=== PATIENT | female | born 1940 | race Caucasian/White ===

== ENCOUNTER 2020-11-24 01:35 | Outpatient (CLI) | payer OTHER, SELFPAY ==
[2020-11-24 09:55] LABS: Abs Immature Grans 0.02 10^3/uL (0.0-0.06); Absolute Basophil Count 0.03 10^3/uL (0.0-0.2); Absolute Eosinophil Count 0.11 10^3/uL (0.0-0.7); Absolute Lymphocyte Count 1.55 10^3/uL (1.2-3.4); Absolute Monocyte Count 0.64 10^3/uL (0.1-0.8); Absolute Neutrophil Count 4.67 10^3/uL (1.2-6.7); Basophils % 0.4; Eosinophils % 1.6; HCT 45.6 % (36.0-46.0); HGB 14.7 g/dL (11.2-15.7); Immature Grans % 0.3; Lymphocytes % 22.1; MCH 32.3 pg (27.0-33.0); MCHC 32.2 % (32.0-36.0); MCV 100.2 fL (80-95); MPV 11.1 fL (8.0-11.0); Monocytes % 9.1; Neutrophils % 66.5; Nucleated RBC 0 %; Platelet Count 205 10^3/uL (130-400); RBC 4.55 10^6/uL (3.93-5.22); RDW 14.6 % (11.7-14.6); RDW-SD 54.6 fL; WBC 7.02 10^3/uL (4.4-10.8)
[2020-11-24 10:10] LABS: ALT 18 U/L (14-59); AST 19 U/L (15-37); Albumin 3.6 g/dL (3.4-5.0); Alkaline Phosphatase 55 U/L (46-116); Anion Gap 6.3 mmol/L (3-11); BUN 15 mg/dL (7-18); Bilirubin, Total 0.5 mg/dL (0.2-1.0); CO2 29.7 mmol/L (21.0-32.0); CREATININE 0.7 mg/dL (0.55-1.02); Calcium 8.8 mg/dL (8.5-10.1); Chloride 106 mmol/L (98-107); Glucose 94 mg/dL (74-106); Potassium 4.3 mmol/L (3.5-5.1); Sodium 142 mmol/L (136-145); Total Protein 7.1 g/dL (6.4-8.2)
== END 2020-11-24 01:36 | disposition home or self-care (01) ==
LOC: LBO 01:35
PROVIDERS: PCP Nurse Practitioner Family; Visit Provider Internal Medicine
DX: Z85.3 Personal history of malignant neoplasm of breast (principal)
CPT/HCPCS: 36415; 80053; 85025

== ENCOUNTER 2020-11-26 03:16 | Outpatient (CLI) | payer OTHER, SELFPAY ==
--- NOTE | 2020-11-26 13:55 | DI.US_ITS ---
APPROVED REPORT EXAM: Comprehensive 2D, Doppler, and color-flow Echocardiogram Patient Location: Out-Patient Superintendent Overhead Distribution: Cheyenne Proctor RDCS (AE) Indications: Chronic thromboembolic disease, Other Information Study Quality: Adequate Conclusion Normal left ventricular wall thickness and chamber size. Estimated ejection fraction is 55 to 60%. Th ere are no segmental wall motion abnormalities Normal right ventricular size and systolic function Left atrium is mildly dilated. The right atrium is normal in size There are no structural or hemodynamically significant valvular abnormalities Mildly dilated ascending aorta Normal estimated right ventricular systolic pressure 26 mmHg Wall motion Left Ventricle The left ventricle is normal size. The left ventricular systolic function is normal. The left ventric ular ejection fraction is within the normal range. There is normal left ventricular wall thickness. T here is normal LV segmental wall motion. There is no ventricular septal defect visualized. LVEF is 55 -60%. Right Ventricle The right ventricle is normal size. The right ventricular systolic function is normal. The RVSP is 26 .4mmHg. Atria Left atrium is mildly dilated. The right atrium size is normal. The interatrial septum is intact with no evidence for an atrial septal defect. Aortic Valve The aortic valve is normal in structure. Aortic valve is trileaflet. There is no aortic valvular sten osis. No aortic regurgitation is present. Mitral Valve The mitral valve is normal in structure. No evidence of mitral valve stenosis. Trace mitral regurgita tion. Tricuspid Valve The tricuspid valve is normal in structure. There is no tricuspid valve stenosis. Trace tricuspid reg urgitation. Pulmonic Valve The pulmonary valve is normal in structure. There is no pulmonic valvular stenosis. Trace pulmonic re gurgitation. Great Vessels The aortic root is normal in size. The ascending aorta is mildly dilated. IVC is normal in size and c ollapses >50% with inspiration. Pericardium There is no pericardial effusion. 2D Dimensions IVSD d PLAX 0.82 cm F: 0.6-1.0 LV Vol A2C d MOD 69.0 mL LVPW d PLAX 0.81 cm F: 0.6 - 1.0 LV Vol A4C d MOD 65.1 mL LVID d PLAX 4.40 cm F: 3.8 - 5.2 LA vol/ BSA A2C s A-L 26.0 mL/m2 LVDs 2.95 cm F: 2.2 - 3.5 LA vol/ BSA A4C s A-L 18.4 mL/m2 Ao Root d 2.79 cm F: 2.7 - 3.3 LA Vol/ BSA Biplane s A-L 22.6 mL/m2 RA Area A4C 8.74 cm2 LA Area A4C s MOD 13.58 cm2 RA Vol/ BSA A4C s A-L 10.0 mL/m2 LA Area A2C s MOD 16.64 cm2 Ao Asc Diam d 3.62 cm F: 2.3 - 3.1 LV EF A4C MOD 58.3 % LV EF Teichholz 61.6 % LV EF A2C MOD 59.4 % LVEF (Truong's) 58.63 % F: 54 - 74 LV EF Biplane MOD 58.6 % LV Volume 53.34 mL F: 46 - 106 SV 39.48 mL LV Volume Index 31.19 mL/m2 F: 29 - 61 SV Index 23.07 mL/m2 LV Vol Biplane MOD 67.3 mL FS 32.90 % M-Mode TAPSE 2.07 cm (M/F) >1.7 LV Diastology MV E' medial 0.072 (>0.07 m/s) E/A Ratio 0.9 LV E/e MED 9.10 (<14) MV E Vmax 0.66 (0.4-1.3 m/s) MV E' lateral 0.087 (>0.1 m/s) MV A Vmax 0.75 (0.4-1.3 m/s) LV E/e LAT 7.55 (<14) MV E/A Ratio 0.84 MV E/E' medial 9.10 MV E/E' lateral 7.57 Aortic Valve LVOT Area 2.94 cm2 AoV Area Vmax 2.89 cm2 LVOT Vmax 1.07 m/s AoV Area/ BSA (Vmax) 1.69 cm2/m2 LVOT Mean Diaz. 0.67 m/s JOANNA Mean Diaz. 2.61 cm2 LVOT Peak Grad 4.6 mmHg JOANNA Mean Diaz. Index 1.52 cm2/m2 LVOT Mean Grad 2.1 mmHg LVOT VTI 0.210 m LVOT Diam s 1.90 cm AoV Vmax 1.08 m/s Velocity Ratio 0.99 AoV Mean Diaz. 0.75 m/s AoV Peak Grad 4.7 mmHg LVOT SV 61.73 mL AoV Mean Grad 2.5 mmHg AoV VTI 0.253 m AoV Area VTI 2.44 cm2 AoV Area/ BSA (VTI) 1.42 cm/m2 Mitral Valve MV DT 296 (160-240 msec) MR Vmax 3.99 m/s MV PHT 86 msec MR VTI 1.290 m MV Area PHT 2.56 cm2 MR Peak Grad 63.8 mmHg MV VTI 0.297 m MR Mean Grad 55.5 mmHg MV VTI Annulus 0.285 m MV Area VTI 2.00 (4.0-6.0 cm2) Pulmonary Valve PV Vmax 0.79 (0.5-1.5 m/s) RVOT Peak Gr. 1.12 mmHg PV Peak Grad 2.5 mmHg RVOT Mean Gr. 0.65 mmHg PV Mean Grad 1.3 mmHg RVOT VTI 0.124 m PV VTI 0.148 m RVOT Vmax 0.53 m/s Tricuspid Valve TR Peak Grad 23.4 mmHg TR Vmax 2.42 m/s RA Pressure 3.00 mmHg RVSP (TR) 26.4 mmHg
== END 2020-11-26 03:36 ==
PROVIDERS: PCP Nurse Practitioner Family; Visit Provider Student in an Organized Health Care Education/Training Program
DX: I82.891 Chronic embolism and thrombosis of other specified veins (principal); I77.810 Thoracic aortic ectasia; I51.7 Cardiomegaly
CPT/HCPCS: 93306

== ENCOUNTER 2020-11-27 03:03 | Outpatient (CLI) | payer MEDICARE, SELFPAY ==
[2020-11-27] MEDS: Albuterol HFA 18 GM 200 PUFF INH IH (11:26)
[2020-11-27] MEDS: Inhaler, Assist Device 1 EACH MC (11:27)
--- NOTE | 2020-12-02 17:46 | W.PFT ---
Date of service: 11/27/20 Time of Service: 10:10 Pulmonary Function Test Result Requesting Provider Sissy Dewitt Indications: COPD Interpretation Spirometry: There is moderate airflow limitation. There is no significant bronchodilator effect. Lung Volumes: Lung volumes are normal. Diffusion Capacity: There is a reduced diffusion capacity Airway Pressure: Airways resistance is elevated Impression Moderate airflow limitation with a reduced diffusion capacity could represent COPD with emphysema in the correct clinical context. Clinical Correlation therefore is recommended.
== END 2020-11-27 03:04 | disposition home or self-care (01) ==
LOC: RT 03:03
PROVIDERS: PCP Nurse Practitioner Family; Visit Provider Nurse Practitioner Family
DX: J44.9 Chronic obstructive pulmonary disease, unspecified (principal); R06.09 Other forms of dyspnea; Z86.711 Personal history of pulmonary embolism; Z87.891 Personal history of nicotine dependence; R94.2 Abnormal results of pulmonary function studies
CPT/HCPCS: 94060; 94726; 94729

== ENCOUNTER 2021-02-25 03:13 | Outpatient (CLI) | payer MEDICARE, SELFPAY | END 2021-02-25 03:14 | disposition home or self-care (01) | LOC: LBO 03:13 | PROVIDERS: PCP Nurse Practitioner Family; Visit Provider Student in an Organized Health Care Education/Training Program ==

== ENCOUNTER 2021-02-26 04:28 | Outpatient (CLI) | payer MEDICARE, SELFPAY ==
[2021-03-02 13:51] LABS: Result Negative; Specimen Source Sputum
== END 2021-02-26 04:29 | disposition home or self-care (01) ==
LOC: LBO 04:28
PROVIDERS: PCP Nurse Practitioner Family; Visit Provider Student in an Organized Health Care Education/Training Program
DX: B38.89 Other forms of coccidioidomycosis (principal)
CPT/HCPCS: 36415; 87798

== ENCOUNTER 2021-03-11 16:05 | Outpatient (REF) | payer MEDICARE, SELFPAY ==
[2021-03-11 16:58] LABS: Folate 18.6 ng/mL (8.6-20.0); TSH (W/Ref FT4) 1.47 uIU/mL (0.36-3.74)
[2021-03-11 17:02] LABS: Vitamin B12 > 2000 pg/mL (193-986)
== END 2021-03-11 16:06 | disposition home or self-care (01) ==
LOC: NCHCN 16:05
PROVIDERS: PCP Nurse Practitioner Family; Visit Provider Family Medicine
DX: E03.9 Hypothyroidism, unspecified (principal); R10.9 Unspecified abdominal pain; R53.83 Other fatigue
CPT/HCPCS: 82607; 82746; 84443

== ENCOUNTER 2021-06-16 12:42 | Emergency (ER) | payer MEDICARE, SELFPAY ==
[2021-06-16] VITALS (24 sets, daily range): BP systolic 118–151; BP diastolic 64–105; PULSE 55–78; RESP 14–29; TEMP 36.6; O2SAT 95–98
--- NOTE | 2021-06-16 13:17 | ED.GENADUL_ITS ---
Discharge Plan Disposition Patient Disposition: HOME Condition: Stable Discharge Details Clinical Impression: Traumatic hematoma of left upper arm, Contusion of rib on left side, Contusion of right hand Primary Care Provider: Lore Kaiser ED Provider: Raquel Mesa Home Meds and New Rx's Prescriptions: Continued omeprazole 20 mg capsule,delayed release(DR/EC) 20 mg PO DAILY 0RF Xarelto 20 mg tablet 20 mg PO DAILY 0RF Rx Instructions: must administer with evening meal simvastatin 40 mg tablet 40 mg PO DAILY 0RF levothyroxine 25 mcg tablet 25 mcg PO DAILY 0RF vitamin Z40-qxeim acid 500-400 mcg tablet 2 tab PO DAILY 0RF Rx Instructions: administer with a meal biotin 5 mg capsule 5 mg PO DAILY 0RF vitamin d3 folic acid capsule 5000 PO DIRECTED 0RF Trelegy Ellipta 100-62.5-25 mcg blister with device 1 inh inhalation DAILY Qty: 3 1RF Discharge Instructions Additional Instructions: You have a large hematoma which is a collection of blood in the soft tissue of your left upper arm. This is being wrapped in a soft dressing for protection and to help decrease the amount of swelling. Be careful not to bump your arm and use any assistance if needed to prevent falls and further injury to your arm including bleeding of your hematoma. The CT scan of your lungs noted nodules within the right upper and left upper lobes. It is recommended that you follow-up for repeat imaging of these areas for continued monitoring. The remainder of your imaging showed no evidence of acute concerning or significant findings. Take Tylenol as needed and directed for pain. Take the oxycodone for pain not relieved with tylenol. Call your primary care doctor's office today to schedule follow-up appointment for reevaluation. Return immediately to the emergency department if you develop any worsening or new concerning symptoms. Discharge Data Discharge Date/Time-TO BE ENTERED AT DEPARTURE: 06/16/21 17:51 Discharge Physician: Raquel Mesa Medical Decision Making 1250 -- 80-year-old female with a history of hyperlipidemia, sleep apnea, arthritis, anemia, COPD, DVT on Xarelto who presents with left arm and rib pain after fell against a wall while attempting to catch a baseball during exercise class prior to arrival. States she also fell onto her outstretched right hand and right buttock. She has faint ecchymosis to her right palmar hand and pain with range of motion at the right hip. She has what appears to be a significantly large hematoma to the left lateral upper arm. She has tenderness to palpation to her left lateral ribs. Her lungs are clear, her abdomen is soft and nontender and she has no midline spinal tenderness. As she denies any head injury will hold on CT imaging. No midline spinal tenderness. Will obtain CT chest abdomen pelvis to rule out rib fracture and assess right hip. Will obtain x-rays of the left shoulder and humerus and right hand. We will give a dose of oxycodone. 1500 -- CT chest /abdomen/pelvis notes: IMPRESSION: 1. No significant acute trauma sequelae in the chest, abdomen, and pelvis, realized limitations of a noninfused study 2. Compression fractures of T10 and L1, probably not acute. 3. Extensive sigmoid diverticulosis without evidence of obvious acute diverticulitis. 4.? Incidentally noted is a 7 millimeter noncalcified nodule in the anterior segment of the right upper lobe and a 6 millimeter nodule in the anterior segment of the left upper lobe.? These require close follow-up of these significant incidental findings in the chest. Remainder of imaging negative for acute findings. L upper arm hematoma discussed with orthopedics who recommended soft compression dressing to help with swelling with recommendations to monitor for bleeding. Results d/w patient who states she was aware of the lung nodules and compression fractures. 1800 -- Pt c/o persistent pain and was given an additional dose of oxycodone and her pain improved and she was able to ambulate and felt comfortable going home. Pt's daughter will transport pt home. Pt hemodynamically stable. Advised to follow up with the primary care doctor for re-evaluation. Usual and customary return precautions given prior to discharge. Medical Records Medical records reviewed: Yes I reviewed the patient's medical records. Imaging Data Radiologic Study: Radiologist's impression: CT CHEST/ABD/PEL WO CLINICAL HISTORY: ? fall against a fall, pain L rib, r/o fx. ? TECHNIQUE:? Imaging Protocol: Axial computed tomography images with coronal and sagittal reformatted images were created and reviewed CONTRAST MATERIAL:? Intravenous: none Oral: None COMPARISON:? No exams were available for comparison FINDINGS: CHEST: LUNGS: There are mild benign-appearing increased markings in left lung.? No large lung contusion.? No pleural effusions.? No pneumothorax..? Incidentally noted is a 7 millimeter noncalcified nodule in the anterior segment of the right upper lobe.? Another 6 millimeter nodule seen in the anterior segment of the left upper lobe..? There are no significant focal findings in the trachea and mainstem bronchi. MEDIASTINUM: No evidence of mediastinal hematoma.? No hilar nor mediastinal adenopathy.? Visualized thyroid unremarkable. CARDIAC: Heart size is normal.? There is no pericardial effusion.Caliber of the thoracic aorta is within normal limits. OSSEOUS: No significant osseous lesions.. ABDOMEN: There is no ascites.? No evidence of mesenteric nor bowel wall hematoma. LIVER: No evidence of a patent laceration.? No obvious significant focal hepatic findings realized limitations of a noninfused study.? Does appear to be a small cyst in the anterior aspect of the right hepatic lobe measuring 7 millimeters. GALLBLADDER/BILIARY: No obvious gallbladder pathology.? CBD is not dilated. PANCREAS: No evidence of obvious pancreatic mass nor dilatation of the pancreatic duct.? SPLEEN: Spleen is not enlarged.? No obvious intrasplenic lesions.? ADRENALS: There are no significant adrenal masses. KIDNEYS: No calculi nor hydronephrosis. No obvious solid renal masses. No cysts evident. ABDOMINAL AORTA: Abdominal aorta is not enlarged. LYMPH NODES: There is no retroperitoneal nor para-aortic adenopathy. ABDOMINAL WALL/GI: No evidence of significant anterior abdominal wall nor inguinal hernia.? No evidence of bowel obstruction. PELVIS:? LYMPH NODES: There is no intrapelvic nor inguinal adenopathy. GI: No evidence of appendicitis.? The sigmoid is quite redundant and there is extensive diverticulosis but no evidence of obvious acute diverticulitis. URINARY BLADDER: No calculi nor obvious masses evident REPRODUCTIVE: Age appropriate OSSEOUS: No significant osseous lesions. There is a compression fracture of L1 vertebral body, with approximately 20 percent height loss.? Also compression fracture of the T10 vertebral body.? These fractures are probably not acute. IMPRESSION: 1. No significant acute trauma sequelae in the chest, abdomen, and pelvis, realized limitations of a noninfused study 2. Compression fractures of T10 and L1, probably not acute. 3. Extensive sigmoid diverticulosis without evidence of obvious acute diverticul itis. 4.? Incidentally noted is a 7 millimeter noncalcified nodule in the anterior segment of the right upper lobe and a 6 millimeter nodule in the anterior segment of the left upper lobe.? These require close follow-up of these significant incidental findings in the chest. XR SHOULDER LT COMPLETE 2+V CLINICAL HISTORY: ? fall against wall, r/o fx. ? TECHNIQUE:? 2D digital imaging was performed. COMPARISON:? No exams were available for comparison FINDINGS: Five views No evidence of acute fracture or dislocation.? Subacromial space appears unremarkable without significant narrowing and without calcifications therein.? AC joint also appears unremarkable.? Bone density is age-appropriate.? No osseous lesions. IMPRESSION: No fracture or dislocation evident. XR HUMERUS LT CLINICAL HISTORY: ? fall against wall, r/o fracture/hematoma. ? TECHNIQUE:? 2D digital imaging was performed. COMPARISON:? No exams were available for comparison FINDINGS: Two views There is abundant abnormal density in the subcutaneous fat, most probably bruising-hematoma given the trauma history here. However, there is no evidence of suggests into humerus fracture.? IMPRESSION: Soft tissue swelling and subcutaneous hematoma in the left upper extremity but no evidence of humerus fracture. XR HAND RT COMPLETE CLINICAL HISTORY: ? fall on outstretched hand, r/o fx. ? TECHNIQUE:? 2D digital imaging was performed. COMPARISON:? No exams were available for comparison FINDINGS: Four views No evidence acute fracture nor dislocation.? Significant degenerative changes are noted at the 1st carpometacarpal joint.? No erosions.? Bone density is age- appropriate.? No radiopaque foreign body IMPRESSION: No acute fracture evident. HPI General Mode of arrival: EMS . Date/Time Provider Initiated Documentation: 06/16/21 13:17 . Information obtained by: patient . HPI Narrative: Patient is an 80-year-old female with a history of sleep apnea, hyperlipidemia, arthritis, anemia, COPD and DVT on Xarelto who presents to the ED with left arm and rib pain after fall while playing with a beach ball in exercise class. Patient states she was attempting to catch a beach ball and she lunged forward forward striking her left arm against a wall. She states her left ribs hit against her left arm. Patient states she also fell on her outstretched right hand and possibly on her right buttock. She denies head injury, headache, LOC, nausea, vomiting, neck pain, anterior chest pain, abdominal pain or back pain. She took Tylenol prior to arrival without relief. Related Data Home Medications Medication Instructions Recorded Confirmed biotin 5 mg capsule 5 mg PO DAILY 09/23/20 06/16/21 levothyroxine 25 mcg tablet 25 mcg PO DAILY 09/23/20 06/16/21 rivaroxaban 20 mg tablet (Xarelto) 20 mg PO DAILY 09/23/20 06/16/21 simvastatin 40 mg tablet 40 mg PO DAILY 09/23/20 06/16/21 vitamin B12 500 mcg-folic acid 400 2 tab PO DAILY tab 09/23/20 06/16/21 mcg tablet vitamin d3 folic acid capsule 5000 PO DIRECTED 09/23/20 04/29/21 fluticasone fur. 100 mcg-umeclid 1 inh INHALATION DAILY #3 ea 11/18/20 06/16/21 62.5 mcg-vilant 25 mcg inhalat.powder (Trelegy Ellipta) omeprazole 20 mg capsule,delayed 20 mg PO DAILY 04/29/21 06/16/21 release Previous Rx's Medication Instructions Recorded fluticasone fur. 100 mcg-umeclid 1 inh INHALATION DAILY #3 ea 11/18/20 62.5 mcg-vilant 25 mcg inhalat.powder (Trelegy Ellipta) Allergies Allergy/AdvReac Type Severity Reaction Status Date / Time Sulfa (Sulfonamide Allergy Verified 06/16/21 12:50 Antibiotics) General Stated Complaint: Orthopedic SAWYER: 3 Review of Systems All systems reviewed & are unremarkable except as noted in HPI and below Constitutional Constitutional: Denies chills, Denies excessive sweating, Denies fatigue, Denies fever(s), Denies weakness and Denies weight loss Eyes Eyes: Reports system reviewed and no additional complaints, except as documented and Denies blurry vision ENT Ears, Nose, Mouth, and Throat: Denies vertigo, Denies dizziness, Denies otalgia, Denies nasal congestion, Denies sore throat and Denies throat swelling Cardiovascular Cardiovascular: Denies chest pain, Denies syncope, Denies rapid heart rate and Denies dyspnea Respiratory Respiratory: Denies chest congestion, Denies cough, Denies pain on inspiration and Denies dyspnea Gastrointestinal Gastrointestinal: Denies abdominal pain, Denies diarrhea and Denies vomiting Genitourinary Genitourinary: Denies hematuria, Denies dysuria and Denies flank pain Musculoskeletal Musculoskeletal: Denies back pain and Denies joint swelling Comments: L upper arm pain, L rib pain, R hip/buttock pain Integumentary/Breasts Skin/Breast: Denies lesions and Denies rash Neurologic Neurologic: Denies behavioral changes, Denies confusion, Denies vertigo, Denies dizziness, Denies syncope, Denies localized weakness and Denies weakness Psychiatric Psychiatric: Denies behavioral changes, Denies confusion and Denies depression Endocrine Endocrine: Denies excessive sweating and Denies fatigue Hematologic/Lymphatic Hematologic/Lymphatic: Denies easy bruising and Denies lymphadenopathy Allergic/Immunologic Allergic/Immunologic: Denies throat swelling PFSH All Active Problems (Updated 06/16/21 @ 15:39 by Raquel Mesa DO) Traumatic hematoma of left upper arm (Acute) Contusion of rib on left side (Acute) Contusion of right hand (Acute) CESAR (obstructive sleep apnea) (Chronic) Coccidioidomycosis (Acute) Chronic thromboembolic disease (Acute) DVT (deep venous thrombosis) (Chronic) Arthritis (Acute) Anemia (Chronic) Thyroid disease (Acute) COPD with emphysema (Acute) Medical History (Updated 06/16/21 @ 15:39 by Raquel Mesa DO) Bleeding disorder Cancer High cholesterol History of blood clots RVF ([place] fever) Sleep apnea Surgical History (Updated 10/07/20 @ 09:20 by Mariana Lewis) Cataract History of lumpectomy 10/22/2016 Family History (Updated 10/07/20 @ 09:15 by Mariana Lewis) Mother Asthma Father Stroke at 69 Sister Breast cancer Breast and lung cancer. at 71. Social History (Updated 10/07/20 @ 09:16 by Mariana Lewis) Smoking/Tobacco Use Status: Former Tobacco Use Quit Date: 02/15/76 Pack-years: 13 Smoking risk assessment performed?: Yes Alcohol Intake: current Alcohol Intake frequency: a few times a week Alcohol type: wine Drug use: Never Substance use type: does not use Do you feel safe at home: Yes Do you feel safe in your relationship?: Yes Exam Const General: cooperative and uncomfortable Orientation: alert, awake and oriented x3 HENMT Head: normal to inspection Ears: hearing grossly normal bilaterally and external ears normal General nose exam: external nose normal Face and sinus: normal facial exam Mouth: oral mucosae normal Teeth and gingiva: dentition normal Throat: posterior oropharynx normal Eyes General: appearance normal, both eyes and all related structures Eyelids: eyelids normal Pupils: PERRL EOM: EOM intact bilaterally Neck Neck: normal visual inspection, no lymphadenopathy, no meningeal signs, trachea midline, supple, no anterior neck swelling and No submandibular swelling Lymphatic: no lymphadenopathy noted Chest Chest: normal inspection of the chest and normal palpation of entire chest wall Chest/axillae images: 1. Tenderness to palpation to left lateral ribs. There is no ecchymosis, edema, erythema, step-off, rash or lesions. Resp Effort & Inspection: normal respiratory effort and able to speak in complete sentences Auscultation: clear to auscultation bilaterally Cardio Rate: regular rate Rhythm: regular rhythm GI Inspection: normal to inspection and no abdominal wall ecchymosis Palpation: soft, not firm, no guarding, no hepatosplenomegaly, no masses and nontender Auscultation: hypoactive bowel sounds Back/Spine/Pelvis Back: no CVA tenderness Cervical Spine: No cervical spinal tenderness Thoracic/Lumbar Spine: No thoracic spinal tenderness and No lumbar spinal tenderness Back/spine/pelvis image: 1. Tenderness to palpation. No edema, erythema, ecchymosis, step-off, rash or lesions. Skin General skin exam: no rashes or lesions noted Neuro General: patient alert and patient awake Cognition: normal cognition Speech: speech normal Gait: normal gait Motor: muscle tone normal throughout Sensory Exam: no sensory deficits noted Extrem Shoulder/upper arm images: 1. Large indurated mass with central ecchymosis, approximately 10 x 6 cm in size. Tender to palpation. No drainage or bleeding. No crepitus. Hand/finger images: 1. Faint ecchymosis, tenderness to palpation and pain with range of motion to base of right palmar hand. Other: Pain in left anterior shoulder with range of motion and palpation. Pain in right hip and right buttocks with range of motion of right hip. There is no o bvious evidence of trauma to the right hip or buttock. No pain with range of motion in left hip, bilateral knees, ankles or feet. Remainder of right upper and left upper extremities unremarkable. Bilateral distal pulses intact. Psych Appearance: grossly normal Mental Status: mental status grossly normal Speech and Movement: speech and movement normal Affect: normal affect Thought Process: normal Course Vital Signs Vital signs: Vital Signs Temperature 97.9 F 06/16/21 12:45 Pulse 63 06/16/21 12:45 Respiratory Rate 17 06/16/21 12:45 Blood Pressure 151/73 H 06/16/21 12:45 Pulse Oximetry 96 06/16/21 12:45 Temperature 97.9 F 06/16/21 12:45 Temperature Source Temporal Artery Scan 06/16/21 12:45 Pulse 63 06/16/21 12:45 Respiratory Rate 17 06/16/21 12:45 Respiratory Effort Non-Labored 06/16/21 12:48 Blood Pressure 151/73 H 06/16/21 12:45 Blood Pressure Position Sitting 06/16/21 12:45 Pulse Oximetry 96 06/16/21 12:45 Oxygen Delivery Method Room Air 06/16/21 12:45 Oxygen Flow Rate 0 06/16/21 12:45 Pain Level 57 06/16/21 12:45 PAWSS Have you Been Recently Intoxicated or Drunk Within the Last 30 days?: No Have you Ever Experienced Previous Episodes of Alcohol Withdrawal?: No Have you ever Experienced Withdrawal Seizures?: No Have you ever Experienced Delirium Tremens(DT)s?: No Have you ever undergone Alcohol Rehabilitation Treatment (i.e, inpt ot outpatient treatment programs)?: No Have you ever Experienced Blackouts?: No Have you ever Combined Alcohol with other Downers within the last 90 days?: No Have you ever Combined Alcohol with any other Substance of Abuse during the last 90 days?: No Result: 0
--- NOTE | 2021-06-16 13:30 | DI.CT_ITS ---
Exam(s) CT CHEST/ABD/PEL WO EXAM: CT CHEST/ABD/PEL WO CLINICAL HISTORY: fall against a fall, pain L rib, r/o fx. TECHNIQUE: Imaging Protocol: Axial computed tomography images with coronal and sagittal reformatted images were created and reviewed CONTRAST MATERIAL: Intravenous: none Oral: None COMPARISON: No exams were available for comparison FINDINGS: CHEST: LUNGS: There are mild benign-appearing increased markings in left lung. No large lung contusion. No pleural effusions. No pneumothorax.. Incidentally noted is a 7 millimeter noncalcified nodule in t he anterior segment of the right upper lobe. Another 6 millimeter nodule seen in the anterior segmen t of the left upper lobe.. There are no significant focal findings in the trachea and mainstem bronc hi. MEDIASTINUM: No evidence of mediastinal hematoma. No hilar nor mediastinal adenopathy. Visualized t hyroid unremarkable. CARDIAC: Heart size is normal. There is no pericardial effusion.Caliber of the thoracic aorta is wit hin normal limits. OSSEOUS: No significant osseous lesions.. ABDOMEN: There is no ascites. No evidence of mesenteric nor bowel wall hematoma. LIVER: No evidence of a patent laceration. No obvious significant focal hepatic findings realized li mitations of a noninfused study. Does appear to be a small cyst in the anterior aspect of the right hepatic lobe measuring 7 millimeters. GALLBLADDER/BILIARY: No obvious gallbladder pathology. CBD is not dilated. PANCREAS: No evidence of obvious pancreatic mass nor dilatation of the pancreatic duct. SPLEEN: Spleen is not enlarged. No obvious intrasplenic lesions. ADRENALS: There are no significant adrenal masses. KIDNEYS: No calculi nor hydronephrosis. No obvious solid renal masses. No cysts evident. ABDOMINAL AORTA: Abdominal aorta is not enlarged. LYMPH NODES: There is no retroperitoneal nor para-aortic adenopathy. ABDOMINAL WALL/GI: No evidence of significant anterior abdominal wall nor inguinal hernia. No evidence of bowel obstruction. PELVIS: LYMPH NODES: There is no intrapelvic nor inguinal adenopathy. GI: No evidence of appendicitis. The sigmoid is quite redundant and there is extensive diverticulosi s but no evidence of obvious acute diverticulitis. URINARY BLADDER: No calculi nor obvious masses evident REPRODUCTIVE: Age appropriate OSSEOUS: No significant osseous lesions. There is a compression fracture of L1 vertebral body, with approximately 20 percent height loss. Als o compression fracture of the T10 vertebral body. These fractures are probably not acute. IMPRESSION: 1. No significant acute trauma sequelae in the chest, abdomen, and pelvis, realized limitations of a noninfused study 2. Compression fractures of T10 and L1, probably not acute. 3. Extensive sigmoid diverticulosis without evidence of obvious acute diverticulitis. 4. Incidentally noted is a 7 millimeter noncalcified nodule in the anterior segment of the right upp er lobe and a 6 millimeter nodule in the anterior segment of the left upper lobe. These require clos e follow-up of these significant incidental findings in the chest. RADIATION DOSE DELIVERED: 1,278.32mGy.cm Total DLP DATA REPOSITORY: All CT scans at this facility are submitted to the National Radiology Data Registry (NRDR) Dose Index Registry (DIR) with the [employer] (ACR). RADIATION OPTIMIZATION: All CT scans at this facility use at least one of these dose optimization te chniques: automated exposure control; mA and/or kV adjustment per patient size (includes targeted exa ms where dose is matched to clinical indication); or iterative reconstruction.
--- NOTE | 2021-06-16 15:02 | DI.RAD_ITS ---
Exam(s) XR HAND RT COMPLETE EXAM: XR HAND RT COMPLETE CLINICAL HISTORY: fall on outstretched hand, r/o fx. TECHNIQUE: 2D digital imaging was performed. COMPARISON: No exams were available for comparison FINDINGS: Four views No evidence acute fracture nor dislocation. Significant degenerative changes are noted at the 1st ca rpometacarpal joint. No erosions. Bone density is age-appropriate. No radiopaque foreign body IMPRESSION: No acute fracture evident. DATA REPOSITORY: RADIATION DOSE DELIVERED:
--- NOTE | 2021-06-16 15:02 | DI.RAD_ITS ---
Exam(s) XR HUMERUS LT EXAM: XR HUMERUS LT CLINICAL HISTORY: fall against wall, r/o fracture/hematoma. TECHNIQUE: 2D digital imaging was performed. COMPARISON: No exams were available for comparison FINDINGS: Two views There is abundant abnormal density in the subcutaneous fat, most probably bruising-hematoma given the trauma history here. However, there is no evidence of suggests into humerus fracture. IMPRESSION: Soft tissue swelling and subcutaneous hematoma in the left upper extremity but no evidence of humerus fracture. DATA REPOSITORY: RADIATION DOSE DELIVERED:
--- NOTE | 2021-06-16 15:02 | DI.RAD_ITS ---
Exam(s) XR SHOULDER LT COMPLETE 2+V EXAM: XR SHOULDER LT COMPLETE 2+V CLINICAL HISTORY: fall against wall, r/o fx. TECHNIQUE: 2D digital imaging was performed. COMPARISON: No exams were available for comparison FINDINGS: Five views No evidence of acute fracture or dislocation. Subacromial space appears unremarkable without signifi cant narrowing and without calcifications therein. AC joint also appears unremarkable. Bone density is age-appropriate. No osseous lesions. IMPRESSION: No fracture or dislocation evident. DATA REPOSITORY: RADIATION DOSE DELIVERED:
[2021-06-16] MEDS: oxyCODONE 5 MG TAB PO ×2 (15:30→16:52)
== END 2021-06-16 17:51 | disposition home or self-care (01) ==
PROVIDERS: Emergency Provider Physician Assistant; PCP Family Medicine
DX: S40.022A Contusion of left upper arm, initial encounter (principal); S20.212A Contusion of left front wall of thorax, initial encounter; S60.221A Contusion of right hand, initial encounter; W18.39XA Other fall on same level, initial encounter; R91.8 Other nonspecific abnormal finding of lung field
CPT/HCPCS: 71250; 99284; 73030; 73060; 73130; 74176

== ENCOUNTER 2021-06-23 01:49 | Outpatient (CLI) | payer MEDICARE, SELFPAY ==
[2021-06-23 15:00] LABS: Abs Immature Grans 0.03 10^3/uL (0.0-0.06); Absolute Basophil Count 0.03 10^3/uL (0.0-0.2); Absolute Eosinophil Count 0.04 10^3/uL (0.0-0.7); Absolute Lymphocyte Count 1.06 10^3/uL (1.2-3.4); Absolute Monocyte Count 0.82 10^3/uL (0.1-0.8); Absolute Neutrophil Count 7.29 10^3/uL (1.2-6.7); Basophils % 0.3; Eosinophils % 0.4; HCT 43.8 % (36.0-46.0); HGB 13.9 g/dL (11.2-15.7); Immature Grans % 0.3; Lymphocytes % 11.4; MCH 32.3 pg (27.0-33.0); MCHC 31.7 % (32.0-36.0); MCV 102 fL (80-95); MPV 10.9 fL (8.0-11.0); Monocytes % 8.8; Neutrophils % 78.8; Platelet Count 200 10^3/uL (130-400); RDW 14.3 % (11.7-14.6); RDW-SD 53.7 fL; WBC 9.27 10^3/uL (4.4-10.8)
[2021-06-23 15:14] LABS: ALT 22 U/L (14-59); AST 19 U/L (15-37); Albumin 3.3 g/dL (3.4-5.0); Alkaline Phosphatase 51 U/L (46-116); Anion Gap 6.7 mmol/L (3-11); BUN 21 mg/dL (7-18); Bilirubin, Total 0.7 mg/dL (0.2-1.0); CO2 28.3 mmol/L (21.0-32.0); CREATININE 1.1 mg/dL (0.55-1.02); Calcium 8.9 mg/dL (8.5-10.1); Chloride 107 mmol/L (98-107); Estimated GFR 47.67 (mL/min/1.73m2); Glucose 157 mg/dL (74-106); Potassium 4.1 mmol/L (3.5-5.1); Sodium 142 mmol/L (136-145); Total Protein 6.7 g/dL (6.4-8.2)
== END 2021-06-23 01:50 | disposition home or self-care (01) ==
LOC: LBO 01:50
PROVIDERS: PCP Family Medicine; Visit Provider Internal Medicine
DX: Z85.3 Personal history of malignant neoplasm of breast (principal)
CPT/HCPCS: 36415; 80053; 85025

== ENCOUNTER 2021-06-23 16:24 | Inpatient (IN) | payer MEDICARE, SELFPAY ==
[2021-06-23] VITALS (84 sets, daily range): BP systolic 97–120; BP diastolic 55–95; PULSE 62–150; RESP 13–31; TEMP 36.3; O2SAT 90–97
--- NOTE | 2021-06-23 16:15 | RT.EKG_ITS ---
APPROVED REPORT Exam: Resting ECG Reason for Exam: new onset afib Patient Location: E HR:140 bpm ECG Measurements Heart Rate 140 AXIS VA [id number] P [id number] QRSd 72 QRS 16 QT 297 T -31 QTc 455 Conclusion Atrial fibrillation...? atrial activity Repolarization abnormality, prob rate related...ST dep, T neg, tachycardia
--- NOTE | 2021-06-23 16:45 | DI.RAD_ITS ---
Exam(s) XR PORTABLE CHEST AP EXAM: XR PORTABLE CHEST AP CLINICAL HISTORY: shortness of breath TECHNIQUE: 2D digital imaging was performed. COMPARISON: CT CT CHEST/ABD/PEL WO from 06/16/2021 CR XR SHOULDER LT COMPLETE 2+V from 06/16/2021 CR XR HUMERUS LT from 06/16/2021 FINDINGS: There is a small left pleural effusion, not seen on previous chest CT. There are left sided rib frac tures. There is no visible pneumothorax. The heart size is within normal limits. The right lung ap pears clear. Surgical clips overlie the right lower lung field. Mild underlying interstitial change s. Degenerative changes are noted in the spine. IMPRESSION: Small left pleural effusion. Left rib fractures DATA REPOSITORY: RADIATION DOSE DELIVERED:
[2021-06-23 16:54] LABS: Abs Immature Grans 0.03 10^3/uL (0.0-0.06); Absolute Basophil Count 0.04 10^3/uL (0.0-0.2); Absolute Eosinophil Count 0.02 10^3/uL (0.0-0.7); Absolute Lymphocyte Count 0.83 10^3/uL (1.2-3.4); Absolute Monocyte Count 0.66 10^3/uL (0.1-0.8); Absolute Neutrophil Count 6.31 10^3/uL (1.2-6.7); Basophils % 0.5; Eosinophils % 0.3; HCT 42.7 % (36.0-46.0); HGB 13.7 g/dL (11.2-15.7); Immature Grans % 0.4; Lymphocytes % 10.5; MCH 32.7 pg (27.0-33.0); MCHC 32.1 % (32.0-36.0); MCV 102 fL (80-95); MPV 11.3 fL (8.0-11.0); Monocytes % 8.4; Neutrophils % 79.9; Platelet Count 197 10^3/uL (130-400); RBC 4.19 10^6/uL (3.93-5.22); RDW 14.3 % (11.7-14.6); RDW-SD 53.5 fL; WBC 7.89 10^3/uL (4.4-10.8)
--- NOTE | 2021-06-23 17:02 | ED.GENADUL_ITS ---
Discharge Plan Disposition Patient Disposition: [facility] INPATIENT Condition: Critical Discharge Details Clinical Impression: Hemothorax on left, Multiple fractures of ribs of left side, Atrial fibrillation with rapid ventricular response Admit Date/Time: 06/24/21 10:33 Admit Provider: Klaus Noguera Attending Provider: Lois Alonso Primary Care Provider: Lore Kaiser ED Provider: Shabbir Bob Discharge Data Discharge Date/Time-TO BE ENTERED AT DEPARTURE: 06/23/21 23:40 Medical Decision Making 1699 --80-year-old female presents with new onset shortness of breath, found to be in A. fib at oncology clinic, saturating well here with no respiratory distress. Patient is tachycardic and irregularly irregular with low normal blood pressure. A fibrillation with RVR noted on rn cardiac cath. Screening EKG was reviewed and interpreted by me: A. fib with rapid ventricular response 140 bpm, please see report. I will initiate treatment with diltiazem 50 mg IV and continue IV infusion if adequate response. Consider acute CHF given new onset atrial fibrillation with shortness of breath and new onset lower extremity edema. I will check a BNP. Patient does have some left-sided chest discomfort which is not clear if related to recent from a week ago but given chest discomfort with shortness of breath, new onset A. fib in the setting of prior DVT, consider pulmonary embolism. Patient is on Eliquis. I will check D-dimer. -- Patient was initially given diltiazem 15 mg bolus and started on infusion. Labs reviewed and D-dimer elevated. Concern for pulmonary embolism. Plan to obtain CT of the chest. --CT of chest was reviewed and interpreted by radiology: No evidence of pulmonary embolism, minimally displaced acute fracture of the posterior left ninth rib and significantly displaced fracture of the posterior left eighth rib. Minimally displaced fractures of the anterior left third, fourth, fifth, sixth and seventh ribs. New small left pleural effusion most likely compatible with hemothorax from traumatic chest injuries. New heterogeneous consolidation of the posterior left lower lobe most likely compatible with compressive atelectasis. Mild to moderate emphysematous changes throughout the lungs unc hanged. --Patient was given additional Lopressor 2.5 mg IV and converted to sinus rhythm. She did have a significant ventricular pause prior to converting. Patient was given fentanyl 50mcg for pain. 2114 --I spoke with Dr. Jim, on-call general surgeon, discussed ED presentation and course and she reviewed CT imaging. She recommends holding rivaroxaban dose tonight and will consider chest tube placement versus potentially VATS procedure. She does not recommend emergent thoracostomy at this time. Plan to admit to hospitalist service in the ICU. HPI General Mode of arrival: ambulatory . Date/Time Provider Initiated Documentation: 06/23/21 16:32 . Limitations to Documentation: no limitations . Information obtained by: patient . HPI Narrative: 80-year-old female with history of breast cancer status post resection, chemo and radiation 5 years ago, now in remission, DVT on Xarelto and taking as prescribed, COPD, hypothyroidism, here with chief complaint of difficulty breathing. Patient notes difficulty breathing that started yesterday and has progressed and worsened. Now moderate to severe and worse with exertion. She also notes some increased swelling of her legs bilaterally over the past few days. Patient denies associated dizziness. Patient was seen today by her oncologist and routine follow-up and found to be a A. fib and sent to the emergency department for further work-up and treatment. Patient patient did fall about a week ago and was seen here in the emergency department and had CT of her chest abdomen pelvis as well as x-ray of her extremity which were unremarkable. She continues to have pain in her left arm and left lateral chest/ribs. Related Data Home Medications Medication Instructions Recorded Confirmed biotin 5 mg capsule 5 mg PO DAILY 09/23/20 06/23/21 levothyroxine 25 mcg tablet 25 mcg PO DAILY 09/23/20 06/23/21 rivaroxaban 20 mg tablet (Xarelto) 20 mg PO DAILY 09/23/20 06/23/21 simvastatin 40 mg tablet 40 mg PO DAILY 09/23/20 06/23/21 vitamin B12 500 mcg-folic acid 400 2 tab PO DAILY 09/23/20 06/23/21 mcg tablet vitamin d3 folic acid capsule 5000 PO DIRECTED 09/23/20 04/29/21 fluticasone fur. 100 mcg-umeclid 1 inh inhalation DAILY #3 ea 11/18/20 06/16/21 62.5 mcg-vilant 25 mcg inhalat.powder (Trelegy Ellipta) omeprazole 20 mg capsule,delayed 20 mg PO DAILY 04/29/21 06/23/21 release fluticasone fur. 100 mcg-umeclid 1 inh inhalation DAILY 06/23/21 06/23/21 62.5 mcg-vilant 25 mcg inhalat.powder (Trelegy Ellipta) metoprolol tartrate 25 mg tablet 12.5 mg PO BID #30 tabs 06/25/21 Previous Rx's Medication Instructions Recorded fluticasone fur. 100 mcg-umeclid 1 inh inhalation DAILY #3 ea 11/18/20 62.5 mcg-vilant 25 mcg inhalat.powder (Trelegy Ellipta) metoprolol tartrate 25 mg tablet 12.5 mg PO BID #30 tabs 06/25/21 Allergies Allergy/AdvReac Type Severity Reaction Status Date / Time Sulfa (Sulfonamide Allergy Verified 06/16/21 12:50 Antibiotics) General Stated Complaint: SOB SAWYER: 2 Review of Systems All systems reviewed & are unremarkable except as noted in HPI and below Constitutional Constitutional: Denies fever(s) Cardiovascular Cardiovascular: Reports chest pain and Reports dyspnea Respiratory Respiratory: Reports dyspnea PFSH All Active Problems (Updated 06/26/21 @ 00:04 by FAITH ROBLES) Traumatic hematoma of left upper arm (Acute) Contusion of rib on left side (Acute) Contusion of right hand (Acute) CESAR (obstructive sleep apnea) (Chronic) Coccidioidomycosis (Acute) Chronic thromboembolic disease (Chronic) Arthritis (Acute) Anemia (Chronic) Thyroid disease (Acute) COPD with emphysema (Acute) Medical History Bleeding disorder Cancer High cholesterol History of blood clots 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 at 71. Social History Smoking/Tobacco Use Status: Former Tobacco Use Quit Date: 02/15/76 Pack-years: 13 Smoking risk assessment performed?: Yes Alcohol Intake: current Alcohol Intake frequency: a few times a week Alcohol type: wine Drug use: Never Substance use type: does not use Do you feel safe at home: Yes Do you feel safe in your relationship?: Yes Exam Const General: cooperative and no acute distress HENMT Mouth: moist mucous membranes Neck Neck: trachea midline and supple Chest Chest: tenderness rib (left lateral) Resp Auscultation: clear to auscultation bilaterally, no rales, no rhonchi and no wheezes Cardio Rate: tachycardic Rhythm: abnormal rhythm Heart Sounds: no gallops, no murmurs and no rubs Pulses: radial pulses present bilaterally 2+ GI Palpation: soft, not firm, no guarding, no masses, not rigid and nontender Skin General skin exam: ecchymosis (left upper arm) Neuro General: patient alert, patient awake, patient oriented x3 and tone normal Extrem Right lower extremity: edema Details: 1+ Left lower extremity: edema Details: 1+ Psych Appearance: grossly normal Mental Status: mental status grossly normal Speech and Movement: speech and movement normal Course Vital Signs Vital signs: Vital Signs Pulse 140 H 06/23/21 16:49 Respiratory Rate 20 06/23/21 16:49 Blood Pressure 108/81 06/23/21 16:49 Pulse Oximetry 95 06/23/21 16:49 Pulse 140 H 06/23/21 16:49 Respiratory Rate 20 06/23/21 16:49 Respiratory Effort 06/23/21 16:53 Respiratory Depth Normal 06/23/21 16:52 Respiratory Pattern Normal 06/23/21 16:52 Blood Pressure 108/81 06/23/21 16:49 Pulse Oximetry 95 06/23/21 16:49 Oxygen Delivery Method Room Air 06/23/21 16:49 Oxygen Flow Rate 0 06/23/21 16:49 Lab/Test Results Lab/Test Results: Laboratory Tests Range/Units 06/23/21 16:43 WBC (4.4-10.8) 10^3/uL 7.89 RBC (3.93-5.22) 10^6/uL 4.19 Hgb (11.2-15.7) g/dL 13.7 Hct (36.0-46.0) % 42.7 MCV (80-95) fL 102 H MCH (27.0-33.0) pg 32.7 MCHC (32.0-36.0) % 32.1 RDW (11.7-14.6) % 14.3 Plt Count (130-400) 10^3/uL 197 MPV (8.0-11.0) fL 11.3 H Immature Gran % 0.4 Neutrophils % 79.9 Lymphocytes % 10.5 Monocytes % 8.4 Eosinophils % 0.3 Basophils % 0.5 Nucleated RBC % (0.0-0.3) % 0.0 Absolute Neutrophils (1.2-6.7) 10^3/uL 6.31 Absolute Lymphocytes (1.2-3.4) 10^3/uL 0.83 L Absolute Monocytes (0.1-0.8) 10^3/uL 0.66 Absolute Eosinophils (0.0-0.7) 10^3/uL 0.02 Absolute Basophils (0.0-0.2) 10^3/uL 0.04 Critical Care Time Critical Care Time Critical Care Time: Yes Total Critical Care Time: 65 Attestation: I spent greater than 65 minutes addressing this patient's immediate life threats. Please see MDM section of note. This time was spent engaged in work directly related to the patient's care, exclusive of separate procedures, and failure to initiate these interventions would have likely resulted in clinically significant or life threatening deterioration in the patient's condition. PAWSS Have you Been Recently Intoxicated or Drunk Within the Last 30 days?: No Have you Ever Experienced Previous Episodes of Alcohol Withdrawal?: No Have you ever Experienced Withdrawal Seizures?: No Have you ever Experienced Delirium Tremens(DT)s?: No Have you ever undergone Alcohol Rehabilitation Treatment (i.e, inpt ot outpatient treatment programs)?: No Have you ever Experienced Blackouts?: No Have you ever Combined Alcohol with other Downers within the last 90 days?: No Have you ever Combined Alcohol with any other Substance of Abuse during the last 90 days?: No Positive Blood Alcohol level on Presentation? [PCS.BAL]: No Evidence of Increased Autonomic Activity (i.e. HR>120, tremor, sweating, agitation, nausea)?: No Result: 0
[2021-06-23 17:07] LABS: Source Nasal/Nares
[2021-06-23] MEDS: dilTIAZem 25 MG/5 ML VIAL 15 MG IVP (17:12)
[2021-06-23 17:18] LABS: ALT 23 U/L (14-59); AST 19 U/L (15-37); Albumin 3.4 g/dL (3.4-5.0); Alkaline Phosphatase 55 U/L (46-116); Anion Gap 8.5 mmol/L (3-11); BUN 24 mg/dL (7-18); Bilirubin, Total 0.7 mg/dL (0.2-1.0); CO2 27.5 mmol/L (21.0-32.0); Calcium 9.1 mg/dL (8.5-10.1); Chloride 106 mmol/L (98-107); Estimated GFR 53.21 (mL/min/1.73m2); Glucose 181 mg/dL (74-106); Magnesium 2.7 mg/dL (1.8-2.4); Sodium 142 mmol/L (136-145); TSH (W/Ref FT4) 1.41 uIU/mL (0.36-3.74); Total Protein 6.9 g/dL (6.4-8.2); Troponin I < 50 ng/L (<or=60)
[2021-06-23] MEDS: dilTIAZem 125 MG in Normal Saline 100 ML IV (17:27)
[2021-06-23 17:33] LABS: NT-proBNP 687 pg/mL (<300)
--- NOTE | 2021-06-23 17:45 | DI.CT_ITS ---
Exam(s) CT CHEST PE CTA EXAM: CT CHEST PE CTA CLINICAL HISTORY: chest discomfort, new afib, sob, elevated ddimer. TECHNIQUE: Imaging Protocol: Axial CT angiography was performed with multi-slice acquisition and mu lti-planar reconstructions as well as axial, coronal and sagittal MIP reconstructions. CONTRAST MATERIAL: Intravenous: Omnipaque 350 Contrast volume:100 ml COMPARISON: CT CT CHEST WO CONTRAST from 12/11/[address] CHEST/ABD/PEL WO from 06/16/2021 FINDINGS: There are displaced fractures of the left 3rd through 9th ribs. There is a small left pleural effusi on and adjacent compressive atelectasis. There are underlying emphysematous changes, [id number] e. No pneumothorax. There is a stable 7 millimeter nodule in the anterior right upper lobe. No oh picious masses. No evidence of pulmonary emboli or aortic dissection. Heart mildly enlarged. Visua lized portions of the upper abdomen are unremarkable. Stable lower thoracic compression fracture. N o acute spinal fractures. IMPRESSION: No evidence of pulmonary embolism. Small left pleural effusion and adjacent compressive atelectasis. Multiple left-sided rib fractures, acute. No pneumothorax. RADIATION DOSE DELIVERED: 343.47mGy.cm Total DLP DATA REPOSITORY: All CT scans at this facility are submitted to the National Radiology Data Registry (NRDR) Dose Index Registry (DIR) with the [employer] (ACR). RADIATION OPTIMIZATION: All CT scans at this facility use at least one of these dose optimization te chniques: automated exposure control; mA and/or kV adjustment per patient size (includes targeted exa ms where dose is matched to clinical indication); or iterative reconstruction.
[2021-06-23 17:48] LABS: D-Dimer 1354 ng/mlFEU (<500)
--- NOTE | 2021-06-23 18:13 | DI.VRAD_ITS ---
PROCEDURE INFORMATION: Exam: XR Chest Exam date and time: 06/23/2021 5:18 PM Age: 80 years old Clinical indication: Shortness of breath; Patient HX: SOB TECHNIQUE: Imaging protocol: XR of the chest. Views: 1 view. COMPARISON: CT CHEST/ABD/PEL WO 06/16/2021 2:20 PM FINDINGS: Lungs: Heterogeneous consolidation of the retrocardiac left pulmonary base raises suspicion for new atelectasis versus pneumonia. [employer] homogeneous opacification of the lateral left pulmonary base most likely compatible with prominent pericardial fat pad as opposed to pleural fluid. Coarse interstitial pulmonary markings and lucency of the upper lobes compatible with chronic lung disease. Pleural spaces: See Lungs finding. Heart/Mediastinum: See Lungs finding. Bones/joints: Unremarkable. Soft tissues: Surgical clips overlying the right pulmonary base compatible with prior right breast surgery. IMPRESSION: 1. Heterogeneous consolidation of the retrocardiac left pulmonary base raises suspicion for new atelectasis versus pneumonia. 2. Coarse interstitial pulmonary markings and lucency of the upper lobes compatible with chronic lung disease. Dictated and Authenticated by: Gopi Serrato MD. Ordering:MITRA Shea MD
[2021-06-23 18:51] LABS: COVID-19 PCR Negative (Negative)
[2021-06-23] MEDS: Omnipaque 350 MG/ML 50 ML BTL IJ (19:08)
--- NOTE | 2021-06-23 19:31 | DI.VRAD_ITS ---
Addendum created by Gopi Serrato MD on 06/23/2021 7:37:43 PM EDT: THIS REPORT CONTAINS FINDINGS THAT MAY BE CRITICAL TO PATIENT CARE. The findings were verbally communicated via telephone conference with LORENA GALVAN at 7:36 PM EDT on 06/23/2021. The findings were acknowledged and understood. Initial report created on 06/23/2021 7:31:36 PM EDT: PROCEDURE INFORMATION: Exam: CTA Chest With Contrast Exam date and time: 06/23/2021 6:56 PM Age: 80 years old Clinical indication: Pain and abnormal findings; Abnormal diagnostic tests; Elevated d-dimer; Left-sided; Patient HX: Chest discomfort, new afib, SOB, elevated ddimer; Additional info: Recent fall TECHNIQUE: Imaging protocol: Computed tomographic angiography of the chest with contrast. 3D rendering (Not supervised by radiologist): MIP and/or 3D reconstructed images were created by the technologist. Radiation optimization: All CT scans at this facility use at least one of these dose optimization techniques: automated exposure control; mA and/or kV adjustment per patient size (includes targeted exams where dose is matched to clinical indication); or iterative reconstruction. Contrast material: OMNIPAQUE 350; Contrast volume: 50 ml; Contrast route: INTRAVENOUS (IV); COMPARISON: CT CHEST/ABD/PEL WO 06/16/2021 2:20 PM FINDINGS: Pulmonary arteries: Normal. No pulmonary emboli. Aorta: Unremarkable. No aortic aneurysm. No aortic dissection. Lungs: New consolidation of the posterior left lower lobe most likely compatible with compressive atelectasis. No suspicious parenchymal lung nodule. [id number] emphysematous changes throughout the lungs, unchanged. Pleural spaces: New small left pleural effusion, most likely compatible with hemothorax from traumatic chest injuries. Heart: No significant coronary calcifications. No cardiomegaly. No pericardial effusion. Lymph nodes: Unremarkable. No enlarged lymph nodes. Bones/joints: Minimally displaced acute fractures of the anterior left 3rd, 4th, 5th, 6 and 7th ribs. Minimally displaced acute fracture of the posterior left 9th rib and significantly displaced fracture of the left 8th rib. Stable compression deformities of T12 and L2, most likely chronic. The osseus structures demontrate diffuse osteopenia. Soft tissues: Unremarkable. IMPRESSION: 1. No evidence of pulmonary embolism. 2. Minimally displaced acute fracture of the posterior left 9th rib and significantly displaced fracture of the posterior left 8th rib. 2. Minimally displaced acute fractures of the anterior left 3rd, 4th, 5th, 6 and 7th ribs. 4. New small left pleural effusion, most likely compatible with hemothorax from traumatic chest injuries. 5. New heterogeneous consolidation of the posterior left lower lobe most likely compatible with compressive atelectasis. 6. Hzkb-[id number] emphysematous changes throughout the lungs, unchanged. Dictated and Authenticated by: Gopi Serrato MD. Ordering:MITRA Shea MD
[2021-06-23] MEDS: Lidocaine 5% Patch 1 PATCH TP (19:39)
[2021-06-23] MEDS: Metoprolol 5 MG/5 ML VIAL 2.5 MG IVP (19:40)
[2021-06-23] MEDS: dilTIAZem 125 MG in Normal Saline 100 ML 10 MG IV (19:50)
[2021-06-23] MEDS: fentaNYL 100 MCG/2 ML VIAL IVP (19:58)
--- NOTE | 2021-06-23 20:00 | RT.EKG_ITS ---
APPROVED REPORT Exam: Resting ECG Reason for Exam: chest pain Patient Location: E HR:62 bpm ECG Measurements Heart Rate 62 AXIS MD 160 P 36 QRSd 69 QRS 5 QT 410 T 0 QTc 418 Conclusion Sinus rhythm...normal P axis, V-rate 60- 99
--- NOTE | 2021-06-23 23:23 | PGE_ITS ---
Date of Service Date of service: 06/23/21 Time of Service: 23:23 Assessment and Plan Assessment and plan (1) Hemothorax on left: Status: Acute (2) Multiple fractures of ribs of left side: Status: Acute (3) Atrial fibrillation with rapid ventricular response: Status: Acute (4) CESAR (obstructive sleep apnea): Status: Chronic (5) Coccidioidomycosis: Status: Acute (6) Chronic thromboembolic disease: Status: Acute (7) DVT (deep venous thrombosis): Status: Chronic Qualifiers: DVT location: lower extremity Affected thrombotic vein of extremity: popliteal Chronicity: chronic Laterality: left Qualified Code(s): I82.532 - Chronic embolism and thrombosis of left popliteal vein (8) Anemia: Status: Chronic (9) Thyroid disease: Status: Acute (10) COPD with emphysema: Status: Acute Qualifiers: Emphysema type: centrilobular Qualified Code(s): J43.2 - Centrilobular emphysema (11) Breast cancer: Status: Chronic Subjective Subjective Interval history since last seen: Patient is a 80-year-old female who was referred to the ER when she was found to be in A. fib at [facility]. Patient has recently undergone treatment for breast cancer and was following up with [facility] today she was noted to have chest wall pain and to be short of breath. She was discovered to be in A. fib. The A. fib was converted by the ER with medication. She is on chronic anticoagulation for history of DVT. As part of the investigation into the cause of the A. fib CT scan of the chest was done. She is discovered to have multiple rib fractures and a hemothorax. She did take her blood thinners today and is fully anticoagulated at this time. She feels short of breath but her oxygen is 95% on room air. Patient did fall almost a week ago. She was discovered to have multiple rib fractures on her CT today. She does have a hemothorax. It is unclear if this is fluid or if this is hematoma at this time. Patient currently has no respiratory compromise. We will wait 48 hours until the Xarelto has worn off and then consider placing a chest tube if it does appear that this is fluid and not just hematoma. There is not currently any signs of infections. And there is not currently any sign of respiratory compromise. I will also discuss with pulmonary if lytics can be used to dissolve hematoma and we could potentially do this Tuesday, after placing a chest tube on . Patient will be admitted to the hospitalist service for her A. fib. Pain management plan. Full consult to follow Objective Last Vital Signs Pulse 63 06/23/21 22:16 Resp 18 06/23/21 22:16 BP 102/67 06/23/21 22:16 Pulse Ox 95 06/23/21 22:16 Laboratory Results - last 24 hr 06/23/21 06/23/21 06/23/21 16:43 16:43 16:43 WBC 7.89 RBC 4.19 Hgb 13.7 Hct 42.7 MCV 102 H MCH 32.7 MCHC 32.1 RDW 14.3 Plt Count 197 MPV 11.3 H Immature Gran % 0.4 Neutrophils % 79.9 Lymphocytes % 10.5 Monocytes % 8.4 Eosinophils % 0.3 Basophils % 0.5 Nucleated RBC % 0.0 Absolute Neutrophils 6.31 Absolute Lymphocytes 0.83 L Absolute Monocytes 0.66 Absolute Eosinophils 0.02 Absolute Basophils 0.04 D-Dimer Sodium 142 Potassium 4.0 Chloride 106 Carbon Dioxide 27.5 Anion Gap 8.5 BUN 24 H Creatinine 1.0 Estimated GFR/1.73 m2 53.21 Glucose 181 H Calcium 9.1 Magnesium 2.7 H Total Bilirubin 0.7 AST 19 ALT 23 Alkaline Phosphatase 55 Troponin I < 50 NT-Pro-B Natriuret Pep 687 H Total Protein 6.9 Albumin 3.4 TSH 1.41 COVID-19 Source SARS-CoV-2 (PCR) 06/23/21 06/23/21 16:43 17:02 WBC RBC Hgb Hct MCV MCH MCHC RDW Plt Count MPV Immature Gran % Neutrophils % Lymphocytes % Monocytes % Eosinophils % Basophils % Nucleated RBC % Absolute Neutrophils Absolute Lymphocytes Absolute Monocytes Absolute Eosinophils Absolute Basophils D-Dimer 1354 H Sodium Potassium Chloride Carbon Dioxide Anion Gap BUN Creatinine Estimated GFR/1.73 m2 Glucose Calcium Magnesium Total Bilirubin AST ALT Alkaline Phosphatase Troponin I NT-Pro-B Natriuret Pep Total Protein Albumin TSH COVID-19 Source Nasal/Nares SARS-CoV-2 (PCR) Negative PAWSS Have you Been Recently Intoxicated or Drunk Within the Last 30 days?: No Have you Ever Experienced Previous Episodes of Alcohol Withdrawal?: No Have you ever Experienced Withdrawal Seizures?: No Have you ever Experienced Delirium Tremens(DT)s?: No Have you ever undergone Alcohol Rehabilitation Treatment (i.e, inpt ot outpatient treatment programs)?: No Have you ever Experienced Blackouts?: No Have you ever Combined Alcohol with other Downers within the last 90 days?: No Have you ever Combined Alcohol with any other Substance of Abuse during the last 90 days?: No Positive Blood Alcohol level on Presentation? [PCS.BAL]: No Evidence of Increased Autonomic Activity (i.e. HR>120, tremor, sweating, agitation, nausea)?: No Result: 0
[2021-06-24] VITALS (44 sets, daily range): BP systolic 74–142; BP diastolic 52–84; PULSE 55–71; RESP 15–23; TEMP 35.3–37.2; O2SAT 92–98
[2021-06-24] MEDS: Acetaminophen 500 MG TAB 1000 MG PO ×3 (00:20→16:39)
[2021-06-24] MEDS: Simvastatin 40 MG TAB PO ×2 (00:20→20:28)
[2021-06-24] MEDS: Gabapentin 100 MG CAP PO ×2 (00:20→20:27)
[2021-06-24 05:08] LABS: Abs Immature Grans 0.01 10^3/uL (0.0-0.06); Absolute Basophil Count 0.03 10^3/uL (0.0-0.2); Absolute Lymphocyte Count 1.42 10^3/uL (1.2-3.4); Absolute Monocyte Count 0.65 10^3/uL (0.1-0.8); Absolute Neutrophil Count 2.98 10^3/uL (1.2-6.7); Basophils % 0.6; Eosinophils % 1.9; HCT 36.6 % (36.0-46.0); HGB 11.9 g/dL (11.2-15.7); Immature Grans % 0.2; Lymphocytes % 27.4; MCH 33.4 pg (27.0-33.0); MCHC 32.5 % (32.0-36.0); MCV 103 fL (80-95); MPV 11.3 fL (8.0-11.0); Monocytes % 12.5; Neutrophils % 57.4; Platelet Count 183 10^3/uL (130-400); RBC 3.56 10^6/uL (3.93-5.22); RDW 14.5 % (11.7-14.6); RDW-SD 54.7 fL; WBC 5.19 10^3/uL (4.4-10.8)
[2021-06-24 05:18] LABS: Troponin I < 50 ng/L (<or=60)
[2021-06-24] MEDS: Levothyroxine 25 MCG TAB PO (07:01)
--- NOTE | 2021-06-24 07:20 | PUCC_ITS ---
General Date of Service Date of service: 06/24/21 Time of Service: 07:28 Reason for Admission to ICU: Hemothorax Assessment and Plan Assessment and plan (1) Hemothorax on left: Status: Acute (2) Multiple fractures of ribs of left side: Status: Acute (3) CESAR (obstructive sleep apnea): Status: Chronic (4) Chronic thromboembolic disease: Status: Acute (5) Compressive atelectasis: Status: Acute (6) COPD with emphysema: Status: Acute Qualifiers: Emphysema type: centrilobular Qualified Code(s): J43.2 - Centrilobular emphysema (7) Anemia: Status: Chronic (8) Atrial fibrillation with rapid ventricular response: Status: Acute (9) Breast cancer: Status: Chronic (10) Traumatic hematoma of left upper arm: Status: Acute Assessment and plan: This is an 80 yo female with breast cancer, CTED on A/C and COPD who is admitted for a fall resulting in multiple left sided rib fractures and a likely left hemothorax. The hemothorax is small and does not warrant chest tube placement in my opinion given its subacute nature and small size. Anticoagulation is being held and so the bleeding should self resolve. There is a displaced rib fracture that is likely the culprit and I would typically recommend for a CTA to assess for an active bronchial artery bleed, however were are on a contrast shortage, there is no evidence of active bleeding on the CTPE scan and she is hemodynamically stable. Typically in small bleeds the hemothorax acts as its own tamponade to help stop the bleeding. I recommend a conservative approach in this 80 yo female. The small hemothorax should absorb and will likely develop into so me degree of a fibrothorax, however, again given its small size this is an acceptable outcome versus the risk of chest tube placement. There is no role for lytics in this patient, again given the small size of the effusion, however are certainly used for retained hemothorax in an attempt to avoid operative intervention. From an S/ fib perspective she is in NSR with a controlled rate on only 2.5 of dilt gtt. Once the diltiazem drip is stopped she is safe for med/surg status. Recommendations Pulmonary: Hemothorax - recommend against chest tube placement or thoracentesis - continue to hold anticoagulation - I have a set appt with her already 07/01, so I will re-evaluate this then COPD - continue home Trelegy if she has it - if she does not have Trelegy she can be on Spiriva and Symbicort 80 - albuterol prn CTED - hold Xarelto for now CESAR - daughter to bring in home unit Compressive atelectasis - incentive spirometry - VibraPEP Cardiac: A.fib with RVR, resolved - likely in response to fall - dilt gtt can likely be stopped - no home rate control - can consider starting low dose meoprolol or diltiazem - hold A/C for now Renal: No acute concerns I&O: Intake & Output 06/21/21 06/22/21 06/23/21 06/24/21 23:59 23:59 23:59 23:59 Intake Total 34.667 / 34.667 Output Total 150 / 150 Balance 34.667 / -115.333 -150 / -150 Weight 73.8 kg 79.3 kg Daily Fluid Goal:: even GI Nutrition: Nutrition - ok for diet Date of Last Bowel Movement: 06/23/21 Infectious Disease: No acute concerns Hematologic: No acute concerns Neurologic: Pain - receiving multi-modal pain control: - standing acetaminophen and gabapentin - avoid NSAIDS - prn Alstead - pain is effective controlled Endocrine: No acute concerns Lines: PIV Prophylaxis: no DVT ppx due to hemothorax no indication for GI ppx Code Status: Resuscitation Status Full Code Subjective Critical and life-threatening events over the past 24 hours: This is a 80 yo female whom I know well from my clinic as I manage her COPD and CTED (on A/C). She had a fall 1 week ago that resulted in left sided rib fractures and based on the CT scan from 06/16/21 the start of a hemothorax (convex pleural thickening at the left base consistent with start of pulmonary contusion adjacent to displaced rib fracture). She returns after being seen at [facility] where she was in A. fib. As part of the work up she was found to have a left pleural effusion and on this read rib fractures which raises concern for hemothorax. Her anticoagulation is being held and she is receiving Tylenol and gabapentin for pain in addition to prn Alstead. She is feeling well today. She is up in the chair and looks comfortable. She endorses left sided rib pain and well as left arm pain. She is able to take decent breaths in but that does causes some degree of pain. She is coughing up some phlegm which is at her baseline (prior to fall) due to her COPD. She has been using autoPAP for 1 months now and it has been helping. I asked if her daughter could bring in her machine for her to use tonight, which she will be able to do. Exam Narrative Exam Narrative: Gen: NAD, normal respiratory effort, well-nourished HENT: PERRL, nasal turbinates normal without erythema or inflammation, moist oral mucosa, Mallampati 2, No LAD or JVD Chest: No respiratory distress, normal appearance of chest, clear to auscultation bilaterally, laeft basilar crackles, normal inspiratory effort Heart: regular rate and rhythym, no murmurs, rubs or gallops Abdomen: Non-distended, soft, non tender Extremities: No clubbing, edema, cyanosis, rashes Neuro: AAOx3 , non focal Psych: cooperative, appropriate mental affect Most Recent VS/Results Last Vital Signs Temp 35.3 C L 06/24/21 04:00 Pulse 61 06/24/21 03:51 Resp 16 06/24/21 03:51 BP 106/67 06/24/21 03:51 Pulse Ox 95 06/24/21 03:51 Laboratory Results - last 24 hr 06/23/21 06/23/21 06/23/21 16:43 16:43 16:43 WBC 7.89 RBC 4.19 Hgb 13.7 Hct 42.7 MCV 102 H MCH 32.7 MCHC 32.1 RDW 14.3 Plt Count 197 MPV 11.3 H Immature Gran % 0.4 Neutrophils % 79.9 Lymphocytes % 10.5 Monocytes % 8.4 Eosinophils % 0.3 Basophils % 0.5 Nucleated RBC % 0.0 Absolute Neutrophils 6.31 Absolute Lymphocytes 0.83 L Absolute Monocytes 0.66 Absolute Eosinophils 0.02 Absolute Basophils 0.04 D-Dimer Sodium 142 Potassium 4.0 Chloride 106 Carbon Dioxide 27.5 Anion Gap 8.5 BUN 24 H Creatinine 1.0 Estimated GFR/1.73 m2 53.21 Glucose 181 H Calcium 9.1 Magnesium 2.7 H Total Bilirubin 0.7 AST 19 ALT 23 Alkaline Phosphatase 55 Troponin I < 50 NT-Pro-B Natriuret Pep 687 H Total Protein 6.9 Albumin 3.4 TSH 1.41 COVID-19 Source SARS-CoV-2 (PCR) 06/23/21 06/23/21 06/24/21 16:43 17:02 04:46 WBC RBC Hgb Hct MCV MCH MCHC RDW Plt Count MPV Immature Gran % Neutrophils % Lymphocytes % Monocytes % Eosinophils % Basophils % Nucleated RBC % Absolute Neutrophils Absolute Lymphocytes Absolute Monocytes Absolute Eosinophils Absolute Basophils D-Dimer 1354 H Sodium Potassium Chloride Carbon Dioxide Anion Gap BUN Creatinine Estimated GFR/1.73 m2 Glucose Calcium Magnesium Total Bilirubin AST ALT Alkaline Phosphatase Troponin I < 50 NT-Pro-B Natriuret Pep Total Protein Albumin TSH COVID-19 Source Nasal/Nares SARS-CoV-2 (PCR) Negative 06/24/21 04:46 WBC 5.19 RBC 3.56 L Hgb 11.9 Hct 36.6 MCV 103 H MCH 33.4 H MCHC 32.5 RDW 14.5 Plt Count 183 MPV 11.3 H Immature Gran % 0.2 Neutrophils % 57.4 Lymphocytes % 27.4 Monocytes % 12.5 Eosinophils % 1.9 Basophils % 0.6 Nucleated RBC % 0.0 Absolute Neutrophils 2.98 Absolute Lymphocytes 1.42 Absolute Monocytes 0.65 Absolute Eosinophils 0.10 Absolute Basophils 0.03 D-Dimer Sodium Potassium Chloride Carbon Dioxide Anion Gap BUN Creatinine Estimated GFR/1.73 m2 Glucose Calcium Magnesium Total Bilirubin AST ALT Alkaline Phosphatase Troponin I NT-Pro-B Natriuret Pep Total Protein Albumin TSH COVID-19 Source SARS-CoV-2 (PCR) Review of Systems All systems reviewed & are unremarkable except as noted in HPI and below Time spent with patient Time spent in Critical Care: 45 Time spent in Critical care included: Coordination of care, Chart review, Documenting critically ill care, Time at immediate bedside and Discussing critically ill care with other medical staff
[2021-06-24 07:47] LABS: Anion Gap 5.8 mmol/L (3-11); BUN 19 mg/dL (7-18); CO2 29.2 mmol/L (21.0-32.0); CREATININE 0.7 mg/dL (0.55-1.02); Calcium 8.4 mg/dL (8.5-10.1); Chloride 109 mmol/L (98-107); Glucose 105 mg/dL (74-106); Magnesium 2.2 mg/dL (1.8-2.4); Potassium 4.3 mmol/L (3.5-5.1); Sodium 144 mmol/L (136-145)
[2021-06-24 07:50] LABS: Lab Add On Test DONE
[2021-06-24 08:19] LABS: Procalcitonin < 0.1 ng/mL
[2021-06-24] MEDS: Omeprazole 20 MG CAPCR PO (08:27)
[2021-06-24] MEDS: Normal Saline Flush 10 ML SYR IVP (08:27)
--- NOTE | 2021-06-24 08:57 | W.PM.HP.N ---
Date of service: 06/23/21 Time of Service: 22:00 Assessment and Plan Assessment and plan (1) Traumatic hematoma of left upper arm: Status: Acute Assessment and plan: This appears to be stable. I reviewed her x-rays and did not show fracture. This time I do not think repeat x-rays will be of value. (2) Hemothorax on left: Status: Acute Assessment and plan: I reviewed her CT scan and I do not see hemothorax or pneumothorax on the initial study. The rib fractures are present on that study. The patient is not aware that initial fractures were not seen. Her anticoagulation will be held at this time. I suspect the blood in her chest is probably clotted but that it could be evaluated by having her take images and various orientations of her body. She will be seen by general surgery. (3) Atrial fibrillation with rapid ventricular response: Status: Acute Assessment and plan: I suspect her atrial fibrillation may be related to the hemothorax with irritation to the pericardium and left atrium. She is currently in sinus rhythm after being converted with intravenous metoprolol. She did have a moderate length sinus pause after receiving the metoprolol. (4) Chronic thromboembolic disease: Status: Acute Assessment and plan: She does appear to have a hypercoagulable state but her rivaroxaban will be held at this time because of the hemothorax. She is hemodynamically stable at this time. (5) Multiple fractures of ribs of left side: Status: Acute Assessment and plan: She has multiple rib fractures that were seen on the scan on admission but not seen on the study from 1 week ago. Her D-dimer is elevated but I suspect that is due to the recent injury. There is no evidence of pulmonary embolism. She will be treated with hydrocodone and lidocaine patch for her rib fractures. History of Present Illness History of Present Illness Chief Complaint: dyspnea Narrative: This 80-year-old female is here because of dyspnea. She states she lives at [facility] by herself. She was doing some exercises at the [facility] 1 week earlier at about 8 AM. She lost her balance and fell injuring her left arm and chest. She came to the emergency department and was evaluated. She said she was present for about 6 hours that day. She had x-rays of her left arm and shoulder and a CT of her chest abdomen pelvis. No acute abnormalities were noted and she was discharged. She went home to stay with her daughter to help her manage because of the chest pain and arm hematoma. She developed increased shortness of breath and continued to have significant pain in the chest and arm. She had a follow-up with oncology for her breast cancer which is currently in remission and the oncologist noted that she was likely in atrial fibrillation with tachycardia and sent her to the emergency department for evaluation. She does not have a history of atrial fibrillation. She does have COPD, hyperlipidemia and hypothyroidism. She also developed history of valley fever(coccidiomycosis) while in [place]. She has a history of DVT and was diagnosed with that a few years ago in 2018. In 2019 she developed a DVT and pulmonary embolism and now is on chronic anticoagulation with rivaroxaban. She does not smoke cigarettes and drinks alcohol about 2 times per week. She was reevaluated emergency department here and given diltiazem which did not improve her atrial fibrillation but then was treated with intravenous metoprolol. This converted her to sinus rhythm after a sinus pause for a number of seconds. That monitor strip was reviewed in the emergency department. She feels improved at this time. She has been vaccinated to coronavirus and has not been around anybody has been ill. She was given fentanyl and lidocaine patch in the emergency department. General surgery was consulted in emergency department by phone and was elected to have her admitted to the medicine service with surgical consultation. Review of Systems Constitutional Constitutional: Denies chills, Denies fever(s) and Reports lethargy Cardiovascular Cardiovascular: Reports chest pain, Reports chest pain with activity, Denies syncope, Reports rapid heart rate, Denies claudication, Denies leg edema, Denies radiating jaw, neck or arm pain and Reports dyspnea Respiratory Respiratory: Denies cough, Reports pain with cough and Reports dyspnea Gastrointestinal Gastrointestinal: Denies abdominal pain, Denies diarrhea, Denies nausea and Denies vomiting Genitourinary Genitourinary: Denies difficulty voiding Musculoskeletal Musculoskeletal: Reports other (Left arm pain and swelling persists. Left proximal arm hematoma) Neurologic Neurologic: Denies syncope [facility] All Active Problems (Updated 06/24/21 @ 08:47 by Marian Perez MD) Compressive atelectasis (Acute) Breast cancer (Chronic) Traumatic hematoma of left upper arm (Acute) Contusion of rib on left side (Acute) Contusion of right hand (Acute) Hemothorax on left (Acute) Multiple fractures of ribs of left side (Acute) Atrial fibrillation with rapid ventricular response (Acute) CESAR (obstructive sleep apnea) (Chronic) Coccidioidomycosis (Acute) Chronic thromboembolic disease (Acute) DVT (deep venous thrombosis) (Chronic) Arthritis (Acute) Anemia (Chronic) Thyroid disease (Acute) COPD with emphysema (Acute) Medical History Bleeding disorder Cancer High cholesterol History of blood clots 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 at 71. Social History Smoking/Tobacco Use Status: Former Tobacco Use Quit Date: 02/15/76 Pack-years: 13 Smoking risk assessment performed?: Yes Alcohol Intake: current Alcohol Intake frequency: a few times a week Alcohol type: wine Drug use: Never Substance use type: does not use Do you feel safe at home: Yes Do you feel safe in your relationship?: Yes Meds Allergies and Home Medications Allergies Allergy/AdvReac Type Severity Reaction Status Date / Time Sulfa (Sulfonamide Allergy Verified 06/16/21 12:50 Antibiotics) Home Medications Medication Instructions Recorded Confirmed Type biotin 5 mg capsule 5 mg PO DAILY 09/23/20 06/23/21 History levothyroxine 25 mcg tablet 25 mcg PO DAILY 09/23/20 06/23/21 History rivaroxaban 20 mg tablet (Xarelto) 20 mg PO DAILY 09/23/20 06/23/21 History simvastatin 40 mg tablet 40 mg PO DAILY 09/23/20 06/23/21 History vitamin B12 500 mcg-folic acid 400 2 tab PO DAILY tab 09/23/20 06/23/21 History mcg tablet vitamin d3 folic acid capsule 5000 PO DIRECTED 09/23/20 04/29/21 History fluticasone fur. 100 mcg-umeclid 1 inh INHALATION DAILY #3 ea 11/18/20 06/16/21 Rx 62.5 mcg-vilant 25 mcg inhalat.powder (Trelegy Ellipta) omeprazole 20 mg capsule,delayed 20 mg PO DAILY 04/29/21 06/23/21 History release fluticasone fur. 100 mcg-umeclid 1 inh INHALATION DAILY 06/23/21 06/23/21 History 62.5 mcg-vilant 25 mcg inhalat.powder (Trelegy Ellipta) Exam Const General: cooperative, healthy appearing, comfortable, not in distress and not lethargic Nutritional Appearance: average body habitus Orientation: alert, awake and oriented x3 Eyes General: appearance normal, both eyes and all related structures Neck Neck: normal visual inspection, no lymphadenopathy and no JVD Resp Auscultation: clear to auscultation bilaterally, no rales, no rhonchi and no wheezes Cardio Rate: regular rate Rhythm: regular rhythm Heart Sounds: S1 normal, S2 normal, no gallops and no murmurs GI Palpation: soft, no hepatosplenomegaly, not firm and nontender Extrem General: normal to inspection (Full range of motion of shoulder and elbow. Normal neurovascular status.) Left upper extremity: No abnormal to inspection (Her left proximal arm is swollen and has a hematoma present laterally. ) Results Labs Result diagrams: 06/24/21 04:46 06/24/21 04:46 Labs: Laboratory Results - last 24 hr 06/23/21 06/23/21 06/23/21 16:43 16:43 16:43 WBC 7.89 RBC 4.19 Hgb 13.7 Hct 42.7 MCV 102 H MCH 32.7 MCHC 32.1 RDW 14.3 Plt Count 197 MPV 11.3 H Immature Gran % 0.4 Neutrophils % 79.9 Lymphocytes % 10.5 Monocytes % 8.4 Eosinophils % 0.3 Basophils % 0.5 Nucleated RBC % 0.0 Absolute Neutrophils 6.31 Absolute Lymphocytes 0.83 L Absolute Monocytes 0.66 Absolute Eosinophils 0.02 Absolute Basophils 0.04 D-Dimer Sodium 142 Potassium 4.0 Chloride 106 Carbon Dioxide 27.5 Anion Gap 8.5 BUN 24 H Creatinine 1.0 Estimated GFR/1.73 m2 53.21 Glucose 181 H Calcium 9.1 Magnesium 2.7 H Total Bilirubin 0.7 AST 19 ALT 23 Alkaline Phosphatase 55 Troponin I < 50 NT-Pro-B Natriuret Pep 687 H Total Protein 6.9 Albumin 3.4 Procalcitonin TSH 1.41 COVID-19 Source SARS-CoV-2 (PCR) Add-On Test Request 06/23/21 06/23/21 06/24/21 16:43 17:02 04:46 WBC RBC Hgb Hct MCV MCH MCHC RDW Plt Count MPV Immature Gran % Neutrophils % Lymphocytes % Monocytes % Eosinophils % Basophils % Nucleated RBC % Absolute Neutrophils Absolute Lymphocytes Absolute Monocytes Absolute Eosinophils Absolute Basophils D-Dimer 1354 H Sodium Potassium Chloride Carbon Dioxide Anion Gap BUN Creatinine Estimated GFR/1.73 m2 Glucose Calcium Magnesium Total Bilirubin AST ALT Alkaline Phosphatase Troponin I < 50 NT-Pro-B Natriuret Pep Total Protein Albumin Procalcitonin TSH COVID-19 Source Nasal/Nares SARS-CoV-2 (PCR) Negative Add-On Test Request 06/24/21 06/24/21 06/24/21 04:46 04:46 04:46 WBC 5.19 RBC 3.56 L Hgb 11.9 Hct 36.6 MCV 103 H MCH 33.4 H MCHC 32.5 RDW 14.5 Plt Count 183 MPV 11.3 H Immature Gran % 0.2 Neutrophils % 57.4 Lymphocytes % 27.4 Monocytes % 12.5 Eosinophils % 1.9 Basophils % 0.6 Nucleated RBC % 0.0 Absolute Neutrophils 2.98 Absolute Lymphocytes 1.42 Absolute Monocytes 0.65 Absolute Eosinophils 0.10 Absolute Basophils 0.03 D-Dimer Sodium 144 Potassium 4.3 Chloride 109 H Carbon Dioxide 29.2 Anion Gap 5.8 BUN 19 H Creatinine 0.7 Estimated GFR/1.73 m2 >= 60.00 Glucose 105 Calcium 8.4 L Magnesium 2.2 Total Bilirubin AST ALT Alkaline Phosphatase Troponin I NT-Pro-B Natriuret Pep Total Protein Albumin Procalcitonin TSH COVID-19 Source SARS-CoV-2 (PCR) Add-On Test Request DONE 06/24/21 04:46 WBC RBC Hgb Hct MCV MCH MCHC RDW Plt Count MPV Immature Gran % Neutrophils % Lymphocytes % Monocytes % Eosinophils % Basophils % Nucleated RBC % Absolute Neutrophils Absolute Lymphocytes Absolute Monocytes Absolute Eosinophils Absolute Basophils D-Dimer Sodium Potassium Chloride Carbon Dioxide Anion Gap BUN Creatinine Estimated GFR/1.73 m2 Glucose Calcium Magnesium Total Bilirubin AST ALT Alkaline Phosphatase Troponin I NT-Pro-B Natriuret Pep Total Protein Albumin Procalcitonin < 0.1 TSH COVID-19 Source SARS-CoV-2 (PCR) Add-On Test Request Last Vital Signs Temp 35.3 C L 06/24/21 04:00 Pulse 62 06/24/21 07:27 Resp 21 06/24/21 07:27 BP 117/75 06/24/21 07:27 Pulse Ox 97 06/24/21 06:01 PAWSS Have you Been Recently Intoxicated or Drunk Within the Last 30 days?: No Have you Ever Experienced Previous Episodes of Alcohol Withdrawal?: No Have you ever Experienced Withdrawal Seizures?: No Have you ever Experienced Delirium Tremens(DT)s?: No Have you ever undergone Alcohol Rehabilitation Treatment (i.e, inpt ot outpatient treatment programs)?: No Have you ever Experienced Blackouts?: No Have you ever Combined Alcohol with other Downers within the last 90 days?: No Have you ever Combined Alcohol with any other Substance of Abuse during the last 90 days?: No Positive Blood Alcohol level on Presentation? [PCS.BAL]: No Evidence of Increased Autonomic Activity (i.e. HR>120, tremor, sweating, agitation, nausea)?: No Result: 0
--- NOTE | 2021-06-24 09:03 | PDOC.CMIN ---
- If Service Date Differs Date of service: 06/24/21 Time of Service: 09:03 Care Management Initial Assess REASON FOR HOSPITALIZATION:: Afib, hemothorax, rib fractures PAST MEDICAL HISTORY/PAST SURGICAL HISTORY:: All Active Problems (Updated 06/24/21 @ 08:47 by Marian Perez MD). Compressive atelectasis (Acute). Breast cancer (Chronic). Traumatic hematoma of left upper arm (Acute). Contusion of rib on left side (Acute). Contusion of right hand (Acute). Hemothorax on left (Acute). Multiple fractures of ribs of left side (Acute). Atrial fibrillation with rapid ventricular response (Acute). CESAR (obstructive sleep apnea) (Chronic). Coccidioidomycosis (Acute). Chronic thromboembolic disease (Acute). DVT (deep venous thrombosis) (Chronic). Arthritis (Acute). Anemia (Chronic). Thyroid disease (Acute). COPD with emphysema (Acute). Medical History . Bleeding disorder. Cancer. High cholesterol. History of blood clots. 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 Sleep apnea. Surgical History . Cataract. History of lumpectomy. 10/22/2016 PREVIOUS FUNCTIONAL STATUS/SOCIAL/FAMILY SUPPORTS:: Lacey lives alone at the [facility]. She is independent at baseline and drives. She has a cane at home, but rarely uses it. She enjoys being active, however her COPD limits her ability to exercise. She routinely sees Dr. Perez for COPD. CURRENT FUNCTIONAL STATUS:: Lacey was sitting up in her chair when CM met with her. She is alert, oriented, pleasant and easy to engage in conversation. Lacey shares that she moved to [place] in December from [place] to be closer to her daughter after a period of declining health. ADVANCE DIRECTIVES:: On File, [facility] is daughter Marleni Cantor Has patient been provided with info about the portal/API?: Yes Did the patient sign up for the portal?: Yes (Prior to admission) CODE STATUS:: Full Code INSURANCE COVERAGE / FINANCIAL ISSUES:: AARP/UN. [employer]TH [employer] CURRENT HOME/COMMUNITY SERVICES/EQUIPMENT:: Has a Cane, uses [employer]. Connected with [facility]. Lives at [facility] PRIMARY CARE PHYSICIAN:: Lore Kaiser POTENTIAL DISCHARGE NEEDS:: Cardiac event recorder, follow up appointments. PATIENT/FAMILY EDUCATION NEEDS:: Review discharge instructions, limitations, medications and plan to follow up with community providers. ask me three. TRANSPORTATION:: Via private vehicle with family. PLAN:: ToriLacey will discharge home via private vehicle when medically ready. She may require a cardiac event recorder, RT is aware. Pt will need follow up appointments and discharge plan of care. CM will continue to help support discharge planning needs.
--- NOTE | 2021-06-24 10:45 | W.PM.PROGNOT ---
Date of Service Date of service: 06/24/21 Time of Service: 08:45 Assessment and Plan Assessment and plan (1) Atrial fibrillation with rapid ventricular response: Status: Resolved Assessment and plan: Converted to NSR. Start metoprolol 12.5 mg PO BID. Monitor on tele. Would eventually benefit from an echo, but I imagine it might be too painful right now and it is not an emergency. Can have this done as an outpatient. Ok to transfer out of the ICU as no longer on cardizem drip. Holding anticoagulation in setting of a hemothorax. (2) Hemothorax on left: Status: Acute Assessment and plan: Traumatic, in setting of rib fx. Stable. No indication for thoracenthesis or a chest tube, per Dr Perez. Hold anticoagulation. Monitor H/H. Encourage IS. (3) Multiple fractures of ribs of left side: Status: Acute Assessment and plan: Pain control with scheduled tylenol, gabapentin, lidocaine patches. prn norco. (4) Compressive atelectasis: Status: Acute Assessment and plan: Due to pain/guarding from rib fx. Encourage pulmonary toileting. Procalctonin negative - no role for abx at this time as pneumonia unlikely. (5) CESAR (obstructive sleep apnea): Status: Chronic Assessment and plan: Continue home CPAP (6) Chronic thromboembolic disease: Status: Chronic Assessment and plan: HOlding anticoagulation. (7) Breast cancer: Status: Chronic Assessment and plan: In remission. F/u as outpatient. (8) Discharge planning issues: Status: Acute Assessment and plan: Full code Transfer out of the ICU. ANticipate discharge home tomorrow with a cardiac event recorder. Discusesd with Dr Perez and Dr Quinones. Subjective Subjective Interval history since last seen: Ms Epperson states that her pain in 4/10. She denies dizziness, shortness of breath (recognizing that she is guarding herself from taking deep breaths), nausea. She converted to NSR overnight. Her diltiazem gtt has been stopped. Per Dr Perez, there is no indication for a chest tube as her hemathorax is small and stable. Exam Narrative Exam Narrative: General: Very pleasant elderly female who looks much younger than her stated age, A&Ox3, appears comfortable HEENT: EOMI, MMM Heart: RRR, no m/r/g Lungs: Diminished breath sounds B Abdomen: soft, nontender, nondistended Extremities: no edema BLEs Objective Last Vital Signs Temp 36.5 C 06/24/21 07:45 Pulse 67 06/24/21 09:00 Resp 17 06/24/21 09:00 BP 110/84 06/24/21 09:00 Pulse Ox 97 06/24/21 06:01 Laboratory Results - last 24 hr 06/23/21 06/23/21 06/23/21 16:43 16:43 16:43 WBC 7.89 RBC 4.19 Hgb 13.7 Hct 42.7 MCV 102 H MCH 32.7 MCHC 32.1 RDW 14.3 Plt Count 197 MPV 11.3 H Immature Gran % 0.4 Neutrophils % 79.9 Lymphocytes % 10.5 Monocytes % 8.4 Eosinophils % 0.3 Basophils % 0.5 Nucleated RBC % 0.0 Absolute Neutrophils 6.31 Absolute Lymphocytes 0.83 L Absolute Monocytes 0.66 Absolute Eosinophils 0.02 Absolute Basophils 0.04 D-Dimer Sodium 142 Potassium 4.0 Chloride 106 Carbon Dioxide 27.5 Anion Gap 8.5 BUN 24 H Creatinine 1.0 Estimated GFR/1.73 m2 53.21 Glucose 181 H Calcium 9.1 Magnesium 2.7 H Total Bilirubin 0.7 AST 19 ALT 23 Alkaline Phosphatase 55 Troponin I < 50 NT-Pro-B Natriuret Pep 687 H Total Protein 6.9 Albumin 3.4 Procalcitonin TSH 1.41 COVID-19 Source SARS-CoV-2 (PCR) Add-On Test Request 06/23/21 06/23/21 06/24/21 16:43 17:02 04:46 WBC RBC Hgb Hct MCV MCH MCHC RDW Plt Count MPV Immature Gran % Neutrophils % Lymphocytes % Monocytes % Eosinophils % Basophils % Nucleated RBC % Absolute Neutrophils Absolute Lymphocytes Absolute Monocytes Absolute Eosinophils Absolute Basophils D-Dimer 1354 H Sodium Potassium Chloride Carbon Dioxide Anion Gap BUN Creatinine Estimated GFR/1.73 m2 Glucose Calcium Magnesium Total Bilirubin AST ALT Alkaline Phosphatase Troponin I < 50 NT-Pro-B Natriuret Pep Total Protein Albumin Procalcitonin TSH COVID-19 Source Nasal/Nares SARS-CoV-2 (PCR) Negative Add-On Test Request 06/24/21 06/24/21 06/24/21 04:46 04:46 04:46 WBC 5.19 RBC 3.56 L Hgb 11.9 Hct 36.6 MCV 103 H MCH 33.4 H MCHC 32.5 RDW 14.5 Plt Count 183 MPV 11.3 H Immature Gran % 0.2 Neutrophils % 57.4 Lymphocytes % 27.4 Monocytes % 12.5 Eosinophils % 1.9 Basophils % 0.6 Nucleated RBC % 0.0 Absolute Neutrophils 2.98 Absolute Lymphocytes 1.42 Absolute Monocytes 0.65 Absolute Eosinophils 0.10 Absolute Basophils 0.03 D-Dimer Sodium 144 Potassium 4.3 Chloride 109 H Carbon Dioxide 29.2 Anion Gap 5.8 BUN 19 H Creatinine 0.7 Estimated GFR/1.73 m2 >= 60.00 Glucose 105 Calcium 8.4 L Magnesium 2.2 Total Bilirubin AST ALT Alkaline Phosphatase Troponin I NT-Pro-B Natriuret Pep Total Protein Albumin Procalcitonin TSH COVID-19 Source SARS-CoV-2 (PCR) Add-On Test Request DONE 06/24/21 04:46 WBC RBC Hgb Hct MCV MCH MCHC RDW Plt Count MPV Immature Gran % Neutrophils % Lymphocytes % Monocytes % Eosinophils % Basophils % Nucleated RBC % Absolute Neutrophils Absolute Lymphocytes Absolute Monocytes Absolute Eosinophils Absolute Basophils D-Dimer Sodium Potassium Chloride Carbon Dioxide Anion Gap BUN Creatinine Estimated GFR/1.73 m2 Glucose Calcium Magnesium Total Bilirubin AST ALT Alkaline Phosphatase Troponin I NT-Pro-B Natriuret Pep Total Protein Albumin Procalcitonin < 0.1 TSH COVID-19 Source SARS-CoV-2 (PCR) Add-On Test Request PAWSS Have you Been Recently Intoxicated or Drunk Within the Last 30 days?: No Have you Ever Experienced Previous Episodes of Alcohol Withdrawal?: No Have you ever Experienced Withdrawal Seizures?: No Have you ever Experienced Delirium Tremens(DT)s?: No Have you ever undergone Alcohol Rehabilitation Treatment (i.e, inpt ot outpatient treatment programs)?: No Have you ever Experienced Blackouts?: No Have you ever Combined Alcohol with other Downers within the last 90 days?: No Have you ever Combined Alcohol with any other Substance of Abuse during the last 90 days?: No Positive Blood Alcohol level on Presentation? [PCS.BAL]: No Evidence of Increased Autonomic Activity (i.e. HR>120, tremor, sweating, agitation, nausea)?: No Result: 0 Multi-Disciplinary Checklist Lines/Tubes CENTRAL LINE: no ARTERIAL LINE: no CUEVAS: no ENDOTRACHEAL TUBE: no ICU Maintenance GLUCOSE 140-180mg/dL: no, Reason/Intervention: not diabetic NUTRITION AT GOAL: yes PRESSURE ULCER: no RESTRAINTS: no ANTIBIOTICS(if yes, consider Stewardship): No Social Issues FAMILY UPDATED: yes PT/OT: yes GOALS/DISPOSITION/SCREWDOWN OPERATOR: yes CODE STATUS: Full Prophylaxis DVT PROPHYLAXIS: yes GI PROPHYLAXIS: yes, Indication: chronic omeprazole
--- NOTE | 2021-06-24 11:09 | DI.RAD_ITS ---
Exam(s) XR CHEST 2V PA LATERAL EXAM: XR CHEST 2V PA LATERAL CLINICAL HISTORY: hemothorax TECHNIQUE: 2D digital imaging was performed. COMPARISON: CR,XR XR PORTABLE CHEST AP from 06/23/[address] CHEST PE CTA from 06/23/2021 FINDINGS: MEDIASTINUM: Normal. HEART: Normal. PULMONARY VASCULATURE: Normal. LUNGS: Right lung clear. PLEURAL SPACE: No pneumothorax. Stable small left pleural effusion. Mild adjacent compressive atele ctasis. BONE:Stable lower thoracic compression fracture and degenerative changes. IMPRESSION: Stable size left pleural effusion. DATA REPOSITORY: RADIATION DOSE DELIVERED:
[2021-06-24] MEDS: HYDROcodone 5/Acetaminophen 325 TAB PO ×2 (13:19→20:27)
--- NOTE | 2021-06-24 13:40 | PT.INIE ---
Date of service: 06/24/21 Time of Service: 13:40 PT Notes Visit Reasons: Afib,Hemothorax,Rib fractures Physical Therapy Inpatient Initial Evaluation Date: 06/24/2021 Referring Doctor: Lois Alonso MD PT Orders: PT CONSULT: Limited ability Precautions: Fall. Standard. Activity as tolerated. Hard of hearing. Patient Profile/Admitting Diagnosis: Lacey is an 80-year-old female on remission for breast cancer who presented to the ED on 06/23/2021 due to increasing shortness of breath, tachycardia, and low blood pressure with a fall 1 week prior to today's admission. Patient is diagnosed with traumatic hematoma of left forearm, multiple fractures of ribs on the left side, hemothorax on the left, atrial fibrillation with rapid ventricular response, and chronic thromboembolic disease. PMHX: All Active Problems?(Updated 06/24/21 @ 08:47 by Marian Perez MD) Compressive atelectasis (Acute) Breast cancer (Chronic) Traumatic hematoma of left upper arm (Acute) Contusion of rib on left side (Acute) Contusion of right hand (Acute) Hemothorax on left (Acute) Multiple fractures of ribs of left side (Acute) Atrial fibrillation with rapid ventricular response (Acute) CESAR (obstructive sleep apnea) (Chronic) Coccidioidomycosis (Acute) Chronic thromboembolic disease (Acute) DVT (deep venous thrombosis) (Chronic) Arthritis (Acute) Anemia (Chronic) Thyroid disease (Acute) COPD with emphysema (Acute) Medical History? 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 Cataract History of lumpectomy 10/22/2016 Social History/Home Situation: Lacey is an 80-year-old female patient originally from [place] who move to [place] in December of last year to reside at [facility] to be closer to her daughter who lives in [facility]. Equipment Owned/DME: None Subjective: Agreeable to PT consult. Asks if we offer out-patient services for respiratory services as she had found it very beneficial for her COPD when she was in [place]. States that she has forgotten the cloth reeler for her hearing aids at home and could not use her hearing aid. Objective: General Observation: In NAD. Telemetry monitoring in place. Mental Status: Alert and oriented as to person, place, time, and purpose. Able to pay attention, focus, and respond appropriately. Pain: 4/10 pain in the L lateral side of her chest Vital Signs: HR WNL before during and after ambulation activity ROM: Right Upper Extremity: Shoulder Flexion WFL. Shoulder abduction WFL. Elbow flexion WFL. Wrist flexion WFL. Functional opening and closing of hand WFL. Left Upper Extremity: Shoulder Flexion WFL. Shoulder abduction WFL. Elbow flexion WFL. Wrist flexion WFL. Functional opening and closing of hand WFL. Right Lower Extremity: Hip flexion WFL. Hip abduction WFL. Knee flexion WFL. Ankle dorsiflexion WFL. Ankle plantarflexion WFL. Left Lower Extremity: Hip flexion WFL. Hip abduction WFL. Knee flexion WFL. Ankle dorsiflexion WFL. Ankle plantarflexion WFL. Strength: Right Upper Extremity: Shoulder flexors 4/5. Shoulder abductors 5/5. Elbow flexors 5/5. Elbow extensors 5/5. Finance Manager strong. Left Upper Extremity: Shoulder flexors 4-/5. Shoulder abductors 4-/5. Elbow flexors 5/5. Elbow extensors 4-/5. Finance Manager strong. Right Lower Extremity: Hip flexors 4/5. Hip abductors 4/5. Knee flexors 4/5. Knee extensors 4/5. Ankle dorsiflexors 4/5. Ankle plantarflexors 5/5. Left Lower Extremity: Hip flexors 4/5. Hip abductors 4/5. Knee flexors 4/5. Knee extensors 4/5. Ankle dorsiflexors 4/5. Ankle plantarflexors 5/5. Bed Mobility/Transfers: Supine to sit with standby assist with HOB at 60 degrees Sit to stand with standby assist Stand to sit with standby assist Bed to reclining chair with standby assist Gait: instructed patient with level surface ambulation of 300 feet requiring standby assist. Esthela decreased. Minimal shortness of breath after ambulation activity that subsided with seated rest. No report of increased pain in left side of chest. Balance: Static Sitting: Normal Dynamic Sitting: Normal Static Standing: Good Dynamic Standing: Good Special Tests: Mobility Limitations Standardized Measure [facility] AM-PAC 6 clicks Basic Mobility Inpatient Short Form: Raw Score: 21 CMS Score: 29% deficit 4-stage balance test: Able to maintain feet together for 10 seconds but is unable to do so with semi-tandem, full tandem, and one leg in stance signifying increased risk for falls. Informed Consent/Education: Patient was instructed in purpose of PT consult and plan of care. Agreeable to proceed with established PT POC to achieve personal goals. Assessment: Lacey demonstrates functional mobility decline requiring the standby assist of PT for all ambulation activity along with decreased activity tolerance due to admitting diagnoses. She may benefit from short-term home health PT services in order to assess home safety and progress and balance skills to reduce fall risk. Patient presents with clinical signs and symptoms consistent with current/admitting diagnoses that have resulted to mobility limitations, gait instability, generalized weakness, and overall ADL decline as demonstrated by the following impairment level findings: 1. Impaired /standing balance as seen with 4-stage balance test 2. Impaired activity tolerance 3. Shortness of breath Impairments are contributing to the following functional limitations: 1. Decline in supine to sit ability 2. Increased completion time for mobility ADL performance 3. Increased risk for falls Patient is assessed as a 56226 moderate complexity based on the following: History: 80-year-old femalewith past medical history as indicated above Examination: Demonstrable impairment in strength, balance, and mobility level with underlying impairments and functional limitations as exhibited above as well as deficit score of 29% utilizing the [facility] Mobility Inpatient Short Form Presentation: Evolving Decision Makin moderate complexity Goals: Goals X1 week 1. Supine-Sit independent 2. Sit-Supine independent 3. Sit-Stand independent 4. Stand-Sit independent with no AD 5. Bed-Chair independent with no AD 6. Chair-Bed independent with no AD 7. Independent gait on level surface with use of no AD for at least 300 feet without report of pain nor dyspnea 8. Independent stair negotiation while holding onto 1 rails for at least 5 steps without report of pain nor dyspnea 9. Independent with home exercise program 10. Good static and dynamic standing balance/tolerance Plan of Care/Treatment Plan: 1-2x/day, 7 days/week x 1 week. Plan of care has been reviewed with the COATER CARBON PAPER providing the service under Physical Therapy direction. Initiate Physical Therapy intervention for pain management as needed, strengthening, bed mobility, transfers, gait, stairs, balance training, and use of assistive device. DISCHARGE RECOMMENDATIONS: [] Home with no services [] [X] Home with services. Home when medically cleared by hospitalist. Patient will benefit from home health PT services in order to progress mobility level using least restrictive assistive ambulatory device, assess home safety, identify additional equipment needs, and establish a functional maintenance program that will increase ability of patient to remain at home. [] Home with outpatient PT [] [] SNF for continued rehabilitation [] [] Education Instructor Care [] [] SNF versus LTC based on ability to participate and progress [] TREATMENT CODE/TIME: 02402 x 20 minutes, 25951 x 16 minutes beginning at 13:40 PM. Thank you for the opportunity to participate in the care of this patient. Juana Perrin PT, DPT, CLT [facility] [place], [place]
[2021-06-24] MEDS: Metoprolol 12.5 MG TAB PO (20:28)
[2021-06-25] MEDS: Acetaminophen 500 MG TAB 1000 MG PO ×2 (00:05→08:14)
[2021-06-25 01:03] VITALS: PULSE 53
[2021-06-25 03:22] VITALS: BP 102/67; PULSE 53; RESP 18; TEMP 35.9; O2SAT 97
[2021-06-25] MEDS: HYDROcodone 5/Acetaminophen 325 TAB PO (05:53)
[2021-06-25] MEDS: Levothyroxine 25 MCG TAB PO (06:24)
[2021-06-25 07:21] LABS: Abs Immature Grans 0.02 10^3/uL (0.0-0.06); Absolute Basophil Count 0.04 10^3/uL (0.0-0.2); Absolute Eosinophil Count 0.19 10^3/uL (0.0-0.7); Absolute Monocyte Count 0.53 10^3/uL (0.1-0.8); Absolute Neutrophil Count 2.29 10^3/uL (1.2-6.7); Basophils % 0.9; Eosinophils % 4.3; HCT 40.8 % (36.0-46.0); HGB 12.7 g/dL (11.2-15.7); Immature Grans % 0.5; Lymphocytes % 29.7; MCH 32.2 pg (27.0-33.0); MCHC 31.1 % (32.0-36.0); MCV 103 fL (80-95); MPV 11.4 fL (8.0-11.0); Monocytes % 12.1; Neutrophils % 52.5; Platelet Count 205 10^3/uL (130-400); RBC 3.95 10^6/uL (3.93-5.22); RDW 14.3 % (11.7-14.6); RDW-SD 54.4 fL; WBC 4.37 10^3/uL (4.4-10.8)
[2021-06-25 07:26] LABS: Anion Gap 6.6 mmol/L (3-11); BUN 21 mg/dL (7-18); CO2 27.4 mmol/L (21.0-32.0); CREATININE 0.7 mg/dL (0.55-1.02); Calcium 8.5 mg/dL (8.5-10.1); Chloride 107 mmol/L (98-107); Glucose 79 mg/dL (74-106); Magnesium 2.2 mg/dL (1.8-2.4); Potassium 4.1 mmol/L (3.5-5.1); Sodium 141 mmol/L (136-145)
[2021-06-25 08:06] VITALS: BP 127/80; PULSE 70; RESP 14; TEMP 36.7; O2SAT 93
[2021-06-25] MEDS: Omeprazole 20 MG CAPCR PO (08:14)
[2021-06-25] MEDS: Metoprolol 12.5 MG TAB PO (08:14)
[2021-06-25 09:13] VITALS: PULSE 55
--- NOTE | 2021-06-25 09:18 | PGE_ITS ---
Date of Service Date of service: 06/25/21 Time of Service: 08:19 Assessment and Plan Assessment and plan (1) Hemothorax on left: (2) Multiple fractures of ribs of left side: Assessment and plan: - Stable for discharge from surgical standpoint -Patient just wants to use Tylenol and lidocaine patches. She does not want any narcotics, gabapentin or muscle relaxers -Continue to do Acapella as previously instructed -Follow-up with Dr. Quiroz as previously instructed Subjective Subjective Interval history since last seen: Pt is doing well. no headaches. No CP or SOB. no productive cough. no dysuria. no leg pain or swelling. Patient has more questions about her cardiac standpoint than her lung standpoi nt. She does not have any shortness of breath. She does not have any cough. She is having some discomfort when she moves around but nothing significant. She does not want any medication stronger than Tylenol. Exam Narrative Exam Narrative: PHYSICAL EXAM GENERAL APPEARANCE: Alert, healthy appearance, oriented, in no acute distress SKIN: No rashes.? HYDRATION: Well hydrated HEAD, EYES, EARS, NECK, THROAT: Head is normocephalic, pupils equal, round, reactive to light and accommodation, ocular movement intact, sclera clear and no jaundice. ?Dentition intact. No sore throat.? NECK: Supple, Trachea midline. LUNGS: normal respiration/nl chest excursion. ?Clear to auscultation B/l no R/R/W EXTREMITY: No edema or cyanosis? no leg pain, redness, swelling.? No IV infiltration significant ecchymosis noted. ABDOMEN: non tender to palpation, no masses or distention, no hernias. Normal bowel sounds NEURO: no focal neuro deficits. No numbness or tingling in her hands and feet. She is moving all extremities equally. ? Objective Last Vital Signs Temp 36.7 C 06/25/21 08:06 Pulse 55 L 06/25/21 09:13 Resp 14 06/25/21 08:06 BP 127/80 06/25/21 08:06 Pulse Ox 93 06/25/21 08:06 Laboratory Results - last 24 hr 06/25/21 06/25/21 06:22 06:22 WBC 4.37 L RBC 3.95 Hgb 12.7 Hct 40.8 MCV 103 H MCH 32.2 MCHC 31.1 L D RDW 14.3 Plt Count 205 MPV 11.4 H Immature Gran % 0.5 Neutrophils % 52.5 Lymphocytes % 29.7 Monocytes % 12.1 Eosinophils % 4.3 Basophils % 0.9 Nucleated RBC % 0.0 Absolute Neutrophils 2.29 Absolute Lymphocytes 1.30 Absolute Monocytes 0.53 Absolute Eosinophils 0.19 Absolute Basophils 0.04 Sodium 141 Potassium 4.1 Chloride 107 Carbon Dioxide 27.4 Anion Gap 6.6 BUN 21 H Creatinine 0.7 Estimated GFR/1.73 m2 >= 60.00 Glucose 79 Calcium 8.5 Magnesium 2.2 PAWSS Have you Been Recently Intoxicated or Drunk Within the Last 30 days?: No Have you Ever Experienced Previous Episodes of Alcohol Withdrawal?: No Have you ever Experienced Withdrawal Seizures?: No Have you ever Experienced Delirium Tremens(DT)s?: No Have you ever undergone Alcohol Rehabilitation Treatment (i.e, inpt ot outpatient treatment programs)?: No Have you ever Experienced Blackouts?: No Have you ever Combined Alcohol with other Downers within the last 90 days?: No Have you ever Combined Alcohol with any other Substance of Abuse during the last 90 days?: No Positive Blood Alcohol level on Presentation? [PCS.BAL]: No Evidence of Increased Autonomic Activity (i.e. HR>120, tremor, sweating, agitation, nausea)?: No Result: 0
--- NOTE | 2021-06-25 09:25 | PDOC.HHF2F ---
Home Health Certification Home Health Certification: 1. Encounter Date and Reason I certify that Lacey Epperson was seen by Clementine Paz NP on 06/25/21 and that I had a [id number] encounter with this patient that meets the physician face to face encounter requirements. 2. Clinical Findings Supporting Skilled Need and Homebound Status I certify that home health services are medically necessary, include either intermittent halfway and/or physical/speech therapy, and that this patient is homebound in that absences from the home require considerable and taxing effort and are infrequent or of short duration, or are attributable to the need to receive medical care. [X] (a) Attached documentation from encounter provides clinical findings supporting skilled need and homebound status (including what assistance patient requires to leave the home). The encounter with the patient was in whole, or in part, for the following medical condition, which is the primary reason for home health care: Afib,Hemothorax,Rib fractures Care Home: New dx of Afib with acute hospitalization; educate on disease process, new medications, anti-coagulation, fall prevention; assess CV and respiratory systems; assess independent ability to participate in telemed function and implement if able. Physical Therapy: Evaluate and provide education related to posture and gait, range of motion, muscle strenthening , fall prevention Speech Therapy: Homebound: Lacey is unable to safely leave her home; it is a taxing effort; new onset Afib and recent falls. She is unable to ambulate without assistance of a device or person safely. 3. Certification and Authentication I certify that I composed the above information based on my clinical judgment relating to this patient's medical condition and, if applicable, clinical findings communicated to me by the NPP or inpatient physician who performed the Home Health Referral. All further orders will be obtained through Lore Kaiser MD
--- NOTE | 2021-06-25 10:42 | DSE_ITS ---
Date of service: 06/25/21 Time of Service: 09:42 DS: Diagnosis Discharge Diagnosis (1) Hemothorax on left: Status: Acute (2) Multiple fractures of ribs of left side: Status: Acute Discharge Plan Disposition Patient Disposition: HOME W/HOME HEALTH SERVICE Condition: Critical Discharge Details Admit Date/Time: 06/24/21 10:33 Admit Provider: Klaus Noguera Attending Provider: Lois Alonso Primary Care Provider: Lore Kaiser [facility] Course Hospital Course: This 80-year-old female came to the ED 06/23/21 with the complaint of dyspnea.? She lives alone at [facility]. She was doing some exercises about a week ago and lost her balance, falling and injuring her left arm and chest.? She came to the emergency department 06/17/21, had x-rays of her left arm and shoulder and a CT of her chest abdomen pelvis.? No acute abnormalities were noted and she was discharged.? She went home with her daughter to help her manage because of the chest pain and arm hematoma.? She developed increased shortness of breath and continued to have significant pain in the chest and arm.? She had a follow-up with oncology for her breast cancer which is currently in remission and the oncologist noted that she was likely in atrial fibrillation with tachycardia and sent her to the emergency department for evaluation.? She does not have a history of atrial fibrillation.? She does have COPD, hyperlipidemia and hypothyroidism.? She also developed history of valley fever(coccidiomycosis) while in [place].? She has a history of DVT and was diagnosed with that a few years ago in 2018.? In 2019 she developed a DVT and pulmonary embolism and now is on chronic anticoagulation with rivaroxaban.? She does not smoke cigarettes and drinks alcohol about 2 times per week.? She was reevaluated emergency department here and given diltiazem which did not improve her atrial fibrillation but then was treated with intravenous metoprolol.? This converted her to sinus rhythm after a sinus pause for a number of seconds.? That monitor strip was reviewed in the emergency department.? She feels improved at this time.? She remains in NSR, denies CP, diff breathing and is anxious to go home with her daughter. She is staying with her daughter until Tuesday lee. I will alert not to start services until 06/29/21. Home Meds and New Rx's Prescriptions: New metoprolol tartrate 25 mg Tablet 12.5 mg PO BID Qty: 30 0RF No Action omeprazole 20 mg capsule,delayed release(DR/EC) 20 mg PO DAILY Xarelto 20 mg tablet 20 mg PO DAILY Rx Instructions: must administer with evening meal simvastatin 40 mg tablet 40 mg PO DAILY levothyroxine 25 mcg tablet 25 mcg PO DAILY vitamin H11-vqzzr acid 500-400 mcg tablet 2 tab PO DAILY Rx Instructions: administer with a meal biotin 5 mg capsule 5 mg PO DAILY vitamin d3 folic acid capsule 5000 PO DIRECTED Trelegy Ellipta 100-62.5-25 mcg blister with device 1 inh inhalation DAILY Qty: 3 1RF Trelegy Ellipta 100-62.5-25 mcg blister with device 1 inh INHALATION DAILY Discharge Instructions Instructions: A-fib (Atrial Fibrillation) (DC), How to Use an Incentive Spirometer (DC), Fall Prevention (DC), Holter Monitor (GEN) Stand Alone Forms: Nursing Discharge Form Referrals: Gay Leo MD [ [facility] STAFF PHYSICIAN] - Lore Kaiser MD [Primary Care Provider] - 07/10/21 12:30 pm () Activity:: Activity as Tolerated Equipment/Supplies:: No Equipment Needed Diet:: Low Sodium Discharge Orders Discharge Orders: Discharge Order (Routine); Ordered 06/25/21 Ordered By: Clementine Paz DS: Summary Time Spent with Patient providing and/or coordinating discharge services: Less than 30 minutes Status at Discharge Functional status at discharge: independent ambulation Overall status at discharge: patient is progressing back to baseline Mental Status: mental status grossly normal Speech and Movement: speech and movement normal Mood: congruent mood Affect: normal affect Exam Psych Mental Status: mental status grossly normal Speech and Movement: speech and movement normal Mood: congruent mood Affect: normal affect DS: Data Vitals/I&O Vitals and I&O: Vital Signs Temperature 36.7 C 06/25/21 08:06 Temperature Source Tympanic 06/25/21 08:06 Pulse 55 L 06/25/21 09:13 Pulse Rhythm Regular 06/25/21 08:57 Pulse 71 06/24/21 11:48 Respiratory Rate 14 06/25/21 08:06 Respiratory Effort Non-Labored 06/25/21 08:57 Respiratory Depth Normal 06/25/21 08:57 Respiratory Pattern Normal 06/25/21 08:57 Blood Pressure 127/80 06/25/21 08:06 Blood Pressure Mean 88 06/24/21 11:48 Blood Pressure Position Supine 06/24/21 07:45 Pulse Oximetry 93 06/25/21 08:06 Oxygen Delivery Method Room Air 06/25/21 08:06 Oxygen Flow Rate 0 06/25/21 08:06 Pain Level 4 06/25/21 08:06 Intake & Output 06/24/21 06/24/21 06/25/21 11:59 23:59 11:59 Intake Total 30.417 / 150.417 120 / 150.417 400 / 400 Output Total 375 / 425 50 / 425 Balance -344.583 / -274.583 70 / -274.583 400 / 400 Weight 79.3 kg 76.4 kg Intake: IV 30.417 / 30.417 Oral 120 / 120 400 / 400 Output: Urine 375 / 425 50 / 425 Other: Urine Color Straw Yellow Urine Appearance Clear Clear Urine Odor None None Comment pt is voiding independently in toilet. patient stated four times this morning already Voiding Methods Bedside Commode Bedside Commode Toilet Data Completed and Pending Labs on day of discharge: Labs from last 24 hours 06/25/21 06/25/21 06:22 06:22 WBC 4.37 L RBC 3.95 Hgb 12.7 Hct 40.8 MCV 103 H MCH 32.2 MCHC 31.1 L D RDW 14.3 Plt Count 205 MPV 11.4 H Immature Gran % 0.5 Neutrophils % 52.5 Lymphocytes % 29.7 Monocytes % 12.1 Eosinophils % 4.3 Basophils % 0.9 Nucleated RBC % 0.0 Absolute Neutrophils 2.29 Absolute Lymphocytes 1.30 Absolute Monocytes 0.53 Absolute Eosinophils 0.19 Absolute Basophils 0.04 Sodium 141 Potassium 4.1 Chloride 107 Carbon Dioxide 27.4 Anion Gap 6.6 BUN 21 H Creatinine 0.7 Estimated GFR/1.73 m2 >= 60.00 Glucose 79 Calcium 8.5 Magnesium 2.2 PFSH All Active Problems Discharge planning issues (Acute) Compressive atelectasis (Acute) Breast cancer (Chronic) Traumatic hematoma of left upper arm (Acute) Contusion of rib on left side (Acute) Contusion of right hand (Acute) Hemothorax on left (Acute) Multiple fractures of ribs of left side (Acute) CESAR (obstructive sleep apnea) (Chronic) Coccidioidomycosis (Acute) Chronic thromboembolic disease (Chronic) DVT (deep venous thrombosis) (Chronic) Arthritis (Acute) Anemia (Chronic) Thyroid disease (Acute) COPD with emphysema (Acute) Medical History Bleeding disorder Cancer High cholesterol History of blood clots 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 at 71. Social History Smoking/Tobacco Use Status: Former Tobacco Use Quit Date: 02/15/76 Pack-years: 13 Smoking risk assessment performed?: Yes Alcohol Intake: current Alcohol Intake frequency: a few times a week Alcohol type: wine Drug use: Never Substance use type: does not use Do you feel safe at home: Yes Do you feel safe in your relationship?: Yes
--- NOTE | 2021-06-25 11:16 | PTTR_ITS ---
Date of service: 06/25/21 Time of Service: 10:35 PT Notes Inpatient Physical Therapy Treatment Note [facility] Date: 06/25/2021 PRECAUTIONS: Activity as tolerated SUBJECTIVE: Lacey is pleasant and agreeable to participating in PT. She reports that she has no concerns requiring functional mobility at this time. She reports that she will be staying with her daughter for a short time prior to returning to her own apartment at [facility]. OBJECTIVE: PAIN: No c/o pain BED MOBILITY/TRANSFERS Sit-stand: I Stand-sit: I Bed-chair: I Chair-bed: I GAIT: Assistive Device: No AD Weight bearing: Full Assist: I Distance: 400' Deviation: SOB STAIRS: Up/down 3x4 and 2x6 using B rails and a step-over pattern, independently. TOILETING: Patient toileted independently. ASSESSMENT: Patient tolerated session with complaint of SOB with gait training and stair negotiation. She was able to tolerate a progression in gait distance without assistive device support, independently. PLAN: Patient to discharge to home later today, per provider. TREATMENT CODE/TIME: 16 minutes; 23958 (10:35)
--- NOTE | 2021-06-25 11:23 | DSE_ITS ---
DS: Diagnosis Discharge Diagnosis (1) Hemothorax on left: Status: Acute (2) Multiple fractures of ribs of left side: Status: Acute Discharge Plan Disposition Patient Disposition: HOME W/HOME HEALTH SERVICE Condition: Critical Discharge Details Admit Date/Time: 06/24/21 10:33 Admit Provider: Klaus Noguera Attending Provider: Lois Alonso Primary Care Provider: Lore Kaiser [facility] Hospital Course Hospital Course: This 80-year-old female came to the ED 06/23/21 with the complaint of dyspnea.? She lives alone at [facility]. She was doing some exercises about a week ago and lost her balance, falling and injuring her left arm and chest.? She came to the emergency department 06/17/21, had x-rays of her left arm and shoulder and a CT of her chest abdomen pelvis.? No acute abnormalities were noted and she was discharged.? She went home with her daughter to help her manage because of the chest pain and arm hematoma.? She developed increased shortness of breath and continued to have significant pain in the chest and arm.? She had a follow-up with oncology for her breast cancer which is currently in remission and the oncologist noted that she was likely in atrial fibrillation with tachycardia and sent her to the emergency department for evaluation.? She does not have a history of atrial fibrillation.? She does have COPD, hyperlip idemia and hypothyroidism.? She also developed history of valley fever(coccidiomycosis) while in [place].? She has a history of DVT and was diagnosed with that a few years ago in 2018.? In 2019 she developed a DVT and pulmonary embolism and now is on chronic anticoagulation with rivaroxaban.? She does not smoke cigarettes and drinks alcohol about 2 times per week.? She was reevaluated emergency department here and given diltiazem which did not improve her atrial fibrillation but then was treated with intravenous metoprolol.? This converted her to sinus rhythm after a sinus pause for a number of seconds.? That monitor strip was reviewed in the emergency department.? She feels improved at this time.? She remains in NSR, denies CP, diff breathing and is anxious to go home with her daughter. She is staying with her daughter until Tuesday lee. I will alert not to start services until 06/29/21. Home Meds and New Rx's Prescriptions: New metoprolol tartrate 25 mg Tablet 12.5 mg PO BID Qty: 30 0RF No Action omeprazole 20 mg capsule,delayed release(DR/EC) 20 mg PO DAILY Xarelto 20 mg tablet 20 mg PO DAILY Rx Instructions: must administer with evening meal simvastatin 40 mg tablet 40 mg PO DAILY levothyroxine 25 mcg tablet 25 mcg PO DAILY vitamin A42-wsrlr acid 500-400 mcg tablet 2 tab PO DAILY Rx Instructions: administer with a meal biotin 5 mg capsule 5 mg PO DAILY vitamin d3 folic acid capsule 5000 PO DIRECTED Trelegy Ellipta 100-62.5-25 mcg blister with device 1 inh inhalation DAILY Qty: 3 1RF Trelegy Ellipta 100-62.5-25 mcg blister with device 1 inh INHALATION DAILY Discharge Instructions Instructions: A-fib (Atrial Fibrillation) (DC), How to Use an Incentive Spirometer (DC), Fall Prevention (DC), Holter Monitor (GEN) Stand Alone Forms: Nursing Discharge Form Referrals: Gay Leo MD [ [facility] STAFF PHYSICIAN] - Lore Kaiser MD [Primary Care Provider] - 07/10/21 12:30 pm () Activity:: Activity as Tolerated Equipment/Supplies:: No Equipment Needed Diet:: Low Sodium Discharge Orders Discharge Orders: Discharge Order (Routine); Ordered 06/25/21 Ordered By: Clementine Paz DS: Data Vitals/I&O Vitals and I&O: Vital Signs Temperature 36.7 C 06/25/21 08:06 Temperature Source Tympanic 06/25/21 08:06 Pulse 55 L 06/25/21 09:13 Pulse Rhythm Regular 06/25/21 08:57 Pulse 71 06/24/21 11:48 Respiratory Rate 14 06/25/21 08:06 Respiratory Effort Non-Labored 06/25/21 08:57 Respiratory Depth Normal 06/25/21 08:57 Respiratory Pattern Normal 06/25/21 08:57 Blood Pressure 127/80 06/25/21 08:06 Blood Pressure Mean 88 06/24/21 11:48 Blood Pressure Position Supine 06/24/21 07:45 Pulse Oximetry 93 06/25/21 08:06 Oxygen Delivery Method Room Air 06/25/21 08:06 Oxygen Flow Rate 0 06/25/21 08:06 Pain Level 4 06/25/21 08:06 Intake & Output 06/24/21 06/24/21 06/25/21 11:59 23:59 11:59 Intake Total 30.417 / 150.417 120 / 150.417 400 / 400 Output Total 375 / 425 50 / 425 Balance -344.583 / -274.583 70 / -274.583 400 / 400 Weight 79.3 kg 76.4 kg Intake: IV 30.417 / 30.417 Oral 120 / 120 400 / 400 Output: Urine 375 / 425 50 / 425 Other: Urine Color Straw Yellow Urine Appearance Clear Clear Urine Odor None None Comment pt is voiding independently in toilet. patient stated four times this morning already Voiding Methods Bedside Commode Bedside Commode Toilet Data Completed and Pending Labs on day of discharge: Labs from last 24 hours 06/25/21 06/25/21 06:22 06:22 WBC 4.37 L RBC 3.95 Hgb 12.7 Hct 40.8 MCV 103 H MCH 32.2 MCHC 31.1 L D RDW 14.3 Plt Count 205 MPV 11.4 H Immature Gran % 0.5 Neutrophils % 52.5 Lymphocytes % 29.7 Monocytes % 12.1 Eosinophils % 4.3 Basophils % 0.9 Nucleated RBC % 0.0 Absolute Neutrophils 2.29 Absolute Lymphocytes 1.30 Absolute Monocytes 0.53 Absolute Eosinophils 0.19 Absolute Basophils 0.04 Sodium 141 Potassium 4.1 Chloride 107 Carbon Dioxide 27.4 Anion Gap 6.6 BUN 21 H Creatinine 0.7 Estimated GFR/1.73 m2 >= 60.00 Glucose 79 Calcium 8.5 Magnesium 2.2 PFSH All Active Problems Discharge planning issues (Acute) Compressive atelectasis (Acute) Breast cancer (Chronic) Traumatic hematoma of left upper arm (Acute) Contusion of rib on left side (Acute) Contusion of right hand (Acute) Hemothorax on left (Acute) Multiple fractures of ribs of left side (Acute) CESAR (obstructive sleep apnea) (Chronic) Coccidioidomycosis (Acute) Chronic thromboembolic disease (Chronic) DVT (deep venous thrombosis) (Chronic) Arthritis (Acute) Anemia (Chronic) Thyroid disease (Acute) COPD with emphysema (Acute) Medical History Bleeding disorder Cancer High cholesterol History of blood clots 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 at 71. Social History Smoking/Tobacco Use Status: Former Tobacco Use Quit Date: 02/15/76 Pack-years: 13 Smoking risk assessment performed?: Yes Alcohol Intake: current Alcohol Intake frequency: a few times a week Alcohol type: wine Drug use: Never Substance use type: does not use Do you feel safe at home: Yes Do you feel safe in your relationship?: Yes
--- NOTE | 2021-06-25 14:32 | CMDISCH_ITS ---
- If Service Date Differs Date of service: 06/25/21 Time of Service: 14:32 LACE Index Scoring Tool - Questions: Length of Stay (in days): 2 Acuity (Admit via E.D.?): Yes Comorbidities: Any Tumor E.D. Visits: 2 - Answers: Total Score: 9 Risk of Readmission: Low Risk Care Management Discharge Reason for Hospitalization: Afib, hemothorax, rib fractures Discharge Plan: Discharge home with new [facility] SN and PT via private vehicle with family. Lacey will follow up with her PCP and Pulmonology as scheduled. Lacey was discharged with a cardiac event recorder, coordinated by RT. Patient/Family Education Needs: Review discharge instructions, medications, limitations and plan to follow up with her PCP and pack press operator. ask me three. Services Needed at Discharge: Home Health Care Services ([facility] RN, PT. CM notified [facility]. Per pt, she is unable to commit to services until Tuesday.)
--- NOTE | 2021-06-25 17:00 | PT.INDS ---
Date of service: 06/25/21 PT Notes Physical Therapy Inpatient Discharge Summary Date: 06/24/2021 Date of service 06/24/2021 through 06/25/2021 This is a clinical summary of care provided for the duration of dates listed above. No charge was made in the completion of this documentation. Referring Doctor: Lois Alonso MD PT Orders: PT CONSULT: Limited ability Precautions: Fall. Standard. Activity as tolerated. Hard of hearing. Patient Profile/Admitting Diagnosis: Lacey is an 80-year-old female on remission for breast cancer who presented to the ED on 06/23/2021 due to increasing shortness of breath, tachycardia, and low blood pressure with a fall 1 week prior to today's admission.? Patient is diagnosed with traumatic hematoma of left forearm, multiple fractures of ribs on the left side, hemothorax on the left, atrial fibrillation with rapid ventricular response, and chronic thromboembolic disease. PMHX: All Active Problems?(Updated 06/24/21 @ 08:47 by Marian Perez MD) Compressive atelectasis (Acute) Breast cancer (Chronic) Traumatic hematoma of left upper arm (Acute) Contusion of rib on left side (Acute) Contusion of right hand (Acute) Hemothorax on left (Acute) Multiple fractures of ribs of left side (Acute) Atrial fibrillation with rapid ventricular response (Acute) CESAR (obstructive sleep apnea) (Chronic) Coccidioidomycosis (Acute) Chronic thromboembolic disease (Acute) DVT (deep venous thrombosis) (Chronic) Arthritis (Acute) Anemia (Chronic) Thyroid disease (Acute) COPD with emphysema (Acute) Medical History? 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 Cataract History of lumpectomy 10/22/2016 Social History/Home Situation: Lacey is an 80-year-old female patient originally from [place] who move to [place] in December of last year to reside at [facility] to be closer to her daughter who lives in [facility]. Equipment Owned/DME: None Subjective: NT. See most recent HOLLOW CORE DOOR FRAME ASSEMBLER notes. Objective: General Observation: NT. See most recent HOLLOW CORE DOOR FRAME ASSEMBLER notes. Mental Status: NT. See most recent HOLLOW CORE DOOR FRAME ASSEMBLER notes. Pain: NT. See most recent HOLLOW CORE DOOR FRAME ASSEMBLER notes. Vital Signs: NT. See most recent HOLLOW CORE DOOR FRAME ASSEMBLER notes. ROM: Right Upper Extremity: ? Shoulder Flexion WFL. Shoulder abduction WFL. Elbow flexion WFL. Wrist flexion WFL. Functional opening and closing of hand WFL. Left Upper Extremity:? Shoulder Flexion WFL. Shoulder abduction WFL. Elbow flexion WFL. Wrist flexion WFL. Functional opening and closing of hand WFL. Right Lower Extremity: Hip flexion WFL. Hip abduction WFL. Knee flexion WFL. Ankle dorsiflexion WFL. Ankle plantarflexion WFL. Left Lower Extremity: Hip flexion WFL. Hip abduction WFL. Knee flexion WFL. Ankle dorsiflexion WFL. Ankle plantarflexion WFL. Strength: Right Upper Extremity: Shoulder flexors 4/5. Shoulder abductors 5/5. Elbow flexors 5/5. Elbow extensors 5/5. Purchasing Analyst strong. Left Upper Extremity: Shoulder flexors 4-/5. Shoulder abductors 4-/5. Elbow flexors 5/5. Elbow extensors 4-/5. Purchasing Analyst strong. Right Lower Extremity: Hip flexors 4/5. Hip abductors 4/5. Knee flexors 4/5. Knee extensors 4/5. Ankle dorsiflexors 4/5. Ankle plantarflexors 5/5. Left Lower Extremity: Hip flexors 4/5. Hip abductors 4/5. Knee flexors 4/5. Knee extensors 4/5. Ankle dorsiflexors 4/5. Ankle plantarflexors 5/5. Bed Mobility/Transfers: Supine to sit with independent Sit to stand with independent Stand to sit with independent Bed to reclining chair with independent Gait: instructed patient with level surface ambulation of 300 feet independence. Esthela decreased.? Minimal shortness of breath after ambulation activity that subsided with seated rest.? No report of increased pain in left side of chest. Balance: Static Sitting: Normal Dynamic Sitting: Normal Static Standing: Normal Dynamic Standing: Good Special Tests: Mobility Limitations Standardized Measure [facility] 6 clicks Basic Mobility Inpatient Short Form: Raw Score: 21 CMS Score: 29% deficit? ? Assessment: Demonstrates functional mobility improvement during this episode of care as can be seen in the goal status below. Goals: Goals X1 week 1. Supine-Sit independent MET 2. Sit-Supine independent MET 3. Sit-Stand independent MET 4. Stand-Sit independent with no AD MET 5. Bed-Chair independent with no AD MET 6. Chair-Bed independent with no AD MET 7. Independent gait on level surface with use of no AD for at least 300 feet without report of pain nor dyspnea MET 8. Independent stair negotiation while holding onto 1 rails for at least 5 steps without report of pain nor dyspnea MET 9. Independent with home exercise program MET 10. Good static and dynamic standing balance/tolerance MET DISCHARGE RECOMMENDATIONS: [] ? Home with no services [] [X] ? Home with services.? Home when medically cleared by hospitalist.? Patient will benefit from home health PT services in order to progress mobility level using least restrictive assistive ambulatory device, assess home safety, identify additional equipment needs, and establish a functional maintenance program that will increase ability of patient to remain at home. [] ? Home with outpatient PT [] [] ? SNF for continued rehabilitation [] [] ? [facility] [] [] ? SNF versus LTC based on ability to participate and progress [] TREATMENT CODE/TIME: [place] Thank you for the opportunity to participate in the care of this patient. Juana Perrin PT, DPT, CLT [facility] [place], [place]
== END 2021-06-25 11:59 | disposition home health service (06) | DRG 183 ==
LOC: ER 21:20 → ICU 06-24 00:01 → MS 06-24 14:46
PROVIDERS: Admitting Provider Family Medicine; Emergency Provider Student in an Organized Health Care Education/Training Program; PCP Family Medicine; Visit Provider Internal Medicine
DX: S22.42XA Multiple fractures of ribs, left side, initial encounter for closed fracture (principal); S27.1XXA Traumatic hemothorax, initial encounter; J98.11 Atelectasis; D68.59 Other primary thrombophilia; J43.2 Centrilobular emphysema; E03.9 Hypothyroidism, unspecified; D64.9 Anemia, unspecified; W19.XXXA Unspecified fall, initial encounter; Z85.3 Personal history of malignant neoplasm of breast; I48.91 Unspecified atrial fibrillation; Z79.01 Long term (current) use of anticoagulants; Z86.718 Personal history of other venous thrombosis and embolism; G47.33 Obstructive sleep apnea (adult) (pediatric); S40.022A Contusion of left upper arm, initial encounter; Z86.711 Personal history of pulmonary embolism; E78.5 Hyperlipidemia, unspecified; S60.221A Contusion of right hand, initial encounter
CPT/HCPCS: 36415; 71275; 80048; 80053; 84145; 87635; 93005; 96365; 96366; 96375; 96376; 97162; 97530; 99222; 99231; 99291; U0005; 71045; 71046; 83735; 83880; 84443; 84484; 85025; 85379; 93010; 99233; 99238; J3010; J3490; Q9967

== ENCOUNTER 2021-06-25 10:20 | Outpatient (RCR) | payer MEDICARE, SELFPAY ==
--- NOTE | 2021-10-09 08:50 | W.CARDEVENT ---
Date of service: 10/09/21 Time of Service: 08:51 Cardiac Event Recorder Referring Provider:: sunitha reno Indications:: Atrial fibrillation Cardiac Event Note: This is a 30-day cardiac event monitor, which was performed from June 25 through July 24, 2021 Predominant rhythm was sinus which was present for 97% of the recording. 3% of the time the patient had atrial fibrillation with a moderately rapid ventricular response Heart rate overall was 66 There was 1 pause of 3.2 seconds associated with conversion from atrial fibrillation to sinus rhythm Heart rates during atrial fibrillation were often 1 50-1 70 There were no apparent patient's symptoms
== END 2021-07-14 23:59 | disposition home or self-care (01) ==
LOC: RT 10:20
PROVIDERS: PCP Family Medicine; Visit Provider Nurse Practitioner Family
DX: I48.91 Unspecified atrial fibrillation (principal)
CPT/HCPCS: 93270

== ENCOUNTER → 2021-07-02 03:01 | Outpatient (CLI) | payer MEDICARE, SELFPAY ==
--- NOTE | 2021-07-02 07:15 | DI.RAD_ITS ---
Exam(s) XR CHEST 2V PA LATERAL EXAM: XR CHEST 2V PA LATERAL CLINICAL HISTORY: follow up on hemothorax,J94.2 TECHNIQUE: 2D digital imaging was performed of the chest. Images were obtained. PA and lateral v iews were obtained. COMPARISON: CR XR CHEST 2V PA LATERAL from 06/24/2021 FINDINGS: MEDIASTINUM: Normal. HEART: Normal. PULMONARY VASCULATURE: Normal. LUNGS: Clear. The lungs appear hyperinflated suggesting underlying COPD. PLEURAL SPACE: There is a persistent small left pleural effusion. It has decreased in size compared to 06/24/2021. No right pleural effusion is seen. No pneumothorax. BONE:Within normal limits for the patient's age. Stable lower thoracic and lumbar compression fractu re deformities. OTHER FINDINGS:Normal. IMPRESSION: Persistent small left pleural effusion which has decreased in size compared to 06/24/2021. DATA REPOSITORY: RADIATION DOSE DELIVERED:
== END ==
PROVIDERS: PCP Family Medicine; Visit Provider Student in an Organized Health Care Education/Training Program
DX: J94.2 Hemothorax (principal); J44.9 Chronic obstructive pulmonary disease, unspecified; J90 Pleural effusion, not elsewhere classified
CPT/HCPCS: 71046

== ENCOUNTER 2021-08-07 08:47 | Outpatient (CLI) | payer MEDICARE, SELFPAY ==
--- NOTE | 2021-08-07 08:45 | RT.EKG_ITS ---
APPROVED REPORT Exam: Resting ECG Reason for Exam: afib Patient Location: O HR:72 bpm ECG Measurements Heart Rate 72 AXIS KS 149 P 16 QRSd 96 QRS 11 QT 419 T -8 QTc 459 Conclusion Sinus rhythm...normal P axis, V-rate 50- 99 Supraventricular bigeminy...bigeminy string>4 w/ SV complexes Probable left atrial enlargement...P >50mS, <-0.10mV V1
== END 2021-08-07 08:48 | disposition home or self-care (01) ==
LOC: DI.CARD 08:47
PROVIDERS: PCP Family Medicine; Visit Provider Internal Medicine Cardiovascular Disease
DX: I48.91 Unspecified atrial fibrillation (principal); R94.31 Abnormal electrocardiogram [ECG] [EKG]
CPT/HCPCS: 93010

== ENCOUNTER → 2021-08-07 13:49 | Outpatient (BNVA) | payer MEDICARE, SELFPAY | PROVIDERS: PCP Family Medicine; Referring Provider Family Medicine; Visit Provider Internal Medicine Cardiovascular Disease | DX: J43.9 Emphysema, unspecified (principal); Z85.3 Personal history of malignant neoplasm of breast; I48.0 Paroxysmal atrial fibrillation; I74.9 Embolism and thrombosis of unspecified artery; G47.33 Obstructive sleep apnea (adult) (pediatric) | CPT/HCPCS: 93005; 99203; 99213 ==

== ENCOUNTER 2021-10-08 08:51 | Outpatient (CLI) | payer MEDICARE, SELFPAY | END 2021-10-08 08:52 | LOC: CARDO 10-12 09:33 | PROVIDERS: PCP Family Medicine; Referring Provider Family Medicine; Visit Provider Internal Medicine Cardiovascular Disease | DX: I48.91 Unspecified atrial fibrillation (principal) | CPT/HCPCS: 93272 ==

== ENCOUNTER 2021-12-28 09:55 | Outpatient (CLI) | payer MEDICARE, SELFPAY ==
[2021-12-28 12:35] LABS: Abs Immature Grans 0.01 10^3/uL (0.0-0.06); Absolute Basophil Count 0.02 10^3/uL (0.0-0.2); Absolute Eosinophil Count 0.12 10^3/uL (0.0-0.7); Absolute Lymphocyte Count 1.27 10^3/uL (1.2-3.4); Absolute Monocyte Count 0.59 10^3/uL (0.1-0.8); Absolute Neutrophil Count 3.42 10^3/uL (1.2-6.7); Basophils % 0.4; Eosinophils % 2.2; HCT 43.2 % (36.0-46.0); HGB 13.9 g/dL (11.2-15.7); Immature Grans % 0.2; Lymphocytes % 23.4; MCH 32.6 pg (27.0-33.0); MCHC 32.2 % (32.0-36.0); MCV 101 fL (80-95); MPV 11.3 fL (8.0-11.0); Monocytes % 10.9; Neutrophils % 62.9; Platelet Count 174 10^3/uL (130-400); RBC 4.26 10^6/uL (3.93-5.22); RDW 14.8 % (11.7-14.6); RDW-SD 55.7 fL; WBC 5.43 10^3/uL (4.4-10.8)
[2021-12-28 12:47] LABS: ALT 16 U/L (14-59); AST 18 U/L (15-37); Albumin 3.7 g/dL (3.4-5.0); Alkaline Phosphatase 47 U/L (46-116); Anion Gap 5.8 mmol/L (3-11); BUN 16 mg/dL (7-18); Bilirubin, Total 0.6 mg/dL (0.2-1.0); CO2 30.2 mmol/L (21.0-32.0); CREATININE 0.8 mg/dL (0.55-1.02); Calcium 9.4 mg/dL (8.5-10.1); Chloride 107 mmol/L (98-107); Estimated GFR 73.52 (mL/min/1.73m2); Glucose 102 mg/dL (74-106); Potassium 3.9 mmol/L (3.5-5.1); Sodium 143 mmol/L (136-145); Total Protein 7.2 g/dL (6.4-8.2)
== END 2021-12-28 09:56 | disposition home or self-care (01) ==
LOC: LBO 09:56
PROVIDERS: PCP Family Medicine; Visit Provider Internal Medicine
DX: Z85.3 Personal history of malignant neoplasm of breast (principal)
CPT/HCPCS: 36415; 80053; 85025

== ENCOUNTER 2022-06-11 00:07 | Outpatient (CLI) | payer MEDICARE, SELFPAY ==
--- NOTE | 2022-06-11 | DI.CT_ITS ---
Exam(s) CT CHEST WO EXAM: CT CHEST WO CLINICAL HISTORY: H/O BREAST CA,Z85.3,F/U CT WITH LUNG NODULES,R91.8 TECHNIQUE: Imaging Protocol: Axial computed tomography images with coronal and sagittal reformatted images were created and reviewed CONTRAST MATERIAL: Noncontrast COMPARISON: CT CT CHEST WO CONTRAST from 12/11/[address] CHEST PE CTA from 06/23/2021 FINDINGS: Pulmonary parenchyma: Emphysematous changes greater at the lung bases, right greater than left. No c onsolidation. A stable 7 millimeter nodule anterior right upper lobe. No suspicious mass. Scarring anterior right upper lobe presumably related to radiation therapy. Tracheobronchial tree: No bronchiectasis or mucous plugging. Mediastinum and Lesly: No dominant adenopathy or fluid collection. Pleura: No effusion or pneumothorax. Heart: Left atrial dilatation. Minimal coronary artery calcifications are seen. Aorta: Thoracic aorta non-dilated. Mild atherosclerotic changes. Upper abdomen: Unremarkable. Bones: Degenerative changes. Old right rib fractures. Stable compression fractures of T11 and L1. No new fractures. Bones appear osteopenic. No definite lytic or blastic lesion. Soft tissues: Surgical clips in the right breast. No evidence of recurrence mass. No axillary adeno meliton. IMPRESSION: Stable 7 millimeter nodule right upper lobe. Stable compression fractures of T11 and L1. No new abnormalities. RADIATION DOSE DELIVERED: 509.79mGy.cm Total DLP DATA REPOSITORY: All CT scans at this facility are submitted to the National Radiology Data Registry (NRDR) Dose Index Registry (DIR) with the [employer] (ACR). RADIATION OPTIMIZATION: All CT scans at this facility use at least one of these dose optimization te chniques: automated exposure control; mA and/or kV adjustment per patient size (includes targeted exa ms where dose is matched to clinical indication); or iterative reconstruction.
== END 2022-06-11 00:27 ==
LOC: DI 00:08
PROVIDERS: PCP Family Medicine; Visit Provider Internal Medicine
DX: Z85.3 Personal history of malignant neoplasm of breast (principal); R91.8 Other nonspecific abnormal finding of lung field
CPT/HCPCS: 71250

== ENCOUNTER 2022-06-18 01:35 | Outpatient (CLI) | payer MEDICARE, SELFPAY ==
[2022-06-18 13:53] LABS: Abs Immature Grans 0.02 10^3/uL (0.0-0.06); Absolute Basophil Count 0.03 10^3/uL (0.0-0.2); Absolute Eosinophil Count 0.08 10^3/uL (0.0-0.7); Absolute Lymphocyte Count 1.21 10^3/uL (1.2-3.4); Absolute Monocyte Count 0.63 10^3/uL (0.1-0.8); Absolute Neutrophil Count 4.51 10^3/uL (1.2-6.7); Basophils % 0.5; Eosinophils % 1.2; HCT 42.6 % (36.0-46.0); HGB 13.9 g/dL (11.2-15.7); Immature Grans % 0.3; Lymphocytes % 18.7; MCH 32.5 pg (27.0-33.0); MCHC 32.6 % (32.0-36.0); MCV 100 fL (80-95); MPV 10.5 fL (8.0-11.0); Monocytes % 9.7; Neutrophils % 69.6; Platelet Count 189 10^3/uL (130-400); RBC 4.28 10^6/uL (3.93-5.22); RDW 14.6 % (11.7-14.6); RDW-SD 53.5 fL; WBC 6.48 10^3/uL (4.4-10.8)
[2022-06-18 14:29] LABS: ALT 22 U/L (14-59); AST 17 U/L (15-37); Albumin 3.4 g/dL (3.4-5.0); Alkaline Phosphatase 48 U/L (46-116); Anion Gap 6.5 mmol/L (3-11); BUN 16 mg/dL (7-18); Bilirubin, Total 0.6 mg/dL (0.2-1.0); CO2 29.5 mmol/L (21.0-32.0); CREATININE 0.9 mg/dL (0.55-1.02); Calcium 9.1 mg/dL (8.5-10.1); Chloride 109 mmol/L (98-107); Estimated GFR 63.83 (mL/min/1.73m2); Glucose 105 mg/dL (74-106); Potassium 4.2 mmol/L (3.5-5.1); Sodium 145 mmol/L (136-145); Total Protein 6.9 g/dL (6.4-8.2)
== END 2022-06-18 01:36 | disposition home or self-care (01) ==
LOC: LBO 01:36
PROVIDERS: PCP Family Medicine; Visit Provider Internal Medicine
DX: Z85.3 Personal history of malignant neoplasm of breast (principal)
CPT/HCPCS: 36415; 80053; 85025

== ENCOUNTER 2022-06-18 13:53 | Outpatient (CLI) | payer MEDICARE, SELFPAY | END 2022-06-18 13:54 | disposition home or self-care (01) | PROVIDERS: PCP Family Medicine; Visit Provider Family Medicine | DX: I48.91 Unspecified atrial fibrillation (principal) | CPT/HCPCS: 93246 ==

== ENCOUNTER 2022-07-20 09:00 | Outpatient (CLI) | payer MEDICARE, SELFPAY ==
--- NOTE | 2022-07-20 11:33 | CER_ITS ---
Date of service: 07/20/22 Time of Service: 11:33 Cardiac Event Recorder Referring Provider:: Lore Kaiser Indications:: Atrial fibrillation Cardiac Event Note: This is a 14-day awake overnight monitor. Patient recorded for 12 days and 17 hours Predominant rhythm was sinus, with intermittent periods of atrial fibrillation. Atrial fibrillation was present 63% of the recording. Overall average heart rate was 108, minimum was 33, maximum in sinus was 115, maximum overall 201. Heart rates in atrial fibrillation were in the vicinity of 130 There were rare ventricular ectopic beats There were rare atrial premature beats There was no high-grade AV block, no pauses greater than 3 seconds No patient symptoms were reported
== END 2022-07-20 09:01 | disposition home or self-care (01) ==
LOC: CARDOPNVT 09:00
PROVIDERS: PCP Family Medicine; Visit Provider Internal Medicine Cardiovascular Disease
DX: I48.91 Unspecified atrial fibrillation (principal)
CPT/HCPCS: 93248

== ENCOUNTER → 2022-07-29 13:08 | Outpatient (BNVA) | payer MEDICARE, SELFPAY | PROVIDERS: PCP Family Medicine; Referring Provider Family Medicine; Visit Provider Internal Medicine Cardiovascular Disease | DX: I48.0 Paroxysmal atrial fibrillation (principal); J43.2 Centrilobular emphysema | CPT/HCPCS: 99214 ==

== ENCOUNTER 2022-08-16 08:37 | Outpatient (CLI) | payer MEDICARE, SELFPAY ==
--- NOTE | 2022-08-16 08:30 | RT.EKG_ITS ---
APPROVED REPORT Exam: Resting ECG Reason for Exam: paroxsymal afib Patient Location: O HR:131 bpm ECG Measurements Heart Rate 131 AXIS AR [id number] P [id number] QRSd 100 QRS 19 QT 337 T -12 QTc 498 Conclusion Atrial flutter...A-rate 308 Repolarization abnormality, prob rate related...ST dep, T neg, tachycardia Baseline wander in lead(s) V1
== END 2022-08-16 08:38 | disposition home or self-care (01) ==
LOC: DI.CARD 08:38
PROVIDERS: PCP Family Medicine; Visit Provider Internal Medicine Cardiovascular Disease
DX: I48.0 Paroxysmal atrial fibrillation (principal)
CPT/HCPCS: 93010

== ENCOUNTER → 2022-08-16 14:41 | Outpatient (BNVA) | payer MEDICARE, SELFPAY | PROVIDERS: PCP Family Medicine; Referring Provider Family Medicine; Visit Provider Internal Medicine Cardiovascular Disease | DX: J43.9 Emphysema, unspecified (principal); I48.0 Paroxysmal atrial fibrillation | CPT/HCPCS: 93005; 99214 ==

== ENCOUNTER 2022-08-27 14:39 | Outpatient (RCR) | payer MEDICARE, SELFPAY | END 2022-09-13 23:59 | disposition home or self-care (01) | LOC: PRC 14:39 | PROVIDERS: PCP Family Medicine; Visit Provider Student in an Organized Health Care Education/Training Program | DX: J43.9 Emphysema, unspecified (principal) | CPT/HCPCS: 94626 ==

== ENCOUNTER 2022-08-31 18:40 | Observation (INO) | payer MEDICARE, SELFPAY ==
[2022-08-31] VITALS (18 sets, daily range): BP systolic 109–130; BP diastolic 52–72; PULSE 42–48; RESP 11–26; TEMP 36.3–36.7; O2SAT 92–95
--- NOTE | 2022-08-31 18:30 | RT.EKG_ITS ---
APPROVED REPORT Exam: Resting ECG Reason for Exam: low hr Patient Location: E HR:41 bpm ECG Measurements Heart Rate 41 AXIS MI 182 P 73 QRSd 97 QRS 63 QT 681 T 29 QTc 564 Conclusion Sinus bradycardia...rate< 60 Low voltage, extremity and precordial leads...extremity<0.5mV, precordial<1.0mV Prolonged QT interval...QTc >500mS Physician: no stemi, sinus deny, no block
[2022-08-31] MEDS: Normal Saline 500 ML IV (18:55)
--- NOTE | 2022-08-31 18:59 | ED.GENADUL_ITS ---
Discharge Plan Disposition Patient Disposition: Admit to [facility] Condition: Improving Discharge Details Chief Complaint: Arrhythmia Clinical Impression: Bradycardia Primary Care Provider: Lore Kaiser ED Provider: Alfonso Diaz Home Meds and New Rx's Prescriptions: No Action metoprolol succinate 50 mg tablet extended release 24 hr 50 mg PO DAILY diltiazem HCl 120 mg capsule,extended release 24hr 120 mg PO DAILY amiodarone 200 mg tablet 200 mg PO BID Qty: 180 8RF omeprazole 20 mg capsule,delayed release(DR/EC) 20 mg PO DAILY cholecalciferol (vitamin D3) 125 mcg (5,000 unit) capsule 125 mcg PO DAILY acetaminophen 500 mg tablet 1,000 mg PO TID PRN Xarelto 20 mg tablet 20 mg PO DAILY Rx Instructions: must administer with evening meal simvastatin 40 mg tablet 40 mg PO DAILY levothyroxine 25 mcg tablet 25 mcg PO DAILY vitamin Z99-naelp acid 500-400 mcg tablet 2 tab PO DAILY Rx Instructions: administer with a meal biotin 5 mg capsule 5 mg PO DAILY Trelegy Ellipta 100-62.5-25 mcg blister with device 1 inh inhalation DAILY Qty: 3 1RF furosemide 20 mg Tablet 20 mg PO 1XD Medical Decision Making 81-year-old female with a past medical history of atrial fibrillation, obstructive sleep apnea, thyroid disease, presents today for evaluation of weakness. Patient is atrial fibrillation has been challenging to control the rate. Patient was on metoprolol 50 mg extended release tablets, Cardizem was added and increased eventually to the dose of 120 mg/day. Unfortunately the patient kept going into rapid atrial fibrillation even in spite of this, and because of this was started on amiodarone 200 mg twice daily by Dr. Leo for goal of rhythm control. This was done on 08/16/2022. Over the last 3 to 4 days she has been having increased lightheadedness and weakness whenever she tries to stand up walk around or exert herself. She noticed that her heart rate had been in the 30s to 40s. EMS was called this evening for continued symptoms, and she was brought in here for further assessment. She denies any falls or trauma. She denies any chest pain. She does admit to some mild shortness of breath/fatigue. No other complaints at this time. No other modifying factors. Patient is taking her Eliquis regularly. She states she has not missed any doses of her cardiac or thyroid medications Exam demonstrates a well-appearing female, heart rate is in the 40s. Blood pressure stable. Orthostatics demonstrate no significant change in blood pressure. I suspect that her symptoms are secondary to her low heart rate. EKG shows sinus rhythm with no atrial fibrillation. No block otherwise. I suspect this is iatrogenic in nature secondary to the various medications which were needed and appropriate, and now that the rhythm issue has been resolved it would be reasonable to stop or decrease her metoprolol or Cardizem. However because of her notable bradycardia now it may be reasonable to hold off on her nighttime heart rate medications. We will evaluate for electrolyte abnormality, monitor closely and reassess. Patient is taking her blood thinners as directed. Symptoms appear inconsistent with PE. 7:59 PM Laboratory work-up has returned and is unremarkable. Electrolytes stable, proBNP stable, troponin normal, thyroid function demonstrates slightly elevated TSH. Chest x-ray shows no evidence of significant pneumonia or pulmonary effusion. There is questionable mild basilar subsegmental atelectasis. Patient has no hypoxemia, no crackles on breath sounds. Patient is otherwise stable. Discussed the case with hospitalist Dr. Bryant, he agrees with the plan for admission and observation tonight for her bradycardia. No indication for transvenous pacing at this time as the patient is otherwise stable while resting. I have extensively reviewed the treatment plan with the patient. I have addressed all patient concerns at this time. I have also discussed the plan with the admitting physician and they agree with the current assessment and plan and have agreed to assume responsibility for the patient. All parties demonstrate verbal understanding and agreement with our assessment and plan at this time. The documentation in this chart was dictated using [employer] dictation software. Please excuse any dictation errors. FINDINGS: Lungs: Chronic interstitial prominence. Question mild basilar subsegmental atelectasis Pleural spaces: Unremarkable. No pleural effusion. No pneumothorax. Heart/Mediastinum: Mild to moderate cardiomegaly. Tortuous aorta Bones/joints: Unremarkable. Surgical clips right axilla IMPRESSION: Question mild basilar subsegmental atelectasis Thank you for allowing us to participate in the care of your patient. Dictated and Authenticated by: Tre Medina MD 08/31/2022 7:59 PM Eastern Time ([place] & [place]) HPI General Date/Time Provider Initiated Documentation: 08/31/22 18:59 . HPI Narrative: 81-year-old female with a past medical history of atrial fibrillation, obstructive sleep apnea, thyroid disease, presents today for evaluation of weakness. Patient is atrial fibrillation has been challenging to control the rate. Patient was on metoprolol 50 mg extended release tablets, Cardizem was added and increased eventually to the dose of 120 mg/day. Unfortunately the patient kept going into rapid atrial fibrillation even in spite of this, and because of this was started on amiodarone 200 mg twice daily by Dr. Leo for goal of rhythm control. This was done on 08/16/2022. Over the last 3 to 4 days she has been having increased lightheadedness and weakness whenever she tries to stand up walk around or exert herself. She noticed that her heart rate had been in the 30s to 40s. EMS was called this evening for continued symptoms, and she was brought in here for further assessment. She denies any falls or trauma. She denies any chest pain. She does admit to some mild shortness of breat h/fatigue. No other complaints at this time. No other modifying factors. Patient is taking her Eliquis regularly. She states she has not missed any doses of her cardiac or thyroid medications Related Data Home Medications Medication Instructions Recorded Confirmed biotin 5 mg capsule 5 mg PO DAILY 09/23/20 08/31/22 levothyroxine 25 mcg tablet 25 mcg PO DAILY 09/23/20 08/31/22 rivaroxaban 20 mg tablet (Xarelto) 20 mg PO DAILY 09/23/20 08/31/22 simvastatin 40 mg tablet 40 mg PO DAILY 09/23/20 08/31/22 vitamin B12 500 mcg-folic acid 400 2 tab PO DAILY 09/23/20 08/31/22 mcg tablet fluticasone fur. 100 mcg-umeclid 1 inh inhalation DAILY #3 ea 11/18/20 08/31/22 62.5 mcg-vilant 25 mcg inhalat.powder (Trelegy Ellipta) omeprazole 20 mg capsule,delayed 20 mg PO DAILY 04/29/21 08/31/22 release acetaminophen 500 mg tablet 1,000 mg PO TID PRN 07/01/21 08/16/22 cholecalciferol (vitamin D3) 125 125 mcg PO DAILY 07/01/21 08/31/22 mcg (5,000 unit) capsule metoprolol succinate 50 mg 50 mg PO DAILY 07/29/22 08/31/22 tablet,extended release 24 hr amiodarone 200 mg tablet 200 mg PO BID #180 tabs 08/16/22 08/31/22 diltiazem HCl 120 mg 120 mg PO DAILY 08/16/22 08/31/22 capsule,extended release 24 hr furosemide 20 mg tablet 20 mg PO 1XD 08/31/22 08/31/22 Previous Rx's Medication Instructions Recorded fluticasone fur. 100 mcg-umeclid 1 inh inhalation DAILY #3 ea 11/18/20 62.5 mcg-vilant 25 mcg inhalat.powder (Trelegy Ellipta) amiodarone 200 mg tablet 200 mg PO BID #180 tabs 08/16/22 Allergies Allergy/AdvReac Type Severity Reaction Status Date / Time Sulfa (Sulfonamide Allergy Verified 08/31/22 18:56 Antibiotics) General Stated Complaint: Arrhythmia SAWYER: 3 Review of Systems All systems reviewed & are unremarkable except as noted in HPI and below PFSH All Active Problems (Updated 08/31/22 @ 20:03 by Alfonso Diaz DO) Bradycardia (Acute) Weakness (Acute) Sensorineural hearing loss (Acute) Pulmonary nodule (Acute) Paroxysmal atrial fibrillation (Acute) CESAR (obstructive sleep apnea) (Chronic) uses CPAP Coccidioidomycosis (Acute) Chronic thromboembolic disease (Chronic) Arthritis (Acute) Anemia (Chronic) Thyroid disease (Acute) COPD with emphysema (Acute) Medical History Bleeding disorder Breast cancer Cancer Contusion of rib on left side Contusion of right hand Hemothorax on left High cholesterol History of blood clots Multiple fractures of ribs of left side RVF ([place] fever) Sleep apnea Traumatic hematoma of left upper arm Surgical History Cataract History of lumpectomy 10/22/2016 Family History Mother Asthma Father Stroke at 69 Sister Breast cancer Breast and lung cancer. at 71. Social History Smoking/Tobacco Use Status: Former Tobacco Use Quit Date: 02/15/76 Pack-years: 13 Smoking risk assessment performed?: Yes Alcohol Intake: current Alcohol Intake frequency: a few times a week Alcohol type: wine Drug use: Never Substance use type: does not use Do you feel safe at home: Yes Do you feel safe in your relationship?: Yes Exam Narrative Exam Narrative: 1.Const: Well-nourished, Well-developed, appearing stated age 2.Eyes: PERRL, no conjunctival injection, and symmetrical lids. 3.ENT: Atraumatic external nose and ears. Moist MM. Neck: Symmetric, trachea midline, No thyromegaly. 4.CVS: +S1/S2, No murmurs or gallops. Peripheral pulses 2+ and equal in all extremities. Brisk capillary refill in all extremities. 5.RESP: Unlabored respiratory effort. Clear to auscultation bilaterally. No wheezes rales or rhonchi 6.GI: Soft, Nontender/Nondistended, No hepatosplenomegaly. No guarding or rebound. 7.MSK: Normocephalic/Atraumatic, Extremities w/o deformity or ttp No cyanosis or clubbing, Normal movement of all extremities 8.Skin: Warm, Dry. No rashes or lesions. 9.Neuro: project controls specialist II-XII grossly intact. Sensation grossly intact, no focal neurologic deficits. 10.Psych: (AAO) x3. Appropriate mood and affect Course Vital Signs Vital signs: Vital Signs Temperature 36.3 C L 08/31/22 18:41 Pulse 47 L 08/31/22 18:41 Respiratory Rate 22 08/31/22 18:41 Blood Pressure 124/53 L 08/31/22 18:41 Pulse Oximetry 92 08/31/22 18:41 Temperature 36.3 C L 08/31/22 18:41 Pulse 47 L 08/31/22 18:41 Respiratory Rate 22 08/31/22 18:41 Respiratory Effort Normal 08/31/22 18:49 Blood Pressure 124/53 L 08/31/22 18:41 Pulse Oximetry 92 08/31/22 18:41 Oxygen Delivery Method Room Air 08/31/22 18:41 Oxygen Flow Rate 0 08/31/22 18:41 Critical Care Time Critical Care Time Critical Care Time: Yes Total Critical Care Time: 30 Attestation: Upon my evaluation, this patient had a high probability of imminent or life- threatening deterioration, which required my direct attention, intervention, and personal management. I have personally provided 30 minutes of critical care time exclusive of time spent on separately billable procedures. Time includes review of laboratory data, radiology results, discussion with consultants, and monitoring for potential decompensation. Interventions were performed as documented.
--- NOTE | 2022-08-31 19:00 | DI.RAD_ITS ---
Exam(s) XR PORTABLE CHEST AP EXAM: XR PORTABLE CHEST AP CLINICAL HISTORY: shortness of breath TECHNIQUE: 2D digital imaging was performed. COMPARISON: CT CT CHEST WO from 06/11/2022 FINDINGS: Exam is limited by under penetration at the lung bases. The heart is enlarged. The aorta is tortuou s. Emphysematous and fibrotic changes are present. No definite infiltrate however basal infiltrates not excluded. Portions of the lung bases are somewhat obscured by overlying abdominal soft tissues. Old left rib fractures present. Degenerative changes in the spine and shoulders. Surgical clips r ight chest. IMPRESSION: Limited exam. No acute abnormality. DATA REPOSITORY: RADIATION DOSE DELIVERED:
[2022-08-31 19:03] LABS: Abs Immature Grans 0.02 10^3/uL (0.0-0.06); Absolute Basophil Count 0.03 10^3/uL (0.0-0.2); Absolute Lymphocyte Count 1.45 10^3/uL (1.2-3.4); Absolute Monocyte Count 0.73 10^3/uL (0.1-0.8); Absolute Neutrophil Count 3.96 10^3/uL (1.2-6.7); Basophils % 0.5; Eosinophils % 1.6; HCT 43.1 % (36.0-46.0); HGB 14.1 g/dL (11.2-15.7); Immature Grans % 0.3; Lymphocytes % 23.1; MCH 32.8 pg (27.0-33.0); MCHC 32.7 % (32.0-36.0); MCV 100 fL (80-95); MPV 11.5 fL (8.0-11.0); Monocytes % 11.6; Neutrophils % 62.9; Platelet Count 181 10^3/uL (130-400); RDW 14.9 % (11.7-14.6); RDW-SD 55.1 fL; WBC 6.29 10^3/uL (4.4-10.8)
[2022-08-31 19:21] LABS: INR 1.2 (0.9-1.1); PTT Activated 31.6 sec (21.5-31.9); Prothrombin Time 12.5 sec (9.3-11.0)
--- NOTE | 2022-08-31 19:24 | W.PM.HP.N ---
Date of service: 08/31/22 Time of Service: 19:25 Assessment and Plan Assessment and plan (1) Weakness: Status: Acute Assessment and plan: Weakness and lightheadedness. It is noteworthy, and somewhat surprising, that patient is not in fact orthostatic. However, there remains a strong suspicion that the symptoms are in fact related to the bradycardia, and this would also correlate with the recent introduction of Amiodarone. Will plan on holding this along with the beta- and calcium-blockers and monitor overnight. I should add that patient's chemistries are pending at this time so there may be an as yet unidentified factor; will update when labs available. Reviewed ADs, requests DNR History of Present Illness History of Present Illness Chief Complaint: weakness, lightheadedness Narrative: 81 female with h/o AF with difficult to control rate. 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 Comes in now with several days of generalized weakness and lightheadedness, essentially only when she stands up. and has noticed heart rates in 30s and 40s. Feels a little tired also at rest but this is very much a minor complaint. Here in ER initial findings of note for sinus bradycardia in 40s. Patient given 500 NS. I was asked to evaluate for admission. Patient reiterates that at rest she feels perhaps only a little tired, but that her symptoms mainly occur with standing. Review of Systems Narrative: per HPI PFSH All Active Problems (Updated 08/31/22 @ 19:33 by Jeremi Bryant MD) Weakness (Acute) Sensorineural hearing loss (Acute) Pulmonary nodule (Acute) Paroxysmal atrial fibrillation (Acute) CESAR (obstructive sleep apnea) (Chronic) uses CPAP Coccidioidomycosis (Acute) Chronic thromboembolic disease (Chronic) Arthritis (Acute) Anemia (Chronic) Thyroid disease (Acute) COPD with emphysema (Acute) Medical History Bleeding disorder Breast cancer Cancer Contusion of rib on left side Contusion of right hand Hemothorax on left High cholesterol History of blood clots Multiple fractures of ribs of left side RVF ([place]) Sleep apnea Traumatic hematoma of left upper arm Surgical History Cataract History of lumpectomy 10/22/2016 Family History Mother Asthma Father Stroke at 69 Sister Breast cancer Breast and lung cancer. at 71. Social History Smoking/Tobacco Use Status: Former Tobacco Use Quit Date: 02/15/76 Pack-years: 13 Smoking risk assessment performed?: Yes Alcohol Intake: current Alcohol Intake frequency: a few times a week Alcohol type: wine Drug use: Never Substance use type: does not use Do you feel safe at home: Yes Do you feel safe in your relationship?: Yes Meds Allergies and Home Medications Allergies Allergy/AdvReac Type Severity Reaction Status Date / Time Sulfa (Sulfonamide Allergy Verified 08/31/22 18:56 Antibiotics) Home Medications Medication Instructions Recorded Confirmed Type biotin 5 mg capsule 5 mg PO DAILY 09/23/20 08/31/22 History levothyroxine 25 mcg tablet 25 mcg PO DAILY 09/23/20 08/31/22 History rivaroxaban 20 mg tablet (Xarelto) 20 mg PO DAILY 09/23/20 08/31/22 History simvastatin 40 mg tablet 40 mg PO DAILY 09/23/20 08/31/22 History vitamin B12 500 mcg-folic acid 400 2 tab PO DAILY 09/23/20 08/31/22 History mcg tablet fluticasone fur. 100 mcg-umeclid 1 inh inhalation DAILY #3 ea 11/18/20 08/31/22 Rx 62.5 mcg-vilant 25 mcg inhalat.powder (Trelegy Ellipta) omeprazole 20 mg capsule,delayed 20 mg PO DAILY 04/29/21 08/31/22 History release acetaminophen 500 mg tablet 1,000 mg PO TID PRN 07/01/21 08/16/22 History cholecalciferol (vitamin D3) 125 125 mcg PO DAILY 07/01/21 08/31/22 History mcg (5,000 unit) capsule metoprolol succinate 50 mg 50 mg PO DAILY 07/29/22 08/31/22 History tablet,extended release 24 hr amiodarone 200 mg tablet 200 mg PO BID #180 tabs 08/16/22 08/31/22 Rx diltiazem HCl 120 mg 120 mg PO DAILY 08/16/22 08/31/22 History capsule,extended release 24 hr furosemide 20 mg tablet 20 mg PO 1XD 08/31/22 08/31/22 History Exam Narrative Exam Narrative: Orthostatics by myself: Supine, BP 109/53, pulse 45; standing (mild symptoms) BP 113/52, pulse 44; 36.3, 23, 93% RA. HEENT atraumatic; neck supple; lungs clear; heart distant, deny/regular; abdomen soft and NT; extremities trace pedal edema; neuro Ox3, lucid, moves all 4s Results Labs 08/31/22 18:58 08/31/22 18:58 Labs: Laboratory Results - last 24 hr 08/31/22 08/31/22 18:58 18:58 WBC 6.29 RBC 4.30 Hgb 14.1 Hct 43.1 MCV 100 H MCH 32.8 MCHC 32.7 RDW 14.9 H Plt Count 181 MPV 11.5 H Immature Gran % 0.3 Neutrophils % 62.9 Lymphocytes % 23.1 Monocytes % 11.6 Eosinophils % 1.6 Basophils % 0.5 Nucleated RBC % 0.0 Absolute Neutrophils 3.96 Absolute Lymphocytes 1.45 Absolute Monocytes 0.73 Absolute Eosinophils 0.10 Absolute Basophils 0.03 PT 12.5 H INR 1.2 H APTT 31.6 Last Vital Signs Temp 36.3 C L 08/31/22 18:41 Pulse 42 L 08/31/22 19:06 Resp 23 08/31/22 19:10 BP 124/53 L 08/31/22 19:06 Pulse Ox 93 08/31/22 19:10 Time Spent Time spent with Patient: 40-54 minutes Time was spent: preparing to see the patient(eg.review tests), obtaining and/or reviewing separately otained hiistory, ordering medications,tests, procedures, referring, communicating with other health wound care coordinator and indepentently interpreting results
[2022-08-31 19:30] LABS: ALT 47 U/L (14-59); AST 30 U/L (15-37); Albumin 3.5 g/dL (3.4-5.0); Alkaline Phosphatase 51 U/L (46-116); Anion Gap 7.6 mmol/L (3-11); BUN 20 mg/dL (7-18); Bilirubin, Total 0.5 mg/dL (0.2-1.0); CO2 29.4 mmol/L (21.0-32.0); CREATININE 1.1 mg/dL (0.55-1.02); Calcium 8.6 mg/dL (8.5-10.1); Chloride 106 mmol/L (98-107); Estimated GFR 50.17 (mL/min/1.73m2); Glucose 122 mg/dL (74-106); Magnesium 2.1 mg/dL (1.8-2.4); NT-proBNP 676 pg/mL (<300); Potassium 4.6 mmol/L (3.5-5.1); Sodium 143 mmol/L (136-145); TSH (W/Ref FT4) 4.26 uIU/mL (0.36-3.74); Total Protein 6.9 g/dL (6.4-8.2); Troponin I < 50 ng/L (<or=60)
--- NOTE | 2022-08-31 20:00 | DI.VRAD_ITS ---
PROCEDURE INFORMATION: Exam: XR Chest Exam date and time: 08/31/2022 7:27 PM Age: 81 years old Clinical indication: Shortness of breath; Patient HX: SOB TECHNIQUE: Imaging protocol: Radiologic exam of the chest. Views: 1 view. COMPARISON: CT CHEST WO 06/11/2022 1:26 PM FINDINGS: Lungs: Chronic interstitial prominence. Question mild basilar subsegmental atelectasis Pleural spaces: Unremarkable. No pleural effusion. No pneumothorax. Heart/Mediastinum: Mild to moderate cardiomegaly. Tortuous aorta Bones/joints: Unremarkable. Surgical clips right axilla IMPRESSION: Question mild basilar subsegmental atelectasis Dictated and Authenticated by: Tre Medina MD. Ordering:BLANCA Hamilton MD
[2022-08-31 20:13] LABS: FREE T4 1.06 ng/dL (0.76-1.46)
[2022-08-31 22:25] LABS: Troponin I < 50 ng/L (<or=60)
[2022-09-01] VITALS (28 sets, daily range): BP systolic 97–133; BP diastolic 65–101; PULSE 80–124; RESP 11–25; TEMP 36.1–37.3; O2SAT 90–97
[2022-09-01] MEDS: Levothyroxine 25 MCG TAB PO (05:40)
[2022-09-01 08:21] LABS: Anion Gap 7.1 mmol/L (3-11); BUN 15 mg/dL (7-18); CO2 27.9 mmol/L (21.0-32.0); CREATININE 0.7 mg/dL (0.55-1.02); Calcium 8.7 mg/dL (8.5-10.1); Chloride 110 mmol/L (98-107); Glucose 102 mg/dL (74-106); Magnesium 2.1 mg/dL (1.8-2.4); Sodium 145 mmol/L (136-145)
[2022-09-01] MEDS: Budesonide/Formoterol 80/4.5 6.9 GM 60 PUFF INH IH ×2 (08:26→20:06)
[2022-09-01] MEDS: Tiotropium Bromide-Respimat 10 PUFF INH 2 PUFF IH (08:27)
[2022-09-01] MEDS: Amiodarone 200 MG TAB PO ×2 (08:31→20:06)
[2022-09-01] MEDS: Rivaroxaban 10 MG TABLET 20 MG PO (08:31)
[2022-09-01] MEDS: Omeprazole 20 MG CAPCR PO (08:31)
[2022-09-01] MEDS: Vitamins B Comp w/C TAB 2 TAB PO (08:31)
--- NOTE | 2022-09-01 08:31 | PDOC.CMIN ---
Date of service: 09/01/22 Time of Service: 08:31 Care Management Initial Assmt Initial Assessment REASON FOR HOSPITALIZATION:: weakness, lightheadedness PREVIOUS FUNCTIONAL STATUS/SOCIAL/FAMILY SUPPORTS:: Lacey lives alone at the [facility]. She has 2 children; one daughter lives in [place] and her other child lives in the [place] area. Lacey also has 5 grandchildren. She is independent at baseline and drives. Lacey is very active, although she is somewhat limited by her COPD. She exercises twice a week, does Alexi chi once a week and volunteers at [employer] one day a week. Last winter she volunteered in a [employer] in [place] for 3 months. She has a cane at home, but rarely uses it. She routinely sees Dr. Perez for COPD. CURRENT FUNCTIONAL STATUS:: Lacey was sitting up in bed when CM met with her. She was very pleasant and engaged easily with CM. She had just had an Echocardiogram and has had a chest xray and bloodwork as well. She is in observation status and anticipates being discharged tomorrow. ADVANCE DIRECTIVES:: On File, [facility] is daughter Marleni Cantor Has patient been provided with info about the portal/API?: Yes Did the patient sign up for the portal?: Yes CODE STATUS:: DNR/DNI INSURANCE COVERAGE / FINANCIAL ISSUES:: [facility] Medicare Replacement CURRENT HOME/COMMUNITY SERVICES/EQUIPMENT:: Has a Cane, uses PRN. Connected with [place] [facility] Aging. Lives at [facility] PRIMARY CARE PHYSICIAN:: Lore Kaiser POTENTIAL DISCHARGE NEEDS:: Follow up with PCP and plan of care PATIENT/FAMILY EDUCATION NEEDS:: Review discharge instructions, limitations, medications and plan to follow up with community providers. ask me three. TRANSPORTATION:: via private vehicle with family PLAN:: Anticipate, Lacey will discharge home with no new services when medically ready. Pt will need follow up appointments and discharge plan of care and will transport via private vehicle. CM will continue to help support discharge planning needs. PFSH All Active Problems (Updated 08/31/22 @ 20:03 by Alfonso Diaz DO) Bradycardia (Acute) Weakness (Acute) Sensorineural hearing loss (Acute) Pulmonary nodule (Acute) Paroxysmal atrial fibrillation (Acute) CESAR (obstructive sleep apnea) (Chronic) uses CPAP Coccidioidomycosis (Acute) Chronic thromboembolic disease (Chronic) Arthritis (Acute) Anemia (Chronic) Thyroid disease (Acute) COPD with emphysema (Acute) Medical History Bleeding disorder Breast cancer Cancer Contusion of rib on left side Contusion of right hand Hemothorax on left High cholesterol History of blood clots Multiple fractures of ribs of left side RVF ([place] fever) Sleep apnea Traumatic hematoma of left upper arm Surgical History Cataract History of lumpectomy 10/22/2016 Family History Mother Asthma Father Stroke at 69 Sister Breast cancer Breast and lung cancer. at 71. Social History Smoking/Tobacco Use Status: Former Tobacco Use Quit Date: 02/15/76 Pack-years: 13 Smoking risk assessment performed?: Yes Alcohol Intake: current Alcohol Intake frequency: a few times a week Alcohol type: wine Drug use: Never Substance use type: does not use Housing: assisted living facility Do you feel safe at home: Yes Do you feel safe in your relationship?: Yes
--- NOTE | 2022-09-01 09:30 | RT.EKG_ITS ---
APPROVED REPORT Exam: Resting ECG Reason for Exam: Afib vs NSR Patient Location: I HR:97 bpm ECG Measurements Heart Rate 97 AXIS WI [id number] P [id number] QRSd 93 QRS 27 QT 396 T -33 QTc 503 Conclusion Atrial fibrillation...? atrial activity Low voltage, precordial leads...precordial leads <1.0mV Prolonged QT interval...QTc >500mS
[2022-09-01 10:12] LABS: Bilirubin Negative (Negative); Blood Trace-intact (Negative); Clarity Clear (Clear); Glucose Negative (Negative); Ketones Negative (Negative); Leukocyte Esterase Negative (Negative); Nitrite Negative (Negative); Urobilinogen 0.2 mg/dL (Up to 0.2); pH 7.5 (5-8)
[2022-09-01 10:27] LABS: Bacteria Negative HPF (Negative); C & S Indicated? C&S Done As Ordered; Crystals Negative HPF (Negative); Epithelial Cells Negative HPF (Negative); Mucus Negative (Negative); RBC 0-2 HPF (0-2); WBC Negative HPF (0-5)
--- NOTE | 2022-09-01 11:08 | RESPIRATORY ---
Pt states that she has a home CPAP unit from [facility], she is unable to have someone bring it in for her stay here. RT offered for pt to use one of our machines for tonight, pt declined and stated that she felt she was fine without it.
--- NOTE | 2022-09-01 11:58 | PHA.REVIEW2 ---
Pharmacy Admission Review - Admission Clinical Review (Last Reviewed 08/31/22 @ 19:30 by Jeremi Bryant MD) Bradycardia (Acute) Weakness (Acute) Sulfa (Sulfonamide Antibiotics) Allergy (Verified 08/31/22 18:56) Resuscitation Status DNR/DNI Height 5 ft 3 in Weight 79.9 kg - Renal Dosing Renal Dosing: BUN 15 mg/dL (7-18) 09/01/22 07:58 Creatinine 0.7 mg/dL (0.55-1.02) 09/01/22 07:58 Medications needing adjustments: Reviewed List of meds needing interventions: eCrCl 43 ml/min, orders ok - Anticoagulation Anticoagulation: Hgb 14.1 g/dL (11.2-15.7) 08/31/22 18:58 Hct 43.1 % (36.0-46.0) 08/31/22 18:58 Plt Count 181 10^3/uL (130-400) 08/31/22 18:58 INR 1.2 (0.9-1.1) H 08/31/22 18:58 Creatinine 0.7 mg/dL (0.55-1.02) 09/01/22 07:58 Therapeutic Anticoagulation: Reviewed Medications: Rivaroxaban - Opiate Usage Evaluate Pain Scale/Pains Meds: N/A - Relevant Labs Sodium 145 mmol/L (136-145) 09/01/22 07:58 Potassium 4.0 mmol/L (3.5-5.1) 09/01/22 07:58 Chloride 110 mmol/L (98-107) H 09/01/22 07:58 Magnesium 2.1 mg/dL (1.8-2.4) 09/01/22 07:58 Electrolytes, C-Reactive P, ESR: Reviewed - DM Control DM Control: Glucose 102 mg/dL (74-106) 09/01/22 07:58 DM Control: N/A - Cardiac Review Cardiac Review: Troponin I < 50 ng/L (<or=60) 08/31/22 22:03 NT-Pro-B Natriuret Pep 676 pg/mL (<300) H 08/31/22 18:58 BP, HR, EF%: Reviewed List meds needing interventions: bradycardia yesterday, all cardiac meds were held (dilt, metoprolol, amiodarone) and HR is back up to 80/90s today, amiodarone has been restarted - Qtc Review QTc: Reviewed If Elevated, List meds needing intervention: QTc 564 on admission - IV to PO Switch IV Medications: Reviewed - Home Meds Home Med List reviewed: Reviewed Relevent Home Meds Not ordered & why?: dilt and metoprolol being held for now due to bradycardia, symbicort + spiriva ordered in placed of Trelegy Inh - Current meds Current Medication Order Review: Reviewed (Plan is to reintroduce metoprolol and diltiazem at lower doses versus discontinue)
--- NOTE | 2022-09-01 17:00 | CHAPLAIN ---
Lacey was resting in bed when I visited. She expects to be discharged soon so was getting in touch with her daughter in [facility] to give her updates. Lacey lives at the [facility]. She was pleasant and easily engaged in a conversation and is looking forward to being discharged.
[2022-09-01] MEDS: Acetaminophen 325 MG TAB 650 MG PO (17:30)
--- NOTE | 2022-09-01 17:48 | PGE_ITS ---
Date of Service Date of service: 09/01/22 Time of Service: 17:50 Assessment and Plan Assessment and plan (1) Paroxysmal atrial fibrillation: Status: Acute Assessment and plan: with RVR currently; bradycardic on presentation, likely due to effects of her medical therapy. At this time, I am reintroducing her beta ben, split into short acting doses with holding parameters in addition to her amiodarone. Continue xarelto. Cardiology is consulted. (2) Symptomatic bradycardia: Status: Resolved Assessment and plan: In setting of new amiodarone use in addition to continuation of metoprolol and cardizem. Resume metoprolol as bradycardia has resolved and the rates are actually rapid. Hold cardizem given low EF on echo. (3) Acute systolic CHF (congestive heart failure): Status: Acute Assessment and plan: LVEF of 45% by echo. The patient is auto-diuresing now that she is perfusing her kidneys. I do not think she is requiring additional diuretics today. Continue beta ben. Consider addition of jace-i/jardiance if BP permits. (4) CESAR (obstructive sleep apnea): Status: Chronic Assessment and plan: The patient uses CPAP at home. Will order CPAP (5) DVT prophylaxis: Status: Acute Assessment and plan: On therapeutic xarelto (6) Discharge planning issues: Status: Acute Assessment and plan: DNR/DNI likely ok to transfer out of the ICU. Subjective Subjective Interval history since last seen: The patient reports chest tightness (ongoing for days) that she thougth was from her bra, but even with her bra removed, she feels it. She also reports some orthopnea - cannot lay flat. She thinks her legs are swollen. She has had frequent urination today without dysuria. Her UA is negative for a UTI. Her heart rates were in 90-100s - Afib - this am. Amiodarone was restarted. HR now is 100-110s. Exam Narrative Exam Narrative: General: Pleasant elderly female, [place], no visible dyspnea/tachypnea/cyanosis HEENT: EOMI, MMM Heart: irregularly irregular rhythm, no m/r/g Lungs: crackles at B bases Abdomen: soft, nontender, nondistended Extremities: +1 BLE edema, symmetric. Objective Last Vital Signs Temp 37.2 C 09/01/22 12:00 Pulse 99 H 09/01/22 12:00 Resp 22 09/01/22 10:01 BP 97/65 L 09/01/22 12:00 Pulse Ox 96 09/01/22 12:00 Laboratory Results - last 24 hr 08/31/22 08/31/22 08/31/22 18:58 18:58 18:58 WBC 6.29 RBC 4.30 Hgb 14.1 Hct 43.1 MCV 100 H MCH 32.8 MCHC 32.7 RDW 14.9 H Plt Count 181 MPV 11.5 H Immature Gran % 0.3 Neutrophils % 62.9 Lymphocytes % 23.1 Monocytes % 11.6 Eosinophils % 1.6 Basophils % 0.5 Nucleated RBC % 0.0 Absolute Neutrophils 3.96 Absolute Lymphocytes 1.45 Absolute Monocytes 0.73 Absolute Eosinophils 0.10 Absolute Basophils 0.03 PT 12.5 H INR 1.2 H APTT 31.6 Sodium 143 Potassium 4.6 Chloride 106 Carbon Dioxide 29.4 Anion Gap 7.6 BUN 20 H Creatinine 1.1 H Est GFR (CKD-EPI 2020) 50.17 Glucose 122 H Calcium 8.6 Magnesium 2.1 Total Bilirubin 0.5 AST 30 ALT 47 Alkaline Phosphatase 51 Troponin I < 50 NT-Pro-B Natriuret Pep 676 H Total Protein 6.9 Albumin 3.5 TSH 4.26 H Free T4 1.06 Urine Color Urine Clarity Urine pH Ur Specific [place] Urine Protein Urine Ketones Urine Blood Urine Nitrite Urine Bilirubin Urine Urobilinogen Ur Leukocyte Esterase Urine RBC Urine WBC Ur Epithelial Cells Urine Crystals Urine Bacteria Urine Mucus Ur Culture Indicated? Urine Glucose 08/31/22 09/01/22 09/01/22 22:03 07:58 09:55 WBC RBC Hgb Hct MCV MCH MCHC RDW Plt Count MPV Immature Gran % Neutrophils % Lymphocytes % Monocytes % Eosinophils % Basophils % Nucleated RBC % Absolute Neutrophils Absolute Lymphocytes Absolute Monocytes Absolute Eosinophils Absolute Basophils PT INR APTT Sodium 145 Potassium 4.0 Chloride 110 H Carbon Dioxide 27.9 Anion Gap 7.1 BUN 15 Creatinine 0.7 Est GFR (CKD-EPI 2020) 86.30 Glucose 102 Calcium 8.7 Magnesium 2.1 Total Bilirubin AST ALT Alkaline Phosphatase Troponin I < 50 NT-Pro-B Natriuret Pep Total Protein Albumin TSH Free T4 Urine Color Yellow Urine Clarity Clear Urine pH 7.5 Ur Specific [place] 1.020 Urine Protein Negative Urine Ketones Negative Urine Blood Trace-intact H Urine Nitrite Negative Urine Bilirubin Negative Urine Urobilinogen 0.2 Ur Leukocyte Esterase Negative Urine RBC 0-2 Urine WBC Negative Ur Epithelial Cells Negative Urine Crystals Negative Urine Bacteria Negative Urine Mucus Negative Ur Culture Indicated? C&S Done As Ordered Urine Glucose Negative Objective Narrative Objective Narrative: Echo: Suboptimal quality study. Poor endocardial definition. The left ventricle appears normal in size with mildly reduced function in a pattern of global hypokinesis. LVEF is visually estimated at 45%. The RV is normal in size and function. PASP is estimated to be 29 mmHg. No hemodynamically significant valve disease. PAWSS Have you Been Recently Intoxicated or Drunk Within the Last 30 days?: No Have you Ever Experienced Previous Episodes of Alcohol Withdrawal?: No Have you ever Experienced Withdrawal Seizures?: No Have you ever Experienced Delirium Tremens(DT)s?: No Have you ever undergone Alcohol Rehabilitation Treatment (i.e, inpt ot outpatient treatment programs)?: No Have you ever Experienced Blackouts?: No Have you ever Combined Alcohol with other Downers within the last 90 days?: No Have you ever Combined Alcohol with any other Substance of Abuse during the last 90 days?: No Positive Blood Alcohol level on Presentation? [PCS.BAL]: No Evidence of Increased Autonomic Activity (i.e. HR>120, tremor, sweating, agitation, nausea)?: No Result: 0 Time Spent with Patient Time Spent with Patient: 35-49 minutes Time was spent: preparing to see the patient(eg.review tests), obtaining and/or reviewing separately otained hiistory, ordering medications,tests, procedures, referring, communicating with other health child caregiver, indepentently interpreting results, counseling the patient and care coordination
[2022-09-01] MEDS: Metoprolol 12.5 MG TAB PO (18:41)
[2022-09-01] MEDS: Normal Saline Flush 10 ML SYR IVP (22:35)
[2022-09-01] MEDS: Simvastatin 40 MG TAB PO (22:44)
[2022-09-02] VITALS (20 sets, daily range): BP systolic 104–129; BP diastolic 52–67; PULSE 42–72; RESP 16–28; TEMP 36.1–36.5; O2SAT 95
[2022-09-02] MEDS: Metoprolol 12.5 MG TAB PO
[2022-09-02] MEDS: Levothyroxine 25 MCG TAB PO (06:15)
[2022-09-02 07:07] LABS: Anion Gap 7.7 mmol/L (3-11); BUN 21 mg/dL (7-18); CO2 24.3 mmol/L (21.0-32.0); CREATININE 0.9 mg/dL (0.55-1.02); Calcium 8.6 mg/dL (8.5-10.1); Chloride 110 mmol/L (98-107); Estimated GFR 63.83 (mL/min/1.73m2); Glucose 99 mg/dL (74-106); Magnesium 2.1 mg/dL (1.8-2.4); Potassium 4.2 mmol/L (3.5-5.1); Sodium 142 mmol/L (136-145)
[2022-09-02] MEDS: Tiotropium Bromide-Respimat 10 PUFF INH 2 PUFF IH (08:04)
[2022-09-02] MEDS: Budesonide/Formoterol 80/4.5 6.9 GM 60 PUFF INH IH (08:05)
--- NOTE | 2022-09-02 09:24 | W.CARDCONSUL ---
Date of service: 09/02/22 Time of Service: 09:24 Assessment and Plan Assessment and plan (1) Paroxysmal atrial fibrillation: Status: Acute Assessment and plan: Patient is in sinus rhythm now. At this point I would reduce amiodarone to 200 mg daily. She is appropriately anticoagulated with Xarelto. Diltiazem and metoprolol should not be resumed at present (2) Cardiomyopathy: Status: Acute Assessment and plan: Possibly reduced EF is due to her uncontrolled atrial fibrillation. This will need to be followed moving forward History of Present Illness History of Present Illness Chief Complaint: Bradycardia weakness Narrative: This is an 81-year-old woman with a history of severe COPD and atrial fibrillation. Heart rates in atrial fibrillation has been difficult to control and a couple of weeks ago she was started on amiodarone 200 mg twice daily in hopes of restoring and maintaining sinus rhythm. By history she had had some periods of sinus rhythm. Patient monitors her vital signs at home. She started to get persistent readings with heart rates in the mid to upper 40s, but then as low as 37. She became apprehensive and presented to the emergency room where she had sinus bradycardia Initially her rate control medication was omitted, amiodarone was continued. She did have recurrent atrial fibrillation though not terribly rapid, then back again to sinus bradycardia. Heart rate now is approximately 50. She did not tolerate reintroduction of low-dose beta-ben It is noted that she had an echocardiogram done which reported an ejection fraction of 45% [facility] All Active Problems (Updated 09/02/22 @ 09:28 by Gay Leo MD) Cardiomyopathy (Acute) Discharge planning issues (Acute) DVT prophylaxis (Acute) Acute systolic CHF (congestive heart failure) (Acute) Bradycardia (Acute) Weakness (Acute) Sensorineural hearing loss (Acute) Pulmonary nodule (Acute) Paroxysmal atrial fibrillation (Acute) CESAR (obstructive sleep apnea) (Chronic) uses CPAP Coccidioidomycosis (Acute) Chronic thromboembolic disease (Chronic) Arthritis (Acute) Anemia (Chronic) Thyroid disease (Acute) COPD with emphysema (Acute) Medical History Bleeding disorder Breast cancer Cancer Contusion of rib on left side Contusion of right hand Hemothorax on left High cholesterol History of blood clots Multiple fractures of ribs of left side RVF ([place] fever) Sleep apnea Traumatic hematoma of left upper arm Surgical History Cataract History of lumpectomy 10/22/2016 Family History Mother Asthma Father Stroke at 69 Sister Breast cancer Breast and lung cancer. at 71. Social History Smoking/Tobacco Use Status: Former Tobacco Use Quit Date: 02/15/76 Pack-years: 13 Smoking risk assessment performed?: Yes Alcohol Intake: current Alcohol Intake frequency: a few times a week Alcohol type: wine Drug use: Never Substance use type: does not use Housing: assisted living facility Do you feel safe at home: Yes Do you feel safe in your relationship?: Yes Exam Narrative Exam Narrative: Patient was not examined. She looks younger than her stated age and is in no acute distress vital signs currently are stable Results Last Vital Signs Temp 36.2 C L 09/02/22 04:24 Pulse 45 L 09/02/22 06:01 Resp 16 09/02/22 06:01 BP 128/67 09/02/22 06:01 Pulse Ox 95 09/02/22 04:24 Labs 08/31/22 18:58 09/02/22 05:55 Labs: Laboratory Results - last 24 hr 09/01/22 09/02/22 09:55 05:55 Sodium 142 Potassium 4.2 Chloride 110 H Carbon Dioxide 24.3 Anion Gap 7.7 BUN 21 H Creatinine 0.9 Est GFR (CKD-EPI 2020) 63.83 Glucose 99 Calcium 8.6 Magnesium 2.1 Urine Color Yellow Urine Clarity Clear Urine pH 7.5 Ur Specific [place] 1.020 Urine Protein Negative Urine Ketones Negative Urine Blood Trace-intact H Urine Nitrite Negative Urine Bilirubin Negative Urine Urobilinogen 0.2 Ur Leukocyte Esterase Negative Urine RBC 0-2 Urine WBC Negative Ur Epithelial Cells Negative Urine Crystals Negative Urine Bacteria Negative Urine Mucus Negative Ur Culture Indicated? C&S Done As Ordered Urine Glucose Negative
[2022-09-02] MEDS: Rivaroxaban 10 MG TABLET 20 MG PO (09:31)
[2022-09-02] MEDS: Omeprazole 20 MG CAPCR PO (09:31)
[2022-09-02] MEDS: Amiodarone 200 MG TAB PO (09:32)
[2022-09-02] MEDS: Vitamins B Comp w/C TAB 2 TAB PO (09:32)
--- NOTE | 2022-09-02 10:44 | W.PM.DS.N ---
Date of service: 09/02/22 Time of Service: 10:44 DS: Diagnosis Discharge Diagnosis (1) Symptomatic bradycardia: Status: Resolved (2) Acute systolic CHF (congestive heart failure): Status: Acute Asessment and Plan: Evidence of pulmonary edema by CXR, LVEF of 45% per echo. (3) Paroxysmal atrial fibrillation: Status: Chronic (4) Cardiomyopathy: Status: Acute (5) CESAR (obstructive sleep apnea): Status: Chronic (6) COPD with emphysema: Status: Chronic Asessment and Plan: Not in acute exacerbation Discharge Plan Disposition Patient Disposition: Home Condition: Improving Discharge Details Reason For Visit: Weakness, Bradycardia Admit Date/Time: 08/31/22 19:38 Admit Provider: Jeremi Bryant Attending Provider: Jeremi Bryant Primary Care Provider: Lore Kaiser [place] Hospital Course Hospital Course: Ms Epperson is an 81 year old female with PMHx of Afib, on anticoagulation with xarelto, with rates that were difficult to control on metoprolol and cardizem, and so amiodarone was recently added as outpatient on 08/16/22 by her design studio consultant , who also has a history of hypertension, hypothyroidism, CESRA, who was observed on [facility] hospitalist service from 08/31/22 until 09/02/22, having presented with symptomatic bradycardia (weakness, dizziness on standing up) with HR in 30s and 40s at home. When she arrived to the ER, her HR was in the 40s, but it did come up 100s (Afib) without any medical intervention. The patient was not orthostatic in the ER. Initially, metoprolol, cardizem, and amiodarone were all held. When HR improved, she was resumed on amiodarone 200 mg PO BID and, as HR permitted it initially, low dose metoprolol. However, the patient converted to NSR with HR in the 40s-50s this morning and is able to tolerate activity with these heart rates without significant symptoms. She did present in pulmonary edema, as demonstrated on the CXR, and her LVEF is 45% by the echo. The patient does describe orthopnea and BLE edema at home for which she has found herself taking furosemide more and more frequently. Remarkably, she did not require additional diuresis from us because once her HR improved to above 30s-40s, she auto-diuresed. She was evaluated by Dr Leo who recommended decreasing amiodarone frequency to daily and stopping metoprolol indefinitely. She is being discharged home today with above treatments and follow up with her PCP and cardiology. Care for patient in addition to completion of her discharge summary on day of discharge took 45 minutes. Home Meds and New Rx's Prescriptions: Continued omeprazole 20 mg capsule,delayed release(DR/EC) 20 mg PO DAILY cholecalciferol (vitamin D3) 125 mcg (5,000 unit) capsule 125 mcg PO DAILY acetaminophen 500 mg tablet 1,000 mg PO TID PRN Xarelto 20 mg tablet 20 mg PO DAILY Rx Instructions: must administer with evening meal simvastatin 40 mg tablet 40 mg PO DAILY levothyroxine 25 mcg tablet 25 mcg PO DAILY vitamin [id number] acid 500-400 mcg tablet 2 tab PO DAILY Rx Instructions: administer with a meal biotin 5 mg capsule 5 mg PO DAILY Trelegy Ellipta 100-62.5-25 mcg blister with device 1 inh inhalation DAILY Qty: 3 1RF furosemide 20 mg Tablet 20 mg PO 1XD Changed amiodarone 200 mg tablet 200 mg PO DAILY Qty: 180 8RF Discontinued metoprolol succinate 50 mg tablet extended release 24 hr 50 mg PO DAILY diltiazem HCl 120 mg capsule,extended release 24hr 120 mg PO DAILY Discharge Instructions Instructions: Bradycardia (DC) Additional Instructions: Your metoprolol and diltiazem have been discontinued and the frequency of amiodarone was changed to daily. Return to the hospital with any worsening dizziness, fever, bleeding, chest pain, or shortness of breath. Follow up with cardiology and your PCP in 1-2 weeks. Referrals: Gay Leo MD [ [facility] STAFF PHYSICIAN] - Lore Kaiser MD [Primary Care Provider] - Activity:: Activity as Tolerated Equipment/Supplies:: No Equipment Needed Diet:: heart healthy Discharge Orders Discharge Orders: Discharge Order (Routine); Ordered 09/02/22 Ordered By: Lois Alonso DS: Summary Time Spent with Patient providing and/or coordinating discharge services: Greater than 30 minutes Status at Discharge Functional status at discharge: independent ambulation Overall status at discharge: patient is back to baseline Mental Status: mental status grossly normal Speech and Movement: speech and movement normal Mood: congruent mood Affect: normal affect Exam Narrative Exam Narrative: General: Pleasant elderly female, [place], no visible dyspnea/tachypnea/cyanosis HEENT: EOMI, MMM Heart: RRR, no m/r/g Lungs: crackles at B bases, improved Abdomen: soft, nontender, nondistended Extremities: trace BLE edema, symmetric. Psych Mental Status: mental status grossly normal Speech and Movement: speech and movement normal Mood: congruent mood Affect: normal affect DS: Data Vitals/I&O Vitals and I&O: Vital Signs Temperature 36.5 C 09/02/22 10:31 Temperature Source Temporal Artery Scan 09/02/22 10:31 Pulse 59 L 09/02/22 09:49 Pulse 55 L 09/02/22 10:00 Respiratory Rate 22 09/02/22 10:00 Respiratory Effort Normal, Non-Labored 09/02/22 04:24 Respiratory Depth Normal 09/02/22 04:24 Respiratory Pattern Normal 09/02/22 04:24 Blood Pressure 113/63 09/02/22 09:49 Blood Pressure Mean 75 09/02/22 09:49 Blood Pressure Position Left Lateral 09/02/22 04:24 Pulse Oximetry 95 09/02/22 04:24 Oxygen Delivery Method Room Air 09/02/22 04:24 Oxygen Flow Rate 0 09/02/22 04:24 Pain Level 0 09/02/22 04:24 Comment RN notified 08/31/22 20:50 Intake & Output 09/01/22 09/01/22 09/02/22 11:59 23:59 11:59 Intake Total 1000 / 1240 240 / 1240 100 / 100 Output Total 2575 / 3775 1200 / 3775 300 / 300 Balance -1575 / -2535 -960 / -2535 -200 / -200 Weight 79.9 kg 75.2 kg Intake: IV 1000 / 1000 Oral 240 / 240 100 / 100 Output: Urine 2575 / 3775 1200 / 3775 300 / 300 Other: Urine Color Pale Yellow Straw Yellow Urine Appearance Clear Clear Clear Urine Odor Normal None Comment Accumulation of several voids Accumulation of several voids Voiding Methods Bedside Commode Bedside Commode Bedside Commode Data Completed and Pending Completed studies during hospitalization [Text1]: CXR: 08/31/22 (radiology read) Limited exam.? No acute abnormality. Per my read, there is definite evidence of vascular congestion and cephalization. I have also reviewed this CXR read with Dr Perez, who agrees. Labs on day of discharge: Labs from last 24 hours 09/02/22 05:55 Sodium 142 Potassium 4.2 Chloride 110 H Carbon Dioxide 24.3 Anion Gap 7.7 BUN 21 H Creatinine 0.9 Est GFR (CKD-EPI 2020) 63.83 Glucose 99 Calcium 8.6 Magnesium 2.1 Preliminary micro results at discharge 09/01/22 09:55 Urine Culture - Preliminary Urine - Voided Gram Positive [place],Mixed Gram Negative Josse PFSH All Active Problems (Updated 09/02/22 @ 10:49 by Lois Alonso MD) Cardiomyopathy (Acute) Discharge planning issues (Acute) DVT prophylaxis (Acute) Acute systolic CHF (congestive heart failure) (Acute) Bradycardia (Acute) Weakness (Acute) Sensorineural hearing loss (Acute) Pulmonary nodule (Acute) Paroxysmal atrial fibrillation (Chronic) CESAR (obstructive sleep apnea) (Chronic) uses CPAP Coccidioidomycosis (Acute) Chronic thromboembolic disease (Chronic) Arthritis (Acute) Anemia (Chronic) Thyroid disease (Acute) COPD with emphysema (Chronic) Medical History Bleeding disorder Breast cancer Cancer Contusion of rib on left side Contusion of right hand Hemothorax on left High cholesterol History of blood clots Multiple fractures of ribs of left side RVF ([place]) Sleep apnea Traumatic hematoma of left upper arm Surgical History Cataract History of lumpectomy 10/22/2016 Family History Mother Asthma Father Stroke at 69 Sister Breast cancer Breast and lung cancer. at 71. Social History Smoking/Tobacco Use Status: Former Tobacco Use Quit Date: 02/15/76 Pack-years: 13 Smoking risk assessment performed?: Yes Alcohol Intake: current Alcohol Intake frequency: a few times a week Alcohol type: wine Drug use: Never Substance use type: does not use Housing: assisted living facility Do you feel safe at home: Yes Do you feel safe in your relationship?: Yes Time Spent with Patient Time Spent with Patient: 45-69 minutes Time was spent: preparing to see the patient(eg.review tests), obtaining and/or reviewing separately otained hiistory, ordering medications,tests, procedures, referring, communicating with other health assistant child care teacher, indepentently interpreting results, counseling the patient and care coordination
--- NOTE | 2022-09-02 11:31 | CMDISCH_ITS ---
Date of service: 09/02/22 Time of Service: 11:32 LACE Index Scoring Tool Questions: Length of Stay (in days): 2 Was the patient admitted via the E.D.?: Yes Comorbidities: Chronic Pulmonary Disease E.D. Visits: 1 Answers: Total Score: 8 Risk of Readmission: Low Risk Care Management Discharge Plan Reason for Hospitalization: weakness, lightheadedness Discharge Plan: Lacey will discharge home with no new services. She will f ollow up with her PCP and Word Processor Technician and discharge plan of care and will transport via private vehicle. Patient/Family Education Needs: Review discharge instructions, limitations, medications and plan to follow up with community providers. ask me three.
== END 2022-09-02 12:15 | disposition home or self-care (01) ==
LOC: ER 20:21 → ICU 09-01 09:05
PROVIDERS: Internal Medicine; Admitting Provider General Practice; Emergency Provider Student in an Organized Health Care Education/Training Program; PCP Family Medicine; Visit Provider General Practice
DX: R53.1 Weakness (principal); I48.0 Paroxysmal atrial fibrillation; R00.1 Bradycardia, unspecified; I50.21 Acute systolic (congestive) heart failure; G47.33 Obstructive sleep apnea (adult) (pediatric); I42.9 Cardiomyopathy, unspecified; J43.2 Centrilobular emphysema; Z79.01 Long term (current) use of anticoagulants; D64.9 Anemia, unspecified; Z85.3 Personal history of malignant neoplasm of breast; E78.00 Pure hypercholesterolemia, unspecified; R07.89 Other chest pain
CPT/HCPCS: 36415; 80048; 80053; 93005; 94640; 99223; 99291; 71045; 81003; 81015; 83735; 83880; 84439; 84443; 84484; 85025; 85610; 85730; 87086; 93010; 93306; 94664; 99222; 99233; 99239; G0378; J3490

== ENCOUNTER → 2022-09-02 07:48 | Outpatient (BNVA) | payer MEDICARE, SELFPAY | PROVIDERS: PCP Family Medicine; Referring Provider Family Medicine; Visit Provider Internal Medicine Cardiovascular Disease ==

== ENCOUNTER 2022-09-16 08:31 | Outpatient (CLI) | payer MEDICARE, SELFPAY ==
--- NOTE | 2022-09-16 08:30 | RT.EKG_ITS ---
APPROVED REPORT Exam: Resting ECG Reason for Exam: bradycardia Patient Location: O HR:115 bpm ECG Measurements Heart Rate 115 AXIS W[place] [id number] P [id number] QRSd 84 QRS 10 QT 365 T -10 QTc 505 Conclusion Atrial fibrillation...? atrial activity Prolonged QT interval...QTc >500mS Baseline wander in lead(s) I,II,aVR
== END 2022-09-16 08:32 | disposition home or self-care (01) ==
LOC: DI.CARD 08:31
PROVIDERS: PCP Family Medicine; Visit Provider Internal Medicine Cardiovascular Disease
DX: I48.91 Unspecified atrial fibrillation (principal); R00.1 Bradycardia, unspecified
CPT/HCPCS: 93010

== ENCOUNTER → 2022-09-16 12:53 | Outpatient (BNVA) | payer MEDICARE, SELFPAY | PROVIDERS: PCP Family Medicine; Visit Provider Internal Medicine Cardiovascular Disease | DX: Z79.01 Long term (current) use of anticoagulants (principal); J43.2 Centrilobular emphysema; I42.9 Cardiomyopathy, unspecified; I48.0 Paroxysmal atrial fibrillation | CPT/HCPCS: 93005; 99214 ==

== ENCOUNTER 2022-10-13 14:00 | Outpatient (RCR) | payer MEDICARE, SELFPAY | END 2022-10-14 23:59 | disposition home or self-care (01) | LOC: PRC 14:00 | PROVIDERS: PCP Family Medicine; Visit Provider Student in an Organized Health Care Education/Training Program | DX: J44.9 Chronic obstructive pulmonary disease, unspecified (principal); Z51.89 Encounter for other specified aftercare | CPT/HCPCS: 94626 ==

== ENCOUNTER 2022-11-12 14:34 | Outpatient (RCR) | payer MEDICARE, SELFPAY | END 2022-11-13 23:59 | disposition home or self-care (01) | LOC: PRC 14:34 | PROVIDERS: PCP Family Medicine; Visit Provider Student in an Organized Health Care Education/Training Program | DX: Z51.89 Encounter for other specified aftercare; J44.1 Chronic obstructive pulmonary disease with (acute) exacerbation | CPT/HCPCS: 94626 ==

== ENCOUNTER 2022-11-29 14:00 | Outpatient (RCR) | payer MEDICARE, SELFPAY ==
--- NOTE | 2022-11-29 15:58 | W.PFT ---
Date of service: 11/29/22 Time of Service: 14:17 Pulmonary Function Test Result Indications: Pulmonary rehab completion Interpretation Spirometry: There is moderate airflow limitation. Impression Moderate airflow limitation Clinical Correlation therefore is recommended.
== END 2022-12-14 23:59 | disposition home or self-care (01) ==
LOC: PRC 14:00
PROVIDERS: PCP Family Medicine; Visit Provider Student in an Organized Health Care Education/Training Program
DX: J44.1 Chronic obstructive pulmonary disease with (acute) exacerbation (principal); Z51.89 Encounter for other specified aftercare
CPT/HCPCS: 94060; 94626

== ENCOUNTER 2022-12-15 05:04 | Outpatient (CLI) | payer MEDICARE, SELFPAY ==
[2022-12-15 09:45] LABS: Abs Immature Grans 0.02 10^3/uL (0.0-0.06); Absolute Basophil Count 0.02 10^3/uL (0.0-0.2); Absolute Eosinophil Count 0.06 10^3/uL (0.0-0.7); Absolute Lymphocyte Count 1.12 10^3/uL (1.2-3.4); Absolute Monocyte Count 0.45 10^3/uL (0.1-0.8); Absolute Neutrophil Count 3.05 10^3/uL (1.2-6.7); Basophils % 0.4; Eosinophils % 1.3; HGB 14.4 g/dL (11.2-15.7); Immature Grans % 0.4; Lymphocytes % 23.7; MCH 33.3 pg (27.0-33.0); MCHC 32.7 % (32.0-36.0); MCV 102 fL (80-95); Monocytes % 9.5; Neutrophils % 64.7; Platelet Count 183 10^3/uL (130-400); RBC 4.33 10^6/uL (3.93-5.22); RDW 15.1 % (11.7-14.6); WBC 4.72 10^3/uL (4.4-10.8)
[2022-12-15 09:55] LABS: ALT 23 U/L (14-59); AST 21 U/L (15-37); Albumin 3.6 g/dL (3.4-5.0); Alkaline Phosphatase 45 U/L (46-116); BUN 16 mg/dL (7-18); Bilirubin, Total 0.5 mg/dL (0.2-1.0); CREATININE 1.2 mg/dL (0.55-1.02); Calcium 9.3 mg/dL (8.5-10.1); Chloride 102 mmol/L (98-107); Estimated GFR 44.91 (mL/min/1.73m2); Glucose 115 mg/dL (74-106); Potassium 3.4 mmol/L (3.5-5.1); Sodium 140 mmol/L (136-145); Total Protein 7.4 g/dL (6.4-8.2)
[2022-12-16 12:30] LABS: NT-proBNP 165 pg/mL (<300); TSH (W/Ref FT4) 2.11 uIU/mL (0.36-3.74)
== END 2022-12-15 05:05 | disposition home or self-care (01) ==
LOC: LBO 05:04
PROVIDERS: PCP Family Medicine; Visit Provider Internal Medicine
DX: Z85.3 Personal history of malignant neoplasm of breast (principal); R06.09 Other forms of dyspnea
CPT/HCPCS: 36415; 80053; 83880; 84443; 85025

== ENCOUNTER → 2022-12-16 01:36 | Outpatient (CLI) | payer MEDICARE, SELFPAY ==
--- NOTE | 2022-12-16 | DI.DEXA_ITS ---
Exam(s) XR DEXA BONE DENSITY W/WO ELISABETH EXAM: XR DEXA BONE DENSITY W/WO ELISABETH CLINICAL HISTORY: H/O BREAST CA,OSTEOPOROSIS, ON MEDS,M81.0 TECHNIQUE: COMPARISON: CT CT CHEST WO from 06/11/2022 FINDINGS: Lateral Spine Image: There are old thoracic and lumbar compression fracture deformities. Left hip: Total T-Score: -1.3 Total Z-Score: 0.9 T- and Z-scores: Findings are consistent with osteopenia. Lumbar Spine: Total T-Score: 2.3 Total Z-Score: 5.2 T- and Z-scores: Within normal limits. IMPRESSION: No evidence of osteoporosis.
--- NOTE | 2022-12-16 10:46 | DI.MAMMO_ITS ---
Exam(s) MG MAMMO SCREENING 60 MIN DUR EXAM: MG MAMMO SCREENING 60 MIN DUR CLINICAL HISTORY: PERSONAL H/O BREAST CA,Z85.3,SCREENING. TECHNIQUE: Craniocaudal and mediolateral oblique Full Field Digital Mammography views with computer Aided Diagnosis followed by Tomosynthesis. COMPARISON: Comparison is made with prior examinations. FINDINGS: Mammography/Tomosynthesis: Masses/Architectural Distortion: Postsurgical changes of a lumpectomy are seen in the right breast. No suspicious masses are seen. No new areas of architectural distortion are present. Microcalcifictions: No suspicious pleomorphic-type are seen. Skin Thickening/Nipple Retraction: None. IMPRESSION: 1. No evidence of malignancy is noted. 2. Unless there is more urgent need, follow-up screening mammography is recommended, as per [place] [employer] guidelines. 3. The findings were discussed with the patient on the date of the examination. BI-RADS Category 2 - Benign Findings Breast Density - Category B - Scattered areas of fibroglandular density Breast density Category C or D implies that the patient has dense breast tissue. Dense breast tissue can make it harder to find cancer on a mammogram. Dense breast tissue is also associated with an incr eased risk of breast cancer. This information about the result of the mammogram report was provided to the patient to raise their awareness. Use this report when you speak with the patient about their risks for breast cancer, which includes their family history. At that time, you may recommend additional screening tests (Ultrasoun d or MRI) as these tests may add significant information. A negative radiographic report should not delay biopsy if a dominant or clinically suspicious mass is present. Up to ten percent of cancers are not identified on mammography. A negative report may reinforce clinical impression. Adenosis and dense breasts may obscure an underlying neoplasm. False positive reports average 6 to 10%. Patient will receive a letter notifying them of these results.
== END ==
PROVIDERS: PCP Family Medicine; Visit Provider Family Medicine
DX: M81.0 Age-related osteoporosis without current pathological fracture (principal); Z12.31 Encounter for screening mammogram for malignant neoplasm of breast; Z85.3 Personal history of malignant neoplasm of breast; Z13.820 Encounter for screening for osteoporosis
CPT/HCPCS: 77063; 77067; 77080

== ENCOUNTER → 2022-12-20 10:51 | Outpatient (BNVA) | payer MEDICARE, SELFPAY | PROVIDERS: PCP Family Medicine; Referring Provider Family Medicine; Visit Provider Student in an Organized Health Care Education/Training Program | DX: J43.2 Centrilobular emphysema (principal); Z79.51 Long term (current) use of inhaled steroids; Z79.899 Other long term (current) drug therapy; R91.1 Solitary pulmonary nodule; G47.33 Obstructive sleep apnea (adult) (pediatric); I74.9 Embolism and thrombosis of unspecified artery | CPT/HCPCS: 99214 ==

== ENCOUNTER → 2023-06-06 04:42 | Outpatient (CLI) | payer MEDICARE, SELFPAY ==
--- NOTE | 2023-06-06 06:30 | DI.US_ITS ---
APPROVED REPORT EXAM: Comprehensive 2D, Doppler, and color-flow Echocardiogram Patient Location: Out-Patient Web Pressman: Cheyenne Proctor RDCS (AE) Indications: LV function, Cardiomyopathy, Paroxysmal atrial fibrillation, Other Information Study Quality: Adequate Conclusion Normal left ventricular wall thickness and chamber size. EF is 60%. Wall motion is normal Normal right ventricular size and function Both atria are normal in size. There are no structural valvular abnormalities Estimated RVSP is 36 mm Hg Wall motion Left Ventricle The left ventricle is normal size. The left ventricular systolic function is normal. The left ventric ular ejection fraction is within the normal range. There is normal left ventricular wall thickness. T here is normal LV segmental wall motion. There is no ventricular septal defect visualized. LVEF is 60 %. Right Ventricle The right ventricle is normal size. The right ventricular systolic function is normal. Atria The left atrium size is normal. The right atrium size is normal. The interatrial septum is intact wit h no evidence for an atrial septal defect. Aortic Valve The aortic valve is normal in structure. Aortic valve is trileaflet. There is no aortic valvular sten osis. No aortic regurgitation is present. Mitral Valve The mitral valve is normal in structure. No evidence of mitral valve stenosis. Trace mitral regurgita tion. Tricuspid Valve The tricuspid valve is normal in structure. There is no tricuspid valve stenosis. Trace tricuspid reg urgitation. The RVSP is 35.7 mmHg. Pulmonic Valve The pulmonary valve is normal in structure. There is no pulmonic valvular stenosis. There is no pulmo juliet valvular regurgitation. Great Vessels The aortic root is normal in size. The ascending aorta is mildly dilated. IVC is normal in size and c ollapses >50% with inspiration. Pericardium There is no pericardial effusion. 2D Dimensions IVSD d PLAX 0.69 cm F: 0.6-1.0 Ao Root d 2.96 cm F: 2.7 - 3.3 LVPW d PLAX 0.73 cm F: 0.6 - 1.0 Ao Asc Diam d 3.51 cm F: 2.3 - 3.1 LVID d PLAX 4.48 cm F: 3.8 - 5.2 LVDs 2.98 cm F: 2.2 - 3.5 LV EF Teichholz 62.3 % FS 33.43 % LV EDV (Teich) 91.6 mL LV ESV (Teich) 34.5 mL M-Mode TAPSE 3.34 cm (M/F) >1.7 Auto EF LV EDV A4C 90.2 mL LV EDV A2C 104.0 mL LV EDV BP 97.2 mL LV ESV A4C 36.2 mL LV ESV A2C 41.1 mL LV ESV BP 38.0 mL LVEF(%) A4C 59.9 % LVEF(%) A2C 60.4 % LVEF(%) BP 60.9 % LV SV A4C 54.0 ml LV SV A2C 62.8 ml LV SV BP 59.1 ml LV CO A4C 3.1 L/min LV CO A2C 4.1 L/min LV CO BP 3.6 L/min HR A4C 57.97 BPM HR A2C 65.70 BPM LV EDV Index (BP) LA Volume LA Length A4C 5.6 cm LA Length A2C 5.5 cm LA Area A4C s 17.19 cm2 LA Area A2C s 18.82 cm2 LA Vol A4C A-L 45.08 mL LA Vol A2C A-L 55.09 mL LA Vol Biplane A-L 50.3 mL LA Vol/BSA A4C A-L LA Vol/BSA A2C A-L LA Vol/BSA BP A-L 28.6 mL/m2 LA Vol A4C MOD 41.6 mL LA Vol A2C MOD 52.4 mL LA Vol BP MOD 47.0 mL RA Volume RA Area A4C 13.2 cm2 RA ESV A4C (A-L) 29.6mL RA Vol/BSA A4C A-L RA Length A4C 5.0 cm RA ESV A4C (MOD) 28.4mL LV Diastology MV E' medial 0.103 (>0.07 m/s) MV E Vmax 0.85 (0.4-1.3 m/s) MV E/E' MED 8.32 (<14) MV A Vmax 0.85 (0.4-1.3 m/s) MV E' lateral 0.113 (>0.1 m/s) E/A Ratio 1.0 MV E/E' LAT 7.53 (<14) MV E' Average 0.108 m/s MV E/E'(average) 7.91 Aortic Valve AoV Vmax 1.58 m/s LVOT Vmax 1.44 m/s AoV Peak Grad 10.0 mmHg LVOT Peak Grad 8.3 mmHg AoV Area (Vmax) 2.56 cm2 LVOT VTI 0.317 m AoV VTI 0.369 m LVOT Mean Grad 4.3 mmHg AoV Mean Diaz. 0.99 m/s LVOT SV 89.05 mL AoV Mean Grad 4.7 mmHg LVOT Diam s 1.85 cm AoV Area (VTI) 2.41 cm2 Velocity Ratio 0.91 Mitral Valve MV DT 234 (160-240 msec) MV Vmax TIPS 0.88 m/s MV Mean Grad 1.2 (<2mmHg) MV VTI 0.390 m Pulmonary Valve PV Vmax 0.99 (0.5-1.5 m/s) RVOT Vmax 0.67 m/s PV Peak Grad 3.9 mmHg RVOT Peak Gr. 1.8 mmHg PV Mean Diaz 0.58 m/s RVOT VTI 0.159 m PV Mean Grad 1.6 mmHg RVOT Mean Gr. 0.9 mmHg Tricuspid Valve RA Pressure 3.00 mmHg TR Vmax 2.86 m/s TV S' 0.20 m/s TR Peak Grad 32.6 mmHg RVSP (TR) 35.7 mmHg
== END ==
PROVIDERS: PCP Family Medicine; Visit Provider Student in an Organized Health Care Education/Training Program
DX: I48.0 Paroxysmal atrial fibrillation (principal); I42.9 Cardiomyopathy, unspecified
CPT/HCPCS: 93306

== ENCOUNTER → 2023-06-06 04:43 | Outpatient (CLI) | payer MEDICARE, SELFPAY ==
--- NOTE | 2023-06-06 06:30 | DI.CT_ITS ---
Exam(s) CT CHEST WO EXAM: CT CHEST WO CLINICAL HISTORY: f/u pulmonary nodule, r91.1. TECHNIQUE: Imaging protocol: Axial computed tomography images were obtained and coronal and sagittal reformatted images were created and reviewed. COMPARISON: CT CT CHEST WO from 06/11/2022 FINDINGS: The examination is limited due to patient motion artifact. Tracheobronchial tree: Patent where visualized. Pulmonary parenchyma: Moderately severe emphysematous changes are present in the lungs. There is mil d pulmonary fibrosis. There is a stable 7 mm nodule in the anterior aspect of the right upper lobe ( series 3, image 184). No new pulmonary nodules are present. No new focal infiltrates are seen. The re is scarring again seen in the lingula. Mediastinum and Lesly: No dominant adenopathy or fluid collection. The esophagus is unremarkable. Thyroid gland: Unremarkable. Pleura: No effusion or pneumothorax. Heart: Mild cardiomegaly. Coronary artery calcifications are present. No pericardial effusion. Aorta: Thoracic aorta non-dilated. Atherosclerotic calcification is present. Upper abdomen: Unremarkable. Lymph nodes: Within normal limits. Soft tissues: Unremarkable. Bones:Within normal limits for the patient's age. Old left healed rib fracture. Old thoracic and daniela mbar compression fracture deformities. IMPRESSION: 1. Stable right lung nodule. Stable appearance of the lungs compared to the prior examination. 2. No acute pulmonary process. RADIATION DOSE DELIVERED: 402.36mGy.cm Total DLP 402.36mGy.cm Total DLP DATA REPOSITORY: All CT scans at this facility are submitted to the National Radiology Data Registry (NRDR) Dose Index Registry (DIR) with the [employer] (ACR). RADIATION OPTIMIZATION: All CT scans at this facility use at least one of these dose optimization te chniques: automated exposure control; mA and/or kV adjustment per patient size (includes targeted exa ms where dose is matched to clinical indication); or iterative reconstruction.
== END ==
PROVIDERS: PCP Family Medicine; Visit Provider Student in an Organized Health Care Education/Training Program
DX: R91.1 Solitary pulmonary nodule (principal); J43.8 Other emphysema; J98.4 Other disorders of lung
CPT/HCPCS: 71250

== ENCOUNTER 2023-06-16 08:31 | Outpatient (CLI) | payer MEDICARE, SELFPAY ==
--- NOTE | 2023-06-16 08:30 | RT.EKG_ITS ---
APPROVED REPORT Exam: Resting ECG Reason for Exam: deny Patient Location: O HR:60 bpm ECG Measurements Heart Rate 60 AXIS IN 180 P 49 QRSd 107 QRS 14 QT 513 T 2 QTc 513 Conclusion Sinus rhythm...normal P axis, V-rate 50- 99 Borderline T abnormalities, inferior leads...T flat/neg, II III aVF Prolonged QT interval...QTc >500mS
== END 2023-06-16 08:32 | disposition home or self-care (01) ==
LOC: DI.CARD 08:32
PROVIDERS: PCP Family Medicine; Visit Provider Internal Medicine Cardiovascular Disease
DX: I48.0 Paroxysmal atrial fibrillation (principal)
CPT/HCPCS: 93010

== ENCOUNTER → 2023-06-16 12:51 | Outpatient (BNVA) | payer MEDICARE, SELFPAY | PROVIDERS: PCP Family Medicine; Visit Provider Internal Medicine Cardiovascular Disease | DX: R94.31 Abnormal electrocardiogram [ECG] [EKG] (principal); I48.0 Paroxysmal atrial fibrillation; R00.1 Bradycardia, unspecified; I42.9 Cardiomyopathy, unspecified | CPT/HCPCS: 93005; 99213 ==

== ENCOUNTER → 2023-06-20 10:53 | Outpatient (BNVA) | payer MEDICARE, SELFPAY | PROVIDERS: PCP Family Medicine; Referring Provider Family Medicine; Visit Provider Physician Assistant Surgical | DX: J43.2 Centrilobular emphysema (principal); R91.1 Solitary pulmonary nodule; G47.33 Obstructive sleep apnea (adult) (pediatric); I74.9 Embolism and thrombosis of unspecified artery | CPT/HCPCS: 99214 ==

== ENCOUNTER 2023-08-31 09:42 | Outpatient (REF) | payer MEDICARE, SELFPAY ==
--- OUTSIDE RECORDS SUMMARY | 2023-08-31 09:44 | XMS_ITS ---
Care Plan - [facility] Created on: August 31, 2023 Lacey Epperson : 1940 Sex: Female Author Organization [facility] Address [address] [place] [phone] Phone Care Team Providers Care Technical Communication Teacher Name Role Phone No PCP, Per Patient Primary Care Provider Shadi cabrera
--- OUTSIDE RECORDS SUMMARY | 2023-08-31 09:44 | XMS_ITS | Clinical Summary ---
Author Organization [facility] Address [address] [place] [phone] Phone Care Team Providers Care Raschel Knitting Machine Operator Name Role Phone No PCP, Per Patient Primary Care Provider Shadi cabrera Reason for Visit and Chief Complaint Hearing Aid Service Check (HACK) Plan of Treatment No Plan of Treatment Recorded Assessments Includes: Assessments from this encounter No Assessments Recorded Medical Equipment - Implanted Devices Includes: Current Devices No Medical Equipment Recorded Medications Administered Includes: Administered Medications from this encounter No Administered Medications Recorded Results Includes: Results discussed during this encounter No Results Recorded For Specified Dates History of Present Illness Includes: History of Present Illness from this encounter No History of Present Illness Recorded Social History No Social History Recorded - Smoking Status Unknown Procedures and Surgical History Includes: Procedures from this encounter Procedures Code Diagnosis Performing Provider Service Location Service Date Repair / modification of a hearing aid V5014 Sensorineural hearing loss, bilateral Nenita Rodriguez [facility] Audiology [facility] 04/22/2023 Last Documented On 4 1:00PM ; [facility] Medical History Includes: Medical History addressed during this encounter No Medical History Recorded Family History Includes: Family History addressed during this encounter No Family History Recorded Review of Systems Includes: Review of Systems from this encounter No Review of Systems Recorded Functional Status Includes: Functional Status from this encounter No Functional Status Recorded Physical Exam Includes: Physical Exam from this encounter No Physical Exam Recorded Encounters Encounter Provider Location Date Check-In Time Check-Out Time Diagnosis Hearing Aid Service Check (HACK) Nenita Rodriguez [facility] Audiology [facility] 4 8:15AM 8:59AM Insurance Includes: Active Insurance Policies Plan Name Member ID Group # Subscriber Relationship Effect carter Dates 1 - [facility] Medicare/AARP/HMO/PPO [id number] Lacey H Zhou Self Clinical Notes Includes: Clinical Notes from this encounter * Progress note Date Encounter Last Documented by 04/22/2023 Hearing Aid Service Check (HACK) Last documented on 04/22/2023; 10:52 AM, Nenita Rodriguez; [facility] Reason For Visit hearing aid check Notes Pt is still struggling to hear in noise with her hearing aids. Discussed upgrading to Premium level technology and adding remote microphone for better hearing in noise. Pt not interested. Would like to return. RFC form entered to [facility] portal. Fitting fee changed.
--- OUTSIDE RECORDS SUMMARY | 2023-08-31 09:44 | XMS_ITS ---
Author Organization [facility] Address [address] [place] [phone] Phone Care Team Providers Care Dielectric Testing Machine Operator Name Role Phone No PCP, Per Patient Primary Care Provider Unadevontei deborah Plan of Treatment No Plan of Treatment Recorded Assessments Includes: Assessments for all patient encounters No Assessments Recorded Medical Equipment - Implanted Devices Includes: Current and historical Devices No Medical Equipment Recorded Medications Administered Includes: Administered Medications in patient's chart No Administered Medications Recorded Results Includes: Results from 08/30/2022 through 08/31/2023 No Results Recorded For Specified Dates History of Present Illness History of Present Illness not supported for this document type No History of Present Illness Recorded Social History No Social History Recorded - Smoking Status Unknown Procedures and Surgical History Includes: Procedures from 08/30/2022 through 08/31/2023 Procedures Code Diagnosis Performing Provider Service Location Service Date Repair / modification of a hearing aid V5014 Sensorineural hearing loss, bilateral Nenita Rodriguez [facility] Audiology [facility] 04/22/2023 Last Documented On 4 1:00PM ; [facility] Repair / modification of a hearing aid V5014 Sensorineural hearing loss, bilateral Nenita Rodriguez [facility] Audiology [facility] 04/12/2023 Last Documented On 4 11:17AM ; [facility] Hearing aid fitting/checking V5011 Sensorineural hearing loss, bilateral Nenita Rodriguez [facility] Aud[facility] 04/01/2023 Last Documented On 4 11:24AM ; [facility] Hearing Aid Upgrade HAUPG Sensorineural hearing loss, bilateral Nenita Rodriguez [facility] Aud[facility] 04/01/2023 Last Documented On 4 10:04AM ; [facility] Assessment for Hearing Aid V5010 Sensorineural hearing loss, bilateral Nenita Keshav Rodriguez [facility] Aud[facility] 03/15/2023 Last Documented On 4 1:57PM ; [facility] Audiometry hearing aid eval to determ level/degree hear loss S0618 Sensorineural hearing loss, bilateral Nenita Keshav Rodriguez [facility] Aud[facility] 03/15/2023 Last Documented On 4 1:58PM ; [facility] Medical History Includes: Medical History in patient's chart No Medical History Recorded Family History Includes: Family History in patient's chart No Family History Recorded Review of Systems Review of Systems not supported for this document type No Review of Systems Recorded Functional Status No Functional Status Recorded Physical Exam Physical Exam not supported for this document type No Physical Exam Recorded Encounters Includes: Encounters from 08/30/2022 through 08/31/2023 Encounter Provider Location Date Check-In Time Check-Out Time Diagnosis Hearing Aid Service Check (HACK) Nenita Rodriguez [facility] Audiology [facility] 4 8:15AM 8:59AM Hearing Aid Service Check (HACK) Nenita Rodriguez [facility] Aud[facility] 4 9:15AM 9:28AM ELIO Nenita Rodriguez [facility] Aud[facility] 4 8:45AM 10:33AM Audio/HAE Nenita Rodriguez [facility] Aud[facility] 4 11:15AM 12:44PM Insurance Includes: Active Insurance Policies Plan Name Member ID Group # Subscriber Relationship Effect carter Dates 1 - [facility] Medicare/AARP/HMO/PPO [id number] Lacey Treadwell Clinical Notes Includes: Signed Clinical Notes starting from 05/08/2022 * Progress note Date Encounter Last Documented by 04/22/2023 Hearing Aid Service Check (HACK) Last documented on 04/22/2023; 10:52 AM, Nenita Rodriguez; [facility] Reason For Visit hearing aid check Notes Pt is still struggling to hear in noise with her hearing aids. Discussed upgrading to Premium level technology and adding remote microphone for better hearing in noise. Pt not interested. Would like to return. RFC form entered to [facility] portal. Fitting fee changed. * Progress note Date Encounter Last Documented by 04/12/2023 Hearing Aid Service Check (HACK) Last documented on 04/12/2023; 9:29 AM, Nenita Rodriguez; [facility] Reason For Visit hearing aid check Notes Pt has not been hearing well with her current Oticon Real hearing aids. States everything too loud. Having trouble inserting molds. Changed out to 8mm double king domes and reprogrammed to adaptation level 2. Pt reports much better sound quality in office. Pt to return to clinic in 1 week for follow up. * Progress note Date Encounter Last Documented by 04/01/2023 ELIO Last documented on 04/01/2023; 11:21 AM, Nenita Rodriguez; [facility] Reason For Visit Hearing Aid Orientation Notes Hearing Instruments: OTICON REAL 2 MINI RITE R [employer] Mobile[email or web address] MICROSHELLS OTICON PRO WAX MINI FIT FILTERS The hearing aids were programmed to cement based materials pump tender targets and live speech mapping conducted to verify fit. Hearing aids paired to patient's android phone for neri use. Could not connect for streaming, not a compatible device. Pt provided with list of compatible phones and she states she will get a new one. Reviewed operation of controls, insertion and removal, battery warnings and handling, cleaning and maintenance. Pt. informed of hearing aid warranties and trial period. See Hearing Aid Purchase Agreement in images for details. * Progress note Date Encounter Last Documented by 03/15/2023 Audio/HAE Last documented on 03/15/2023; 3:50 PM, Nenita Rodriguez; [facility] Reason For Visit Audiometric examination Pt reports hearing decline. Pt wearing Phonak Audeo BARBARA R hearing aids from 2018 that are not working well for her. She asks for frequent repetitions. Pt was referred to our clinic from her friend who wears Oticon hearing aids. She is asking about them. Tests See complete Audiological Report under Images for results and recommendations. Otoscopy: Clear ear canals bilaterally. Pure tone testing: Moderate to profound sensorineural hearing loss bilaterally. Speech veterinary receptionist thresholds were in agreement with pure tone findings. Word Recognition: Fair bilaterally. Assessment Pt has [facility] hearing.The needs assessment identified the patient as having a moderately-active lifestyle. Based on the patient's degree of hearing loss and lifestyle, the patient has been recommended the following amplification: Binaural OtTradiio Real 2 mini rite R [employer]Are[employer]Usa Beige 2-85 speakers micromolds Earmold impressions taken without insult/injury. Order placed via [facility] hearing portal. Plan 1. Utilize strategies for improving speech understanding (i.e. encourage [id number] conversation, reduce background noise, enhance room lighting, etc).2. Update hearing aids to new technology.3. A needs assessment and hearing aid evaluation was performed today. Pt is ordering hearing aid(s) for trial.4. Repeat audiologic evaluation annually or sooner if any vertigo, otalgia, tinnitus or changes in hearing are noted.
--- OUTSIDE RECORDS SUMMARY | 2023-08-31 09:45 | XMS_ITS | Clinical Summary ---
Author Organization [facility] Address [address] [place] [phone] Phone Care Team Providers Care Mat Maker Name Role Phone No PCP, Per Patient [...] V5014 Sensorineural hearing loss, bilateral Nenita Rodriguez [facility] [place] 04/12/2023 Last Documented On 4 11:17AM ; [facility] Medical History Includes: Medical History addressed during [...] Hearing Aid Service Check (HACK) Nenita Rodriguez [facility] 4 9:15AM 9:28AM Insurance Includes: Active Insurance Policies Plan Name Member ID Group # Subscriber Relationship Effect carter Dates 1 - [facility] Medicare/AARP/HMO/PPO [id number] Lacey Epperson Self Clinical Notes Includes: Clinical Notes from this encounter * Progress note Date Encounter Last Documented by 04/12/2023 Hearing Aid Service Check (HACK) Last documented on 04/12/2023; 9:29 AM, Nenita Rodriguez; [facility] Reason For Visit hearing aid check Notes [...]
--- OUTSIDE RECORDS SUMMARY | 2023-08-31 09:45 | XMS_ITS | Clinical Summary ---
Author Organization [facility] Address [address] [place] [phone] Phone Care Team Providers Care Derrick Hand Name Role Phone No PCP, Per Patient Primary Care Provider Shadi cabrera Reason for Visit and Chief Complaint ELIO Plan of Treatment No Plan of Treatment [...] Social History Recorded - Smoking Status Unknown Medical History Includes: Medical History addressed during [...] from this encounter No Physical Exam Recorded Insurance Includes: Active Insurance Policies Plan Name Member ID Group # Subscriber Relationship Effect carter Dates 1 - [facility] Medicare/AARP/HMO/PPO [id number] Lacey Epperson Self Clinical Notes Includes: Clinical Notes from this encounter No Clinical Notes Recorded
--- OUTSIDE RECORDS SUMMARY | 2023-08-31 09:45 | XMS_ITS | Clinical Summary ---
Author Organization [facility] Address [address] [place] [phone] Phone Care Team Providers Care Hall Worker Name Role Phone No PCP, Per Patient [...] Diagnosis Performing Provider Service Location Service Date Hearing Aid Upgrade HAUPG Sensorineural hearing loss, bilateral Nenita Rodriguez [facility] [place] 04/01/2023 Last Documented On 4 10:04AM ; [facility] Hearing aid fitting/checking V5011 Sensorineural hearing loss, bilateral Nenita Rodriguez [facility] 04/01/2023 Last Documented On 4 11:24AM ; [facility] Medical History Includes: Medical History addressed [...] Location Date Check-In Time Check-Out Time Diagnosis ELIO Nenita Rodriguez [facility] 4 8:45AM 10:33AM Insurance Includes: Active Insurance Policies Plan Name Member ID Group # Subscriber Relationship Effect carter Dates 1 - [facility] Medicare/AARP/HMO/PPO [id number] Lacey H Zhou Self Clinical Notes Includes: Clinical Notes from this encounter * Progress note Date Encounter Last Documented by 04/01/2023 ELIO Last documented on 04/01/2023; 11:21 AM, Nenita Rodriguez; [facility] Reason For Visit Hearing Aid Orientation Notes Hearing Instruments: OTICON REAL 2 MINI RITE R [employer] MICROSHELLS OTICON PRO WAX MINI FIT FILTERS The hearing aids were programmed to supervisor offset plate preparation targets and live speech mapping conducted to [...]
--- OUTSIDE RECORDS SUMMARY | 2023-08-31 09:45 | XMS_ITS | Clinical Summary ---
Author Organization [facility] Address [address] [place] [phone] Phone Care Team Providers Care Big Data Admin Name Role Phone No PCP, Per Patient [...] Subscriber Relationship Effect carter Dates 1 - [facility] Medicare/AARP/HMO/PPO [id number] Lacey Epperson Self Clinical Notes Includes: Clinical Notes from this encounter No Clinical Notes Recorded
--- OUTSIDE RECORDS SUMMARY | 2023-08-31 09:46 | XMS_ITS | Encounter Summary ---
Author Organization [facility] Address 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 Procedures TC PACLITAXEL, 1MG, INJ TC PALONOSETRON HCL, 25MCG, INJECTION (ALOXI) Karthikeyan Reza MD [address] [place] [id number] [facility] Hem Onc Office [address] [place] [phone] Referral ID Status Reason Start Date Expiration Date Visits Re quested Visits Authorized [id number] Closed 07/05/2016 07/05/2017 99 99 Encounter Details Date Type Department Care Team (Late st Contact Info) Description 08/31/2016 11:00 AM EDT Infusion Hematology Oncology at [address] [phone] 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 OBJECTIVE LAB DATA: WBC 2.66, HGB 11.2, HCT 35.8, ANC 1.00, Na 142, BUN 14, Cr 0.75 IV ACCESS: Mediport previously accessed at [facility] for labs. Flushes easily and blood return present. Pre administration: Chemotherapy orders independently verified for drug name, route, and dosage per patient's height, weight and BSA by Viviane Landers RN & [facility] M [facility]. REACTIONS (DESCRIPTION, TIME, INTERVENTION AND EFFECTIVENESS) none ASSESSMENT Lacey was awake, alert and tolerated treatment well. PLAN Return to clinic per routine. 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 Malignant neoplasm of central portion of female breast documented in this encounter Administered Medications Inactive Administered Medications - up to 3 most recent administrations Medication Order MAR Action Action Date Dose Rate Site dexamethasone (DECADRON) injection 10 mg 10 mg, Intravenous, ONCE, 1 dose, On Tue08/31/16 at 1200, Administer 30 minutes prior to PACLitaxel Given 08/31/2016 12:04 PM EDT 10 mg diphenhydrAMINE (BENADRYL) injection 25 mg 25 mg, Intravenous, ONCE, 1 dose, On Tue08/31/16 at 1200, Administer 30 minutes prior to PACLitaxel, Routine Given 08/31/2016 12:07 PM EDT 25 mg famotidine (PEPCID) injection 20 mg 20 mg, Intravenous, ONCE, 1 dose, On Tue08/31/16 at 1200, Administer 30 minutes prior to PACLitaxel Given 08/31/2016 12:10 PM EDT 20 mg heparin, porcine 100 unit/mL flush 500 Units 500 Units, Intravenous, ONCE PRN, Starting on Tue08/31/16 at 1141, Until Tue08/31/16 at 1557, Line Care, Refer to Intravenous (IV) Procedure: Accessing Implanted Vascular Access Devices (654) procedure and/or Intravenous (IV) Job Aid: Adult Flushing & Catheter Care (4116) job aid for additional information regarding guidelines and administration., Routine Given 08/31/2016 1:56 PM EDT 500 Units PACLitaxel (TAXOL) 142 mg in dextrose 5% Non-PVC 273.6667 mL chemo infusion 142 mg (rounded from 142.4 mg = 80 mg/m2/dose ? 1.78 m2 Treatment Plan BSA from Recorded weight), Intravenous, ONCE, 1 dose, On Tue08/31/16 at 1300, Administer over 60 Minutes New Bag 08/31/2016 12:40 PM EDT 142 mg 274 mL/hr palonosetron (ALOXI) injection 0.25 mg 0.25 mg, Intravenous, ONCE, 1 dose, On Tue08/31/16 at 1200, Routine Given 08/31/2016 12:00 PM EDT 0.25 mg sodium chloride 0.9 % flush 5-20 mL 5-20 mL, Intravenous, EVERY 1 MIN PRN, Starting on Tue08/31/16 at 1141, Until Tue08/31/16 at 1557, Line Care, Flush pertains to all indwelling lines. Flush per protocol found in the job aid using the link provided on this medication record. Refer to Intravenous (IV) Job Aid: Adult Flushing & Catheter Care (0888) job aid for additional information regarding guidelines and administration., Routine Given 08/31/2016 1:56 PM EDT 20 mLs documented in this encounter Care Teams Sorter Upholstery Parts Relationship Specialty Start Date End Date Karthikeyan Reza MD [address] [place] [address] [place] [address] PCP - General Hematology and Oncology 08/26/16 documented as of this encounter
--- OUTSIDE RECORDS SUMMARY | 2023-08-31 09:46 | XMS_ITS | Encounter Summary ---
Author Organization [facility] [place] [address] Care Team Providers Care Silo Filler Name Role Phone Unavailable Primary Care Provider Unavailabl e Encounter Details Date Type Department Care Team (Latest Contact Info) Description 06/22/2022 Travel Social History Tobacco Use Types Packs/Day Years Used Date Smoking Tobacco: Former Cigarettes 0 07/05/1956 - 07/05/1976 Smokeless Tobacco: Never Sex and Gender Information Value Date Recorded Sex Assigned at Not on file Gender Identity Not on file Sexual Orientation Not on file documented as of this encounter Plan of Treatment Not on file documented as of this encounter Visit Diagnoses Not on filedocumented in this encounter
--- OUTSIDE RECORDS SUMMARY | 2023-08-31 09:46 | XMS_ITS | Encounter Summary ---
Author Organization [facility] [place] [address] Care Team Providers Care Social Work Msw Name Role Phone Karthikeyan Reza MD Primary Care Provider [phone] Encounter Details Date Type Department Care Team (Late st Contact Info) Description 06/16/2021 Ancillary Procedure [place] [phone] Rohith Sharma MD [facility] DR HEMATOLOGY/[place] [address] Social History Tobacco Use Types Packs/Day Years Used Date Smoking Tobacco: Former Cigarettes 0 07/05/1956 - 07/05/1976 Smokeless Tobacco: Never Sex and Gender Information Value Date Recorded Sex Assigned at Not on file Gender Identity Not on file Sexual Orientation Not on file documented as of this encounter Plan of Treatment Not on file documented as of this encounter Procedures Procedure Name Priority Date/Time Associated Diagnosis Comments FILM LIBRARY STORAGE ONLY CT CHEST ABDOMEN PELVIS Routine 06/16/2021 12:00 AM EDT documented in this encounter Results * Film Library- Storage Only CT Chest Abdomen Pelvis (06/16/2021 12:00 AM EDT) Narrative [facility] - 06/17/2021 11:19 AM EDT This exam is auto-finalizing. It's purpose is for storage only. Rohith Sharma MD G FILM LIBRARY ORD ERABLES [facility] [place] documented in this encounter Visit Diagnoses Not on filedocumented in this encounter Care Teams Social Work Msw Relationship Specialty Start Date End Date Karthikeyan Reza MD [address] [place] [address] [place] [address] PCP - General Hematology and Oncology 08/26/16 documented as of this encounter
--- OUTSIDE RECORDS SUMMARY | 2023-08-31 09:46 | XMS_ITS | Encounter Summary ---
Author Organization [facility] [place] [address] Care Team Providers Care Roof Bolter Operator Name Role Phone Karthikeyan Reza MD Primary Care Provider [phone] Encounter Details Date Type Department Care Team (Latest Contact Info) Description 06/24/2021 12:05 AM EDT Ancillary Procedure [place] [phone] Rohith Sharma MD [facility] HEMATOLOGY/[place] [address] Personal history of breast cancer; Multiple lung nodules on CT Social History Tobacco Use Types Packs/Day Years [...] Procedure Name Priority Date/Time Associated Diagnosis Comments REQUEST FOR 2ND READ CT CHEST ABDOMEN PELVIS Routine 06/23/2021 4:47 PM EDT Personal history of breast cancer Multiple lung nodules on CT documented in this encounter Results * Request For 2nd Read CT Chest Abdomen Pelvis (06/23/2021 4:47 PM EDT) Anatomical Region Laterality Modality Chest, Abdomen, Pelvis SO Impressions 06/24/2021 11:52 AM EDT 1. ??Multiple bilateral pulmonary nodules the majority of which are stable in size compared to 12/11/2020; however, some exhibit decreased conspicuity/size on today's exam and there are several new or nodules. These findings are nonspecific and could represent mixed treatment response in the setting of pulmonary metastases or alternatively waxing and waning of intrapulmonary lymph nodes secondary to underlying inflammation or infection. 2. ??Mildly displaced left posterior seventh and eighth rib fractures. While pathologic fracture may be considered, no obvious underlying osseous metastases are present and the posterior rib fractures are favored to be secondary to the reported fall. No pneumothorax. Trace left pleural fluid. 3. ??Unchanged ??T11 and L1 compression fractures. No new compression deformities. I have personally reviewed the image(s) and the resident's interpretation and agree with the findings, Jesus Piper MD at 06/24/2021 11:52 AM Thank you for letting us participate in the care of this patient. ??If you are a health care provider and have any questions regarding this report, please contact the number below. ??For patients who have questions please contact the health childcare center director that requested your imaging first. ? Electronically signed by: Jesus Piper MD, [facility] ([phone]), at 06/24/2021 11:52 AM Narrative 06/24/2021 11:52 AM EDT EXAMINATION: REQUEST FOR 2ND READ CT CHEST ABDOMEN PELVIS CLINICAL HISTORY: Follow-up on lung nodules, patient with history of triple negative breast cancer. ??CT scan done in the emergency room after fall; Sending Institution [facility]; Date of exam [id number]; I believe a reinterpretation of this exam may alter care of Patient. Yes TECHNIQUE: Helical CT of the chest, abdomen and pelvis was performed without intravenous contrast. Oral contrast was not administered. COMPARISON: CT chest without contrast dated 12/11/2020 FINDINGS: The absence of intravenous contrast limits the evaluation of solid viscera and vasculature. Chest: Lungs and large airways: Upper lobe predominant centrilobular emphysematous changes. No focal consolidation. There are multiple bilateral pulmonary nodules the majority of which measure 5 mm or less in the remainder of which measure 1 cm or less. The majority these are similar in size however there are several nodules which are less conspicuous on today's exam and at least 2 new nodules. For example a RIGHT upper lobe pulmonary nodule (series 7 image 165) is similar in size compared to the previous study measuring approximately 8 x 10 mm. A 6 mm superior segment LEFT lower lobe pulmonary nodule is unchanged in size (series 7 image 29). A 3 mm nodule in the LEFT upper lobe (series 7 image 182) has decreased in size as compared to the most recent prior study (see series 2 image 176 on 12/11/2020). A 6 mm nodule in the LEFT upper lobe (series 7 image 204) was not seen on the prior study and is new. Pleura: Trace left pleural fluid. No right pleural effusion. No pneumothorax. Small right Bochdalek hernia. Heart/vasculature: Unchanged mildly dilated ascending aorta, measuring 4 cm. Normal great vessel branching pattern. Mild atherosclerosis. Lymph nodes: No enlarged lymph nodes. Mediastinum and elly: Small hiatal hernia. Thyroid gland is normal. Abdomen/pelvis: Liver: Normal size and attenuation without lesions. Bile ducts: No intrahepatic or extrahepatic ductal dilatation. Gallbladder: No calcified gallstones. Normal caliber wall. Pancreas: Normal attenuation without ductal dilatation. Diffusely atrophic. Spleen: Normal size and attenuation. Adrenals: Normal. Kidneys: Normal size. No nephrolithiasis or ureterolithiasis. No collecting system dilatation. Urinary Bladder: Normal contour. Vasculature: No aneurysm. Lymph Nodes: No enlarged lymph nodes. Bowel: Colonic diverticuli, without adjacent inflammatory fat stranding. Nondilated, no wall thickening. Appendix is normal. Peritoneum and mesentery: No ascites, free air, or loculated fluid collection. No mesenteric inflammation. Abdominal wall: Small bilateral fat-containing inguinal hernias. No subcutaneous hematoma mass or fluid collection. Reproductive organs: Anteverted uterus. Osseous structures: Unchanged compression deformity of T11 and L1. No new compression deformities. Mildly displaced comminuted left posterior seventh and eighth rib fractures. No other fractures. Unchanged moderate thoracolumbar degenerative changes. Procedure Note Jesus Piper MD - 06/24/2021 EXAMINATION: REQUEST FOR 2ND READ CT CHEST ABDOMEN PELVIS CLINICAL HISTORY: Follow-up on lung nodules, patient with history oftriple negative breast cancer. CT scan done in the emergency room after fall;Sending Institution [facility]; Date of exam [id number]; I believe a reinterpretation ofthis exam may alter care of Patient. Yes TECHNIQUE: Helical CT of the chest, abdomen and pelvis was performed withoutintravenous contrast. Oral contrast was not administered. COMPARISON: CT chest without contrast dated 12/11/2020 FINDINGS: The absence of intravenous contrast limits the evaluation of solid visceraand vasculature. Chest: Lungs and large airways: Upper lobe predominant centrilobularemphysematous changes. No focal consolidation. There are multiple bilateral pulmonarynodules the majority of which measure 5 mm or less in the remainder of whichmeasure 1 cm or less. The majority these are similar in size however there areseveral nodules which are less conspicuous on today's exam and at least 2 newnodules. For example a RIGHT upper lobe pulmonary nodule (series 7 image 165) issimilar in size compared to the previous study measuring approximately 8 x 10 mm.A 6 mm superior segment LEFT lower lobe pulmonary nodule is unchanged in size(series 7 image 29). A 3 mm nodule in the LEFT upper lobe (series 7 image 182) has decreased in size as compared to the most recent prior study (see series 2image 176 on 12/11/2020). A 6 mm nodule in the LEFT upper lobe (series 7 [id number]) was not seen on the prior study and is new. Pleura: Trace left pleural fluid. No right pleural effusion. Nopneumothorax. Small right Bochdalek hernia. Heart/vasculature: Unchanged mildly dilated ascending aorta, measuring 4cm. Normal great vessel branching pattern. Mild atherosclerosis. Lymph nodes: No enlarged lymph nodes. Mediastinum and elly: Small hiatal hernia. Thyroid gland is normal. Abdomen/pelvis: Liver: Normal size and attenuation without lesions. Bile ducts: No intrahepatic or extrahepatic ductal dilatation. Gallbladder: No calcified gallstones. Normal caliber wall. Pancreas: Normal attenuation without ductal dilatation. Diffuselyatrophic. Spleen: Normal size and attenuation. Adrenals: Normal. Kidneys: Normal size. No nephrolithiasis or ureterolithiasis. Nocollecting system dilatation. Urinary Bladder: Normal contour. Vasculature: No aneurysm. Lymph Nodes: No enlarged lymph nodes. Bowel: Colonic diverticuli, without adjacent inflammatory fat stranding. Nondilated, no wall thickening. Appendix is normal. Peritoneum and mesentery: No ascites, free air, or loculated fluidcollection. No mesenteric inflammation. Abdominal wall: Small bilateral fat-containing inguinal hernias. Nosubcutaneous hematoma mass or fluid collection. Reproductive organs: Anteverted uterus. Osseous structures: Unchanged compression deformity of T11 and L1. Nonew compression deformities. Mildly displaced comminuted left posteriorseventh and eighth rib fractures. No other fractures. Unchanged moderatethoracolumbar degenerative changes. IMPRESSION 1. Multiple bilateral pulmonary nodules the majority of which are stablein size compared to 12/11/2020; however, some exhibit decreasedconspicuity/size on today's exam and there are several new or nodules. These findings are nonspecific and could represent mixed treatment response in the settingof pulmonary metastases or alternatively waxing and waning of intrapulmonarylymph nodes secondary to underlying inflammation or infection. 2. Mildly displaced left posterior seventh and eighth rib fractures.While pathologic fracture may be considered, no obvious underlying osseousmetastases are present and the posterior rib fractures are favored to be secondary tothe reported fall. No pneumothorax. Trace left pleural fluid. 3. Unchanged T11 and L1 compression fractures. No new compressiondeformities. I have personally reviewed the image(s) and the resident's interpretationand agree with the findings, Jesus Piper MD at 06/24/2021 11:52 AM Thank you for letting us participate in the care of this patient. If youare a health care provider and have any questions regarding this report,please contact the number below. For patients who have questions please contactthe health childcare center director that requested your imaging first. Electronically signed by: Jesus Piper MD, [facility]([phone]), at 06/24/2021 11:52 AM Rohith Sharma MD IMG OUTSIDE [facility] TATION ORDERABLES documented in this encounter Visit Diagnoses Diagnosis Personal history of breast cancer Personal history of malignant neoplasm of breast Multiple lung nodules on CT documented in this encounter Care Teams Roof Bolter Operator Relationship Specialty Start Date End Date Karthikeyan Reza MD [address] [place] [address] [place] [address] PCP - General Hematology and Oncology 08/26/16 documented as of this encounter
--- OUTSIDE RECORDS SUMMARY | 2023-08-31 09:46 | XMS_ITS | Encounter Summary ---
Author Organization [facility] [place] [address] Care Team Providers Care Manager Testing Name Role Phone Unavailable Primary Care Provider Unavailabl e Encounter Details Date Type Department Care Team (Latest Contact Info) Description 12/29/2021 Travel Social History Tobacco Use Types Packs/Day [...]
--- OUTSIDE RECORDS SUMMARY | 2023-08-31 09:46 | XMS_ITS | Encounter Summary ---
Author Organization [facility] Address [facility] [place] [address] Care Team Providers Care Product Safety Administrator Name Role Phone Karthikeyan Reza MD Primary Care Provider Encounter Details Date Type Department Care Team (Late st Contact Info) Description 10/29/2020 Telephone Hematology/Oncology at [address] [phone] Rohith Sharma MD [facility] DR HEMATOLOGY/[place] [address] Social History Tobacco Use Types Packs/Day Years Used Date Smoking Tobacco: Former Cigarettes 0 07/05/1956 - 07/05/1976 Smokeless Tobacco: Never Sex and Gender Information Value Date Recorded Sex Assigned at Not on file Gender Identity Not on file Sexual Orientation Not on file documented as of this encounter Miscellaneous Notes * Telephone Encounter - Rohith Sharma MD - 10/29/2020 10:29 AM EDT I called Mr. Epperson and left a message documented in this encounter Plan of Treatment Not on file documented as of this encounter Visit Diagnoses Not on filedocumented in this encounter Care Teams Product Safety Administrator Relationship Specialty Start Date End Date Karthikeyan Reza MD [address] [place] [address] PCP - General Hematology and Oncology 08/26/16 documented as of this encounter
--- OUTSIDE RECORDS SUMMARY | 2023-08-31 09:46 | XMS_ITS | Encounter Summary ---
Author Organization [facility] [place] [address] Care Team Providers Care Termite Exterminator Name Role Phone Karthikeyan Reza MD Primary Care Provider [phone] Reason for Visit * Reason Comments Breast Cancer Encounter Details Date Type Department Care Team (Late st Contact Info) Description 09/07/2016 11:30 AM EDT Office Visit Hematology/Oncology at [address] [phone] Karthikeyan Reza MD [address] [place] [id number] Malignant neoplasm of central portion of right female breast Social History Tobacco Use Types Packs/Day Years Used Date Smoking Tobacco: Former Cigarettes 0 07/05/1956 - 07/05/1976 Sex and Gender Information Value Date Recorded Sex Assigned at Not on file Gender Identity Not on file Sexual Orientation Not on file documented as of this encounter Last Filed Vital Signs Vital Sign Reading Time Taken Comments Blood Pressure 111/72 09/07/2016 11:30 AM EDT Pulse 85 09/07/2016 11:30 AM EDT Temperature 36.4 ??C (97.5 ??F) 09/07/2016 11:30 AM E DT Respiratory Rate 18 09/07/2016 11:30 AM EDT Oxygen Saturation 99% 09/07/2016 11:30 AM EDT Inhaled Oxygen Concentration - - Weight 73 kg (161 lb) 09/07/2016 11:30 AM EDT Height 159.4 cm (5' 2.76) 09/07/2016 11:30 AM E DT copied Body Mass Index 28.74 09/07/2016 11:30 AM EDT documented in this encounter Progress Notes * Karthikeyan Reza MD - 09/07/2016 11:30 AM EDT 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 The patient has 3 lesions in the right breast at 12:00 and 12:15 initial KI-67 was elevated to 60%. Markers were placed and MRI indicated no axillary involvement. The patient is status post 4 cycles of Adriamycin and Cytoxan in [place] and has moved to [place] with plans on completing 12 weekly cycles of Taxol prior to surgery in [place]. SUBJECTIVE: Lacey comes in today for what will be her tenth week of Taxol chemotherapy. We had to hold a couple of weeks of treatment because of neutropenia, however, after holding those weeks her counts have been doing reasonably well. Last week she was treated with a absolute neutrophil count of 1.0. and has done well over the week, although she was shaking the water off of her left hand and noted afterwards she had a bit of swelling around her middle finger and knuckle. That has continued to bother her a bit but is not getting worse at this point. There is no bruising associated with it and she believes she did not hit her hand on anything, although that is still a possibility. Other than that, though, she is not having significant numbness in her feet, no numbness in her hands or fingertips, no nail changes, nausea and vomiting is controlled, bowels are reasonable, energy levels are fine. She is not having any reactions or other difficulties. Review of systems is otherwise negative. Additionally, the patient has a positive family history of breast cancer and had BCR 1 and 2 testing done and was negative for that. Past Medical History: Diagnosis Date ??? Asthma ??? Breast cancer, right breast ??? DJD (degenerative joint disease) ??? Hypercholesteremia ??? Hypothyroid ??? Osteoporosis No past surgical history on file. Allergies Allergen Reactions ??? Pollen Extracts Other (See Comments) Seasonal--runny nose, itchy eyes ??? Sulfa (Sulfonamide Antibiotics) Rash Medications 07/05/16 1023 Medication Sig Taking? simvastatin (ZOCOR) 40 mg Tablet Take 40 mg by mouth nightly. Yes levothyroxine (SYNTHROID) 25 mcg Tablet Take 25 mcg by mouth daily. Indications: hypothyroidism Yes fluticasone-salmeterol (ADVAIR) 250-50 mcg/dose Disk with Device Inhale 1 puff into the lungs every12 hours. Yes prochlorperazine (COMPAZINE) 10 mg Tablet Take 10 mg by mouth every 6 hours as needed for Nausea. Yes ondansetron (ZOFRAN) 8 mg Tablet Take 8 mg by mouth every 8 hours as needed for Nausea. Yes ibuprofen (ADVIL;MOTRIN) 200 mg Tablet Take 200 mg by mouth every 6 hours as needed for Pain. Yes Family History Problem Relation Age of Onset ??? Cerebrovascular Accident Father ??? Heart Disease Father ??? Diabetes Father ??? Breast Cancer Sister ??? Breast Cancer Niece Social History Social History ??? Marital status: Unknown Spouse name: N/A ??? Number of children: N/A ??? 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 Smoking status: Former Smoker Years: 20.00 Types: Cigarettes Quit date: 07/05/1976 ??? Smokeless tobacco: Not on file ??? Alcohol use Not on file ??? Drug use: No ??? Sexual activity: Not on file Other Topics Concern ??? Not on file Social History Narrative Review of Systems Constitutional: Negative for fever, chills, activity change, fatigue and unexpected weight change. HENT: Negative for sore throat, mouth sores and trouble swallowing. Eyes: Negative. Respiratory: Negative for cough, shortness of breath and wheezing. Cardiovascular: Negative for chest pain, palpitations and leg swelling. Gastrointestinal: Negative for nausea, vomiting, abdominal pain, diarrhea, constipation and abdominal distention. Genitourinary: Negative for dysuria and difficulty urinating. Musculoskeletal: Negative. Skin: Negative. Neurological: Negative. Hematological: Negative for adenopathy. Head: Normocephalic, without obvious abnormality, atraumatic Eyes: PERRL, conjunctiva/corneas clear, EOM's intact, fundi benign, both eyes Ears: Normal TM's and external ear canals, both ears Nose: Nares normal, septum midline, mucosa normal, no drainage or sinus tenderness Throat: Lips, mucosa, and tongue normal; teeth and gums normal Neck: Supple, symmetrical, trachea midline, no adenopathy, thyroid: not enlarged, symmetric, no tenderness/mass/nodules, no carotid bruit or JVD Back: Symmetric, no curvature, ROM normal, no CVA tenderness Lungs: Clear to auscultation bilaterally, respirations unlabored Chest Wall: No tenderness or deformity Heart: Regular rate and rhythm, S1, S2 normal, no murmur, rub or gallop Abdomen: Soft, non-tender, bowel sounds active all four quadrants, no masses, no organomegaly Extremities: Extremities normal, atraumatic, no cyanosis or edema Pulses: 2+ and symmetric Skin: Skin color, texture, turgor normal, no rashes or lesions Lymph nodes: Cervical, supraclavicular, and axillary nodes normal Neurologic: Normal ONCBCN ONCOLOGY (AMB) 07/06/2016 07/13/2016 Day, Cycle Day 1, Cycle 1 Day 8, Cycle 1 PACLitaxel (TAXOL) IV 80 mg/m2/dose = 142 mg 80 mg/m2/dose = 142 mg ONCBCN ONCOLOGY (AMB) 07/20/2016 Day, Cycle Day 15, Cycle 1 PACLitaxel (TAXOL) IV 80 mg/m2/dose = 142 mg ONCBCN ONCOLOGY (AMB) 07/27/2016 Day, Cycle Day 22, Cycle 1 PACLitaxel (TAXOL) IV 80 mg/m2/dose = 142 mg ONCBCN ONCOLOGY (AMB) 08/10/2016 08/16/2016 Day, Cycle Day 8, Cycle 2 Day 15, Cycle 2 PACLitaxel (TAXOL) IV 80 mg/m2/dose = 142 mg 80 mg/m2/dose = 142 mg ONCBCN ONCOLOGY (AMB) 08/31/2016 Day, Cycle Day 1, Cycle 3 PACLitaxel (TAXOL) IV 80 mg/m2/dose = 142 mg Review of her lab work today shows a white count of 3.35, neutrophil count of 2.18, hemoglobin 11.2, hematocrit 35%, and platelets are 198,000; CMP is absolutely normal with creatinine of 0.8, albumin of 3.5, alkaline phosphatase of 42 which is low, normal liver tests. Electrolytes are normal. ASSESSMENT/PLAN: Lacey is fine today for her tenth week of treatment. Plans are for 2 more weeks of treatment and then she will take the rest of September off and has her surgery scheduled after weekend in [place]. We will go ahead with today's treatment as planned and see her back neck week with a CBC and CMP. We will continue to follow her borderline white count and her chemotherapy-associated anemia closely. She will call if there is issues or problems in the interim. documented in this encounter Plan of Treatment Not on file documented as of this encounter Procedures Procedure Name Priority Date/Time Associated Diagnosis Comments LAB SCAN 09/07/2016 12:00 AM EDT documented in this encounter Results * SCAN DOC: LAB (09/07/2016 12:00 AM EDT) Narrative 09/07/2016 12:00 AM EDT Ordered by an unspecified provider. Scanning Provider MEDIA MGR SCAN EXT O RDR/RSLT documented in this encounter Visit Diagnoses Diagnosis Malignant neoplasm of central portion of right female breast Malignant neoplasm of central portion of female breast documented in this encounter Care Teams Termite Exterminator Relationship Specialty Start Date End Date Karthikeyan Reza MD [address] [place] [address] [place] [address] PCP - General Hematology and Oncology 08/26/16 documented as of this encounter
--- OUTSIDE RECORDS SUMMARY | 2023-08-31 09:46 | XMS_ITS | Encounter Summary ---
Author Organization [facility] [place] [address] Care Team Providers Care Model Maker Plaster Name Role Phone Karthikeyan Reza MD Primary Care Provider [phone] Reason for Visit * Reason Comments Breast Cancer Encounter Details Date Type Department Care Team (Late st Contact Info) Description 09/14/2016 11:30 AM EDT Office Visit Hematology/Oncology at [address] [phone] Karthikeyan Reza MD [address] [place] [id number] Malignant neoplasm of central portion of right breast in female, estrogen receptor negative Social History Tobacco Use Types Packs/Day Years Used Date Smoking Tobacco: Former Cigarettes 0 07/05/1956 - 07/05/1976 Smokeless Tobacco: Never Sex and Gender Information Value Date Recorded Sex Assigned at Not on file Gender Identity Not on file Sexual Orientation Not on file documented as of this encounter Last Filed Vital Signs Vital Sign Reading Time Taken Comments Blood Pressure 104/50 09/14/2016 11:26 AM EDT Pulse 82 09/14/2016 11:26 AM EDT Temperature 36.4 ??C (97.5 ??F) 09/14/2016 11:26 AM E DT Respiratory Rate 16 09/14/2016 11:26 AM EDT Oxygen Saturation 98% 09/14/2016 11:26 AM EDT Inhaled Oxygen Concentration - - Weight 72.1 kg (159 lb) 09/14/2016 11:26 AM EDT Height 159.4 cm (5' 2.76) 09/14/2016 11:26 AM E DT copied Body Mass Index 28.39 09/14/2016 11:26 AM EDT documented in this encounter Progress Notes * Karthikeyan Reza MD - 09/14/2016 11:30 AM EDT 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 The patient has 3 lesions in the right breast at 12:00 and 12:15 initial KI-67 was elevated to 60%. Markers were placed and MRI indicated no axillary involvement. The patient is status post 4 cycles of Adriamycin and Cytoxan in [place] and has moved to [place] with plans on completing 12 weekly cycles of Taxol prior to surgery in [place]. Lacey comes in today for what would be a ninth infusion of Taxol in the neoadjuvant treatment of her breast cancer. She has felt well over the last week but is starting to get some numbness and tingling in her fingertips and feet. It is mild right now and not really bothering her. Other than that, though, she is tolerating chemotherapy well with good energy levels, no significant nausea or vomiting and only a bit of constipation relieved with laxatives as needed. Review of systems is otherwise negative. Additionally, [...] ??? Sulfa (Sulfonamide Antibiotics) Rash Medications 07/05/16 1533 Medication Sig Taking? 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 Smoking status: Former Smoker Years: 20.00 Types: Cigarettes Quit date: 07/05/1976 ??? Smokeless tobacco: Never Used ??? Alcohol use Not on file ??? [...] = 142 mg ONCBCN ONCOLOGY (AMB) 08/31/2016 09/07/2016 Day, Cycle Day 1, Cycle 3 Day 8, Cycle 3 PACLitaxel (TAXOL) IV 80 mg/m2/dose = 142 mg 80 mg/m2/dose = 142 mg Laboratory today shows white count of 1.89, absolute neutrophil count of 710, hemoglobin of 10.8, hematocrit 34% and a platelet count of 194. CMP shows normal electrolytes, creatinine 0.78. Normal liver tests with an ALT of 40 and calcium of 8.6. ASSESSMENT/PLAN: Lacey is neutropenic today and will go ahead and hold off on giving her this week's taxane. We will see her next week and hopefully her counts will be better for her final chemotherapy with Taxol. She will have received 720 mg/m2 of Taxol, which is similar to the 175 mg x4 regimen as far as dosing. Her dose intensity has been pushed to the limits with this particular regimen and in that regard, I favor stopping after next week's treatment. If her counts are still low, we would stop completely next week. We will see her back for evaluation. 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 She will let us know if there are issues or problems in the interim. documented in this encounter Plan of Treatment Not on file documented as of this encounter Visit Diagnoses Diagnosis Malignant neoplasm of central portion of right breast in female, estrogen receptor negative documented in this encounter Care Teams Model Maker Plaster Relationship Specialty Start Date End Date Karthikeyan Reza MD [address] [place] [address] [place] [address] PCP - General Hematology and Oncology 08/26/16 documented as of this encounter
--- OUTSIDE RECORDS SUMMARY | 2023-08-31 09:46 | XMS_ITS | Encounter Summary ---
Author Organization [facility] [place] [address] Care Team Providers Care Company Controller Name Role Phone Karthikeyan Reza MD Primary Care Provider [phone] Encounter Details Date Type Department Care Team (Late st Contact Info) Description 09/15/2020 Telephone Pulmonology at [facility] [place] [phone] Nenita De La Fuente Social History Tobacco Use Types Packs/Day Years [...] on filedocumented in this encounter Care Teams Company Controller Relationship Specialty Start Date End Date Karthikeyan Reza MD [address] [place] [address] [place] [address] PCP - General Hematology and Oncology 08/26/16 documented as of this encounter
--- OUTSIDE RECORDS SUMMARY | 2023-08-31 09:46 | XMS_ITS | Encounter Summary ---
Author Organization [facility] Address [facility] [place] [address] Care Team Providers Care Programming Manager Name Role Phone Unavailable Primary Care Provider Unavailabl e Encounter Details Date Type Department Care Team (Late st Contact Info) Description 06/22/2022 1:00 PM EDT Office Visit Hematology/Oncology at [address] [address] Rohith Sharma MD [facility] HEMATOLOGY/[place] [address] Samantha Nguyễn, RN Personal history of breast cancer (Primary Dx); Multiple lung nodules on CT Social History [...] Sign Reading Time Taken Comments Blood Pressure 93/63 06/22/2022 1:03 PM EDT Pulse 129 06/22/2022 1:03 PM EDT irreg ular Temperature 36.1 ??C (97 ??F) 06/22/2022 1:03 PM EDT Respiratory Rate 16 06/22/2022 1:03 PM EDT Oxygen Saturation 95% 06/22/2022 1:03 PM EDT Inhaled Oxygen Concentration - - Weight 75.8 kg (167 lb) 06/22/2022 1:03 PM EDT Height 159.4 cm (5' 2.76) 06/22/2022 1:03 PM ED T Body Mass Index 29.81 06/22/2022 1:03 PM EDT documented in this encounter Progress Notes * Rohith Sharma MD - 06/22/2022 1:00 PM EDT Images from the original note were not included. 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 Patient had a screening mammogram on 01/19/2016 at [facility], [place].?? She was called back for a right breast diagnostic mammogram and ultrasound of a right breast mass.?? These exams were performed at [facility].?? 2 indeterminate adjacent solid masses were noted at 12:00 position.?? Onemeasured 1.1 x 0.5 x 0.7 cm and the second 0.3 x 0.4 x 0.4 cm.?? These are approximately 1 cm apart.?? Ultrasound of the right axilla was negative.?? On 02/27/2016 an ultrasound guided core biopsy wasperformed of the 2 masses.?? During the biopsy a third mass measuring 6 mm was noted.?? This was also biopsied. On 03/12/2016 patient had a breast MRI performed at [facility]. These results reported multifocal disease of the right breast, an indeterminate focus of enhancement on the left, mild cardiomegaly and a small sliding type hiatus hernia. A left breast MRI guided core biopsy was performed on 03/22/2016. Pathology of this was benign. Patient is having neoadjuvant chemotherapy with Dr. Rodriguez. She completed AC. She was traveling to [place] for the summer, where she completed weekly paclitaxel on September [id number]. She underwent right partial mastectomy sentinel lymph node dissection. Pathology did not reveal any residual cancer and all lymph nodes were negative. She completed adjuvant radiation therapy on December 272016. In November 2018 she was diagnosed with lower extremity DVT and extensive pulmonary embolism. She started Xarelto., Which was discontinued in 6 months. Has episodes of pulmonary embolism in December 2019. Currently she is on Xarelto Interval history: Ms. Epperson is in clinic for follow-up appointment on breast cancer. She returned from [place] 6 weeks ago. Complains on shortness of breath. Follows with her desk director. Plan to start pulmonary rehab program soon. Otherwise, she feels well. Denies any pain.. No new focal complaints. She follows with paint line supervisor on her A-fib PMH: No interval changes since last visit Diagnosed with paroxysmal A. fib in June 2021, Depression DVT/PE, COPD, osteoporosis, Social History: No interval changes since last visit Quit smoking in 1976, drinks alcohol rarely Family History: No interval changes since last visit Sister age of 71 from breast cancer Allergies: Allergies Allergen Reactions ??? Sulfa (Sulfonamide Antibiotics) Rash Medications: Your Medications Accurate as of June 22, 2022 1:22 PM. If you have any questions, ask your nurse or doctor. Continued medications, unchanged Dose Details acetaminophen 500 mg tablet Commonly known as: Tylenol Take 1,000 mg by mouth 3 times daily. 1,000 mg Refills: 0 Biotin 5 mg capsule Take 5 mg by mouth daily. 5 mg Refills: 0 cholecalciferol (Vitamin D3) 50 mcg (2,000 unit) Capsule Take by mouth. Refills: 0 cyanocobalamin (Vitamin B-12) 1,000 mcg tablet Commonly known as: Vitamin B-12 Take 1,000 mcg by mouth daily. 1,000 mcg Refills: 0 furosemide 20 mg tablet Commonly known as: Lasix Take 20 mg by mouth as needed. 20 mg Refills: 0 levothyroxine 25 mcg tablet Commonly known as: Synthroid Take 25 mcg by mouth daily. Indications: hypothyroidism 25 mcg Refills: 0 metoproloL tartrate 25 mg tablet Commonly known as: Lopressor Take 25 mg by mouth as needed. 25 mg Refills: 0 omeprazole 20 mg Tablet, Delayed Release (E.C.) Take 20 mg by mouth daily. 20 mg Refills: 0 rivaroxaban 20 mg tablet Commonly known as: Xarelto Take 20 mg by mouth daily. 20 mg Refills: 0 simvastatin 40 mg tablet Commonly known as: Zocor Take 40 mg by mouth nightly. 40 mg Refills: 0 Trelegy Ellipta 100-62.5-25 mcg Inhale 1 puff into the lungs daily. Generic drug: ipcbqoprila-xuctcmrlatzn-qnzwxswjly 1 puff Refills: 0 Review of Systems: Constitutional: positive for fatigue HEENT: Negative for sore throat, mouth sores and trouble swallowing. Eyes: Negative. Respiratory: Negative for cough, shortness of breath and wheezing. Cardiovascular: Negative for chest pain, palpitations and leg swelling. Gastrointestinal: Negative for nausea, vomiting, abdominal pain, diarrhea, constipation and abdominal distention. Genitourinary: Negative for dysuria and difficulty urinating. Musculoskeletal: Negative. Skin: Negative. Neurological: Negative. Hematological: Negative for adenopathy. PE: General: AAAx3, in NAD, sitting in wheelchair Head: Normocephalic, without obvious abnormality, atraumatic Eyes: Ears: Normal TM's and external ear canals, [...] to auscultation bilaterally, respirations unlabored Chest Wall: Right breast: Well-healed surgical incision, no palpable masses or lumps in either breast. Both breasts are tender to palpation. Examination in the presence of VIKKI Wells Heart: Irregularly irregular heart rhythm, S1, S2 normal, no murmur, rub or gallop Abdomen: Soft, non-tender, bowel sounds active all four quadrants, no masses, no organomegaly. There is no appreciable ascites Extremities: Extremities normal, atraumatic, no cyanosis or edema Pulses: 2+ and symmetric Skin: Skin color, texture, turgor normal, no rashes or lesions Lymph nodes: No palpable lymph nodes in cervical, supraclavicular, and axillary areas Neurologic: Normal Vitals BP 93/63 (Patient Position: Sitting) Pulse (!) 129 Comment: irregular Temp 36.1 ??C (97 ??F) (Temporal) Resp 16 Ht 159.4 cm (5' 2.76) Wt 75.8 kg (167 lb) SpO2 95% BMI 29.81 kg/m? Pathology: 10/22/20 Final Microscopic Diagnosis A. ??Right partial, oriented mastectomy at 12:00, status preoperative neoadjuvant chemotherapy: ?Changes of prior biopsy sites; no residual invasive carcinoma or in situ tumor is present. ?Isolated nonproliferative fibrocystic change with microcalcifications is present. ?All margins of resection are negative for atypia or malignancy. ?AJCC Stage: ??[id number](i-)MX B. ??Right axillary sentinel lymph node #1: ??No metastatic carcinoma present within one lymph node by ?routine Dominik and cytokeratin immunohistochemical staining (0/1). C. ??Right axillary sentinel lymph node #2: ??No metastatic carcinoma present within one lymph node by ?routine Dominik and cytokeratin immunohistochemical staining (0/1). D. ??Right axillary sentinel lymph node #3: ??No metastatic carcinoma present within one lymph node by ?routine Dominik and cytokeratin immunohistochemical staining (0/1). E. ??Right axillary sentinel lymph node #4: ??No metastatic carcinoma present within one lymph node by ?routine Dominik and cytokeratin immunohistochemical staining (0/1). 02/27/2016 right breast needle biopsy: Invasive ductal carcinoma poorly differentiated, grade 3, negative for ductal carcinoma, in situ negative for lymphovascular invasion Labs: 06/18/2022 BUN 16, creatinine 0.9, calcium 9.1, TB 0.6, AST 17, ALT 22, alkaline phosphatase 48, total protein 6.9, albumin 3.4, WBC 6.48, hemoglobin 13.9, platelet count 189, ANC 4.51. 12/28/21 BUN 16, creatinine 0.8, AST 18, ALT 16, alkaline phosphatase 47, total protein 7.2, albumin 3.7, WBC 5.43, hemoglobin 13.9, platelet count 174. 06/23/2021 WBC 9.27, hemoglobin 13.9, platelet count 200, ANC 7.29, 11/24/2020 sodium 142, potassium 4.3, BUN 15, creatinine 0.7, calcium 8.8, TB 0.5, AST 19, ALT 18, alkaline phosphatase 55, total protein 7.1, albumin 3.6, WBC 7.0, hemoglobin 14.7, platelet count 205, 05/12/2020 WBC 5.7, hemoglobin 14.2, platelet count 169, ANC 3.39, BUN 21, creatinine 0.78, sodium 143, potassium 4.3, total protein 6.2, albumin 3.9, globulin 2.4, calcium 9.3, alkaline phosphatase 42, ALT 15, AST 23, TB 0.5 March 27, 2016 BRCA1 and BRCA2 analysis: Results negative no clinically significant mutation identified. Imagin06/11/2022 CT chest without contrast: Impression: Stable 7 mm nodule right upper lobe. Stable compression fractures T11 and L1. No new abnormalities. 12/15/2021 mammogram: No suspicious mass or malignancy type microcalcifications are seen. Impression stable area of postlumpectomy change in the right BX is benign. Stable biopsy marker clip in the left breast is benign. Routine mammogram in 1 year is recommended. 09/15/2021 CT chest without contrast: Impression: Multiple healing left rib fractures. Resolution of the previous pleural effusion. New 6mm pulmonary nodule at the apex. Emphysema with areas of subpleural scarring 08/05/2021 echocardiogram: Global systolic function is normal with EF of 60%. No segmental wall motion abnormalities. 06/16/2021 CT scan chest abdomen pelvis without contrast: Impression: No significant acute, sequela in the chest abdomen pelvis. Compression fracture T10 andL1 probably not acute. Extensive sigmoid diverticulosis. No evidence of diverticulitis. Incidental noted 7 mm noncalcified nodule and 6 mm nodule anterior segment of left upper lobe. Second read: IMPRESSION 1. Multiple bilateral pulmonary nodules the [...] T11 and L1 compression fractures. No new compression deformities. ?? 12/11/2020 CT scan of chest: Impression: Slight interval decrease in size of anterior right upper lobe pulmonary nodule now measuring 7-8 mm previously 9-10 mm. Please see below. Interval development of bilateral multiple new pulmonary nodules the largest measuring 3 mm. Right middle lobe pulmonary nodule has slightly increased in size since prior study. Interval development of a cystic structure in the AP window of the mediastinum measuring 2.2 cm. 12/11/2020 mammogram: Stable area of post lumpectomy changes in the right breast is benign. Biopsy marker clip in the left breast is benign. Routine follow-up mammogram in 1 year is recommended. 05/28/2020 DEXA scan: Femoral neck with T score -2.1 Total T score -0.9 Impression: Osteopenia left hip 12/17/19 CT angiogram 12/17/2019 CT scan abdomen pelvis without contrast: Impression: No acute intra-abdominal abnormalities. Diverticulosis without evidence of diverticulitis. Assessment and Plan: Diagnosis:R IDC, gr2, ER-/IA-, Her neg by IHC, [id number] Treatment: -09/21/16 completed neoadjuvant chemotherapy with AC-T -10/22/16 lumpectomy and sentinel lymph node biopsy -12/27/2016 completed adjuvant radiation therapy Ms. Epperson is currently on surveillance for her triple negative breast cancer initially diagnosed 4 and 1/[address]. [address] scan in December 2019 showed incidental finding of right upper lobe lung nodule about 9 mm. We will obtain information if had any follow-up scans after that. Otherwise, she isdoing fine with oncological standpoint. We will schedule her for annual mammogram and see her back in about 3 months. 06/23/21 CT scan shows stable lung nodules. We will obtain second read on CT scan IZABEL We will see her back 6 months with mammogram and blood work. 12/29/21 IZABEL, 6 mm new lung nodule in right On CT scan in September 2021. She is not interested repeat CT scan now. May consider CT scan upon her return from [place] in May-June #Dyspnea: Patient has irregularly irregular heart rate. I am concerned about atrial fibrillation. Will refer her to emergency room for evaluation. I called with report to ER physician. #History of PE: in December 2019, on Xarelto #Osteopenia: # Lung nodule: New 6 mm lung nodule in the right apex, will repeat CT scan in 6 months upon her return from [place] CT scan revealed decrease in size in the right upper lobe lung nodule and appearance of the small multiple lung nodules, there is a cystic structure in mediastinum. We discussed option further work-up with PET scan and consideration of biopsy if it is positive on the PET scan versus repeating CT scan in 3 months. Alternative would be not to follow-up on the lung nodules and cystic structure. We discussed that the patient's with history of breast cancer especially with triple negative disease at risk of metastatic recurrence. Upon discussion we decided to repeat CT scan in [address] angiogram in December 2019, ? Will repeat CT scan to document stability. 06/22/[address] demonstrates stable 7 mm lung nodule. We will continue observation. We will see her back in 6 months with CBC and CMP. Mammogram will be ordered by PCP #Emphysema/ COPD: follows with desk director Dr. Marian Perez #Paroxysmal effect: Follows with paint line supervisor Dr.Mary Leo Plan: 1. Next visit with CBC, CMP in 7 months The plan was discussed with the patient in details. All questions were answered to patient satisfaction. documented in this encounter Plan of Treatment Not on file documented as of this encounter Visit Diagnoses Diagnosis Personal history of breast cancer- Primary Personal history of malignant neoplasm of breast Multiple lung nodules on CT documented in this encounter
--- OUTSIDE RECORDS SUMMARY | 2023-08-31 09:46 | XMS_ITS | Encounter Summary ---
Author Organization [facility] Address [facility] [place] [address] Care Team Providers Care Home Energy Consultant Supervisor Name Role Phone Lore Kaiser MD Primary Care Provider [phone] Encounter Details Date Type Department Care Team (Latest Contact Info) Description 12/21/2022 Travel Social History Tobacco Use Types Packs/Day [...] on filedocumented in this encounter Care Teams Home Energy Consultant Supervisor Relationship Specialty Start Date End Date Lore Kaiser MD [address] [place] [address] PCP - General Family Medicine 08/26/22 documented as of this encounter
--- OUTSIDE RECORDS SUMMARY | 2023-08-31 09:46 | XMS_ITS | Encounter Summary ---
Author Organization [facility] Address [facility] [place] [address] Care Team Providers Care Truck Operator Name Role Phone Lore Kaiser MD Primary Care Provider [phone] Encounter Details Date Type Department Care Team (Late st Contact Info) Description 02/04/2023 Telephone Dermatology at [facility] [address] [place] [address] Caesar Root MD [facility] [address] [place] [address] Social History Tobacco Use Types Packs/Day Years Used Date Smoking Tobacco: Former Cigarettes 0 07/05/1956 - 07/05/1976 Smokeless Tobacco: Never Sex and Gender Information Value Date Recorded Sex Assigned at Not on file Gender Identity Not on file Sexual Orientation Not on file documented as of this encounter Miscellaneous Notes * Telephone Encounter - Monica Gonzalez - 02/04/2023 11:03 AM ESTSummary: FSE recall Appointment Notes 1 year FSE Communication History User: [employer], USER Date/time: 01/12/23 6:17 PM Comment: Context: Recall Letter Batch Outcome: Phone number: Phone Type: Comm. type: Web Contact: TERRY EPPERSON Relation to patient: Self Recall letter sent to Terry for pt to please schedule [address] Root Last seen 07/15/22 documented in this encounter Plan of Treatment Not on file documented as of this encounter Visit Diagnoses Not on filedocumented in this encounter Care Teams Truck Operator Relationship Specialty Start Date End Date Lore Kaiser MD [address] [facility] [address] [place] [address] PCP - General Family Medicine 08/26/22 documented as of this encounter
--- OUTSIDE RECORDS SUMMARY | 2023-08-31 09:46 | XMS_ITS | Encounter Summary ---
Author Organization [facility] Address [facility] [address] [place] [address] Care Team Providers Care Director Airport Operations Name Role Phone Karthikeyan Reza MD Primary Care Provider [phone] Reason for Visit * Reason Comments Follow-up Encounter Details Date Type Department Care Team (Late st Contact Info) Description 08/31/2016 10:30 AM EDT Office Visit Hematology/Oncology at [address] [address] Rohith Sharma MD [facility] HEMATOLOGY[place] [address] Malignant neoplasm of central portion of right female breast; Chemotherapy-induced neutropenia; SOB (shortness of breath) Social History Tobacco Use Types Packs/Day Years Used Date Smoking Tobacco: Former Cigarettes 0 07/05/1956 - 07/05/1976 Sex and Gender Information Value Date Recorded Sex Assigned at Not on file Gender Identity Not on file Sexual Orientation Not on file documented as of this encounter Last Filed Vital Signs Vital Sign Reading Time Taken Comments Blood Pressure 116/65 08/31/2016 10:19 AM EDT Pulse 74 08/31/2016 10:19 AM EDT Temperature 36.4 ??C (97.5 ??F) 08/31/2016 10:19 AM E DT Respiratory Rate 16 08/31/2016 10:19 AM EDT Oxygen Saturation 96% 08/31/2016 10:19 AM EDT Inhaled Oxygen Concentration - - Weight 73 kg (161 lb) 08/31/2016 10:19 AM EDT Height 159.4 cm (5' 2.76) 08/31/2016 10:19 AM E DT Body Mass Index 28.74 08/31/2016 10:19 AM EDT documented in this encounter Progress Notes * Rohith Sharma MD - 08/31/2016 10:30 AM EDT 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 The patient has 3 lesions in the right breast at 12:00 and 12:15 initial KI-67 was elevated to 60%. Markers were placed and MRI indicated no axillary involvement. The patient is status post 4 cycles of Adriamycin and Cytoxan in [place] and has moved to [place] with plans on completing 12 weekly cycles of Taxol prior to surgery in [place]. SUBJECTIVE: Lacey comes in today for follow-up on her breast cancer and weekly Taxol chemotherapy. She feels more tired and has shortness of breath on exertion. Mild cough. Denies any fever, chills, nausea or vomiting. No signs of pain, numbness and tingling can extremity. Review of systems: 10 systems were reviewed and otherwise negative. 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 Smoking [...] sores and trouble swallowing. Eyes: Negative. Respiratory: Mild cough with phlegm, shortness of breath on exertion Cardiovascular: Negative for chest pain, palpitations and [...] 142 mg 80 mg/m2/dose = 142 mg Labs: WBC 2.66, hemoglobin 11.2, platelet count 231, ANC 1000, sodium 142, potassium 3.8, BUN 14, creatinine 0.71, total bilirubin 0.41, calcium 8.6, AST 21, ALT 29, alkaline phosphatase 46, total protein 6.5, albumen 3.3. ASSESSMENT/PLAN: Breast Cancer: Received 4 cycles of AC, currently weekly Taxol. Feels more tired and more dyspneic on insertion. ANC is 1000 today. Platelet count is within normal range No signs of infection. We'll proceed with weekly Taxol today. She'll follow with Dr. Reza with blood work and weekly Taxol next week documented in this encounter Plan of Treatment Not on file documented as of this encounter Procedures Procedure Name Priority Date/Time Associated Diagnosis Comments LAB SCAN 08/31/2016 12:00 AM EDT documented in this encounter Results * SCAN DOC: LAB (08/31/2016 12:00 AM EDT) Narrative 08/31/2016 12:00 AM EDT Ordered by an unspecified provider. Scanning Provider MEDIA MGR SCAN EXT O RDR/RSLT documented in this encounter Visit Diagnoses Diagnosis Malignant neoplasm of central portion of right female breast Malignant neoplasm of central portion of female breast Chemotherapy-induced neutropenia Drug induced neutropenia SOB (shortness of breath) Shortness of breath documented in this encounter Care Teams Director Airport Operations Relationship Specialty Start Date End Date Karthikeyan Reza MD [address] [place] [address] [place] [address] PCP - General Hematology and Oncology 08/26/16 documented as of this encounter
--- OUTSIDE RECORDS SUMMARY | 2023-08-31 09:46 | XMS_ITS | Encounter Summary ---
Author Organization [facility] [place] [address] Care Team Providers Care Repair Weaver Name Role Phone Unavailable Primary Care Provider Unavailabl e Encounter Details Date Type Department Care Team (Latest Contact Info) Description 07/15/2022 Travel Social History Tobacco Use Types Packs/Day [...]
--- OUTSIDE RECORDS SUMMARY | 2023-08-31 09:46 | XMS_ITS | Encounter Summary ---
[place] [address] Care Team Providers Care Interlocking Machine Operator Name Role Phone Lore Kaiser MD Primary Care Provider [phone] Reason for Referral * Diagnostic Test (Routine) - Closed Specialty Diagnoses / Procedures Referred By Contac t Referred To Contact Cardiology Diagnoses Congestive heart failure, unspecified HF chronicity, unspecified heart failure type Atrial fibrillation, unspecified type Procedures Mobile Jose Birmingham MD [address] [place] [address] [facility] [place] [address] Referral ID Status Reason Start Date Expiration Date V isits Requested Visits Authorized [id number] Closed Specialty Service Requested 09/01/2022 09/01/2023 1 1 Reason for Visit * Diagnostic Test (Routine) - Closed Specialty Diagnoses / Procedures Referred By Contac t Referred To Contact Cardiology Diagnoses Congestive heart failure, unspecified HF chronicity, unspecified heart failure type Atrial fibrillation, unspecified type Procedures Mobile Jose Birmingham MD [address] [place] [address] [facility] [place] [address] Referral ID Status Reason Start Date Expiration Date V isits Requested Visits Authorized [id number] Closed Specialty Service Requested 09/01/2022 09/01/2023 1 1 Encounter Details Date Type Department Care Team (Latest Contact Info) Description 09/01/2022 2:36 PM EDT - 09/01/2022 11:59 PM EDT Hospital Encounter Mobile [place] [address] Jose Alonso MD [address] [place] [id number] Congestive heart failure, unspecified HF chronicity, unspecified heart failure type; Atrial fibrillation, unspecified type Discharge Disposition: Home Social History Tobacco Use Types Packs/Day Years Used Date Smoking Tobacco: Former Cigarettes 0 07/05/1956 - 07/05/1976 Smokeless Tobacco: Never Sex and Gender Information Value Date Recorded Sex Assigned at Not on file Gender Identity Not on file Sexual Orientation Not on file documented as of this encounter Medications at Time of Discharge Medication Sig Dispensed Refills Start Date End Date metoproloL tartrate (Lopressor) 25 mg tablet Take 25 mg by mouth as needed. acetaminophen (Tylenol) 500 mg Tablet Take 1,000 mg by mouth 3 times daily. omeprazole 20 mg Tablet, Delayed Release (E.C.) Take 20 mg by mouth daily. fluticasone-umeclidin- vilanter (Trelegy Ellipta) 100-62.5-25 mcg Disk with Device Inhale 1 puff into the lungs daily. cyanocobalamin, Vitamin B-12, (Vitamin B-12) 1,000 mcg Tablet Take 1,000 mcg by mouth daily. rivaroxaban (Xarelto) 20 mg Tablet Take 20 mg by mouth daily. Biotin 5 mg Capsule Take 5 mg by mouth daily. cholecalciferol, Vitamin D3, 50 mcg (2,000 unit) Capsule Take by mouth. simvastatin (ZOCOR) 40 mg Tablet Take 40 mg by mouth nightly. levothyroxine (SYNTHROID) 25 mcg TabletIndications:hypo thyroidism Take 25 mcg by mouth daily. Indications: hypothyroidism furosemide (Lasix) 20 mg tablet Take 20 mg by mouth as needed. Not taking every day documented as of this encounter Plan of Treatment Not on file documented as of this encounter Procedures Procedure Name Priority Date/Time Associated Diagnosis Comments ECHO COMPLETE Routine 09/01/2022 3:06 PM EDT Congestive heart failure, unspecified HF chronicity, unspecified heart failure type Atrial fibrillation, unspecified type documented in this encounter Results * ECHO COMPLETE (09/01/2022 3:06 PM EDT) EF 45 HEARTLAB SYSTEM Anatomical Region Laterality Modality Other 09/01/2022 12:5 3 PM EDT Narrative 09/01/2022 3:24 PM EDT ? Echocardiogram Report Name: JENNIFER EPPERSONHLLUIS ALBERTO Peraza ?Study Date: 09/01/2022 12:53 PMBP: 126/91 mmHg ? Patient Location: 4A : 1940 ? Height: 160 cm ? Account: [id number] Age: 81 yrs ? Weight: 80 kg Gender: Female ?BSA: 1.8 m2 Ordering Physician: EVELIN Referring Physician: JOSE ALONSO Performed By: JD Reason For Study: CHF,A-fib Exam Location: [facility]. Interpretation Summary 1. Suboptimal quality study. Poor endocardial definition. 2. The left ventricle appears normal in size with mildly reduced function in a pattern of global hypokinesis. LVEF is visually estimated at 45%. 3. The right ventricle is normal in size and function. PASP estimated to be 29 mmHg. 4. No hemodynamically significant valve disease. 5. See body of report for additional findings. No prior study available for comparison. Procedure Suboptimal quality. The rhythm is atrial fibrillation. Left Ventricle Left ventricle is of normal size. Wall thickness is normal. There is no ventricular septal defect. Left ventricular systolic function is mildly reduced. Left ventricular ejection fraction is estimated visually at 45%. Mild global hypokinesis. Right Ventricle The right ventricle is of normal size. Right ventricular systolic function is normal. Left Atrium The left atrium is normal. No abnormality of the interatrial septum is identified. Right Atrium The right atrium is normal. Aortic Valve The aortic valve is not well visualized. There is no aortic stenosis. There is no aortic regurgitation. Mitral Valve The mitral valve is structurally normal. There is no mitral stenosis. There is mild mitral regurgitation. Tricuspid Valve The tricuspid valve is structurally normal. There is no tricuspid stenosis. There is mild tricuspid regurgitation. Pulmonic Valve The pulmonic valve is not well visualized. Great Arteries The diameter at the level of the sinuses of Valsalva is 3.1 cm. The maximum diameter of the proximal ascending aorta is 2.9 cm. The pulmonary artery is not well visualized. Venous Inferior vena cava is normal in size. Inferior vena cava collapse greater than 50% with respiration. Pericardium/Pleural The pericardium appears normal. Hemodynamics The estimated right atrial pressure is 3mmHg. The peak right ventricular systolic pressure is 29 mmHg. Left ventricular diastolic function is indeterminate. Ejection Fraction ?2D Measurements ? Volumes LV Biplane EF: 38.5 % ? IVSd: 0.47 cm ?EDV Biplane: 65.1 ml ?LVPWd: 0.49 cm ? EDV Biplane Index: 35.5 ? ESV Biplane: 40.0 ml ? ESV Biplane Index: 21.8 Doppler TR max constance: 255.4 cm/sec LV V1 VTI: 12.5 cm Ao V2 VTI: 12.8 cm Ao Max: 84.1 cm/sec Ao valve max: 2.8 mmHg MV E max constance: 79.5 cm/sec Dimensionless index Aov: 0.98 I ?WMSI = 2.00 ? % Normal = 0 ?Segments ??Size X - Cannot ?2 - ?4 - ?1-2 ? small Interpret ?1 - Normal ?? Hypokinetic 3 - Akinetic Dyskinetic ?? 3-5 ? moderate 5 - ? 6-14 ?large Aneurysmal ?15-16 ?? diffuse Procedure Note Elif Coffman MD - 09/01/2022 Echocardiogram Report Name: TERRY EPPERSON Study Date:09/01/2022 12:53 PMBP: 126/91 mmHg Patient Location: : 1940 Height: 160 cm Account: [id number] Age: 81 yrs Weight: 80 kg Gender: Female BSA: 1.8 m2 Ordering Physician: CRISTIAN^Rogelio Referring Physician: JOSE ALONSO Performed By: JD Reason For Study: CHF,A-fib Exam Location: [facility]. Interpretation Summary 1. Suboptimal quality study. Poor endocardial definition. 2. The left ventricle appears normal in size with mildly reduced functionin a pattern of global hypokinesis. LVEF is visually estimated at 45%. 3. The right ventricle is normal in size and function. PASP estimated erin 29 mmHg. 4. No hemodynamically significant valve disease. 5. See body of report for additional findings. No prior study availablefor comparison. Procedure Suboptimal quality. The rhythm is atrial fibrillation. Left Ventricle Left ventricle is of normal size. Wall thickness is normal. There is no ventricular septal defect. Left ventricular systolic function is mildlyreduced. Left ventricular ejection fraction is estimated visually at 45%. Mildglobal hypokinesis. Right Ventricle The right ventricle is of normal size. Right ventricular systolic functionis normal. Left Atrium The left atrium is normal. No abnormality of the interatrial septum isidentified. Right Atrium The right atrium is normal. Aortic Valve The aortic valve is not well visualized. There is no aortic stenosis.There is no aortic regurgitation. Mitral Valve The mitral valve is structurally normal. There is no mitral stenosis.There is mild mitral regurgitation. Tricuspid Valve The tricuspid valve is structurally normal. There is no tricuspidstenosis. There is mild tricuspid regurgitation. Pulmonic Valve The pulmonic valve is not well visualized. Great Arteries The diameter at the level of the sinuses of Valsalva is 3.1 cm. Themaximum diameter of the proximal ascending aorta is 2.9 cm. The pulmonary arteryis not well visualized. Venous Inferior vena cava is normal in size. Inferior vena cava collapse greaterthan 50% with respiration. Pericardium/Pleural The pericardium appears normal. Hemodynamics The estimated right atrial pressure is 3mmHg. The peak right ventricularsystolic pressure is 29 mmHg. Left ventricular diastolic function isindeterminate. Ejection Fraction 2D Measurements Volumes LV Biplane EF: 38.5 % IVSd: 0.47 cm EDV Biplane: 65.1ml LVPWd: 0.49 cm EDV BiplaneIndex: 35.5 ESV Biplane: 40.0ml ESV BiplaneIndex: 21.8 Doppler TR max constance: 255.4 cm/sec LV V1 VTI: 12.5 cm Ao V2 VTI: 12.8 cm Ao Max: 84.1 cm/sec Ao valve max: 2.8 mmHg MV E max constance: 79.5 cm/sec Dimensionless index Aov: 0.98 I WMSI = 2.00 % Normal = 0 SegmentsSize X - Cannot 2 - 4 - 1-2small Interpret 1 - Normal Hypokinetic 3 - Akinetic Dyskinetic 3-5moderate 5 - 6-14large Aneurysmal 15-16diffuse Jose Alonso MD ECHO ORDERABLES documented in this encounter Visit Diagnoses Diagnosis Congestive heart failure, unspecified HF chronicity, unspecified heart failure type Atrial fibrillation, unspecified type documented in this encounter Care Teams Interlocking Machine Operator Relationship Specialty Start Date End Date Lore Kaiser MD [address] [place] [address] PCP - General Family Medicine 08/26/22 documented as of this encounter
--- OUTSIDE RECORDS SUMMARY | 2023-08-31 09:46 | XMS_ITS | Continuity of Care Document ---
Author Organization [facility] Address [address] [place] [address] Care Team Providers Care Cartridge Loader Name Role Phone Lore Kaiser Primary Care Physician Encounter [facility] Date(s): 12/15/21 - 12/15/[address] [address] Discharge Disposition: Home or Self Care Attending Physician: Lore Kaiser Admitting Physician: Lore Kaiser Referring Physician: Lore Kaiser Allergies, Adverse Reactions, Alerts Substance Reaction Severity Status sulfa drugs Unknown Active Social History Social History Type Response Sex Female Patient Care team information Personnel Name: Lore Kaiser Address: Address: [address] [place], [place] [address]
--- OUTSIDE RECORDS SUMMARY | 2023-08-31 09:46 | XMS_ITS | Encounter Summary ---
Author Organization [facility] [place] [address] Care Team Providers Care Hassock Maker Name Role Phone Unavailable Primary Care Provider Unavailabl e Reason for Visit * Reason Comments Skin Lesion Encounter Details Date Type Department Care Team ([facility] st Contact Info) Description 07/15/2022 8:45 AM EDT Office Visit Dermatology at [facility] [address] [place] [address] Caesar Root MD [facility] [address] [facility] [address] Keratosis, inflamed seborrheic; Seborrheic keratoses; Lentigines; Neoplasm of unspecified behavior of bone, soft tissue, and skin Social History Tobacco Use Types Packs/Day Years Used Date Smoking Tobacco: Former Cigarettes 0 07/05/1956 - 07/05/1976 Smokeless Tobacco: Never Sex and Gender Information Value Date Recorded Sex Assigned at Not on file Gender Identity Not on file Sexual Orientation Not on file documented as of this encounter Progress Notes * Chuy Horne, [facility] - 07/15/2022 8:45 AM EDT Images from the original note were not included. DEPARTMENT OF DERMATOLOGY Medical Dermatology Clinic Provider: Caesar Root MD Patient's preferred name Lacey Preferred contact method for results []Phone []myD-H []Letter Detailed phone message OK? Are there any other people with whom we may discuss your care? Past Medical History Date, location, treatment Melanoma N Dysplastic nevi N SCC N BCC N AKs N Other relevant past medical history A-Fib Family History Details Melanoma N NMSC N Other relevant family history N Social History Occupation: retired Other: , from [place] Pre-Procedure Screening Details Allergy to lidocaine, epinephrine N Blood thinners Yes, Xarelto Pacemaker, defibrillator, deep brain stimulator, cochlear implant History of Present Illness: Lacey Epperson is a 81 y.o. Patient is new and self-referred to the clinic for a focused exam with the following concerns: - Lesion on the left forearm that appeared ~6 months ago. The lesion was growing and was sore, but seemed to have decreased in size recently. She does endorse some bleeding form the area after picking. She was initially applying lotion but then stopped when she read on the Internet that she would not be putting lotion on the area. - Scattered brown lesions on the face, neck, and back. Medications: Reviewed in eD-H Allergies: Reviewed in eD-H Skin Examination: Waist-up skin examination: Patient was asked to disrobe to the level of their comfort. Patient elected to remain clothed below the waist. Examination of the scalp, hair, face, ears, neck, back, chest, abdomen, and upper extremities was normal with the exception of the findings below. Assessment/Plan #. SCC - 4 mm pink scaly papule on the left forearm (Figure 1). - Recommended a skin biopsy to confirm the nature of the skin lesion as well as treatment today with ED&C. After discussion of potential risks (scarring, bleeding, infection) and recurrence, patient agreed to proceed. - Patient denies known allergies to lidocaine and epinephrine. - Patient denies having a pacemaker or defibrillator. Procedure: Skin shave biopsy + destruction by electrodesiccation and curettage (ED&C). Location: left forearm Time of procedure: 9:01 AM Discussed indications and expectations including risks and benefits. Verbal consent obtained. Time out performed. Skin prepped with alcohol. Local anesthesia with 1% xylocaine, 1/100,000 epinephrine. A sample of the lesion was removed by shave technique to the level of the dermis and submitted to Pathology. The entire lesion plus a small margin was treated by curettage and electrodesiccation. Post-curettage defect size: 1.2 cm. There were no complications; patient tolerated the procedure well. Wound dressed. Expectations (including discomfort management) and wound care reviewed. - Follow-up based on pathology results. #. Inflamed Seborrheic Keratosis - 1 cm inflamed, stuck on, waxy papule on the right posterior shoulder and inflamed, stuck on, waxy papule on the left cheek. - Discussed benign nature of lesion(s) and provided reassurance. - Due to irritation present on today's exam and history of symptoms, discussed removal with cryotherapy. - Patient elects to proceed with cryotherapy today. Procedure: Destruction of lesion(s) with cryotherapy (LN2). Location(s): As noted above Number: 2 Discussed procedure and expectations including risks and benefits. Verbal consent obtained. Treatedwith LN2. There were no complications; Patient tolerated the procedure well. Post-procedure expectations and wound care were reviewed. #. Seborrheic Keratoses - Stuck on, waxy papules on the trunk and upper extremities. - Discussed benign nature of lesions and provided reassurance. No treatment necessary at this time. #. Lentigines - Scattered light-brown, evenly pigmented, well-demarcated macules on sun-exposed areas of the trunk and upper extremities. - No worrisome pigmented lesions. Discussed benign nature of lesions and provided reassurance. Willcontinue to monitor. Figure 1 Photo(s) taken and charted with patient's verbal consent. Other: ??? N/A RTC: Pending pathology. Otherwise, 1 year for FSE []Note routed to statistical secretary []Recall placed in scheduling system []Appointment scheduled at checkout Scribe attestation: Monica Brownlee CMA has performed the documentation for this encounter in the presence of and acting as a scribe for Caesar Root MD. I performed the above scribed service and agree with the accuracy of the documentation in this encounter. Reviewed and signed by: Caesar Root MD Dermatology [facility] * Caesar Root MD - 07/15/2022 8:45 AM EDT Biopsy results consistent with BCC that was treated with ED&C at recent visit. No further intervention required. Seen and reviewed by: [facility] MD [facility] Department of Dermatology documented in this encounter Plan of Treatment Not on file documented as of this encounter Procedures Procedure Name Priority Date/Time Associated Diagnosis Comments SPECIMEN TO PATHOLOGY Routine 07/15/2022 9:32 AM EDT Neoplasm of unspecified behavior of bone, soft tissue, and skin SURGICAL PATHOLOGY REPORT Routine 07/15/2022 9:11 AM EDT documented in this encounter Results * Specimen to Pathology (07/15/2022 9:32 AM EDT) AP Specimen 07/15/2022 9:32 AM EDT 07/15/2022 9:32 AM EDT Narrative [facility] - 07/15/2022 9:32 AM EDT Specimen requisition ordered. ??Separate Pathology report to follow Caesar Root MD PATHOLOGY/CYTOLOGY O RDERABLES Performing Organization Address City/State/[facility] Co de Phone Number [facility] [place] [address] * (ABNORMAL) Surgical Pathology Report (07/15/2022 9:11 AM EDT) Pathologist [facility] Surgical Pathology Report [id number] ? Location: [facility] The signing pathologist has (i) examined the relevant preparation(s) for the specimen(s) and (ii) rendered or confirmed the diagnosis(es). . ?Surgical Pathology DIAGNOSIS A - Left forearm, skin shave biopsy ED&C: - ??Basal cell carcinoma, ??nodular and infiltrating types, transected Electronically signed by: ?Yanet HUNTLEY, PhD, Franco Rowell Verified: ??07/22/2022 17:17 ??Dermatopatholo gist, Bone & Soft Tissue Pathologist Performed at: ??-[facility] Dept. of Pathology, [place] [address] Cigarette Stamper: Kennedy Enriquez MD, [facility], ??CLIA Certificate: [id number] DISCUSSION THIS RESULT REQUIRES PHYSICIAN/A.P.P. FOLLOW UP SPECIMEN(S) SUBMITTED A - Left forearm, skin shave ED&C (1) CLINICAL INFORMATION SCC - 4 mm pink scaly papule on the left forearm. SPECIMEN PROCESSING A - Labeled/Fixative : Left forearm, formalin. Quantity/Size: ??Single, 0.9 x 0.9 x 0.1 cm. Tissue Description: Palmer-skelton skin shave with a 0.5 x 0.4 cm palmer, firm papule. Sections/Process ing: Inked, trisected and entirely submitted in 1 cassette labeled A1. ??jnr(A) [facility] 07/15/2022 9:11 AM EDT Caesar Root MD PATHOLOGY/CYTOLOGY O RDERABLES [facility] [place] [id number] documented in this encounter Visit Diagnoses Diagnosis Keratosis, inflamed seborrheic Inflamed seborrheic keratosis Seborrheic keratoses Lentigines Other dyschromia Neoplasm of unspecified behavior of bone, soft tissue, and skin documented in this encounter
--- OUTSIDE RECORDS SUMMARY | 2023-08-31 09:46 | XMS_ITS | Clinical Summary ---
Author Organization [facility] Address [facility] [place] [address] Care Team Providers Care Studio Data Analyst Name Role Phone Loer Kaiser MD Primary Care Provider [phone] Allergies Active Allergy Reactions Criticality Noted Date Comments Sulfa (Sulfonamide Antibiotics) Rash 06/15 Medications Medication Sig Dispensed Refills Start Date End Date Status simvastatin (ZOCOR) 40 mg Tablet Take 40 mg by mouth nightly. Active levothyroxine (SYNTHROID) 25 mcg TabletIndications: hypothyroidism Take 25 mcg by mouth daily. Indications: hypothyroidism Active cholecalciferol, Vitamin D3, 50 mcg (2,000 unit) Capsule Take by mouth. Active fluticasone-umecli din-vilanter (Trelegy Ellipta) 100-62.5-25 mcg Disk with Device Inhale 1 puff into the lungs daily. Active cyanocobalamin, Vitamin B-12, (Vitamin B-12) 1,000 mcg Tablet Take 1,000 mcg by mouth daily. Active rivaroxaban (Xarelto) 20 mg Tablet Take 20 mg by mouth daily. Active Biotin 5 mg Capsule Take 5 mg by mouth daily. Active acetaminophen (Tylenol) 500 mg Tablet Take 1,000 mg by mouth 3 times daily. Active omeprazole 20 mg Tablet, Delayed Release (E.C.) Take 20 mg by mouth daily. Active metoproloL tartrate (Lopressor) 25 mg tablet Take 25 mg by mouth as needed. Active furosemide (Lasix) 20 mg tablet Take 20 mg by mouth as needed. Not taking every day Active AMIOdarone (Pacerone) 200 mg tablet Take 200 mg by mouth daily. 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 Malignant neoplasm of centra l portion of right female breast 07/05/2016 Breast cancer, right breast Immunizations Name Administration Dates Next Due Covid-19 (Pfizer), Purple Ca p Monovalent Vaccine (12yrs+) 12/12/2020,04/04/2020,03/12/2020 Family History Medical History Relation Comments Cerebrovascular Accident Father Diabetes Father Heart Disease Father Breast Cancer Niece Breast Cancer Sister Relation Status Comments Father Niece Sister Social History Tobacco Use Types Packs/Day Years Used Date Smoking Tobacco: Former Cigarettes 0 07/05/1956 - 07/05/1976 Smokeless Tobacco: Never Sex and Gender Information Value Date Recorded Sex Assigned at Not on file Gender Identity Not on file Sexual Orientation Not on file Last Filed Vital Signs Vital Sign Reading Time Taken Comments Blood Pressure 139/59 12/21/2022 8:58 AM EST Pulse 61 12/21/2022 8:58 AM EST Temperature 36.1 ??C (96.9 ??F) 12/21/2022 8:58 AM ES T Respiratory Rate 16 12/21/2022 8:58 AM EST Oxygen Saturation 94% 12/21/2022 8:58 AM EST Inhaled Oxygen Concentration - - Weight 75.4 kg (166 lb 3.2 oz) 12/21/2022 8:58 A M EST Height 159.4 cm (5' 2.76) 12/21/2022 8:58 AM ES T Body Mass Index 29.67 12/21/2022 8:58 AM EST Plan of Treatment Health Maintenance Due Date Last Done Comments Tdap adult 10/04/1958 Tetanus vaccine 10/04/1958 Zoster vaccine (1 of 2) 10/04/1989 Bone Density Scan 10/04/2004 Pneumoccocal Vaccine: 65+ (1 of 1 - PCV) 10/04/2004 Covid-19 Vaccine (4 - 2022- season) 2022 12/12/2020, 04/04/2020, 03/12/2020 Influenza (Flu) vaccine (1 o f 1 - Influenza standard series) 10/16/2023 Advance Directives Documents on File Type Date Recorded Patient Lead Fire Protection Engineer Expl anation Advance Directives and Livin g Will 07/20/2016 9:08 AM ADV DIECTIVE Personal Lead Fire Protection Engineer 07/06/2016 12:30 PM Care Teams Studio Data Analyst Relationship Specialty Start Date End Date Lore Kaiser MD [facility] [address] [place] [address] PCP - General Family Medicine 08/26/22
--- OUTSIDE RECORDS SUMMARY | 2023-08-31 09:46 | XMS_ITS | Encounter Summary ---
Author Organization [facility] [place] [address] Care Team Providers Care Concrete Mixing Truck Driver Name Role Phone Karthikeyan Reza MD Primary Care Provider [phone] Encounter Details Date Type Department Care Team (Late st Contact Info) Description 12/11/2020 12:05 AM EDT Ancillary [place] [phone] Samantha Nguyễn, RN Social History Tobacco Use Types Packs/Day Years [...] Associated Diagnosis Comments FILM LIBRARY STORAGE ONLY MAMMO Routine 12/11/2020 12:05 AM EDT documented in this encounter Results * Film Library- Storage Only Mammo (12/11/2020 12:05 AM EDT) Narrative [facility] - 12/15/2020 12:26 PM EDT This exam is auto-finalizing. It's purpose is for storage only. Samantha Nguyễn RN IMG FILM LIBRARY ORD ERABLES [facility] [place], [place] documented in this encounter Visit Diagnoses Not on filedocumented in this encounter Care Teams Concrete Mixing Truck Driver Relationship Specialty Start Date End Date Karthikeyan Reza MD [address] [place] [address] [place] [address] PCP - General Hematology and Oncology 08/26/16 documented as of this encounter
--- OUTSIDE RECORDS SUMMARY | 2023-08-31 09:46 | XMS_ITS | Encounter Summary ---
Author Organization [facility] [place] [address] Care Team Providers Care Dental Sales Representative Name Role Phone Unavailable Primary Care Provider Unavailabl e Reason for Visit * Reason Comments IV Access Mediport flush * Treatment/Therapy Plan Authorization (Routine) - Closed Specialty Diagnoses / Procedures Referred By Contac t Referred To Contact Diagnoses Malignant neoplasm of central portion of right female breast Malignant neoplasm of central portion of right female breast Procedures TC PACLITAXEL, 1MG, INJ TC PALONOSETRON HCL, 25MCG, INJECTION (ALOXI) Karthikeyan Reza MD [address] [place] [address] [facility] Hem Onc Office [address] [place] [phone] Referral ID Status Reason Start Date Expiration Date Visits Re quested Visits Authorized [id number] Closed 07/05/2016 07/05/2017 99 99 Encounter Details Date Type Department Care Team (Late st Contact Info) Description 08/24/2016 12:00 PM EDT Infusion Hematology Oncology at [address] [phone] Malignant neoplasm of central portion of right female breast Social History Tobacco Use Types Packs/Day Years Used Date Smoking Tobacco: Former Cigarettes 0 07/05/1956 - 07/05/1976 Sex and Gender Information Value Date Recorded Sex Assigned at Not on file Gender Identity Not on file Sexual Orientation Not on file documented as of this encounter Progress Notes * Hannah Riggs RN - 08/24/2016 12:00 PM EDT INFUSION THERAPY ADMINISTRATION NOTES DIAGNOSIS: Breast cancer REASON FOR VISIT: MEDIPORT FLUSH ONLY IV ACCESS: Mediport GAUGE: 19G BLOOD RETURN: yes ANY S/S OF INFECTION/EXTRAVASATIONS: no signs of IV complications observed IV FLUSHED WITH: 20cc NS and 500 units Heparin IV DISCONTINUED: yes ASSESSMENT: Patient tolerated treatment well. PLAN: Return to clinic per routine. 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 Malignant neoplasm of central portion of female breast documented in this encounter
--- OUTSIDE RECORDS SUMMARY | 2023-08-31 09:46 | XMS_ITS | Encounter Summary ---
Author Organization [facility] [place] [address] Care Team Providers Care Ward Helper Name Role Phone Karthikeyan Reza MD Primary Care Provider Encounter Details Date Type Department Care Team (Late st Contact Info) Description 03/29/2017 Orders Only [place]ematology [place] [address] Blanca Yee Social History Tobacco Use Types Packs/Day Years [...] on filedocumented in this encounter Care Teams Ward Helper Relationship Specialty Start Date End Date Karthikeyan Reza MD [address] [place] [address] [place], [place] [address] PCP - General Hematology and Oncology 08/26/16 documented as of this encounter
--- OUTSIDE RECORDS SUMMARY | 2023-08-31 09:46 | XMS_ITS | Encounter Summary ---
Author Organization [facility] Address [facility] [place] [address] Care Team Providers Care Medical Housekeeper Name Role Phone Lore Kaiser MD Primary Care Provider Reason for Referral * Consultation (Routine) - Closed Specialty Diagnoses / Procedures Referred By Contanamaria t Referred To Contact Dermatology Diagnoses Facial skin lesion Lore Kaiser MD [address] [place] [address] [facility] [address] [place] [address] Referral ID Status Reason Start Date Expiration Date V isits Requested Visits Authorized [id number] Closed Consult, Test & Treat PCP Updated and/or Approved 11/08/2022 11/08/2023 12 12 Encounter Details Date Type Department Care Team (Late st Contact Info) Description 11/08/2022 Transcribe Orders eDH Incoming Referrals [phone] Lore Kaiser MD [address] [place] [address] Facial skin lesion Social History Tobacco Use Types Packs/Day Years Used Date Smoking Tobacco: Former Cigarettes 0 07/05/1956 - 07/05/1976 Smokeless Tobacco: Never Sex and Gender Information Value Date Recorded Sex Assigned at Not on file Gender Identity Not on file Sexual Orientation Not on file documented as of this encounter Plan of Treatment Scheduled Referrals Name Type Priority Associated Diagnoses Order Schedule Referral to Dermatology Outpatient Referral Routine Facial skin lesion Ordered: 11/08/2022 documented as of this encounter Visit Diagnoses Diagnosis Facial skin lesion Unspecified disorder of skin and subcutaneous tissue documented in this encounter Care Teams Medical Housekeeper Relationship Specialty Start Date End Date Lore Kaiser MD [address] [place] [address] PCP - General Family Medicine 08/26/22 documented as of this encounter
--- OUTSIDE RECORDS SUMMARY | 2023-08-31 09:46 | XMS_ITS | Encounter Summary ---
Author Organization [facility] [place] [address] Care Team Providers Care Spot Machine Operator Name Role Phone Lore Kaiser MD Primary Care Provider [phone] Reason for Visit * Reason Onset Date Comments Other 12/27/2022 CT chest Encounter Details Date Type Department Care Team (Late st Contact Info) Description 12/27/2022 Telephone Hematology/Oncology at [address] [phone] Ying Baldwin RN Other (CT chest) Social History Tobacco Use Types Packs/Day Years Used Date Smoking Tobacco: Former Cigarettes 0 07/05/1956 - 07/05/1976 Smokeless Tobacco: Never Sex and Gender Information Value Date Recorded Sex Assigned at Not on file Gender Identity Not on file Sexual Orientation Not on file documented as of this encounter Miscellaneous Notes * Telephone Encounter - Ying Baldwin RN - 12/27/2022 11:16 AM EST Call to Lacey to inform her of the CT chest, her photoengraving etcher Dr. Perez is also following marti and has already ordered a CT chest, she is due to follow up with her in May. * Telephone Encounter - Ying Baldwin RN - 12/27/2022 11:16 AM EST ----- Message from Christie Morgan APRN sent at 12/27/2022 9:10 AM EST ----- Regarding: CT scan Please call Lacey and let her know that she is due for another CT scan of the chest prior to hernext visit to f/u on pulmonary nodule that we have been following and has been stable. I have ordered this. Thank you Monik documented in this encounter Plan of Treatment Not on file documented as of this encounter Visit Diagnoses Not on filedocumented in this encounter Care Teams Spot Machine Operator Relationship Specialty Start Date End Date Lore Kaiser MD [facility] [address] [place] [address] PCP - General Family Medicine 08/26/22 documented as of this encounter
--- OUTSIDE RECORDS SUMMARY | 2023-08-31 09:46 | XMS_ITS | Encounter Summary ---
Author Organization [facility] [place] [address] Care Team Providers Care Manager Digital Ad Operations Name Role Phone Lore Kaiser MD Primary Care Provider [phone] Reason for Referral * Consultation (Routine) - Closed Specialty Diagnoses / Procedures Referred By Contact Referred To Contact Electrophysiology / Cardiology Diagnoses Paroxysmal atrial fibrillation afib, rate generally uncontrolled when dysrhythmia present. has been initiated on amiodarone. interested in ablation. Gay Leo MD [address] [place] [address] [facility] [address] [place] [phone] Referral ID Status Reason Start Date Expiration Date V isits Requested Visits Authorized [id number] Closed Consult, Test & Treat PCP Updated and/or Approved 08/26/2022 08/26/2023 6 6 Encounter Details Date Type Department Care Team (Latest Contact Info) Description 08/26/2022 Transcribe Orders eDH Incoming Referrals [phone] Gay Leo MD [address] [place] [address] Paroxysmal atrial fibrillation Social History Tobacco Use Types Packs/Day Years Used Date Smoking Tobacco: Former Cigarettes 0 07/05/1956 - 07/05/1976 Smokeless Tobacco: Never Sex and Gender Information Value Date Recorded Sex Assigned at Not on file Gender Identity Not on file Sexual Orientation Not on file documented as of this encounter Plan of Treatment Scheduled Referrals Name Type Priority Associated Diagnoses Orde r Schedule Referral to Cardiology Outpatient Referral Routine Paroxysmal atrial fibrillation Ordered: 08/26/2022 documented as of this encounter Visit Diagnoses Diagnosis Paroxysmal atrial fibrillation Atrial fibrillation documented in this encounter Care Teams Manager Digital Ad Operations Relationship Specialty Start Date End Date Lore Kaiser MD [facility] [address] [facility] [address] [place] [address] PCP - General Family Medicine 08/26/22 documented as of this encounter
--- OUTSIDE RECORDS SUMMARY | 2023-08-31 09:46 | XMS_ITS | Encounter Summary ---
Author Organization [facility] [place] [address] Care Team Providers Care Electronic Scale Tester Name Role Phone Lore Kaiser MD Primary Care Provider [phone] Encounter Details Date Type Department Care Team (Late st Contact Info) Description 12/16/2022 Ancillary Procedure [place] [phone] Rohith Sharma MD [facility] DR HEMATOLOGY/[place] [address] Social History Tobacco Use Types Packs/Day Years [...] Comments FILM LIBRARY STORAGE ONLY MAMMO Routine 12/16/2022 12:00 AM EDT documented in this encounter Results * Film Library- Storage Only Mammo (12/16/2022 12:00 AM EDT) Narrative [facility] - 12/21/2022 11:03 AM EST This exam is auto-finalizing. It's purpose is for storage only. Rohith Sharma MD [facility] FILM LIBRARY ORD ERABLES [facility] [place], [place] documented in this encounter Visit Diagnoses Not on filedocumented in this encounter Care Teams Electronic Scale Tester Relationship Specialty Start Date End Date Lore Kaiser MD [address] [place] [address] PCP - General Family Medicine 08/26/22 documented as of this encounter
--- OUTSIDE RECORDS SUMMARY | 2023-08-31 09:46 | XMS_ITS | Encounter Summary ---
Author Organization [facility] Address [facility] [place] [address] Care Team Providers Care Bindery Machine Tender Name Role Phone Lore Kaiser MD Primary Care Provider [phone] Encounter Details Date Type Department Care Team (Late st Contact Info) Description 12/20/2022 Telephone Hematology/Oncology at [address] [address] Filomena Berry Social History Tobacco Use Types Packs/Day Years Used Date Smoking Tobacco: Former Cigarettes 0 07/05/1956 - 07/05/1976 Smokeless Tobacco: Never Sex and Gender Information Value Date Recorded Sex Assigned at Not on file Gender Identity Not on file Sexual Orientation Not on file documented as of this encounter Miscellaneous Notes * Telephone Encounter - Filomena Berry - 12/20/2022 1:07 PM EST Called Lacey to see if she could change her appt to 9am she was happy with that change documented in this encounter Plan of Treatment Not on file documented as of this encounter Visit Diagnoses Not on filedocumented in this encounter Care Teams Bindery Machine Tender Relationship Specialty Start Date End Date Lore Kaiser MD [address] [place], [place] [address] PCP - General Family Medicine 08/26/22 documented as of this encounter
--- OUTSIDE RECORDS SUMMARY | 2023-08-31 09:46 | XMS_ITS | Encounter Summary ---
Author Organization [facility] Address [facility] [place] [address] Care Team Providers Care Senior Information Security Analyst Name Role Phone Lore Kaiser MD Primary Care Provider [phone] Encounter Details Date Type Department Care Team (Late st Contact Info) Description 12/27/2022 Orders Only Hematology/Oncology at [address] [phone] Christie Morgan APRN [facility] [place] [address] Social History Tobacco Use Types Packs/Day Years Used Date Smoking Tobacco: Former Cigarettes 0 07/05/1956 - 07/05/1976 Smokeless Tobacco: Never Sex and Gender Information Value Date Recorded Sex Assigned at Not on file Gender Identity Not on file Sexual Orientation Not on file documented as of this encounter Progress Notes * Christie Morgan APRN - 12/27/2022 9:12 AM EST Phone call to patient regarding CT chest from 06/11/22 which showed stable pulmonary nodule. She follows up with her Inside Contractor Sales regarding this and has another CT scan scheduled for the Spring 2023. documented in this encounter Plan of Treatment Not on file documented as of this encounter Visit Diagnoses Not on filedocumented in this encounter Care Teams Senior Information Security Analyst Relationship Specialty Start Date End Date Lore Kaiser MD [facility] [address] [place] [address] PCP - General Family Medicine 08/26/22 documented as of this encounter
--- OUTSIDE RECORDS SUMMARY | 2023-08-31 09:46 | XMS_ITS | Encounter Summary ---
Author Organization [facility] [place] [address] Care Team Providers Care Inspector And Clerk Name Role Phone Unavailable Primary Care Provider Unavailabl e Encounter Details Date Type Department Care Team (Late st Contact Info) Description 06/11/2022 Ancillary Procedure [place] [phone] Lore Kaiser MD [facility] [address] [facility] [address] [place] [address] Social History Tobacco Use Types Packs/Day Years [...] Comments FILM LIBRARY STORAGE ONLY CT CHEST Routine 06/11/2022 12:00 AM EDT documented in this encounter Results * Film Library- Storage Only CT Chest (06/11/2022 12:00 AM EDT) Narrative [facility] - 06/13/2022 4:46 PM EDT This exam is auto-finalizing. It's purpose is for storage only. Lore Kaiser MD [facility] FILM LIBRARY ORD ERABLES [place], [place] documented in this encounter Visit Diagnoses Not on filedocumented in this encounter
--- OUTSIDE RECORDS SUMMARY | 2023-08-31 09:46 | XMS_ITS | Encounter Summary ---
Author Organization [facility] [place] [address] Care Team Providers Care Word Processor Technician Name Role Phone Unavailable Primary Care Provider Unavailabl e Reason for Visit * Reason Comments Chemotherapy Cycle 2, Day 8 * Treatment/Therapy Plan Authorization (Routine) - Closed Specialty Diagnoses / Procedures Referred By Contac t Referred To Contact Diagnoses Malignant neoplasm of central portion of right female breast Malignant neoplasm of central portion of right female breast Procedures TC PACLITAXEL, 1MG, INJ TC PALONOSETRON HCL, 25MCG, INJECTION (ALOXI) Karthikeyan Reza MD [address] [place] [id number] [facility] Hem Onc Office [address] [place] [phone] Referral ID Status Reason Start Date Expiration Date Visits Re quested Visits Authorized [id number] Closed 07/05/2016 07/05/2017 99 99 Encounter Details Date Type Department Care Team (Late st Contact Info) Description 08/10/2016 12:00 PM EDT Infusion Hematology Oncology at [address] [phone] Malignant neoplasm of central portion of right female breast Social History Tobacco Use Types Packs/Day Years Used Date Smoking Tobacco: Former Cigarettes 0 07/05/1956 - 07/05/1976 Sex and Gender Information Value Date Recorded Sex Assigned at Not on file Gender Identity Not on file Sexual Orientation Not on file documented as of this encounter Progress Notes * Viviane Landers RN - 08/10/2016 12:00 PM EDT INFUSION THERAPY ADMINISTRATION NOTES DIAGNOSIS: Breast Cancer CYCLE #:2 Day 8 REASON FOR VISIT: Taxol SUBJECTIVE Lacey offers no complaints. OBJECTIVE LAB DATA: WBC 2.66, Hgb 11.4, PLT 243, ANC 1.20, Cr 0.82 IV ACCESS: Mediport accessed at [facility] for labs. Flushes without difficulty and blood return present. Pre administration: Chemotherapy orders independently verified for drug name, route, and dosage per patient's height, weight and BSA by Viviane Landers RN & Maria M Hamm [facility]. REACTIONS (DESCRIPTION, TIME, INTERVENTION AND EFFECTIVENESS) none [...] 10 mg, Intravenous, ONCE, 1 dose, On Tue08/10/16 at 1245, Administer 30 minutes prior to PACLitaxel Given 08/10/2016 12:40 PM EDT 10 mg diphenhydrAMINE (BENADRYL) injection 25 mg 25 mg, Intravenous, ONCE, 1 dose, On Tue08/10/16 at 1245, Administer 30 minutes prior to PACLitaxel, Routine Given 08/10/2016 12:44 PM EDT 25 mg famotidine (PEPCID) injection 20 mg 20 mg, Intravenous, ONCE, 1 dose, On Tue08/10/16 at 1245, Administer 30 minutes prior to PACLitaxel Given 08/10/2016 12:49 PM EDT 20 mg heparin, porcine 100 unit/mL flush 500 Units 500 Units, Intravenous, ONCE PRN, Starting on Tue08/10/16 at 1215, Until Tue08/10/16 at 1641, Line Care, Refer to Intravenous (IV) Procedure: Accessing Implanted Vascular Access Devices (464) procedure and/or Intravenous (IV) Job Aid: Adult Flushing & Catheter Care (2718) job aid for additional information regarding guidelines and administration., Routine Given 08/10/2016 2:39 PM EDT 500 Units PACLitaxel (TAXOL) 142 mg in dextrose 5% Non-PVC 273.6667 mL chemo infusion 142 mg (rounded from 142.4 mg = 80 mg/m2/dose ? 1.78 m2 Treatment Plan BSA from Recorded weight), Intravenous, ONCE, 1 dose, On e 08/10/16 at 1330, Administer over 60 Minutes New Bag 08/10/2016 1:25 PM EDT 142 mg 274 mL/hr palonosetron (ALOXI) injection 0.25 mg 0.25 mg, Intravenous, ONCE, 1 dose, On Tue08/10/16 at 1245, Routine Given 08/10/2016 12:30 PM EDT 0.25 mg sodium chloride 0.9 % flush 5-20 mL 5-20 mL, Intravenous, EVERY 1 MIN PRN, Starting on Tue08/10/16 at 1215, Until Tue08/10/16 at 1641, Line Care, Flush pertains to all indwelling lines. Flush per protocol found in the job aid using the link provided on this medication record. Refer to Intravenous (IV) Job Aid: Adult Flushing & Catheter Care (9175) job aid for additional information regarding guidelines and administration., Routine Given 08/10/2016 2:39 PM EDT 20 mLs documented in this encounter
--- OUTSIDE RECORDS SUMMARY | 2023-08-31 09:46 | XMS_ITS | Encounter Summary ---
Author Organization [facility] [place] [address] Care Team Providers Care Aboriginal Ceremonial Celebrant Name Role Phone Unavailable Primary Care Provider Unavailabl e Reason for Visit * Reason Comments Breast Cancer Encounter Details Date Type Department Care Team (Late st Contact Info) Description 08/24/2016 11:30 AM EDT Office Visit Hematology/Oncology at [address] [phone] Karthikeyan Reza MD [address] [place] [phone] Malignant neoplasm of central portion of right [...] Sign Reading Time Taken Comments Blood Pressure 100/70 08/24/2016 11:40 AM EDT Pulse 70 08/24/2016 11:40 AM EDT Temperature 36.3 ??C (97.3 ??F) 08/24/2016 11:40 AM E DT Respiratory Rate 18 08/24/2016 11:40 AM EDT Oxygen Saturation 99% 08/24/2016 11:40 AM EDT Inhaled Oxygen Concentration - - Weight 71.7 kg (158 lb) 08/24/2016 11:40 AM EDT Height 159.4 cm (5' 2.76) 08/24/2016 11:40 AM E DT copied Body Mass Index 28.21 08/24/2016 11:40 AM EDT documented in this encounter Progress Notes * Karthikeyan Reza MD - 08/24/2016 11:30 AM EDT 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 The patient has 3 lesions in the right breast at 12:00 and 12:15 initial KI-67 was elevated to 60%. Markers were placed and MRI indicated no axillary involvement. The patient is status post 4 cycles of Adriamycin and Cytoxan in [place] and has moved to [place] with plans on completing 12 weekly cycles of Taxol prior to surgery in [place]. SUBJECTIVE: Lacey comes in today for what would be an eighth week of Taxol chemotherapy, although we did have to hold one. She has been a bit tired with the treatment but not having any neuropathy symptoms. Her nausea and vomiting is controlled. She has not had any fever or chills or other difficulties. Review of systems is [...] ??? Sulfa (Sulfonamide Antibiotics) Rash Medications 07/05/16 8873 Medication Sig Taking? 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 Smoking status: [...] 142 mg 80 mg/m2/dose = 142 mg Review of her blood counts today show a white count of 1.71, hemoglobin 10.5, hematocrit 32.8, platelet count 218,000, absolute neutrophil count down again at 850. CMP shows normal electrolytes, a creatinine of 0.69 on a liver test with an ALP of 40. Calcium was 8.4. ASSESSMENT/PLAN: Lacey's counts are again low. So far we have missed 1 chemotherapy because of low counts, and they recovered for another 2 weeks. I would like to cancel today's treatment as well, and we will see her back for week 9 of 12 planned weeks of chemotherapy. I am not planning on making up extra chemotherapies at the end. At age 75 I believe the dose intensity is just a bit more than she can tolerate, and I would favor canceling those treatments when her counts are low. We have arranged for followup next week with a CBC and CMP, and as noted we will stop the chemotherapy after 12 weeks of treatment. If her neutrophil count is greater than 1000 and platelets greater than 100,000 I would favor treating her next week. documented in this encounter Plan of Treatment Not on file documented as of this encounter Procedures Procedure Name Priority Date/Time Associated Diagnosis Comments LAB SCAN 08/24/2016 12:00 AM EDT documented in this encounter Results * SCAN DOC: LAB (08/24/2016 12:00 AM EDT) Narrative 08/24/2016 12:00 AM EDT Ordered by an unspecified provider. Scanning Provider MEDIA MGR SCAN EXT O RDR/RSLT documented in this encounter Visit Diagnoses Diagnosis Malignant neoplasm of central portion of right female breast Malignant neoplasm of central portion of female breast documented in this encounter
--- OUTSIDE RECORDS SUMMARY | 2023-08-31 09:46 | XMS_ITS | Encounter Summary ---
Author Organization [facility] Address [facility] [place] [address] Care Team Providers Care Detasseling Crew Supervisor Name Role Phone Karthikeyan Reza MD Primary Care Provider [phone] Reason for Visit * Consultation (Routine) - Closed Specialty Diagnoses / Procedures Referred By Contac t Referred To Contact Hematology and Oncology Diagnoses Breast cancer Deep vein thrombosis (DVT) with pulmonary embolism present on admission BREAST CANCER, PVT/PULMONARY EMBOL Procedures TREATMENT OPTIONS Unknown None [facility] Hem Onc Office [address] [place] [phone] Referral ID Status Reason Start Date Expiration Date Visits Re quested Visits Authorized [id number] Closed 07/30/2020 07/30/2021 1 1 Encounter Details Date Type Department Care Team (Late st Contact Info) Description 09/16/2020 4:00 PM EDT Office Visit Hematology/Oncology at [address] [phone] Rohith Whitney MD [facility] HEMATOLOGY/[place] [address] Personal history of breast cancer (Primary Dx) Social History Tobacco Use Types Packs/Day Years Used Date Smoking Tobacco: Former Cigarettes 0 07/05/1956 - 07/05/1976 Smokeless Tobacco: Never Sex and Gender Information Value Date Recorded Sex Assigned at Not on file Gender Identity Not on file Sexual Orientation Not on file documented as of this encounter Last Filed Vital Signs Vital Sign Reading Time Taken Comments Blood Pressure 123/78 09/16/2020 4:15 PM EDT Pulse 74 09/16/2020 4:15 PM EDT Temperature 36.3 ??C (97.3 ??F) 09/16/2020 4:15 PM ED T Respiratory Rate 16 09/16/2020 4:15 PM EDT Oxygen Saturation 95% 09/16/2020 4:15 PM EDT Inhaled Oxygen Concentration - - Weight 68.9 kg (152 lb) 09/16/2020 4:15 PM EDT Height 159.4 cm (5' 2.76) 09/16/2020 4:15 PM ED T Body Mass Index 27.14 09/16/2020 4:15 PM EDT documented in this encounter Progress Notes * Rohith Whitney MD - 09/16/2020 4:00 PM EDT Diagnosis: Subjective: HPI: PMH: Social History: No changes Family History: No changes OBGYN History: Allergies: Reviewed Medications: Reviewed Review of Systems: Constitutional: Negative for fever, chills, activity change, fatigue and unexpected weight change. HEENT: Negative for sore throat, mouth sores and trouble swallowing. Eyes: Negative. Respiratory: Negative for cough, shortness of breath and wheezing. Cardiovascular: Negative for chest pain, palpitations and leg swelling. Gastrointestinal: Negative for nausea, vomiting, abdominal pain, diarrhea, constipation and abdominal distention. Genitourinary: Negative for dysuria and difficulty urinating. Musculoskeletal: Negative. Skin: Negative. Neurological: Negative. Hematological: Negative for adenopathy. PE: General: AAAx3, in NAD Head: Normocephalic, without obvious abnormality, atraumatic Eyes: [...] supraclavicular, and axillary nodes normal Neurologic: Normal Vitals Pathology: Labs: Imaging: Assessment and Plan: Diagnosis: Treatment: * Priscilla Parr RN - 09/16/2020 4:00 PM EDT MEDICAL ONCOLOGY INITIAL NURSING ASSESSMENT ADVANCE DIRECTIVES: In EDH [ x ] Has documents [ ] Will bring in [ ] IF NO: Advance Directive pamphlet provided : Referral to Care Management : PRESENTING SYSTEMS and PATHOLOGY: mammogram REVIEW OF SYSTEMS: see Zachary's note Prior Radiotherapy: no[ x ] Yes[ ]Site Date Facility Prior Chemotherapy: no[ ] Yes[ x ] Drug: taxol Oncologist- Juaquin LastTreatment: Balance difficulty: [x ]no [ ]yes At risk for fall: x[ ] no [ ] yes If yes, actions implemented to prevent fall. Patient/family instructed to avoid independent ambulation. Use wheelchair and ask for assistance of staff while in the clinic. ADL [x ] no limits [ ] needs dressing assistance [ ] needs meal assistance Assistive device:[ x ]none [ ]cane [ ]walker [ ]wheelchair [ ]other: explain PAIN ASSESSMENT: [ ] out of 10 Location: Description: [ ] Dull [ ] Sharp [ ] Burning [ ] Throbbing [ ] Radiating [ ] Continuous [ ]Intermittent Aggravating Factors: [ ] Movement [ ] Position [ ]Immobility [ ]Other Alleviating Factors: [ ]Medication [ ] Positioning [ ] Other Current Pain Management Plan: [ ]Satisfied [ ] Not satisfied SOCIAL ASSESSMENT: See EDH social assessment information entered. Support Systems: moving into [facility] soon, lives with daughter right transportation plan: [x ]private vehicle [ ] RCT needs Social Work referral [ ] Unknown at this time needs Social Work referral Barriers to treatment: only here for follow up Referrals/Interventions: LEARNING STYLE: Visual and verbal, wants written material and verbal discussion. * Rohith Whitney MD - 09/16/2020 4:00 PM EDT Images from the original note were not included. 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 Patient had a screening mammogram on 01/19/2016 at [facility] [place].?? She was called back for a right breast diagnostic mammogram and ultrasound of a right breast mass.?? These exams were performed at [facility].?? 2 indeterminate adjacent solid masses were noted [...] She completed AC. She was traveling to [place] for the summer, where she completed weekly [...] December 2019. Currently she is on Xarelto PMH: DVT/PE, COPD, osteoporosis, Social History: Quit smoking in 1976, drinks alcohol rarely Family History: Sister age of 71 from breast cancer Allergies: Allergies Allergen Reactions ??? Pollen Extracts Other (See Comments) Seasonal--runny nose, itchy eyes ??? Sulfa (Sulfonamide Antibiotics) Rash Medications: Your Medications Accurate as of September 16, 2020 11:59 PM. If you have any questions, ask your nurse or doctor. Continued medications, unchanged Dose Details Biotin 5 mg Cap Take 5 mg by mouth daily. 5 mg Refills: 0 cholecalciferol (Vitamin D3) 50 mcg (2,000 unit) Cap Take by mouth. Generic drug: cholecalciferol (Vitamin D3) Refills: 0 cyanocobalamin (Vitamin B-12) 1,000 mcg Tab Commonly known as: Vitamin B-12 Take 1,000 mcg by mouth daily. 1,000 mcg Refills: 0 levothyroxine 25 mcg Tab Commonly known as: Synthroid Take 25 mcg by mouth daily. Indications: hypothyroidism 25 mcg Refills: 0 rivaroxaban 20 mg Tab Commonly known as: Xarelto Take 20 mg by mouth daily. 20 mg Refills: 0 simvastatin 40 mg Tab Commonly known as: Zocor Take 40 mg by mouth nightly. 40 mg Refills: 0 Trelegy Ellipta 100-62.5-25 mcg Dsdv Inhale 1 puff into the lungs daily. Generic drug: yyocyqgbgwy-dsnzdrxfk-mdptwcoq 1 puff Refills: 0 Review of Systems: Constitutional: Negative for fever, chills, activity change, fatigue and unexpected weight change. HEENT: Negative for sore throat, mouth sores and trouble swallowing. Eyes: Negative. Respiratory: Negative for cough, shortness of breath and wheezing. Cardiovascular: Negative for chest pain, palpitations and leg swelling. Gastrointestinal: Negative for nausea, vomiting, abdominal pain, diarrhea, constipation and abdominal distention. Genitourinary: Negative for dysuria and difficulty urinating. Musculoskeletal: Negative. Skin: Negative. Neurological: Negative. Hematological: Negative for adenopathy. PE: General: AAAx3, in NAD Head: Normocephalic, without obvious abnormality, atraumatic Eyes: [...] palpable masses or lumps in either breast. Examination in the presence of VIKKI Wells Heart: Regular rate and rhythm, S1, S2 normal, no murmur, rub or gallop Abdomen: Soft, non-tender, bowel sounds active all four quadrants, no masses, no organomegaly. There is no appreciable ascites Extremities: Extremities normal, atraumatic, no cyanosis or edema Pulses: 2+ and symmetric Skin: Skin color, texture, turgor normal, no rashes or lesions Lymph nodes: Cervical, supraclavicular, and axillary nodes normal Neurologic: Normal Vitals BP 123/78 (Patient Position: Sitting) Pulse 74 Temp 36.3 ??C (97.3 ??F) (Temporal) Resp 16 Ht 159.4 cm (5' 2.76) Wt 68.9 kg (152 lb) SpO2 95% BMI 27.14 kg/m?? Pathology: 10/22/20 Final Microscopic Diagnosis A. ??Right [...] poorly differentiated, grade 3, negative for ductal carcinoma in situ negative for lymphovascular invasion Labs: 05/12/2020 WBC 5.7, hemoglobin 14.2, platelet count 169, ANC 3.39, BUN 21, creatinine 0.78, sodium 143, potassium 4.3, total protein 6.2, albumin 3.9, globulin 2.4, calcium 9.3, alkaline phosphatase 42, ALT 15, AST 23, TB 0.5 March 27, 2016 BRCA1 and BRCA2 analysis: Results negative no clinically significant mutation identified. Imagin05/28/2020 DEXA scan: Femoral neck with T score -2.1 Total T score -0.9 Impression: Osteopenia left hip 12/17/19 CT angiogram 12/17/2019 CT scan abdomen pelvis without contrast: Impression: No acute intra-abdominal abnormalities. Diverticulosis without evidence of diverticulitis. Assessment and Plan: Diagnosis:R IDC, gr2, ER-/IL-, Her neg by IHC, [id number] Treatment: -09/21/16 [...] see her back in about 3 months. #History of PE: in December 2019, on Xarelto #Osteopenia: # Lung nodule: On CT angiogram in December 2019, ? Will repeat CT scan to document stability. Plan: 1. Mammogram 2. Consider repeating CT scan of chest. 3. Next visit in 3 months with CBC and CMP The plan was discussed with the patient in details. All questions were answered to patient satisfaction. documented in this encounter Miscellaneous Notes * Addendum Note - Rohith Whitney MD - 09/16/2020 4:00 PM EDTAddended by: ROHITH WHITNEY on: 10/24/2020 03:01 PM Modules accepted: Orders documented in this encounter Plan of Treatment Not on file documented as of this encounter Visit Diagnoses Diagnosis Personal history of breast cancer- Primary Personal history of malignant neoplasm of breast documented in this encounter Care Teams Detasseling Crew Supervisor Relationship Specialty Start Date End Date Karthikeyan Reza MD [address] [place] [address] [place] [address] PCP - General Hematology and Oncology 08/26/16 documented as of this encounter
--- OUTSIDE RECORDS SUMMARY | 2023-08-31 09:46 | XMS_ITS | Encounter Summary ---
Author Organization [facility] [place] [address] Care Team Providers Care Steel Rule Die Maker Apprentice Name Role Phone Unavailable Primary Care Provider Unavailabl e Reason for Visit * Reason Comments Breast Cancer Encounter Details Date Type Department Care Team (Late st Contact Info) Description 08/10/2016 11:30 AM EDT Office Visit Hematology/Oncology at [address] [phone] Karthikeyan Reza MD [address] [place] [phone] Malignant neoplasm of central portion of right [...] Sign Reading Time Taken Comments Blood Pressure 109/51 08/10/2016 11:26 AM EDT Pulse 84 08/10/2016 11:26 AM EDT Temperature 36.4 ??C (97.5 ??F) 08/10/2016 1 1:26 AM EDT Respiratory Rate 16 08/10/2016 11:2 6 AM EDT Oxygen Saturation 100% 08/10/2016 11: 26 AM EDT Inhaled Oxygen Concentration - - Weight 71.1 kg (156 lb 12.8 oz) 017 11:26 AM EDT Height 159.4 cm (5' 2.76) 08/10/2016 1 1:26 AM EDT copied Body Mass Index 27.99 08/10/2016 11:26 AM EDT documented in this encounter Progress Notes * Karthikeyan Reza MD - 08/10/2016 11:30 AM EDT 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 The patient has 3 lesions in the right breast at 12:00 and 12:15 initial KI-67 was elevated to 60%. Markers were placed and MRI indicated no axillary involvement. The patient is status post 4 cycles of Adriamycin and Cytoxan in [place] and has moved to [place] with plans on completing 12 weekly cycles of Taxol prior to surgery in [place]. SUBJECTIVE: Lacey comes in today for another week of neoadjuvant Taxol being given after Adriamycin and Cytoxan in the treatment of her breast cancer. Last week's treatment was held because of the neutrophil count that dropped significantly. Total white count was 1.56 and neutrophils dropped to 820. She was feeling a little bit tired and does feel a bit better; although, she notes a little bit of shortness of breath with exertion. She has some seasonal allergies and also a history of some mild emphysema and this is really no different than usual for her. She is not having any numbness. She does have some nail bed changes and a little tenderness in her nail beds as a result of the treatment. Since she has a scheduled surgery and we are having trouble with her blood counts, I talked to her about canceling the chemotherapies rather than adding them on at the end that she misses. In that regard, this will be week 6 today and I think that is a better way to go overall. Most of the benefit from the current regimen is from the Adriamycin and Cytoxan. All that being said though, she certainly can benefit from the taxane. 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 Smoking status: [...] (TAXOL) IV 80 mg/m2/dose = 142 mg Blood work today shows improvement in her white count to 2.66, neutrophils going up to 1.20, hemoglobin is 11.4, hematocrit 35.1, platelets are 243. Absolute neutrophil count 1.20, CMP shows normal electrolytes, creatinine of 0.82, ALP of 45 and a calcium of 8.7. ASSESSMENT AND PLAN: Lacey is fine today for treatment. We are having some problems with her blood counts related to the current weekly Taxol treatment and if her counts go below 1000, I would simply hold that week. After 12 weeks of treatment then, she will go back and have her surgery a few weeks later in [place]. We will see her back next week with a CBC and CMP. We will continue to monitor her nail bed toxicity, her treatment-associated anemia, and her overall performance status and tolerance of treatment. As noted if next week's counts are lower, I would simply cancel that week of treatment and we will proceed from there. documented in this encounter Plan of Treatment Not on file documented as of this encounter Procedures Procedure Name Priority Date/Time Associated Diagnosis Comments LAB SCAN 08/10/2016 12:00 AM EDT documented in this encounter Results * SCAN DOC: LAB (08/10/2016 12:00 AM EDT) Narrative 08/10/2016 12:00 AM EDT Ordered by an unspecified provider. Scanning Provider MEDIA MGR SCAN EXT O RDR/RSLT documented in this encounter Visit Diagnoses Diagnosis Malignant neoplasm of central portion of right female breast Malignant neoplasm of central portion of female breast documented in this encounter
--- OUTSIDE RECORDS SUMMARY | 2023-08-31 09:46 | XMS_ITS | Encounter Summary ---
Author Organization [facility] [place] [address] Care Team Providers Care Ict Sales Assistant Name Role Phone Unavailable Primary Care Provider Unavailabl e Reason for Visit * Reason Comments Chemotherapy Cycle 2, Day 15 Pacl itaxel * Treatment/Therapy Plan Authorization (Routine) - Closed Specialty Diagnoses / Procedures Referred By Contac t Referred To Contact Diagnoses Malignant neoplasm of central portion of right female breast Malignant neoplasm of central portion of right female breast Procedures TC PACLITAXEL, 1MG, INJ TC PALONOSETRON HCL, 25MCG, INJECTION (ALOXI) Karthikeyan Reza MD [address] [place] [id number] [facility] Hem Onc Office [address] [place] [phone] Referral ID Status Reason Start Date Expiration Date Visits Re quested Visits Authorized [id number] Closed 07/05/2016 07/05/2017 99 99 Encounter Details Date Type Department Care Team (Late st Contact Info) Description 08/16/2016 12:30 PM EDT Infusion Hematology Oncology at [address] [phone] Malignant neoplasm of central portion of right female breast Social History Tobacco Use Types Packs/Day Years Used Date Smoking Tobacco: Former Cigarettes 0 07/05/1956 - 07/05/1976 Sex and Gender Information Value Date Recorded Sex Assigned at Not on file Gender Identity Not on file Sexual Orientation Not on file documented as of this encounter Progress Notes * Avery Zuleta RN - 08/16/2016 12:30 PM EDT INFUSION THERAPY ADMINISTRATION NOTES DIAGNOSIS: Breast Cancer CYCLE #:2 Day 15 REASON FOR VISIT: Paclitaxel SUBJECTIVE Lacey offers no complaints. OBJECTIVE LAB DATA: WBC 3.19, Hgb 10.9, Hct 33.8, PLT 229k, ANC 2.01, BUN 16, Cr 0.71 IV ACCESS: Port already accessed by OSH for lab draw; dressing CDI, flushes easily with excellent blood return noted. Port flushed with 20cc NS and 500 units Heparin then de-accessed after completionof treatment. Pre administration: Chemotherapy orders independently verified for drug name, route, and dosage per patient's height, weight and BSA by Avery Zuleta RN & Maria M Hamm [facility]. REACTIONS (DESCRIPTION, TIME, INTERVENTION AND EFFECTIVENESS) none [...] 10 mg, Intravenous, ONCE, 1 dose, On Tue08/16/16 at 1300, Administer 30 minutes prior to PACLitaxel Given 08/16/2016 1:04 PM EDT 10 mg diphenhydrAMINE (BENADRYL) injection 25 mg 25 mg, Intravenous, ONCE, 1 dose, On Tue08/16/16 at 1300, Administer 30 minutes prior to PACLitaxel, Routine Given 08/16/2016 1:08 PM EDT 25 mg famotidine (PEPCID) injection 20 mg 20 mg, Intravenous, ONCE, 1 dose, On Tue08/16/16 at 1300, Administer 30 minutes prior to PACLitaxel Given 08/16/2016 1:07 PM EDT 20 mg heparin, porcine 100 unit/mL flush 500 Units 500 Units, Intravenous, ONCE PRN, Starting on Tue08/16/16 at 1243, Until Tue08/16/16 at 1730, Line Care, Refer to Intravenous (IV) Procedure: Accessing Implanted Vascular Access Devices (654) procedure and/or Intravenous (IV) Job Aid: Adult Flushing & Catheter Care (9745) job aid for additional information regarding guidelines and administration., Routine Given 08/16/2016 2:50 PM EDT 500 Units PACLitaxel (TAXOL) 142 mg in dextrose 5% Non-PVC 273.6667 mL chemo infusion 142 mg (rounded from 142.4 mg = 80 mg/m2/dose ? 1.78 m2 Treatment Plan BSA from Recorded weight), Intravenous, ONCE, 1 dose, On Tue08/16/16 at 1400, Administer over 60 Minutes New Bag 08/16/2016 1:45 PM EDT 142 mg 274 mL/hr palonosetron (ALOXI) injection 0.25 mg 0.25 mg, Intravenous, ONCE, 1 dose, On Tue08/16/16 at 1300, Routine Given 08/16/2016 1:02 PM EDT 0.25 mg sodium chloride 0.9 % flush 5-20 mL 5-20 mL, Intravenous, EVERY 1 MIN PRN, Starting on Tue08/16/16 at 1243, Until Tue08/16/16 at 1730, Line Care, Flush pertains to all indwelling lines. Flush per protocol found in the job aid using the link provided on this medication record. Refer to Intravenous (IV) Job Aid: Adult Flushing & Catheter Care (5454) job aid for additional information regarding guidelines and administration., Routine Given 08/16/2016 2:50 PM EDT 20 mLs documented in this encounter
--- OUTSIDE RECORDS SUMMARY | 2023-08-31 09:46 | XMS_ITS ---
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 Past Plans ADULT TREATMENT Plan Name Start Date Discontinue Date Treatment Medications Discontinue Reason Plan Provider Cycles DH BCN AMB ONC BREAST CANCER - PACLitaxel 7 03/29/2017 PACLitaxeL (Taxol) in Non-PVC sodium chloride 0.9% 250 mL infusion Therapy Complete Karthikeyan Reza MD 3 of 3 cycles started Radiation Treatments * No radiation treatments are documented for this patient in [facility]. Treatments may have been administered in another system.
--- OUTSIDE RECORDS SUMMARY | 2023-08-31 09:46 | XMS_ITS | Encounter Summary ---
Author Organization [facility] [place] [address] Care Team Providers Care Cupboard Builder Name Role Phone Karthikeyan Reza MD Primary Care Provider [phone] Reason for Visit * Reason Comments Chemotherapy Cycle 3, Day 8 * Treatment/Therapy Plan Authorization (Routine) - Closed Specialty Diagnoses / Procedures Referred By Contanamaria t Referred To Contact Diagnoses Malignant neoplasm of central portion of right female breast Malignant neoplasm of central portion of right female breast Procedures TC PACLITAXEL, 1MG, INJ TC PALONOSETRON HCL, 25MCG, INJECTION (ALOXI) Karthikeyan Reza MD [address] [place] [id number] [facility] Hem Onc Office [address] [place] [id number] Referral ID Status Reason Start Date Expiration Date Visits Re quested Visits Authorized Closed 07/05/2016 07/05/2017 [id number] Encounter Details Date Type Department Care Team (Late st Contact Info) Description 09/07/2016 12:00 PM EDT Infusion Hematology Oncology at [address] [address] Malignant neoplasm of central portion of right female breast Social History Tobacco Use Types Packs/Day Years Used Date Smoking Tobacco: Former Cigarettes 0 07/05/1956 - 07/05/1976 Sex and Gender Information Value Date Recorded Sex Assigned at Not on file Gender Identity Not on file Sexual Orientation Not on file documented as of this encounter Progress Notes * Viviane Landers RN - 09/07/2016 12:00 PM EDT INFUSION THERAPY ADMINISTRATION NOTES DIAGNOSIS: Breast Cancer CYCLE #:3, Day 8 REASON FOR VISIT: Paclitaxol SUBJECTIVE Lacey offers no complaints. OBJECTIVE LAB DATA: WBC 3.35, HGB 11.2, HCT 35.0, PLT 198, ANC 2.18, BUN 12. Cr 0.82 IV ACCESS: Mediport accessed at [facility] for lab draw. Port flushed easily with blood return present. Upon completion of infusion, blood return present and port flushed with 20cc NS and 500units of heparin. Pre administration: Chemotherapy orders independently verified for drug name, route, and dosage per patient's height, weight and BSA by Viviane Landers RN & Maria M Pineda [facility] REACTIONS (DESCRIPTION, TIME, INTERVENTION AND EFFECTIVENESS) none [...] 10 mg, Intravenous, ONCE, 1 dose, On Tue09/07/16 at 1230, Administer 30 minutes prior to PACLitaxel Given 09/07/2016 1:12 PM EDT 10 mg diphenhydrAMINE (BENADRYL) injection 25 mg 25 mg, Intravenous, ONCE, 1 dose, On Tue09/07/16 at 1230, Administer 30 minutes prior to PACLitaxel, Routine Given 09/07/2016 1:06 PM EDT 25 mg famotidine (PEPCID) injection 20 mg 20 mg, Intravenous, ONCE, 1 dose, On Tue09/07/16 at 1230, Administer 30 minutes prior to PACLitaxel Given 09/07/2016 1:08 PM EDT 20 mg heparin, porcine 100 unit/mL flush 500 Units 500 Units, Intravenous, ONCE PRN, Starting on Tue09/07/16 at 1207, Until Tue09/07/16 at 1649, Line Care, Refer to Intravenous (IV) Procedure: Accessing Implanted Vascular Access Devices (654) procedure and/or Intravenous (IV) Job Aid: Adult Flushing & Catheter Care (0828) job aid for additional information regarding guidelines and administration., Routine Given 09/07/2016 2:40 PM EDT 500 Units PACLitaxel (TAXOL) 142 mg in dextrose 5% Non-PVC 273.6667 mL chemo infusion 142 mg (rounded from 142.4 mg = 80 mg/m2/dose ? 1.78 m2 Treatment Plan BSA from Recorded weight), Intravenous, ONCE, 1 dose, On Tue09/07/16 at 1330, Administer over 60 Minutes New Bag 09/07/2016 1:34 PM EDT 142 mg 274 mL/hr palonosetron (ALOXI) injection 0.25 mg 0.25 mg, Intravenous, ONCE, 1 dose, On Tue09/07/16 at 1230, Routine Given 09/07/2016 1:03 PM EDT 0.25 mg sodium chloride 0.9 % flush 5-20 mL 5-20 mL, Intravenous, EVERY 1 MIN PRN, Starting on Tue09/07/16 at 1207, Until Tue09/07/16 at 1649, Line Care, Flush pertains to all indwelling lines. Flush per protocol found in the job aid using the link provided on this medication record. Refer to Intravenous (IV) Job Aid: Adult Flushing & Catheter Care (9123) job aid for additional information regarding guidelines and administration., Routine Given 09/07/2016 2:40 PM EDT 20 mLs documented in this encounter Care Teams Cupboard Builder Relationship Specialty Start Date End Date Karthikeyan Reza MD [address] [place] [address] [place] [address] PCP - General Hematology and Oncology 08/26/16 documented as of this encounter
--- OUTSIDE RECORDS SUMMARY | 2023-08-31 09:46 | XMS_ITS | Encounter Summary ---
Author Organization [facility] Address [facility] [place] [address] Care Team Providers Care Rn Birthing Name Role Phone Lore Kaiser MD Primary Care Provider [phone] Encounter Details Date Type Department Care Team (Late st Contact Info) Description 12/21/2022 9:00 AM EST Office Visit Hematology/Oncology at [address] [phone] Rohith Sharma MD [facility] DR HEMATOLOGY/[place] [address] Christie Morgan APRN [facility] [place] [address] Personal history of breast cancer Social History Tobacco Use Types Packs/Day Years [...] Mass Index 29.67 12/21/2022 8:58 AM EST documented in this encounter Progress Notes * Christie Morgan, TUTORING MANAGER - 12/21/2022 9:00 AM EST Images from the original note were not included. 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 HPI: Patient had a screening mammogram on 01/19/2016 at [facility]. She was called back fora right breast diagnostic mammogram and ultrasound of a right breast mass. These exams were performed at [facility]. 2 indeterminate adjacent solid masses were noted at 12:00 position. One measured 1.1 x 0.5 x 0.7 cm and the second 0.3 x 0.4 x 0.4 cm. These are approximately 1 cm apart. Ultr asound of the right axilla was negative. On 02/27/2016 an ultrasound guided core biopsy was performed of the 2 masses. During the biopsy a third mass measuring 6 mm was noted. This was also biopsied. On 03/12/2016 patient had a breast MRI performed at [facility]. These results reported multifocal disease of the right breast, an indeterminate focus of enhancement on the left, mild cardiomegaly and a small sliding type hiatus hernia. A left breast MRI guided core biopsy was performed on 03/22/2016. Pathology of this was benign. Completed neoadjuvant chemotherapy with Dr. Rodriguez. She completed AC. She was traveling to [place] for the summer, where she completed weekly paclitaxel on September [id number]. She underwent right partial mastectomy sentinel lymph node dissection. Pathology did not reveal any residual cancer and all lymph nodes were negative. She completed adjuvant radiation therapy on December 272016. In November 2018 she was diagnosed with lower extremity DVT and extensive pulmonary embolism. She started Xarelto. Which was discontinued in 6 months. Had episodes of pulmonary embolism in December 2019. Restarted on Xarelto and she continues on thiscurrently. Interval history: Ms. Epperson is in clinic for follow-up appointment on breast cancer. Overall she is doing well. Unfortunately she developed a URI recently. She has a hx of COPD and continues with chronic cough. No fevers or chills. Follows with her railroad inspector who she saw yesterday. Otherwise, shefeels well. She remains active but her COPD does limit her activity. Denies any pain. No breast complaints. No new focal complaints. She follows with musical instrument maker or repairer on her A-fib. The remainder of her review of systems reviewed and is negative. PMH: Hx paroxysmal A. fib in June 2021, Depression DVT/PE, COPD, osteoporosis improved to osteopenia on recent dexa scan Social History: Quit smoking in 1976, drinks alcohol rarely. Her daughter lives in the area. She is from [place] originally and went to [employer] [facility]. Allergies: Allergies Allergen Reactions Sulfa (Sulfonamide Antibiotics) Rash Medications: Your Medications Accurate as of December 21, 2022 10:18 AM. If you have any questions, ask your nurse or doctor. Continued medications, unchanged Dose Details acetaminophen 500 mg tablet Commonly known as: Tylenol Take 1,000 mg by mouth 3 times daily. 1,000 mg Refills: 0 AMIOdarone 200 mg tablet Commonly known as: Pacerone Take 200 mg by mouth daily. 200 mg Refills: 0 Biotin 5 mg capsule [...] mouth as needed. Not taking every day 20 mg Refills: 0 levothyroxine 25 mcg [...] puff into the lungs daily. Generic drug: lbiciddneze-gibvvxvkpmwc-hypiqcoyww 1 puff Refills: 0 Review of Systems: As in interval history PE: Head: Normocephalic, without obvious abnormality, atraumatic Neck: No lymphadenopathy Lungs: Decreased breath sounds with scattered rales, otherwise clear Breast: declines breast exam today as she has no breast concerns and plans to have this done with her PCP Heart: RRR Abdomen: Soft, non-tender, bowel sounds active all four quadrants, no masses, no organomegaly. There is no appreciable ascites Extremities: No swelling Lymph nodes: No palpable lymph nodes in cervical, supraclavicular, and axillary areas Neurologic: Grossly nonfocal Vitals BP 139/59 (Patient Position: Sitting) Pulse 61 Temp 36.1 ??C (96.9 ??F) (Temporal) Resp 16 Ht 159.4 cm (5' 2.76) Wt 75.4 kg (166 lb 3.2 oz) SpO2 94% BMI 29.67 kg/m?? Pathology: 10/22/20 Final Microscopic Diagnosis A. Right partial, oriented mastectomy at 12:00, status preoperative neoadjuvant chemotherapy: Changes of prior biopsy sites; no residual invasive carcinoma or in situ tumor is present. Isolated nonproliferative fibrocystic change with microcalcifications is present. All margins of resection are negative for atypia or malignancy. AJCC Stage: [id number](i-)MX B. Right axillary sentinel lymph node #1: No metastatic carcinoma present within one lymph node by routine Dominik and cytokeratin immunohistochemical staining (0/1). C. Right axillary sentinel lymph node #2: No metastatic carcinoma present within one lymph node by routine Dominik and cytokeratin immunohistochemical staining (0/1). D. Right axillary sentinel lymph node #3: No metastatic carcinoma present within one lymph node by routine Dominik and cytokeratin immunohistochemical staining (0/1). E. Right axillary sentinel lymph node #4: No metastatic carcinoma present within one lymph node by routine Dominik and cytokeratin immunohistochemical staining (0/1). 02/27/2016 right breast needle biopsy: Invasive ductal carcinoma poorly differentiated, grade 3, negative for ductal carcinoma, in situ negative for lymphovascular invasion Labs: 06/18/2022 BUN 21 creatinine 1.2, K 3.4,calcium 9.3, TB 0.5, AST 21, ALT 23, alkaline phosphatase 45,total protein 7.4, albumin 3.6, WBC 4.72, hemoglobin 14.4, platelet count 183, ANC 3.05. 06/18/2022 BUN 16, creatinine 0.9, calcium 9.1, [...] Results negative no clinically significant mutation identified. Imagin12/16/22 B. Mammogram showed no evidence of malignancy. Benign. (Ordered by Dr. Kaiser, PCP) 12/16/22: Dexa scan showed osteopenia (ordered by Dr Kaiser, PCP) 06/11/2022 CT chest without contrast: Impression: Stable 7 [...] L1 compression fractures. No new compression deformities. 12/11/2020 CT scan of chest: Impression: Slight [...] diverticulitis. Assessment and Plan: Diagnosis:R IDC, gr2, ER-/FL-, Her neg by IHC, [id number] Treatment: -09/21/16 completed neoadjuvant chemotherapy with AC-T -10/22/16 lumpectomy and sentinel lymph node biopsy -12/27/2016 completed adjuvant radiation therapy Ms. Epperson is currently on surveillance for her triple negative breast cancer. Her CT scan in December 2019 showed incidental finding of right upper lobe lung nodule about 9 mm. Otherwise, she is doingfine with oncological standpoint. 06/23/21 CT scan shows stable lung nodules. We will obtain second read on CT scan IZABEL We will see her back 6 months with mammogram and blood work. 12/29/21 IZABEL, 6 mm new lung nodule in right On CT scan in September 2021. She is not interested repeat CT scan now. May consider CT scan upon her return from [place] in May-June #Dyspnea: Patient has irregularly irregular heart rate. I am concerned about atrial fibrillation. Will refer her to emergency room for evaluation. I called with report to ER physician. #History of PE: in December 2019, on Xarelto #Osteopenia: # Lung nodule: New 6 mm lung nodule in the right apex, will repeat CT scan in 6 months upon her return from [place] CT scan revealed decrease in size in [...] scan to document stability. 06/22/[address] (06/11/22) demonstrates stable 7 mm lung nodule. We will continue observation. We will see her back in 6 months with CBC and CMP. Mammogram will be ordered by PCP 12/21/22 IZABEL. We will continue observation. We will see her back in 1 year with CBC and CMP. Mammogram will be ordered by PCP. #Emphysema/ COPD: follows with railroad inspector Dr. Marian Perez #Afib: Follows with musical instrument maker or repairer Dr.Mary Leo # Elevated Cr at 1.2: likely secondary to Lasix which she takes PRN and recently started. F/u with Dr. Lore Kaiser, PCP #Mild hypokalemia K= 3.4. Likely secondary to Lasix which she takes PRN and recently started. F/u with Dr. Lore Kaiser, PCP #Lung nodule: stable on recent CT chest from 06/11/22, dating back to 11/2020. Plan: 1. Next visit with ANGELLA CMP in 12 months The plan was discussed with the patient in details. All questions were answered to patient satisfaction. Christie Morgan NP 30 minutes were spent on date of visit, including non-face to face time. documented in this encounter Plan of Treatment Scheduled Orders Name Type Priority Associated Diagnoses Orde r Schedule Comprehensive metabolic panel (non-fasting) Lab Routine Personal history of breast cancer Expected: 12/22/2023, Expires: 06/22/2024 CBC (with Diff) Lab Routine Personal history of breast cancer Expected: 12/22/2023, Expires: 06/22/2024 documented as of this encounter Visit Diagnoses Diagnosis Personal history of breast cancer Personal history of malignant neoplasm of breast documented in this encounter Care Teams Rn Birthing Relationship Specialty Start Date End Date Lore Kaiser MD [address] [place] [address] PCP - General Family Medicine 08/26/22 documented as of this encounter
--- OUTSIDE RECORDS SUMMARY | 2023-08-31 09:46 | XMS_ITS | Encounter Summary ---
Author Organization [facility] [place] [address] Care Team Providers Care Bandsaw Operator Name Role Phone Karthikeyan Reza MD Primary Care Provider [phone] Reason for Visit * Reason Comments Skin Check * Consultation (Routine) - Closed Specialty Diagnoses / Procedures Referred By Contac t Referred To Contact Dermatology Diagnoses Malignant neoplasm of right female breast, unspecified site of breast Skin lesions Stephanie Mancera, VOLTMETER OPERATOR [facility] [place] [address] Nikita Nolasco MD [address] [place] [address] [place] [address] Referral ID Status Reason Start Date Expiration Date V isits Requested Visits Authorized [id number] Closed Consult, Test & Treat 08/02/2016 01/29/2017 1 1 Encounter Details Date Type Department Care Team (Late st Contact Info) Description 08/26/2016 9:00 AM EDT Office Visit Dermatology at [address] [place] [address] Nikita Nolasco MD [address] [place] [address] DERMATOLOGY [place], [place] [id number] Chondrodermatitis nodularis helicis of left ear Social History Tobacco Use Types Packs/Day Years Used Date Smoking Tobacco: Former Cigarettes 0 07/05/1956 - 07/05/1976 Sex and Gender Information Value Date Recorded Sex Assigned at Not on file Gender Identity Not on file Sexual Orientation Not on file documented as of this encounter Progress Notes * Nikita Nolasco MD - 08/26/2016 9:00 AM EDT PROBLEM: Left superior helical rim lesion. Lacey is a 75-year-old woman who is currently undergoing treatment for adenocarcinoma of the right breast. She has had problems now for about a year with painful, sore area on the upper lateral left helical rim. She does tend to sleep on that side. She cannot sleep on her right or on her back. The patient is seen in consultation today for Karthikeyan Reza MD. Physical examination reveals a pleasant 75-year-old woman who has a very minimally hyperkeratotic papule on the right upper superior lateral helical rim. She has no lesions on the right ear. Facial exam is unremarkable. She is alopecic following her chemotherapy and has taken her wig off to show me her ear more clearly. A/P: Chondrodermatitis, nodularis helicis. a. Reassured patient it is unrelated to her underlying cancer and unrelated to chemotherapy. b. Recommended trying to avoid pressure to this area; discussed strategies to do so. c. Because of the hyperkeratotic section I do think that LN2 will be a helpful adjunct to get this back under control. LN2 x2 applied to site. d. Expect decrease in tenderness and soreness over the next couple to 3 weeks with pressure avoidance to this area. That will be an ongoing strategy as well, pressure avoidance. Reassured patient that there is no sign of any skin cancer. Return to clinic here p.r.n. Cc: Karthikeyan Reza MD documented in this encounter Plan of Treatment Not on file documented as of this encounter Visit Diagnoses Diagnosis Chondrodermatitis nodularis helicis of left ear documented in this encounter Care Teams Bandsaw Operator Relationship Specialty Start Date End Date Karthikeyan Reza MD [address] [place] [address] [place] [address] PCP - General Hematology and Oncology 08/26/16 documented as of this encounter
--- OUTSIDE RECORDS SUMMARY | 2023-08-31 09:46 | XMS_ITS | Encounter Summary ---
Author Organization [facility] [place] [address] Care Team Providers Care Nurse Administrator Name Role Phone Unavailable Primary Care Provider Unavailabl e Encounter Details Date Type Department Care Team (Late st Contact Info) Description 08/16/2016 11:45 AM EDT Office Visit Hematology/Oncology at [address] [phone] Stephanie Mancera APRN [facility] [place] [address] Malignant neoplasm of central portion of right [...] Sign Reading Time Taken Comments Blood Pressure 114/69 08/16/2016 11:53 AM EDT Pulse 81 08/16/2016 11:53 AM EDT Temperature 36.6 ??C (97.9 ??F) 08/16/2016 11:53 AM E DT Respiratory Rate 16 08/16/2016 11:53 AM EDT Oxygen Saturation 98% 08/16/2016 11:53 AM EDT Inhaled Oxygen Concentration - - Weight 71.8 kg (158 lb 3.2 oz) 08/16/2016 11:53 AM EDT Height 159.4 cm (5' 2.76) 08/16/2016 11:53 AM E DT Body Mass Index 28.24 08/16/2016 11:53 AM EDT documented in this encounter Patient Instructions * Patient Instructions* Stephanie Mancera APRN - 08/16/2016 11:45 AM EDT She will return in one week for treatment with labs prior. documented in this encounter Progress Notes * Stephanie Mancera APRN - 08/16/2016 11:45 AM EDT 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 The patient has 3 lesions in the right breast at 12:00 and 12:15 initial KI-67 was elevated to 60%. Markers were placed and MRI indicated no axillary involvement. The patient is status post 4 cycles of Adriamycin and Cytoxan in [place] and has moved to [place] with plans on completing 12 weekly cycles of Taxol prior to surgery in [place]. 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 [...] shows improvement in her white count to 3.19, neutrophils 2.01, hemoglobin is 10.9, hematocrit 35.1, platelets are 243. Absolute neutrophil [...] her surgery a few weeks later in [place]. We will see her back next week with a CBC and CMP. We will continue to monitor her nail bed toxicity, her treatment-associated anemia, and her overall performance status and tolerance of treatment. Her counts have recovered. She will receive her next dose today and return In one week with labs prior. documented in this encounter Plan of Treatment Not on file documented as of this encounter Procedures Procedure Name Priority Date/Time Associated Diagnosis Comments LAB SCAN 08/16/2016 12:00 AM EDT documented in this encounter Results * SCAN DOC: LAB (08/16/2016 12:00 AM EDT) Narrative 08/16/2016 12:00 AM EDT Ordered by an unspecified provider. Scanning Provider MEDIA MGR SCAN EXT O RDR/RSLT documented in this encounter Visit Diagnoses Diagnosis Malignant neoplasm of central portion of right female breast Malignant neoplasm of central portion of female breast documented in this encounter
--- OUTSIDE RECORDS SUMMARY | 2023-08-31 09:46 | XMS_ITS | Encounter Summary ---
Author Organization Formerly [facility] [place] [address] Care Team Providers Care Gis Web Developer Name Role Phone Karthikeyan Reza MD Primary Care Provider [phone] Reason for Visit * Reason Comments Breast Cancer Encounter Details Date Type Department Care Team (Late st Contact Info) Description 09/21/2016 11:30 AM EDT Office Visit Hematology/Oncology at [address] [phone] Karthikeyan Reza MD [address] [place] [address] Malignant neoplasm of central portion of [...] Sign Reading Time Taken Comments Blood Pressure 117/76 09/21/2016 11:26 AM EDT Pulse 73 09/21/2016 11:26 AM EDT Temperature 36.4 ??C (97.5 ??F) 09/21/2016 11:26 AM E DT Respiratory Rate 18 09/21/2016 11:26 AM EDT Oxygen Saturation 98% 09/21/2016 11:26 AM EDT Inhaled Oxygen Concentration - - Weight 74.1 kg (163 lb 6.4 oz) 09/21/2016 11:26 AM EDT Height 159.4 cm (5' 2.76) 09/21/2016 11:26 AM E DT Body Mass Index 29.17 09/21/2016 11:26 AM EDT documented in this encounter Progress Notes * Karthikeyan Reza MD - 09/21/2016 11:30 AM EDT 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 The patient has 3 lesions in the right breast at 12:00 and 12:15 initial KI-67 was elevated to 60%. Markers were placed and MRI indicated no axillary involvement. The patient is status post 4 cycles of Adriamycin and Cytoxan in [place] and has moved to [place] with plans on completing 12 weekly cycles of Taxol prior to surgery in [place]. SUBJECTIVE: Lacey comes in today for what will be her final infusion of taxol. She was scheduled originally or 12 weekly cycles of taxol, but we have had to hold 3 because of neutropenia. Saw her last week, and her absolute neutrophil count was 710. We held the treatment and are seeing her back today. Today's treatment will make 9 complete taxol infusions. Over the past week she has started to feel better overall. She is starting to note some numbness and tingling in her fingertips and her feet, but it bothers her more in her fingertips than in her feet. That being said, it is a mild amount of tingling, and there is no pain associated with it. She also has been noticing some dyspnea on exertion especially when she walks uphill for any distance, although stairs go better. A few days ago though she did notice she had to stop correction up the stairs to catch her breath for a bit. She is not quite as strong as she was when she started chemotherapy. She has her followup appointments in [place] with the surgeon, and surgery is tentatively scheduled for early February. She continues to have a little bit of swelling around the middle finger MP joint on her left hand. It does not hurt her, and range of motion is full, but it has been present for about 3 or 4 weeks without change and without any evidence that there was a bruise or injury. Other than that though she is doing well. Review of systems is otherwise negative. 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 Smoking [...] = 142 mg Review of her lab today shows her white count has come up to 2.47 with a neutrophil count of 1.33. Hemoglobin is 11.4, hematocrit 35%, platelet count 220,000. CMP shows normal electrolytes. Her albumin is still up at 3.4. Calcium is 8.4. Liver tests are normal, and ALT is 47. ASSESSMENT/PLAN: Lacey is fine today for her ninth infusion of taxol. At this point, I do not think I could get further treatments in without significant delays. Basically we are having to treat her every other week at this point because of neutropenia week 2. Does not make sense to try and dose reduce her to get more weekly treatments in, so after talking to her today we are going to stop her neoadjuvant chemotherapy at this point. She has had very good dose intensity and has gotten through 9 weekly treatments of Vitaxin, which is essentially equivalent in dosing to dose-dense taxol given every 2 weeks. She is starting to get some neuropathy. We spent a bit of time talking about followup after surgery. She is triple negative, so a ben would not be indicated. Additionally, we do not usually use routine radiology in a followup, and she has good understanding of all that. It is unclear to me what is going on with her left hand. It is nonpainful, simply some swelling around the MP joint, but if that continues this probably needs to be further evaluated. Since she is going to be going to [place] and her counts have been recovering as expected with the rest of her lab fine we will see her back on a p.r.n. basis. She believes she is going to be following up entirely in [place], but she does know we are available if she needs anything while in the [place] area. documented in this encounter Plan of Treatment Not on file documented as of this encounter Visit Diagnoses Diagnosis Malignant neoplasm of central portion of right breast in female, estrogen receptor negative documented in this encounter Care Teams Gis Web Developer Relationship Specialty Start Date End Date Karthikeyan Reza MD [address] [place] [address] [place] [address] PCP - General Hematology and Oncology 08/26/16 documented as of this encounter
--- OUTSIDE RECORDS SUMMARY | 2023-08-31 09:46 | XMS_ITS | Encounter Summary ---
Author Organization [facility] Address [facility] [place]eline [place] [address] Care Team Providers Care Rig Builder Helper Name Role Phone Karthikeyan Reza MD Primary Care Provider Encounter Details Date Type Department Care Team (Late st Contact Info) Description 06/23/2021 3:00 PM EDT Office Visit Hematology/Oncology at [address] [phone] Rohith Sharma MD [facility] HEMATOLOGY/[place] [address] Samantha Nguyễn, RN Personal history of breast [...] Sign Reading Time Taken Comments Blood Pressure 96/63 06/23/2021 3:48 PM EDT Pulse 72 06/23/2021 3:48 PM EDT Temperature 36.9 ??C (98.4 ??F) 06/23/2021 3:48 PM ED T Respiratory Rate 16 06/23/2021 3:48 PM EDT Oxygen Saturation 95% 06/23/2021 3:48 PM EDT Inhaled Oxygen Concentration - - Weight 75.8 kg (167 lb) 06/23/2021 3:48 PM EDT Height 159.4 cm (5' 2.76) 06/23/2021 3:48 PM ED T Body Mass Index 29.81 06/23/2021 3:48 PM EDT documented in this encounter Progress Notes * Rohith Sharma MD - 06/23/2021 3:00 PM EDT Images from the original note were not included. 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 Patient had a screening mammogram on 01/19/2016 at [facility].?? She was called back for a right breast diagnostic mammogram and ultrasound of a right breast mass.?? These exams were performed at [facility].?? 2 indeterminate adjacent solid masses were noted [...] She completed AC. She was traveling to [place] for the summer, where she completed weekly [...] in clinic for follow-up appointment on breast cancer and discussion on CT scan. She had a fall a week ago and went to emergency room with traumatic hematoma of the left upper arm and contusion of rib on left side. She had CT scan. She is moving to a new house and feelstired. Denies any pain. No new focal complaints. PMH: No interval changes since last visit DVT/PE, COPD, osteoporosis, Social History: No interval changes since last visit Quit smoking in 1976, drinks alcohol rarely Family History: No interval changes since last visit Sister age of 71 from breast cancer Allergies: Allergies Allergen Reactions ??? Sulfa (Sulfonamide Antibiotics) Rash Medications: Your Medications Accurate as of June 23, 2021 3:58 PM. If you have any questions, ask your nurse or doctor. Continued medications, unchanged Dose Details acetaminophen 500 mg Tab Commonly known as: Tylenol Take 1,000 mg by mouth 3 times daily. 1,000 mg Refills: 0 Biotin 5 mg Cap Take 5 mg by mouth daily. 5 mg Refills: 0 cholecalciferol (Vitamin D3) 50 mcg (2,000 unit) Cap Take by mouth. Refills: 0 cyanocobalamin (Vitamin B-12) 1,000 mcg Tab Commonly known as: Vitamin B-12 Take 1,000 mcg by mouth daily. 1,000 mcg Refills: 0 levothyroxine 25 mcg Tab Commonly known as: Synthroid Take 25 mcg by mouth daily. Indications: hypothyroidism 25 mcg Refills: 0 omeprazole 20 mg Tbec Take 20 mg by mouth daily. 20 mg Refills: 0 rivaroxaban 20 mg Tab Commonly known as: Xarelto Take 20 mg by mouth daily. 20 mg Refills: 0 simvastatin 40 mg Tab Commonly known as: Zocor Take 40 mg by mouth nightly. 40 mg Refills: 0 Trelegy Ellipta Inhale 1 puff into the lungs daily. Generic drug: higsovjwxzo-bsicdcayzglo-spzgmnrvsd 1 puff Refills: 0 Review of Systems: [...] axillary nodes normal Neurologic: Normal Vitals BP 96/63 (Patient Position: Sitting) Pulse 72 Temp 36.9 ??C (98.4 ??F) (Temporal) Resp16 Ht 159.4 cm (5' 2.76) Wt 75.8 [...] in situ negative for lymphovascular invasion Labs: 06/23/2021 WBC 9.27, hemoglobin 13.9, platelet count [...] Results negative no clinically significant mutation identified. Imagin06/16/2021 CT scan chest abdomen pelvis without contrast: Impression: No significant acute, sequela in the chest abdomen pelvis. Compression fracture T10 andL1 probably not acute. Extensive sigmoid diverticulosis. No evidence of diverticulitis. Incidental noted 7 mm noncalcified nodule and 6 mm nodule anterior segment of left upper lobe. 12/11/2020 CT scan of chest: Impression: Slight [...] diverticulitis. Assessment and Plan: Diagnosis:R IDC, gr2, ER-/[place]-, Her neg by IHC, ypTxN0 Treatment: -09/21/16 [...] see her back in about [address] scan shows stable lung nodules. We will obtain second read on CT scan #Dyspnea: Patient has irregularly irregular heart rate. I am concerned about atrial fibrillation. Will refer her to emergency room for evaluation. I called with report to ER physician. #History of PE: in December 2019, on Xarelto #Osteopenia: # Lung nodule: CT scan revealed decrease in size in the right upper lobe lung nodule and appearanceof the small multiple lung nodules, there is a cystic structure in mediastinum. We discussed optionfurther work-up with PET scan and consideration of [...] CT scan to document stability. Plan: 1. Referral to emergency room 2. Next visit with CBC, CMP and mammogram in 6 months The plan was discussed with the patient in details. All questions were answered to patient satisfaction. documented in this encounter Plan of Treatment Not on file documented as of this encounter Results * Request For 2nd [...] who have questions please contact the health director of medicare that requested your imaging first. ? Electronically signed by: Jesus Piper MD, [facility] ([phone]), at 06/24/2021 11:52 AM Narrative 06/24/2021 11:52 AM EDT EXAMINATION: REQUEST FOR 2ND READ CT CHEST ABDOMEN PELVIS CLINICAL HISTORY: Follow-up on lung nodules, patient with history of triple negative breast cancer. ??CT scan done in the emergency room after fall; Sending Institution [facility]; Date of exam [id number]; I believe a [...] in the emergency room after fall;Sending Institution [facility]; Date of exam [id number]; I believe a [...] in the LEFT upper lobe (series 7 [id number]) was not seen on the prior study [...] patients who have questions please contactthe health director of medicare that requested your imaging first. Electronically signed by: Jesus Piper MD, [facility]([phone]), at 06/24/2021 11:52 AM Rohith Sharma MD IMG OUTSIDE INTERPRE TATION ORDERABLES documented in this encounter Visit Diagnoses Diagnosis Personal history of breast cancer- Primary Personal history of malignant neoplasm of breast Multiple lung nodules on CT Personal history of breast cancer Personal history of malignant neoplasm of breast Multiple lung nodules on CT documented in this encounter Care Teams Rig Builder Helper Relationship Specialty Start Date End Date Karthikeyan Reza MD [address] [place] [address] [place] [address] PCP - General Hematology and Oncology 08/26/16 documented as of this encounter
--- OUTSIDE RECORDS SUMMARY | 2023-08-31 09:46 | XMS_ITS | Encounter Summary ---
Author Organization [facility] Address [facility] [place] [address] Care Team Providers Care Floating Operator Name Role Phone Unavailable Primary Care Provider Unavailabl e Encounter Details Date Type Department Care Team (Late st Contact Info) Description 12/29/2021 3:30 PM EST Office Visit Hematology/Oncology at [address] [phone] Rohith Sharma MD [facility] HEMATOLOGY[place] [address] Personal history of breast cancer (Primary Dx); [...] Sign Reading Time Taken Comments Blood Pressure - - Pulse - - Temperature 35.6 ??C (96 ??F) 12/29/2021 3:50 PM EST Respiratory Rate 16 12/29/2021 3:50 PM EST Oxygen Saturation 97% 12/29/2021 3:50 PM EST Inhaled Oxygen Concentration - - Weight 74.8 kg (165 lb) 12/29/2021 3:50 PM EST Height 159.4 cm (5' 2.76) 12/29/2021 3:50 PM ES T Body Mass Index 29.46 12/29/2021 3:50 PM EST documented in this encounter Progress Notes * Rohith Sharma MD - 12/29/2021 3:30 PM EST Images from the original note were not included. 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 Patient had a screening mammogram on 01/19/2016 at [facility].?? She was called back for a right breast diagnostic mammogram and ultrasound of a right breast mass.?? These exams were performed at [facility].?? 2 indeterminate adjacent solid masses were [...] clinic for follow-up appointment on breast cancer. Overall, she feels well. She stays busy. Denies any pain.. No new focal complaints. She follows with furnace and wash equipment operator [facility]: Diagnosed with paroxysmal A. fib in June 2021, Depression DVT/PE, COPD, osteoporosis, Social History: No interval changes since last visit Quit smoking in 1976, drinks alcohol rarely Family History: No interval changes since last visit Sister age of 71 from breast cancer Allergies: Allergies Allergen Reactions ??? Sulfa (Sulfonamide Antibiotics) Rash Medications: Your Medications Accurate as of December 29, 2021 4:08 PM. If you have any questions, ask [...] puff into the lungs daily. Generic drug: luxmsiidnkq-fnsuqrahutyi-tcvwrbfjhq 1 puff Refills: 0 Review of Systems: [...] and axillary nodes normal Neurologic: Normal Vitals Temp 35.6 ??C (96 ??F) (Temporal) Resp 16 Ht 5' 2.76 (159.4 cm) Wt 74.8 kg (165 lb) SpO2 97% BMI 29.46 kg/m? Pathology: 10/22/20 Final Microscopic Diagnosis A. [...] in situ negative for lymphovascular invasion Labs: BUN 16, creatinine 0.8, AST 18, ALT [...] Results negative no clinically significant mutation identified. Imagin12/15/2021 mammogram: No suspicious mass or malignancy type [...] diverticulitis. Assessment and Plan: Diagnosis:R IDC, gr2, ER-/[place]-, Her neg by IHC, ypTxN0 Treatment: -09/21/16 [...] consider CT scan upon her return from [place] in May-June #Dyspnea: Patient has irregularly irregular heart rate. I am concerned about atrial fibrillation. Will refer her to emergency room for evaluation. I called with report to ER physician. #History of PE: in December 2019, on Xarelto #Osteopenia: # Lung nodule: New 6 mm lung nodule in the right apex, will repeat CT scan in 6 months upon her return from [place] CT scan revealed decrease in size in [...] Will repeat CT scan to document stability. #Emphysema/ COPD: follows with cell tender helper Dr. Marian Perez #Paroxysmal effect: Follows with furnace and wash equipment operator Dr.Mary Leo Plan: 1. Next visit with CBC, CMP and CT chest in 6 months The plan was discussed [...]
--- OUTSIDE RECORDS SUMMARY | 2023-08-31 09:46 | XMS_ITS | Encounter Summary ---
Author Organization [facility]ly [facility] Address [facility] [place] [address] Care Team Providers Care Template Inspector Name Role Phone Karthikeyan Reza MD Primary Care Provider [phone] Reason for Visit * Reason Comments Chemotherapy Taxol Cycle 3 Day 22 * Treatment/Therapy Plan Authorization (Routine) - Closed Specialty Diagnoses / Procedures Referred By Contanamaria t Referred To Contact Diagnoses Malignant neoplasm of central portion of right female breast Malignant neoplasm of central portion of right female breast Procedures TC PACLITAXEL, 1MG, INJ TC PALONOSETRON HCL, 25MCG, INJECTION (ALOXI) Karthikeyan Reza MD [address] [place] [address] [facility] Hem Onc Office [address] [place] [phone] Referral ID Status Reason Start Date Expiration Date Visits Re quested Visits Authorized Closed 07/05/2016 07/05/2017 [id number] [phone] Encounter Details Date Type Department Care Team (Late st Contact Info) Description 09/21/2016 12:00 PM EDT Infusion Hematology Oncology at [address] [phone] Malignant neoplasm of central portion of right female breast, unspecified estrogen receptor status; Malignant neoplasm of central portion of right breast in female, estrogen receptor positive Social History Tobacco Use Types Packs/Day Years Used Date Smoking Tobacco: Former Cigarettes 0 07/05/1956 - 07/05/1976 Smokeless Tobacco: Never Sex and Gender Information Value Date Recorded Sex Assigned at Not on file Gender Identity Not on file Sexual Orientation Not on file documented as of this encounter Progress Notes * Viviane Franco RN - 09/21/2016 12:00 PM EDT INFUSION THERAPY ADMINISTRATION NOTES DIAGNOSIS: Breast Cancer CYCLE #:3 Day REASON FOR VISIT: Taxol SUBJECTIVE Lacey offers no complaints. OBJECTIVE LAB DATA: WBC 2.47, HGB 11.4, PLT 220, ANC 1.33, Lytes WNL, BUN 15, Cr 0.78 IV ACCESS: Mediport accessed at [facility] for labs, blood return present and flushes easily Pre administration: Chemotherapy orders independently verified for drug name, route, and dosage per patient's height, weight and BSA by Viviane Landers RN & Maria M Pined[facility] REACTIONS (DESCRIPTION, TIME, INTERVENTION AND EFFECTIVENESS) none ASSESSMENT Lacey was awake, alert and tolerated treatment well. PLAN Return to clinic per routine. documented in this encounter Plan of Treatment Not on file documented as of this encounter Procedures Procedure Name Priority Date/Time Associated Diagnosis Comments LAB SCAN 09/21/2016 12:00 AM EDT documented in this encounter Results * SCAN DOC: LAB (09/21/2016 12:00 AM EDT) Narrative 09/21/2016 12:00 AM EDT Ordered by an unspecified provider. Scanning Provider MEDIA MGR SCAN EXT O RDR/RSLT documented in this encounter Visit Diagnoses Diagnosis Malignant neoplasm of central portion of right female breast, unspecified estrogen receptor status documented in this encounter Administered Medications Inactive Administered Medications - up to 3 most recent administrations Medication Order MAR Action Action Date Dose Rate Site dexamethasone (DECADRON) injection 10 mg 10 mg, Intravenous, ONCE, 1 dose, On Tue09/21/16 at 1245, Administer 30 minutes prior to PACLitaxel Given 09/21/2016 12:45 PM EDT 10 mg diphenhydrAMINE (BENADRYL) injection 25 mg 25 mg, Intravenous, ONCE, 1 dose, On Tue09/21/16 at 1245, Administer 30 minutes prior to PACLitaxel, Routine Given 09/21/2016 12:48 PM EDT 25 mg famotidine (PEPCID) injection 20 mg 20 mg, Intravenous, ONCE, 1 dose, On Tue09/21/16 at 1245, Administer 30 minutes prior to PACLitaxel Given 09/21/2016 12:51 PM EDT 20 mg heparin, porcine 100 unit/mL flush 500 Units 500 Units, Intravenous, ONCE PRN, Starting on Tue09/21/16 at 1222, Until Tue09/21/16 at 1554, Line Care, Refer to Intravenous (IV) Procedure: Accessing Implanted Vascular Access Devices (654) procedure and/or Intravenous (IV) Job Aid: Adult Flushing & Catheter Care (5831) job aid for additional information regarding guidelines and administration., Routine Given 09/21/2016 2:39 PM EDT 500 Units PACLitaxel (TAXOL) 142 mg in dextrose 5% Non-PVC 273.6667 mL chemo infusion 142 mg (rounded from 142.4 mg = 80 mg/m2/dose ? 1.78 m2 Treatment Plan BSA from Recorded weight), Intravenous, ONCE, 1 dose, On Tue09/21/16 at 1345, Administer over 60 Minutes New Bag 09/21/2016 1:23 PM EDT 142 mg 273.7 mL/hr palonosetron (ALOXI) injection 0.25 mg 0.25 mg, Intravenous, ONCE, 1 dose, On Tue09/21/16 at 1245, Routine Given 09/21/2016 12:42 PM EDT 0.25 mg sodium chloride 0.9 % flush 5-20 mL 5-20 mL, Intravenous, EVERY 1 MIN PRN, Starting on Tue09/21/16 at 1222, Until Tue09/21/16 at 1554, Line Care, Flush pertains to all indwelling lines. Flush per protocol found in the job aid using the link provided on this medication record. Refer to Intravenous (IV) Job Aid: Adult Flushing & Catheter Care (4328) job aid for additional information regarding guidelines and administration., Routine Given 09/21/2016 2:39 PM EDT 20 mLs documented in this encounter Care Teams Template Inspector Relationship Specialty Start Date End Date Karthikeyan Reza MD [address] [place] [address] [place] [address] PCP - General Hematology and Oncology 08/26/16 documented as of this encounter
--- OUTSIDE RECORDS SUMMARY | 2023-08-31 09:46 | XMS_ITS | Encounter Summary ---
Author Organization [facility] Address [facility] [place] [address] Care Team Providers Care Asp Net Mvc Developer Name Role Phone Karthikeyan Reza MD Primary Care Provider [phone] Reason for Visit * Reason Comments IV Access port flush * Treatment/Therapy Plan Authorization (Routine) - Closed Specialty Diagnoses / Procedures Referred By Contac t Referred To Contact Diagnoses Malignant neoplasm of central portion of right female breast Malignant neoplasm of central portion of right female breast Procedures TC PACLITAXEL, 1MG, INJ TC PALONOSETRON HCL, 25MCG, INJECTION (ALOXI) Karthikeyan Reza MD [address] [place] [address] [facility] Hem Onc Office [address] [place] [phone] Referral ID Status Reason Start Date Expiration Date Visits Re quested Visits Authorized Closed 07/05/2016 07/05/[phone] Encounter Details Date Type Department Care Team (Late st Contact Info) Description 09/14/2016 12:00 PM EDT Infusion Hematology Oncology at [address] [phone] Malignant neoplasm of central portion of right female breast, unspecified estrogen receptor status Social History Tobacco Use Types Packs/Day Years Used Date Smoking Tobacco: Former Cigarettes 0 07/05/1956 - 07/05/1976 Smokeless Tobacco: Never Sex and Gender Information Value Date Recorded Sex Assigned at Not on file Gender Identity Not on file Sexual Orientation Not on file documented as of this encounter Progress Notes * Janette Zurita RN - 09/14/2016 12:00 PM EDT INFUSION THERAPY ADMINISTRATION NOTES REASON FOR VISIT: MEDIPORT FLUSH ONLY IV [...] Priority Date/Time Associated Diagnosis Comments LAB SCAN 09/14/2016 12:00 AM EDT documented in this encounter Results * SCAN DOC: LAB (09/14/2016 12:00 AM EDT) Narrative 09/14/2016 12:00 AM EDT Ordered by an unspecified provider. Scanning Provider MEDIA MGR SCAN EXT O RDR/RSLT documented in this encounter Visit Diagnoses Diagnosis Malignant neoplasm of central portion of right female breast, unspecified estrogen receptor status documented in this encounter Care Teams Asp Net Mvc Developer Relationship Specialty Start Date End Date Karthikeyan Reza MD [address] [place] [address] [place] [address] PCP - General Hematology and Oncology 08/26/16 documented as of this encounter
--- OUTSIDE RECORDS SUMMARY | 2023-08-31 09:46 | XMS_ITS | Encounter Summary ---
Author Organization [facility] Address [facility] [place] [address] Care Team Providers Care Global Cto Name Role Phone Karthikeyan Reza MD Primary Care Provider [phone] Encounter Details Date Type Department Care Team (Late st Contact Info) Description 11/04/2020 Orders Only Hematology/Oncology at [address] [address] Rohith Sharma MD [facility] HEMATOLOGY/[place] [address] Personal history of breast cancer (Primary Dx); Incidental lung nodule, greater than or equal to 8mm Social History Tobacco Use Types Packs/Day Years [...] Personal history of malignant neoplasm of breast Incidental lung nodule, greater than or equal to 8mm Solitary pulmonary nodule documented in this encounter Care Teams Global Cto Relationship Specialty Start Date End Date Karthikeyan Reza MD [address] [place] [address] [id number] PCP - General Hematology and Oncology 08/26/16 documented as of this encounter
--- OUTSIDE RECORDS SUMMARY | 2023-08-31 09:46 | XMS_ITS | Encounter Summary ---
Author Organization [facility] [place] [address] Care Team Providers Care Liquid Compounder Name Role Phone Unavailable Primary Care Provider Unavailabl e Encounter Details Date Type Department Care Team (Latest Contact Info) Description 06/15/2022 Travel Social History Tobacco Use Types Packs/Day [...]
--- OUTSIDE RECORDS SUMMARY | 2023-08-31 09:46 | XMS_ITS | Encounter Summary ---
Author Organization [facility] Address [facility] [place] [address] Care Team Providers Care Edge Stripper Name Role Phone Karthikeyan Reza MD Primary Care Provider [phone] Encounter Details Date Type Department Care Team (Late st Contact Info) Description 12/23/2020 3:00 PM EST Office Visit Hematology/Oncology at [address] [address] Rohith Sharma MD [facility] HEMATOLOGY/[place] [address] Samantha Nguyễn, RN Personal history of breast cancer (Primary Dx); Incidental lung nodule, greater than or equal to 8mm; Multiple lung nodules on CT Social History [...] Sign Reading Time Taken Comments Blood Pressure 111/62 12/23/2020 3:33 PM EST Pulse 80 12/23/2020 3:33 PM EST Temperature 36.2 ??C (97.2 ??F) 12/23/2020 3:33 PM ES T Respiratory Rate 16 12/23/2020 3:33 PM EST Oxygen Saturation 96% 12/23/2020 3:33 PM EST Inhaled Oxygen Concentration - - Weight 69.4 kg (153 lb) 12/23/2020 3:33 PM EST Height 159.4 cm (5' 2.76) 12/23/2020 3:33 PM ES T Body Mass Index 27.31 12/23/2020 3:33 PM EST documented in this encounter Progress Notes * Rohith Sharma MD - 12/23/2020 3:00 PM EST Images from the original note were not included. 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 Patient had a screening mammogram on 01/19/2016 at [facility].?? She was called back for a right breast diagnostic mammogram and ultrasound of a right breast mass.?? These exams were performed at [facility].?? 2 indeterminate adjacent solid masses were [...] She completed AC. She was traveling to [place] for the summer, where she completed weekly [...] cancer and discussion on CT scan. She is moving to a new house and feels tired. Denies any pain. No new focal complaints. PMH: No interval changes since last visit DVT/PE, COPD, osteoporosis, Social History: No interval changes since last visit Quit smoking in 1976, drinks alcohol rarely Family History: No interval changes since last visit Sister age of 71 from breast cancer Allergies: Allergies Allergen Reactions ??? Sulfa (Sulfonamide Antibiotics) Rash Medications: Your Medications Accurate as of December 23, 2020 3:39 PM. If you have any questions, ask [...] puff into the lungs daily. Generic drug: jpbiaezqbxa-hkragioax-eksqporn 1 puff Refills: 0 Review of Systems: [...] axillary nodes normal Neurologic: Normal Vitals BP 111/62 (Patient Position: Sitting) Pulse 80 Temp 36.2 ??C (97.2 ??F) (Temporal) Resp 16 Ht 159.4 cm (5' 2.76) Wt 69.4 kg (153 lb) SpO2 96% BMI 27.31 kg/m?? Pathology: 10/22/20 Final Microscopic Diagnosis A. [...] in situ negative for lymphovascular invasion Labs: 11/24/2020 sodium 142, potassium 4.3, BUN 15, [...] Results negative no clinically significant mutation identified. Imagin12/11/2020 CT scan of chest: Impression: Slight interval [...] diverticulitis. Assessment and Plan: Diagnosis:R IDC, gr2, ER-/DC-, Her neg by IHC, [id number] Treatment: -09/21/16 [...] CT scan to document stability. Plan: 1. Next visit in 3 months with CBC, CMP and CT scan of chest The plan was discussed with the patient in details. All questions were answered to patient satisfaction. documented in this encounter Plan of Treatment Not on file documented as of this encounter Visit Diagnoses Diagnosis Personal history of breast cancer- Primary Personal history of malignant neoplasm of breast Incidental lung nodule, greater than or equal to 8mm Solitary pulmonary nodule Multiple lung nodules on CT documented in this encounter Care Teams Edge Stripper Relationship Specialty Start Date End Date Karthikeyan Reza MD [address] [place] [address] [place] [address] PCP - General Hematology and Oncology 08/26/16 documented as of this encounter
--- OUTSIDE RECORDS SUMMARY | 2023-08-31 09:46 | XMS_ITS | Encounter Summary ---
Author Organization [facility] [place] [address] Care Team Providers Care Shape Carver Name Role Phone Unavailable Primary Care Provider Unavailabl e Reason for Visit * Reason Onset Date Comments Prior Authorization 04/13/2022 Encounter Details Date Type Department Care Team (Late st Contact Info) Description 04/13/2022 Telephone [place] [phone] Clementine Morales Prior Authorization Social History Tobacco Use Types Packs/Day Years Used Date Smoking Tobacco: Former Cigarettes 0 07/05/1956 - 07/05/1976 Smokeless Tobacco: Never Sex and Gender Information Value Date Recorded Sex Assigned at Not on file Gender Identity Not on file Sexual Orientation Not on file documented as of this encounter Miscellaneous Notes * Telephone Encounter - Clementine Barraza - 04/13/2022 3:15 PM EST Procedure Prior Authorization Procedure/Cpt: 59413 Rationale for request: Z85.3, R91.8 Health plan: [facility] [employer] Authorizing electronics parts sales representative name: [facility] Call to health plan on: 04/13/22 Health plan decision: [place] not required Call Ref number: [id number] Facility: [facility] documented in this encounter Plan of Treatment Not on file documented as of this encounter Visit Diagnoses Not on filedocumented in this encounter
--- OUTSIDE RECORDS SUMMARY | 2023-08-31 09:46 | XMS_ITS | Encounter Summary ---
Author Organization [facility] [place] [address] Care Team Providers Care Upholstery Department Supervisor Name Role Phone Karthikeyan Reza MD Primary Care Provider [phone] Encounter Details Date Type Department Care Team (Late st Contact Info) Description 12/11/2020 Ancillary Procedure [place] [phone] Rohtih Sharma MD [facility] DR [place]EMATOLOGY/[place] [address] Social History Tobacco Use Types Packs/Day Years [...] FILM LIBRARY STORAGE ONLY CT CHEST Routine 12/11/2020 12:00 AM EDT documented in this encounter Results * Film Library- Storage Only CT Chest (12/11/2020 12:00 AM EDT) Narrative [facility] - 12/15/2020 8:24 AM EDT This exam is auto-finalizing. It's purpose is for storage only. Rohith Sharma MD [facility] FILM LIBRARY ORD ERABLES [place], [place] documented in this encounter Visit Diagnoses Not on filedocumented in this encounter Care Teams Upholstery Department Supervisor Relationship Specialty Start Date End Date Karthikeyan Reza MD [address] [place] [address] [place] [address] PCP - General Hematology and Oncology 08/26/16 documented as of this encounter
--- OUTSIDE RECORDS SUMMARY | 2023-08-31 09:47 | XMS_ITS | Continuity of Care Document ---
Author Organization [facility] Address [address] [place] [address]- Care Team Providers Care Sap Business Objects Consultant Name Role Phone Yusef Ramos Mary Primary Care Physician Encounter [facility] [id number] Date(s): 11/30/19 - 12/01/19 [facility] [address] [place] [address]- [phone] Attending Physician: Ronda Ramesh MD Allergies, Adverse Reactions, Alerts Substance Reaction Severity Status sulfADIAZINE Rash Active Medications Advair Diskus 250 mcg-50 mcg inhalation powder = 1 puff(s) each dose, Inhalation, qDay Start Date: 04/06/16 Status: Ordered calcium-vitamin D 500 mg-200 intl units oral tablet = 1 tab(s) each dose, PO (oral), qDay, 30 tab(s) Start Date: 04/06/16 Status: Ordered levothyroxine 25 mcg (0.025 mg) oral tablet 25 mcg, = 1 tab(s) each dose, PO (oral), qDay, tab(s) Start Date: 04/06/16 Status: Ordered simvastatin 40 mg oral tablet 40 mg, = 1 tab(s) each dose, PO (oral), at bedtime, tab(s) Start Date: 04/06/16 Status: Ordered Spiriva Respimat 2.5 mcg/inh inhalation aerosol = 2 puff(s) each dose, Inhalation, qDay, 60 puff(s), Refill #: 0 Start Date: 02/15/17 Stop Date: 03/17/17 Status: Ordered Vitamin D3 2000 intl units oral capsule 2,000 IUnits, = 1 capsules each dose, PO (oral), qDay, Refill #: 0 Start Date: 02/15/17 Status: Ordered Social History Social History Type Response Smoking Status Former Smoker Sex
--- OUTSIDE RECORDS SUMMARY | 2023-08-31 09:47 | XMS_ITS | Clinical Summary ---
Author Organization [facility] Address [address] [place] [address] Care Team Providers Care Blending Tank Tender Helper Name Role Phone Meg, Vinay Honeycutt MD Unavailable Tristen Rodriguez MD Unavailable David Tony MD Unavailable [phone] Yusef Ramos MD Primary Care Provider [phone] Allergies Active Allergy Reactions Criticality Noted Date Comments Sulfa Drugs Rash Medium 03/04/2016 Medications Medication Sig Dispensed Refills Start Date End Date Status Simvastatin (ZOCOR) 40 MG tabletIndications:Hy perlipidemia Take 40 mg by mouth every night at bedtime. Indications: High Amount of Fats in the Blood Active levothyroxine (SYNTHROID, LEVOTHROID) 25 MCG tabletIndications:Hy pothyroidism Take 25 mcg by mouth one-half hour before breakfast. Indications: Underactive Thyroid Active albuterol (VENTOLIN HFA) 108 (90 Base) MCG/ACT inhaler Inhale 1-2 puffs into the lungs every four hours as needed for Shortness of Breath. Active TRELEGY ELLIPTA 100-62.5-25 MCG/INH AEPB 02/15/2018 Active Vitamin B-12 (CYANOCOBALAMIN) 500 MCG tablet Take 500 mcg by mouth daily. Active Cholecalciferol (VITAMIN D) 50 MCG (2000 UT) tablet Take 2,000 Units by mouth daily. 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, right breast 10/28/2016 Estrogen receptor negative 06/29/2016 Breast cancer of upper-outer quadrant of right female breast 03/04/2016 Immunizations Name Administration Dates Next Due Covid-19 SARS CoV-2(Pfizer) 04/04/2020, 1 Influ Inact 9+yrs pres free 11/11/2015, 5 Influenza Inj Quadrivalent, Pres Free 11/18/2016 Pneumococcal conjugate PCV 13 11/11/2015 Family History Medical History Relation Comments Kidney failure Brother Stroke Father Hodgkin's lymphoma Grandchild DAUGHTERS CHI LD Cancer Paternal Grandfather Unknown whi ch type Breast cancer Sister 2 passed at 71 Relation Status Comments Brother Father Grandchild Alive Maternal Grandfather Maternal Grandmother Mother Paternal Grandfather Paternal Grandmother Sister 1 (Age 71) Sister 2 Social History Tobacco Use Types Packs/Day Years Used Date Smoking Tobacco: Former Cigarettes 0.5 23 0 10/20/1946 - 10/20/1969 Smokeless Tobacco: Never Comments: Alcohol Use Standard Drinks/Week Comments Yes 0 (1 standard drink = 0.6 oz pur e alcohol) SOCIALLY Domestic Violence Screen Answer Date Re corded Physical Abuse Risk Unknown 04/03/2023 Verbal Abuse Risk Unknown 04/03/2023 Sex and Gender Information Value Date Recorded Sex Assigned at Not on file Gender Identity Not on file Sexual Orientation Not on file Last Filed Vital Signs Vital Sign Reading Time Taken Comments Blood Pressure 127/78 01/02/2019 9:12 AM [facility] Pulse 64 01/02/2019 9:12 AM [facility] Temperature 36.8 ??C (98.2 ??F) 03/29/2017 1 1:29 AM [facility] Respiratory Rate 19 10/22/2016 2:23 PM [facility] Oxygen Saturation 97% 01/02/2019 9:12 AM [facility] Inhaled Oxygen Concentration - - Weight 71.6 kg (157 lb 12.8 oz) 01/02/2019 9:12 AM [facility] 157.8 lbs Height 160 cm (5' 3) 01/02/2019 9:12 AM [facility] Body Mass Index 27.95 01/02/2019 9:12 AM [facility] Plan of Treatment Health Maintenance Due Date Last Done Comments Zoster (1 of 2) 10/04/1959 Screening for Future Fall Risk 10/04/2004 COVID-19 Vaccine (3 - Pfizer risk series) 05/02/2020 04/04/2020, 03/12/2020 Depression Screening 02/14/2023 Influenza (#1) 2023 11/13/2018, 11/14, 11/18/2016, Additional history exists Pneumococcal 65+ Completed 11/13/2018, 11/11/2015 Hepatitis A Aged Out No longer eligi ble based on patient's age to complete this topic Hepatitis B Aged Out No longer eligi ble based on patient's age to complete this topic Medical Devices Implanted Type Area Bowling Ball Assembler Device Identifier Shelf Expiration Date Model / Serial / Lot Left Chest Port Care Teams Blending Tank Tender Helper Relationship Specialty Start Date End Date Yusef Ramos MD [facility] [place], [place] [id number] PCP - General Hospitalist 04/01/17 Vinay Weaver MD Surgery - General Surgery 08/24/16 Tristen Rodriguez MD UNKNOWN 08/24/16 David Tony MD Radiology - Oncology 10/28/16
--- OUTSIDE RECORDS SUMMARY | 2023-08-31 09:47 | XMS_ITS | Continuity of Care Document ---
Author Organization [facility] Address [address] [place] [address]- Care Team Providers Care New Accounts Banking Representative Name Role Phone Yusef Ramos Mary Primary Care Physician Encounter [facility] [id number] Date(s): 06/11/20 - 06/13/[address] [address] [phone] Attending Physician: Ronda Ramesh MD Allergies, Adverse Reactions, Alerts Substance Reaction Severity Status sulfADIAZINE Rash Active Medications biotin 5000 mcg oral capsule Refill #: 0 Start Date: 06/11/20 Status: Ordered levothyroxine 25 mcg (0.025 mg) oral tablet 25 mcg, = 1 tab(s) each dose, PO (oral), qDay, tab(s) Start Date: 04/06/16 Status: Ordered simvastatin 40 mg oral tablet 40 mg, = 1 tab(s) each dose, PO (oral), at bedtime, tab(s) Start Date: 04/06/16 Status: Ordered Trelegy Ellipta 100 mcg-62.5 mcg-25 mcg/inh inhalation powder Refill #: 0 Start Date: 06/11/20 Status: Ordered Vitamin B-12 1000 mcg oral tablet 1,000 mcg, = 1 tab(s) each dose, PO (oral), qDay, Qty: 0 tab(s), Refill #: 0 Start Date: 06/11/20 Status: Ordered Vitamin D3 5000 intl units (125 mcg) oral capsule Refill #: 0 Start Date: 06/11/20 Status: Ordered Xarelto 20 mg oral tablet 20 mg, = 1 tab(s) each dose, PO (oral), qDay, tab(s), Refill #: 0, Take with food. Start Date: 06/11/20 Status: Ordered Vital Signs Most recent to oldest [Reference Range]: 1 Temperature Tympanic (DegF) [97.4-100 De gF] 98 DegF (06/11/20 9:30 AM) Respiratory Rate [14-20 br/min] 18 br/mi n (06/11/20 9:30 AM) Oxygen Saturation [90-100 %] 97 % (06/11/20 9:30 AM) Oxygen Therapy Room air (06/11/20 9:30 AM) Heart Rate Monitored [60-100 bpm] 64 bpm (06/11/20 9:30 AM) Blood Pressure [90-140/60-90 mmHg] 124/8 0mmHg (06/11/20 9:30 AM) Mean Arterial Pressure [70-100 mmHg] 94. 7 mmHg (06/11/20 9:30 AM) Body Mass Index 27.1 kg/m2 (06/11/20 9:30 AM) Measured Height in Inches 63 in (06/11/20 9:30 AM) Measured Weight in Pounds 153 lb (06/11/20 9:30 AM) Clinical Weight (kg) 69.4 kg (06/11/20 9:30 AM) Social History Social History Type Response Smoking Status Former Smoker Sex
--- OUTSIDE RECORDS SUMMARY | 2023-08-31 09:47 | XMS_ITS | Continuity of Care Document ---
Author Organization [facility] Address [address] [place] [address]- Care Team Providers Care Asphalt Mixer Name Role Phone Yusef Ramos Mary Primary Care Physician Encounter [facility] [id number] Date(s): 06/11/20 - 06/13/[address] [address]- [phone] Attending Physician: Ronda Ramesh MD Allergies, Adverse [...]
--- OUTSIDE RECORDS SUMMARY | 2023-08-31 09:47 | XMS_ITS | Encounter Summary ---
Author Organization [facility] Address [address] [place] [address] Phone Care Team Providers Care Movie Shot Cameraman Name Role Phone Yusef Ramos MD Primary Care Provider [phone] Encounter Details Date Type Department Care Team (Late st Contact Info) Description 08/24/2019 Office Visit - [facility] [address] [place] [address] Pulmonary hypertension, unspecified (CMS/HCC); Chronic obstructive pulmonary disease, unspecified (CMS/HCC) Social History Tobacco Use Types Packs/Day Years Used Date Smoking Tobacco: Never Assessed PHQ-2 Answer Date Recorded Patient Health Questionnaire-2 Score 0 06/02/2020 Sex and Gender Information Value Date Recorded Sex Assigned at Not on file Gender Identity Not on file Sexual Orientation Not on file COVID-19 Exposure Response Date Recorded In the last month, have you been in contact with someone who was confirmed or suspected to have Coronavirus / COVID-19? No / Unsure 06/02/2020 9:57 AM [facility] documented as of this encounter Plan of Treatment Not on file documented as of this encounter Visit Diagnoses Diagnosis Pulmonary hypertension, unspecified (CMS/HCC) Chronic obstructive pulmonary disease, unspecified (CMS/HCC) documented in this encounter Care Teams Movie Shot Cameraman Relationship Specialty Start Date End Date Yusef Ramos MD [address] [place] [id number] PCP - General 02/15/20 07/15/20 documented as of this encounter
--- OUTSIDE RECORDS SUMMARY | 2023-08-31 09:47 | XMS_ITS | Continuity of Care Document ---
Author Organization [facility] Address [address] [place] [address]- Care Team Providers Care First Breaker Feeder Name Role Phone Yusef Ramos Mary Primary Care Physician Encounter [facility] [id number] Date(s): 06/17/20 - 07/14/[address] [address]- [phone] Attending Physician: Ronda Ramesh MD Allergies, Adverse [...] with food. Start Date: 06/11/20 Status: Ordered Social History Social History Type Response Smoking Status Former Smoker Sex
--- OUTSIDE RECORDS SUMMARY | 2023-08-31 09:47 | XMS_ITS | Encounter Summary ---
Author Organization [facility] [place] [address] Care Team Providers Care Boiler Maker Name Role Phone Unavailable Primary Care Provider Unavailabl e Reason for Visit * Reason Comments Chemotherapy Taxol, Cycle 2, Day 1 * Treatment/Therapy Plan Authorization (Routine) - Closed Specialty Diagnoses / Procedures Referred By Contac t Referred To Contact Diagnoses Malignant neoplasm of central portion of right female breast Malignant neoplasm of central portion of right female breast Procedures TC PACLITAXEL, 1MG, INJ TC PALONOSETRON HCL, 25MCG, INJECTION (ALOXI) Karthikeyan Reza MD [address] [place] [address] [facility] Hem Onc Office [address] [place] [id number] Referral ID Status Reason Start Date Expiration Date Visits Re quested Visits Authorized [id number] Closed 07/05/2016 07/05/2017 99 [phone] Encounter Details Date Type Department Care Team (Late st Contact Info) Description 07/13/2016 11:30 AM EDT Infusion Hematology Oncology at [address] [phone] Malignant neoplasm of central portion of right female breast; Malignant neoplasm of central portion of right female breast Social History Tobacco Use Types Packs/Day Years Used Date Smoking Tobacco: Former Cigarettes 0 07/05/1956 - 07/05/1976 Sex and Gender Information Value Date Recorded Sex Assigned at Not on file Gender Identity Not on file Sexual Orientation Not on file documented as of this encounter Progress Notes * Hannah Riggs RN - 07/13/2016 11:30 AM EDT INFUSION THERAPY ADMINISTRATION NOTES DIAGNOSIS: Breast cancer CYCLE # 1, Day 8 (given on day 9 due to holiday) REASON FOR VISIT: Taxol infusion SUBJECTIVE Lacey offers no complaints. OBJECTIVE LAB DATA: WBC 3.68, HGB 11.9, PLTS 229, ANC 2.52, Creat 0.85 IV ACCESS: Mediport Pre administration: Chemotherapy orders independently verified for drug name, route, and dosage per patient's height, weight and BSA by Hannah Riggs RN & Maria M Pineda [facility]. REACTIONS (DESCRIPTION, TIME, INTERVENTION AND EFFECTIVENESS) none ASSESSMENT Lacey was awake, alert and tolerated treatment well. PLAN Return to clinic per routine. documented in this encounter Plan of Treatment Not on file documented as of this encounter Procedures Procedure Name Priority Date/Time Associated Diagnosis Comments LAB SCAN 07/13/2016 12:00 AM EDT documented in this encounter Results * SCAN DOC: LAB (07/13/2016 12:00 AM EDT) Narrative 07/13/2016 12:00 AM EDT Ordered by an unspecified provider. Scanning Provider MEDIA MGR SCAN EXT O RDR/RSLT documented in this encounter Visit Diagnoses Diagnosis Malignant neoplasm of central portion of right female breast Malignant neoplasm of central portion of female breast Malignant neoplasm of central portion of right female breast Malignant neoplasm of central portion of female breast documented in this encounter Administered Medications Inactive Administered Medications - up to 3 most recent administrations Medication Order MAR Action Action Date Dose Rate Site alteplase (CATHFLO) injection 2 mg 2 mg, Intravenous, ONCE PRN, Starting on Tue07/13/16 at 1203, Until Tue07/13/16 at 1620, Line Occlusion, Refer to Cathflo Activase (Alteplase) Administration policy for additional information regarding guidelines and administration., Routine Given 07/13/2016 10:55 AM EDT 2 mg dexamethasone (DECADRON) injection 10 mg 10 mg, Intravenous, ONCE, 1 dose, On Tue07/13/16 at 1230, Administer 30 minutes prior to PACLitaxel Given 07/13/2016 12:20 PM EDT 10 mg diphenhydrAMINE (BENADRYL) injection 25 mg 25 mg, Intravenous, ONCE, 1 dose, On Tue07/13/16 at 1230, Administer 30 minutes prior to PACLitaxel, Routine Given 07/13/2016 12:25 PM EDT 25 mg famotidine (PEPCID) injection 20 mg 20 mg, Intravenous, ONCE, 1 dose, On Tue07/13/16 at 1230, Administer 30 minutes prior to PACLitaxel Given 07/13/2016 12:23 PM EDT 20 mg heparin, porcine 100 unit/mL flush 500 Units 500 Units, Intravenous, ONCE PRN, Starting on Tue07/13/16 at 1203, Until Tue07/13/16 at 1620, Line Care, Refer to Intravenous (IV) Procedure: Accessing Implanted Vascular Access Devices (654) procedure and/or Intravenous (IV) Job Aid: Adult Flushing & Catheter Care (7284) job aid for additional information regarding guidelines and administration., Routine Given 07/13/2016 2:10 PM EDT 500 Units PACLitaxel (TAXOL) 142 mg in dextrose 5% Non-PVC 273.6667 mL chemo infusion 142 mg (rounded from 142.4 mg = 80 mg/m2/dose ? 1.78 m2 Treatment Plan BSA from Recorded weight), Intravenous, ONCE, 1 dose, On Tue07/13/16 at 1330, Administer over 60 Minutes New Bag 07/13/2016 1:07 PM EDT 142 mg 274 mL/hr palonosetron (ALOXI) injection 0.25 mg 0.25 mg, Intravenous, ONCE, 1 dose, On Tue07/13/16 at 1230, Routine Given 07/13/2016 12:18 PM EDT 0.25 mg sodium chloride 0.9 % flush 5-20 mL 5-20 mL, Intravenous, EVERY 1 MIN PRN, Starting on Tue07/13/16 at 1203, Until Tue07/13/16 at 1620, Line Care, Flush pertains to all indwelling lines. Flush per protocol found in the job aid using the link provided on this medication record. Refer to Intravenous (IV) Job Aid: Adult Flushing & Catheter Care (2402) job aid for additional information regarding guidelines and administration., Routine Given 07/13/2016 2:18 PM EDT 20 mLs documented in this encounter
--- OUTSIDE RECORDS SUMMARY | 2023-08-31 09:47 | XMS_ITS | Referral Summary ---
Author Organization [facility] Address [address] [place] [address] Phone Care Team Providers Care Emergency Medical Technician/Driver Name Role Phone Unavailable Primary Care Provider Unavailabl e Allergies Active Allergy Reactions Criticality Noted Date Comments Sulfa Antibiotics Rash Low 03/03/2017 Category: Adverse Reaction; Medications Medication Sig Dispensed Refills Start Date End Date Status albuterol (2.5 MG/3ML) 0.083% nebulizer solution Inhale. Active cyanocobalamin (Vitamin B-12) 500 MCG tablet Take 1 tablet by mouth 1 (one) time each day. 12/31/2019 Active Msvtgmzfigt-Qlhlsdpln-H ilant (Trelegy Ellipta) 100-62.5-25 MCG/INH aerosol powder Inhale. 10/03/2017 Active nystatin (Nystop) 500155 UNIT/GM powder Apply topically. 10/10/2019 Active predniSONE (Deltasone) 10 MG tablet Take by mouth. 12/31/2019 Active rivaroxaban (Xarelto) 20 MG tablet Take 1 tablet by mouth 1 (one) time each day. 12/31/2019 Active simvastatin (Zocor) 40 MG tablet Take 1 tablet by mouth 1 (one) time each day. 11/18/2016 Active levothyroxine (Synthroid, Levoxyl) 25 MCG tabletIndications:Other specified hypothyroidism Take 1 tablet (25 mcg) by mouth in the morning. 90 tablet 2 07/07/2020 Active Active Problems Problem Noted Date Diagnosed Date Breast cancer, right breast 06/02/2020 Depression screen 06/02/2020 Never smoked any substance 06/02/2020 History of [place] fever 06/02/2020 Itching 01/24/2020 Overview: Impression - [id number]: advised to take over the counter Zyrtec every day, and Pepcid. 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 Ramesh as planned.; Impression - 81Tze5175: advised to continue fluconazole, and follow up with Dr. 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 Ramesh Pulmonary hypertension 08/24/2019 Overview: Description: WILL REFER TO [facility] FOR ECHO Breast pain, right 01/02/2019 Breast thickening 01/02/2019 Skin lesion 01/02/2019 History of radiation therapy 07/13/2018 Personal history of chemotherapy 07/13/2018 Post herpetic neuralgia 05/17/2018 Overview: Impression - 62Zht8487: advised to take 1/2 of the Gabapentin and 1/2 of Hydrocodone combined at bedtime to see if pain improves. Referral to paintings restorer Dr. Bocanegra for further evaluation; Description: c/o of fatigue currently taking Gabapentin and Hydrocodone not effective, still having pain causing her to not sleep well at night Hearing loss, bilateral 02/20/2018 Onychomycosis 02/20/2018 Abdominal pain 01/25/2018 Overview: Impression - 54Dej4118: 2 samples of FOB given to check for blood in the stool and f/u as planned; Description: says she missed colonoscopy scheduled Pulmonary embolism 01/25/2018 Overview: Transitioned From: Dyspnea on exertion; Impression - 65Zch5433: refill med; Impression - 95Ssv3850: advised to follow up with Dr. Rodriguez.; Impression - 24Apr2019: follow up as planned; Impression - 06May2018: continue meds; Impression - 85Awd9810: follow up with oncologist as planned and follow up in 3 months; Description: on Xarelto indefinitely requesting refill Right middle lobe pulmonary nodule 01/25/2018 Overview: Impression - 99Qih7011: follow up with college physics instructor as planned; Description: on last CT of the chest done in indeterminate 9mm and 5mm nodules suspected benign by college physics instructor patient agreed for recheck CT again in 2 years Deep vein thrombosis (DVT) of left lower extremi ty 12/21/2017 Overview: Transitioned From: Leg pain; Impression - 46Fdg3096: adv and discussed symptoms to call me so we could do ultrasound; Impression - 24Apr2019: follow up with Dr. Rodriguez; Impression - 47Gdy1325: continue meds, follow up with Dr Rodriguez as planned; Impression - 06May2018: continue meds, follow up with Dr Rodriguez as planned; Impression - 21Dec2017: sample of Xarelto 15mg bid for 21 days; sample of Xarelto 20mg; Description: left leg DVT, no longer on Xarelto, NO symptoms, just concerns, Idiopathic peripheral neuropathy 06/06/2017 Overview: Impression - 64Pvq0328: observation for now COPD (chronic obstructive pulmonary disease) Overview: Impression - 42Hyi5599: To cont inhalers and follow up with pulm.; Impression - 69Azi4893: To cont inhalers and followed college physics instructor Dr. Gomez; Impression - 24Apr2019: advised to cont inhalers and followed college physics instructor Dr. Gomez; Impression - 75Waz0248: advised to cont inhalers and follow up with college physics instructor Dr. Gomez; Impression - 67Jhy0013: advised to cont inhalers and follow up with college physics instructor Dr. Gomez; Impression - 21Dec2017: followed by Dr. Gomez; Description: now on Trelegy and nebulizer tx, trelegy is expensive History of breast cancer 03/03/2017 Hyperlipidemia 03/03/2017 Overview: Impression - 39Irf0272: advised low cholesterol diet, check lipids, cont meds; Impression - 21Oxc7265: advised low cholesterol diet, check lipids, cont meds; Impression - 35Rcx0459: advised okay to try taking 1/2 of the Simvastatin and check labs in 3 months. If cholesterol is okay, she may be able to continue with diet.; Impression - 82Yip9700: advised low chol diet, cont meds, follow-up lipids.; Description: on Simvastatin, reports taking it for 20 years now, LDL 105 Hypothyroidism 03/03/2017 Overview: Impression - 10Yfg6134: Euthyroid, cont meds, check TSH; Impression - 95Lqn1876: Euthyroid, cont meds, check TSH; Description: On Levothyroxine 25 mcg daily, TSH level is normal Irregular heart beat 03/03/2017 Osteoporosis 03/03/2017 Vitamin D deficiency 03/03/2017 Overview: Impression - 09Pzk3982: continue supplements.; Description: by history, vitamin D level is 42 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, right breast 10/28/2016 Malignant neoplasm of central portion of female breast 07/05/2016 Estrogen receptor negative 06/29/2016 Breast cancer of upper-outer quadrant of right female breast 03/04/2016 Immunizations Name Administration Dates Next Due Influenza, High Dose Seasonal, Preservative Free 11/24/2017 Influenza, seasonal, injectable 10/25/2019,11/14 Influenza, trivalent, adjuvanted 10/25/2019,10/17 Pneumococcal Conjugate PCV 13 02/14/2017, 016 Pneumococcal Polysaccharide PPV23 11/13/2018 Tdap 01/02/2020 Zoster, Recombinant 08/28/2019,06/12/2019 Social History Tobacco Use Types Packs/Day Years Used Date Smoking Tobacco: Former Smokeless Tobacco: Never Alcohol Use Standard Drinks/Week Comments Yes 3 (1 standard drink = 0.6 oz pur e alcohol) PHQ-2 Answer Date Recorded Patient Health Questionnaire-2 Score 0 06/02/2020 Sex and Gender Information Value Date Recorded Sex Assigned at Not on file Gender Identity Not on file Sexual Orientation Not on file Last Filed Vital Signs Vital Sign Reading Time Taken Comments Blood Pressure 112/72 06/02/2020 10:26 AM [facility] [[email or web address]] Pulse 73 06/02/2020 10:26 AM [facility] [[email or web address]] Temperature 35.8 ??C (96.4 ??F) 06/02/2020 10:26 AM [facility] Respiratory Rate - - Oxygen Saturation 93% 06/02/2020 10:26 AM [facility] [[email or web address]] Inhaled Oxygen Concentration - - Weight 68 kg (150 lb) 06/02/2020 10:26 AM [facility] [[email or web address]] Height 160 cm (5' 3) 06/02/2020 10:26 AM [facility] [[email or web address]] Body Mass Index 26.57 06/02/2020 10:26 AM [facility] [[email or web address]] Plan of Treatment Not on file Procedures Procedure Name Priority Date/Time Associated Diagnosis Comments DEXA BONE DENSITY 08/01/2020 11: 07 AM [facility] [[email or web address]] from Last 3 Months or Most Recently Relevant to Health Maintenance Results * DEXA BONE DENSITY (08/01/2020 11:07 AM [facility] [[email or web address]]) Anatomical Region Laterality Modality Body Radiographic Megan ging Yusef Ramos MD IMG DXA PROCEDURES from Last 3 Months or Most Recently Relevant to Health Maintenance
--- OUTSIDE RECORDS SUMMARY | 2023-08-31 09:47 | XMS_ITS | Continuity of Care Document ---
Author Organization [facility] Address [address] [place] [address] Phone Care Team Providers Care Dryland Farmer Name Role Phone Gianluca ORTEGA, Sabine Unavailable Unavailable Procedures Procedure Date INITIAL HOSPITAL CARE ECHO COMPLETE W/DPLR & CF IP ECHO COMPLETE W/DPLR & CF ECHO COMPLETE W/DPLR & CF Advance Directives Directive Yes / No Effective Date File Name No Information Encounters Encounter Description Practice Location Reason(s) For Visit Diagnoses Date Provider Providers Copied on Encounter [facility], [address] [facility] [address], [place], [address], [place] tel:[phone] [facility] Other pulmonary embolism without acute cor pulmonaleOther forms of dyspneaHeart disease, unspecified 0 Gianluca Regalado. [address], [facility], [place], [address], [place]. tel:[phone] Referring Provider: Lety Yu NP, [address] [facility] [address], [place], [address] . tel:[phone] [facility], [address] [facility] [address], [place], [address], [place] tel:[phone] [facility] Rheumatic disorders of both mitral and tricuspid valves 0 Chip HUNTLEY [facility]. [address], [place], [address], [place]. tel:[phone] Referring Provider: Lety Yu NP, [address] [facility] [address], [place], [address] . tel:[phone] [facility], [address] [facility] [address], [place], [address], [place] tel:[phone] [facility] Dyspnea, unspecified 202 0 Gopi Correia. [address] [facility], [address], [place], [address], . tel:[phone] Referring Provider: Yusef Ramos MD P, [address], [place], [address]. tel:[phone] [facility], [address] [facility] [address], [place], [address], [place] tel:[phone] [facility] Chest pain, unspecified 7 Rodney Kay. [address] [facility], [address] [facility], [place], [address]. tel:[phone] Referring Provider: Karon Weaver MD, [address] Breast Oncology, [place], [address]. tel:[phone] Family History Family Member Type Diagnosis Age At Onset No Information Payers Payer name Insurance type Covered alliance party ID Authoriza tion(s) [facility] [id number] Social History Type Description Quantity Date Captured Comments Sex Female Smoking Status No Information Chief Complaint And Reason For Visit No Information Reason For Referral Reason For Referral No Information History Of Present Illness Encounter Date Complaint History Of Prese nt Illness No Information Functional Status Date Functional Assessmen t No Information Instructions Date Instruction Additional Infor mation No Information Assessments Type Assessment Date No Information Patient Care Teams Name Effective Dates (start - stop) Status Members No Information
--- OUTSIDE RECORDS SUMMARY | 2023-08-31 09:47 | XMS_ITS | Encounter Summary ---
Author Organization [facility] [place] [address] Care Team Providers Care Addressing Machine Operator Name Role Phone Unavailable Primary Care Provider Unavailabl e Reason for Visit * Reason Comments Breast Cancer Encounter Details Date Type Department Care Team (Late st Contact Info) Description 07/13/2016 11:00 AM EDT Office Visit Hematology/Oncology at [address] [phone] Karthikeyan Reza MD [address] [place] [phone] Malignant neoplasm of central portion of right [...] Sign Reading Time Taken Comments Blood Pressure 108/65 07/13/2016 11:04 AM EDT Pulse 86 07/13/2016 11:04 AM EDT Temperature 36.7 ??C (98.1 ??F) 07/13/2016 11:04 AM E DT Respiratory Rate 18 07/13/2016 11:04 AM EDT Oxygen Saturation 100% 07/13/2016 11:04 AM EDT Inhaled Oxygen Concentration - - Weight 71.7 kg (158 lb) 07/13/2016 11:04 AM EDT Height 159.4 cm (5' 2.76) 07/13/2016 11:04 AM E DT Body Mass Index 28.21 07/13/2016 11:04 AM EDT documented in this encounter Progress Notes * Karthikeyan Reza MD - 07/13/2016 11:00 AM EDT 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 The patient has 3 lesions in the right breast at 12:00 and 12:15 initial KI-67 was elevated to 60%. Markers were placed and MRI indicated no axillary involvement. The patient is status post 4 cycles of Adriamycin and Cytoxan in [place] and has moved to [place] with plans on completing 12 weekly cycles of Taxol prior to surgery in [place]. SUBJECTIVE: Lacey comes in today for week 2 of 12 weekly taxol treatments being neoadjuvantly in the treatment of her breast cancer prior to planned surgery this October back in [place]. She tolerated week 1 quite well overall. Edison good the day after treatment but was a little achy and fatigued for a couple of days after that. She had no significant nausea and vomiting and has been feeling fine the past few days. She is not complaining of any neuropathy symptoms and we discussed that issue again. No rash, no allergic reaction to the infusion. All things went well. Additionally, the patient has a positive family [...] ??? Sulfa (Sulfonamide Antibiotics) Rash Medications 07/05/16 2973 Medication Sig Taking? 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 Smoking [...] supraclavicular, and axillary nodes normal Neurologic: Normal Lab today shows white count of 3.68, hemoglobin 11.9. hematocrit 35%, platelet count 229,000, absolute neutrophil count 2.52. CMP shows normal electrolytes, creatinine 0.85, calcium 8.7, ALP of 39. Normal liver tests otherwise. ASSESSMENT/PLAN: Lacey is fine today for week 2 chemotherapy with single agent Taxol. 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 She did not have any significant effects from the taxane and we discussed taking some Tylenol if she feels a bit achy for a few days after treatment. As noted, there is no neuropathy symptoms or skin rash or other problems with the infusion and antiemetics are at an appropriate level. We will see her back next week with lab for week 3 of 12 planned treatments. 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 Malignant neoplasm of central portion of female breast documented in this encounter
--- OUTSIDE RECORDS SUMMARY | 2023-08-31 09:47 | XMS_ITS | Encounter Summary ---
Author Organization [facility] Address [address] [place] [address] Phone Care Team Providers Care Provider Network Analyst Name Role Phone Yusef Ramos MD Primary Care Provider [phone] Reason for Visit * Reason Onset Date Comments Med Refill 07/04/2020 Encounter Details Date Type Department Care Team (Late st Contact Info) Description 07/04/2020 [facility] Internal Medicine [address] [place] [address] Yusef Ramos MD [address] [place] [address] Other specified hypothyroidism Social History Tobacco Use Types Packs/Day Years [...] as of this encounter Visit Diagnoses Diagnosis Other specified hypothyroidism documented in this encounter Care Teams Provider Network Analyst Relationship Specialty Start Date End Date Yusef Ramos MD [address] [place] [address] PCP - General 02/15/20 07/15/20 documented as of this encounter
--- OUTSIDE RECORDS SUMMARY | 2023-08-31 09:47 | XMS_ITS | Encounter Summary ---
Author Organization [facility] Address [facility] [place] [address] Care Team Providers Care Health Informatics Advisor Name Role Phone Unavailable Primary Care Provider Unavailabl e Reason for Visit * Reason Comments Breast Cancer * Consultation (Routine) - Closed Specialty Diagnoses / Procedures Referred By Farideh giron Referred To Contact Hematology and Oncology Diagnoses Breast cancer Procedures Treatment Options Tristen Rodriguez MD [facility] [address] [place] [address] [place] [address] Karthikeyan Reza MD [address] [place] [id number] Referral ID Status Reason Start Date Expiration Date Visits Re quested Visits Authorized [id number] Closed 05/17/2016 05/17/2017 1 1 Encounter Details Date Type Department Care Team (Late st Contact Info) Description 07/05/2016 3:00 PM EDT Office Visit Hematology/Oncology at [address] [phone] Karthikeyan Reza MD [address] [place] [address] Malignant neoplasm of central portion of [...] Sign Reading Time Taken Comments Blood Pressure 133/67 07/05/2016 3:12 PM EDT Pulse 66 07/05/2016 3:12 PM EDT Temperature 36.6 ??C (97.9 ??F) 07/05/2016 3 :12 PM EDT Respiratory Rate 16 07/05/2016 3:12 PM EDT Oxygen Saturation 100% 07/05/2016 3:1 2 PM EDT Inhaled Oxygen Concentration - - Weight 71.4 kg (157 lb 6.4 oz) 07/05/2016 3:12 PM EDT actual, no shoes Height 159.4 cm (5' 2.76) 07/05/2016 3 :12 PM EDT actual, no shoes Body Mass Index 28.1 07/05/2016 3:12 PM EDT documented in this encounter Progress Notes * Cassandra Olson, RN - 07/05/2016 3:00 PM EDT MEDICAL ONCOLOGY INITIAL NURSING ASSESSMENT ADVANCE DIRECTIVES: In EDH [ ] Has documents [ ] Will bring in [ ] Has copies and will bring for eDH. IF NO: Advance Directive pamphlet provided : Referral to Care Management : PRESENTING SYSTEMS and PATHOLOGY: As per Dr. Reza REVIEW OF SYSTEMS: as per Dr. Reza Prior Radiotherapy: no[ x ] Yes[ ]Site Date Facility Prior Chemotherapy: no[ x ] Yes[ ] Drug: Oncologist- LastTreatment: NO: YES: Claustrophobia or requires sedation for MRIs x Allergy to CT or MRI contrast agent or iodine or shellfish x Diabetic and on metformin x Metal in body, implanted device, worked with metal, body piercings,braces x Dentures or hearing device x Pacemaker x Difficulty breathing while lying flat x Kidney problems/creatinine x Balance difficulty: [x ]no [ ]yes At risk for fall: [ ] no [ ] yes If yes, actions implemented to prevent fall. Patient/family instructed to avoid independent ambulation. Use wheelchair and ask for assistance of staff while in the clinic. ADL [ x ] no limits [ ] needs dressing assistance [ ] needs meal assistance Assistive device:[x ]none [ ]cane [ ]walker [ ]wheelchair [ ]other: explain PAIN ASSESSMENT: [ 2 ] out of 10 Location: Description: [ ] Dull [ ] Sharp [ ] Burning [x ] Throbbing [ ] Radiating [ ] Continuous [ ]Intermittent Aggravating Factors: [ x ] Movement [ ] Position [ ]Immobility [ ]Other Alleviating Factors: [ x ]Medication [ ] Positioning [ ] Other Current Pain Management Plan: [ x ]Satisfied [ ] Not satisfied SOCIAL ASSESSMENT: See EDH social assessment information entered. Support Systems: transportation plan: [x ]private vehicle [ ] RCT needs Social Work referral [ ] Unknown at this time needs Social Work referral Barriers to treatment: none Referrals/Interventions: LEARNING STYLE: Visual and verbal, wants written material and verbal discussion. TEACHING: _x_ [facility] ???Chemotherapy and You?? and folder given _x_ Specific chemotherapy literature provided and reviewed with patient. 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 The patient has 3 lesions in the right breast at 12:00 and 12:15 initial KI-67 was elevated to 60%. Markers were placed and MRI indicated no axillary involvement. The patient is status post 4 cycles of Adriamycin and Cytoxan in [place] and has moved to [place] with plans on completing 12 weekly cycles of Taxol prior to surgery in [place]. SUBJECTIVE: Lacey comes in today for consideration of further neoadjuvant chemotherapy with Taxol. She was diagnosed with breast cancer in February when mammography indicated an abnormality. This led to a MRI study and a surgical consultation. Initially she was scheduled to do surgery and then follow that with hospital chemotherapy. Patient, however, ended up having 3 separate abnormalities within the right breast at 12 o'clock and 12:15 more centrally. She had all 3 lesions biopsied with 2 of them being quite close at less than a cm apart. All 3 were positive for grade III invasive ductal carcinoma. ER, LA, and HER2/aracelis were negative at the 12:15 lesion and KI-67 was elevated at 60%. Markers were placed and there was no axillary adenopathy noted. She additionally had an abnormality with a small area of enhancement in the left breast which was biopsied and negative. Subsequently she had her echocardiogram and received 4 cycles of Adriamycin and Cytoxan with Neulasta given every 3 weeks apart. Her last Adriamycin and Cytoxan infusion was 3 weeks ago and she is due to start 12 weekly treatments with Taxol. She lives the shultz in [place] and bradley here in [place], and she just arrived here a few days ago and is here today to get her chemotherapy arranged. She already has her appointment with her surgeon in early October for her lumpectomy/possible mastectomy. In talking to her today, she is well aware of her diagnosis, well aware of treatment recommendations, and we spent some time going over the taxanes and expected and possible side effects of the medication. She already was well educated but had some good questions today and I believe they were all answered. We also spent time doing chemotherapy teaching. She does have a port in place. In talking to her today, she notes she has really done well with the chemotherapy and feels quite well overall. We spent some time also talking about followup. 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 Smoking status: Former Smoker Years: 20.00 Types: Cigarettes Quit date: 07/05/1976 ??? Smokeless tobacco: Not on file ??? Alcohol use Not on file ??? Drug use: No ??? Sexual activity: Not on file Other Topics Concern ??? Not on file Social History Narrative ??? No narrative on file Review of Systems Constitutional: Negative for fever, [...] supraclavicular, and axillary nodes normal Neurologic: Normal ASSESSMENT/PLAN: Lacey has 3 small primary cancers in her right breast, all triple negative with no evidence for axillary involvement. She has been started on neoadjuvant chemotherapy and has completed 4 cycles of Adriamycin and Cytoxan. She is due to start the taxane part of her chemotherapy and recommendations are made for 12 weekly Taxol treatments. Risks and side effects including the possibility of an allergic reaction and neuropathy were gone over in detail. We talked about what to expect for her blood counts, fatigue, nausea, vomiting, and other problems. She has antiemetics on hand at home and all of her questions were answered. We will go ahead and arrange for lab today and we can get started on her treatment tomorrow late morning. We will see her weekly with lab and we will arrange for her next appointment a week from tomorrow for week 2 of treatment. We did give her written literature as noted and she got to visit with our chemotherapy nurses. * Karthikeyan Reza MD - 07/05/2016 3:00 PM EDT CONSENT FOR TREATMENT 1. I have informed the patient that she has been diagnosed with Breast Cancer and that treatment with chemotherapy and other drugs to treat the cancer is recommended. Specifically, I have recommendedthe following therapy: 12 Weekly Taxol Chemotherapies 2. I have informed the patient about the medical condition, the nature and purpose of the treatment, expected benefits, and related risks, including that this treatment may have significant side effects and that some of the side effects can be life threatening. The risks associated with the chemotherapy may include, but are not limited to, those listed below: * Nausea & vomiting * Hair loss * Anemia/Low red blood cell count * Tiredness * Allergic reactions * Infection with low white blood cell count * Increased risk of bleeding * Mouth sores * Constipation &/or diarrhea * Organ & Tissue Damage * Infertility * Another cancer &/or * Neuropathy 3. The goal(s) of the chemotherapy has also been explained to the patient and includes: [ ] Cure my diagnosis [ ] Slow the growth or progression of my disease [ ] Decrease the risk of recurrence of my disease [ ] Prepare my blood prior to transplant [ ] Improve my quality of life by controlling symptoms of my disease 4. Other reasonable treatments or options, including the option to not pursue chemotherapy, were discussed. The patient understands that he/she may stop this treatment at any time. 5. I have informed the patient that the treatment may be harmful to an unborn child and that during chemotherapy treatment should be avoided. 6. The patient had the opportunity to ask questions about this treatment. All questions were addressed. The patient consents to the recommended treatment. documented in this encounter Plan of Treatment Not on file documented as of this encounter Procedures Procedure Name Priority Date/Time Associated Diagnosis Comments LAB SCAN 07/27/2016 12:00 AM EDT LAB SCAN 07/05/2016 12:00 AM EDT documented in this encounter Results * SCAN DOC: LAB (07/27/2016 12:00 AM EDT) Narrative 07/27/2016 12:00 AM EDT Ordered by an unspecified provider. Scanning Provider MEDIA MGR SCAN EXT O RDR/RSLT * SCAN DOC: LAB (07/05/2016 12:00 AM EDT) Narrative 07/05/2016 12:00 AM EDT Ordered by an unspecified provider. Scanning Provider MEDIA MGR SCAN EXT O RDR/RSLT documented in this encounter Visit Diagnoses Diagnosis Malignant neoplasm of central portion of right female breast Malignant neoplasm of central portion of female breast documented in this encounter
--- OUTSIDE RECORDS SUMMARY | 2023-08-31 09:47 | XMS_ITS | Encounter Summary ---
Author Organization [facility] [place] [address] Care Team Providers Care Volleyball Assembler Name Role Phone Unavailable Primary Care Provider Unavailabl e Encounter Details Date Type Department Care Team (Late st Contact Info) Description 05/24/2016 Telephone Hematology/Oncology at [address] [phone] Yony Ricks Social History Tobacco Use Types Packs/Day Years Used Date Smoking Tobacco: Never Assessed Sex and Gender Information Value Date Recorded Sex Assigned at Not on file Gender Identity Not on file Sexual Orientation Not on file documented as of this encounter Miscellaneous Notes * Telephone Encounter - Yony Ricks - 05/24/2016 4:43 PM EDT Lacey called with some questions about transferring her care from [place] to here. She asked if her insurance would cover it, in which I gave her the number for [facility]'s billing department. Floresdavevarun wanted to check and make sure that her records had arrived to which I confirmed with her that we did receive them. She also mentioned that she is in the middle of treatment right now and that in June she would be switching from once every three weeks to weekly treatments. She said that she believed that she would be back in the area around July 20 or and that she would still be in the middle of treatments and would have to continue right away. I informed her that for new referrals theprovider will see the patient first for a consultation and then she would be treated. I also gave her the name of the oncologist Dr. Reza whom she will most likely be scheduled with. She appreciated all of this information and said that she would continue planning give us a call back to schedule her appointment. documented in this encounter Plan of Treatment Not on file documented as of this encounter Visit Diagnoses Not on filedocumented in this encounter
--- OUTSIDE RECORDS SUMMARY | 2023-08-31 09:47 | XMS_ITS | Encounter Summary ---
Author Organization [facility] Address [address] [place] [address] Phone Care Team Providers Care Crane Hoist Or Lift Operator Name Role Phone Yusef Ramos MD Primary Care Provider [phone] Encounter Details Date Type Department Care Team (Late st Contact Info) Description 10/25/2019 Office Visit - [facility] [address] [facility] [address] [place] [phone] Acute embolism and thrombosis of unspecified deep veins of left lower extremity (CMS/HCC); Chronic obstructive pulmonary disease, unspecified (CMS/HCC) [...] COVID-19? No / Unsure 06/02/2020 9:57 AM [facility] documented as of this encounter Plan of Treatment Not on file documented as of this encounter Visit Diagnoses Diagnosis Acute embolism and thrombosis of unspecified deep veins of left lower extremity (CMS/HCC) Chronic obstructive pulmonary disease, unspecified (CMS/HCC) documented in this encounter Care Teams Crane Hoist Or Lift Operator Relationship Specialty Start Date End Date Yusef Ramos MD [address] [facility] [address] [place] [id number] PCP - General 02/15/20 07/15/20 documented as of this encounter
--- OUTSIDE RECORDS SUMMARY | 2023-08-31 09:47 | XMS_ITS | Encounter Summary ---
Author Organization [facility] Address [facility] [place] [address] Care Team Providers Care Adjutant General Name Role Phone Unavailable Primary Care Provider Unavailabl e Encounter Details Date Type Department Care Team (Late st Contact Info) Description 05/20/2016 Telephone Hematology/Oncology at [address] [phone] Vidhya Truong Social History Tobacco Use Types Packs/Day Years Used Date Smoking Tobacco: Never Assessed Sex and Gender Information Value Date Recorded Sex Assigned at Not on file Gender Identity Not on file Sexual Orientation Not on file documented as of this encounter Miscellaneous Notes * Telephone Encounter - Vidhya Truong - 05/20/2016 11:51 AM EDT Patient was referred to us from [facility]. She is coming to [place] to stay with her daughter for the summer. She won't be here until July. Referral in eDH, and I will schedule as soon as I find out when she will be here. documented in this encounter Plan of Treatment Not on file documented as of this encounter Visit Diagnoses Not on filedocumented in this encounter
--- OUTSIDE RECORDS SUMMARY | 2023-08-31 09:47 | XMS_ITS | Encounter Summary ---
Author Organization [facility] Address [address] [place] [address] Phone Care Team Providers Care Corporate Operations Compliance Manager Name Role Phone Yusef Ramos MD Primary Care Provider [phone] Reason for Visit * Reason Comments Annual Exam annual wellness Encounter Details Date Type Department Care Team (Latest Contact Info) Description 06/02/2020 10:00 AM [facility] Visit [facility] [address] [place] [address] Yusef Ramos MD [address] [facility] [facility] [facility] [place] [address] Encounter for annual wellness visit (AWV) in Medicare patient (Primary Dx); Overweight; BMI 26.0-26.9,adult; Never smoked any substance; Depression screen; History of [facility] fever; Pulmonary hypertension (CMS/HCC); Hypothyroidism, unspecified type; Hyperlipidemia, unspecified hyperlipidemia type; Deep vein thrombosis (DVT) of distal vein of left lower extremity, unspecified chronicity (CMS/HCC); Moderate obstructive sleep apnea Social History Tobacco Use Types Packs/Day Years [...] COVID-19? No / Unsure 06/02/2020 9:57 AM [facility] documented as of this encounter Last Filed Vital Signs Vital Sign Reading Time Taken Comments Blood Pressure 112/72 06/02/2020 10:26 AM MST Pulse 73 06/02/2020 10:26 AM [facility] Temperature 35.8 ??C (96.4 ??F) 06/02/2020 10:26 AM [facility] Respiratory Rate - - Oxygen Saturation 93% 06/02/2020 10:26 AM MST Inhaled Oxygen Concentration - - Weight 68 kg (150 lb) 06/02/2020 10:26 AM [facility] Height 160 cm (5' 3) 06/02/2020 10:26 AM MST Body Mass Index 26.57 06/02/2020 10:26 AM [facility] documented in this encounter Patient Instructions * Patient Instructions* Jahaira Stovall MA - 06/02/2020 10:00 AM MST Your 5 year health monitoring schedule recommendations are as follows: * You should have a lipid profile and blood pressure check every 6-12 months * You should have a screening well woman examination every year until age 70 * You should have a mammogram yearly * You should have a bone density study every 2 years * You should have a screening colonoscopy every 10 years or stool test yearly through age 75 * You should receive the influenza virus vaccine annually * You should receive both pneumonia vaccines one time each 1 year apart; * You should begin or maintain a regular exercise program of 30 minutes moderate intensity 5 days per week plus some form of resistance or weight training 2 days a week * You should get a minimum of 7 hours of regular sleep every night * You should practice some form of stress management such as meditation, or progressive relaxation * You should try to reduce your breads, potatoes, sugars, and simple carbohydrates along with saturated fats documented in this encounter Progress Notes * Yusef Ramos MD - 06/02/2020 10:00 AM MST Subjective : Chief Complaint: Lacey Epperson is an 79 y.o. female here for an annual wellness visit. Here for AWV Paper questionnaire reviewed. No recent labs available for review. [place] fever is improving and now down to 1:4 titer, she does not want to cotinue Diflucan Patient states she is moving to [place]. Has sleep apnea and is on nightly O2. She states she does not want to be on CPAP. She states she is considering changing xarelto to warfarin due to cost. I have reviewed and reconciled the medication list with the patient today. Current Outpatient Medications Medication Sig Dispense Refill ??? albuterol (2.5 MG/3ML) 0.083% nebulizer solution Inhale. ??? Cholecalciferol 50 MCG (2000 UT) capsule Take 1 capsule by mouth 1 (one) time each day. ??? cyanocobalamin (Vitamin B-12) 500 MCG tablet Take 1 tablet by mouth 1 (one) time each day. ??? fluconazole (Diflucan) 200 MG tablet Take 1 tablet by mouth 2 times daily. ??? Pqsbiqqjqcb-Lvzxlowsj-Kkorzk (Trelegy Ellipta) 100-62.5-25 MCG/INH aerosol powder Inhale. ??? levothyroxine (Synthroid, Levoxyl) 25 MCG tablet Take 1 tablet by mouth 1 (one) time each day. ??? nystatin (Nystop) 390142 UNIT/GM powder Apply topically. ??? predniSONE (Deltasone) 10 MG tablet Take by mouth. ??? rivaroxaban (Xarelto) 20 MG tablet Take 1 tablet by mouth 1 (one) time each day. ??? simvastatin (Zocor) 40 MG tablet Take 1 tablet by mouth 1 (one) time each day. No current facility-administered medications for this visit. I have reviewed and updated as appropriate the past medical, surgical, family, and social history as summarized below: No past medical history on file. No past surgical history on file. Family History Problem Relation Name Age of Onset ??? See Comments Mother TW: Family history of ??? See Comments Father TW: Family history of ??? Stroke Father Social History Socioeconomic History ??? Marital status: Spouse name: Not on file ??? Number of children: Not on file ??? Years of education: Not on file ??? Highest education level: Not on file Occupational History ??? Not on file Tobacco Use ??? Smoking status: Former Smoker ??? Smokeless tobacco: Never Used Vaping Use ??? Vaping Use: Never assessed Substance and Sexual Activity ??? Alcohol use: Yes Alcohol/week: 3.0 standard drinks Types: 3 Glasses of wine per week ??? Drug use: Never ??? Sexual activity: Not on file Other Topics Concern ??? Not on file Social History Narrative Retired Does not exercise Former smoker - Impression - [id number]: quit smoking in 1976, smoked for 23 years; Impression - [id number]: quit smoking in 1976, smoked for 23 years Born in [place] Social drinker Social Determinants of Health Financial Resource Strain: ??? Difficulty of Paying Living Expenses: Food Insecurity: ??? Worried About Running Out of Food in the Last Year: ??? Ran Out of Food in the Last Year: Transportation Needs: ??? Lack of Transportation (Medical): ??? Lack of Transportation (Non-Medical): Physical Activity: ??? Days of Exercise per Week: ??? Minutes of Exercise per Session: Stress: ??? Feeling of Stress : Social Connections: ??? Frequency of Communication with Friends and Family: ??? Frequency of Social Gatherings with Friends and Family: ??? Attends Worship Services: ??? Active Member of Clubs or Organizations: ??? Attends Club or Organization Meetings: ??? Marital Status: Intimate Partner Violence: ??? Fear of Current or Ex-Partner: ??? Emotionally Abused: ??? Physically Abused: ??? Sexually Abused: Review of Systems Constitutional: Negative. HENT: Negative. Eyes: Negative. Respiratory: Negative. Cardiovascular: Negative. Gastrointestinal: Negative. Endocrine: Negative. Genitourinary: Negative. Musculoskeletal: Negative. Skin: Negative. Allergic/Immunologic: Negative. Neurological: Negative. Negative for dizziness, weakness, numbness and headaches. Hematological: Negative. Psychiatric/Behavioral: Negative. List of current healthcare providers: Patient Care Team: Yusef Ramos MD as PCP - General Over the past 2 weeks, how often have you been bothered by any of the following problems? Will the patient answer the depression risk questions?: Yes Little interest or pleasure in doing things: Not at all Feeling down, depressed, or hopeless: Not at all Depression Risk: 0 Objective : Vital Signs: Visit Vitals BP 112/72 (BP Location: Left arm, Patient Position: Sitting, BP Cuff Size: Adult) Pulse 73 Temp 35.8 ??C (96.4 ??F) (Temporal) Ht 1.6 m (5' 3) Wt 68 kg (150 lb) SpO2 93% BMI 26.57 kg/m?? Smoking Status Former Smoker BSA 1.74 m?? No exam data present Physical Exam Vitals and nursing note reviewed. Exam conducted with a wall crane operator present. Constitutional: General: She is not in acute distress. Appearance: Normal appearance. She is not ill-appearing, toxic-appearing or diaphoretic. HENT: Head: Normocephalic. Right Ear: Tympanic membrane, ear canal and external ear normal. There is no impacted cerumen. Left Ear: Tympanic membrane and ear canal normal. There is no impacted cerumen. Nose: Nose normal. No congestion or rhinorrhea. Eyes: General: No scleral icterus. Right eye: No discharge. Left eye: No discharge. Extraocular Movements: Extraocular movements intact. Conjunctiva/sclera: Conjunctivae normal. Pupils: Pupils are equal, round, and reactive to light. Cardiovascular: Rate and Rhythm: Normal rate and regular rhythm. Pulses: Normal pulses. Heart sounds: Normal heart sounds. No murmur. No friction rub. No gallop. Pulmonary: Effort: Pulmonary effort is normal. No respiratory distress. Breath sounds: Normal breath sounds. No stridor. No wheezing, rhonchi or rales. Chest: Chest wall: No tenderness. Abdominal: General: Abdomen is flat. Bowel sounds are normal. There is no distension. Palpations: Abdomen is soft. There is no mass. Tenderness: There is no abdominal tenderness. There is no right CVA tenderness, left CVA tenderness, guarding or rebound. Hernia: No hernia is present. Musculoskeletal: General: No swelling, tenderness, deformity or signs of injury. Normal range of motion. Cervical back: Normal range of motion and neck supple. Right lower leg: No edema. Left lower leg: No edema. Skin: General: Skin is warm and dry. Coloration: Skin is not jaundiced or pale. Findings: No bruising, erythema, lesion or rash. Neurological: General: No focal deficit present. Mental Status: She is alert and oriented to person, place, and time. Cranial Nerves: No cranial nerve deficit. Sensory: No sensory deficit. Motor: No weakness. Coordination: Coordination normal. Gait: Gait normal. Deep Tendon Reflexes: Reflexes normal. Psychiatric: Mood and Affect: Mood normal. Behavior: Behavior normal. Thought Content: Thought content normal. Judgment: Judgment normal. Assessment/Plan : The following health maintenance schedule was reviewed with the patient and provided in printed form in the after visit summary: Health Maintenance Topic Date Due ??? DTaP/Tdap/Td Vaccines (2 - Td) 01/01/2030 ??? Influenza Vaccine Completed ??? Pneumococcal Vaccine: 65+ Years Completed ??? Zoster Vaccine Completed ??? HIB Vaccines Aged Out ??? Hepatitis B Vaccines Aged Out ??? IPV Vaccines Aged Out ??? Meningococcal Vaccine Aged Out ??? Rotavirus Vaccines Aged Out ??? HPV Vaccines Aged Out ??? Pneumococcal Vaccine: Pediatrics (0 to 5 Years) and At-Risk Patients (6 to 64 Years) Aged Out Lacey was seen today for annual exam. Diagnoses and all orders for this visit: Encounter for annual wellness visit (AWV) in Medicare patient Overweight BMI 26.0-26.9,adult Never smoked any substance Depression screen History of [facility] Pulmonary hypertension (CMS/HCC) - CBC; Future Hypothyroidism, unspecified type Comments: will check tsh Orders: - TSH; Future Hyperlipidemia, unspecified hyperlipidemia type Comments: check lipids, cmp Orders: - Lipid panel; Future - Comprehensive metabolic panel; Future Deep vein thrombosis (DVT) of distal vein of left lower extremity, unspecified chronicity (CMS/HCC) Comments: cont xarelto. Moderate obstructive sleep apnea Comments: cont nightly O2 does not want to be on CPAP HOSPITAL documented in this encounter Plan of Treatment Not on file documented as of this encounter Results * (ABNORMAL) CBC (06/03/2020 9:41 AM [facility]) [facility] Signature WBC 5.3 4.0 - 11.0 10*3/uL 06/03/2020 2:48 PM [facility] RBC 4.1 3.70 - 5.40 10*6/uL 06/03/2020 2:48 PM [facility] Hemoglobin 13.8 11.8 - 15.8 g/dL 06/03/2020 2:48 PM [facility] Hematocrit 42.5 35.0 - 47.0% % 06/03/2020 2:48 PM [facility] MCV 102.8(H) 80.0 - 100.0 fL 06/03/2020 2:48 PM [facility] MCH 33.4 27.0 - 34.0 pg 06/03/2020 2:48 PM [facility] MCHC 32.5 31 - 37 g/dL 06/03/2020 2:48 PM [facility] RDW 14.7 11.8 - 16.2 % 06/03/2020 2:48 PM [facility] Platelets 205 130 - 450 10*3/uL 10*3/uL 06/03/2020 2:48 PM [facility] MPV 10.5 7.5 - 11.5 fL 06/03/2020 2:48 PM [facility] Blood Venous blood specimen / Unknown Venipuncture / Unknown 06/03/2020 9:41 AM [facility] 06/03/2020 9:41 AM [facility] Yusef Ramos MD LAB BLOOD ORDERABLES [facility] [address] [place], [place] [id number] * TSH (06/03/2020 9:41 AM [facility]) TSH 1.01 0.35 - 4.94 uIU/mL 06/03/2020 2:38 PM [facility] Blood Venous blood specimen / Unknown Venipuncture / Unknown 06/03/2020 9:41 AM [facility] 06/03/2020 9:41 AM [facility] Yusef Ramos MD LAB BLOOD ORDERABLES [facility] [address] [place] [address] * (ABNORMAL) Comprehensive metabolic panel (06/03/2020 9:41 AM [facility]) Glucose 97 65 - 99 mg/dL 06/03/2020 2:36 PM [facility] BUN 16 9.8 - 20.1 mg/dL 06/03/2020 2:36 PM [facility] Creatinine 0.7 0.6 - 1.1 mg/dL 06/03/2020 2:36 PM [facility] Uric Acid 4.3 FEMALE (2.6 - 6) mg/dL 06/03/2020 2:36 PM [facility] Calcium 8.9 8.4 - 10.2 mg/dL 06/03/2020 2:36 PM [facility] Total Protein 6.4 6.4 - 8.3 g/dL 06/03/2020 2:36 PM [facility] Albumin 4.0 3.5 - 5 g/dL 06/03/2020 2:36 PM [facility] Total Bilirubin 0.70 0.20 - 1.20 mg/dL 06/03/2020 2:36 PM [facility] Alkaline Phosphatase 42 40 - 150 U/L 06/03/2020 2:36 PM [facility] AST 19 5 - 34 U/L 06/03/2020 2:36 PM [facility] ALT (SGPT) 14 0 - 55 U/L 06/03/2020 2:36 PM [facility] Sodium 144 135 - 145 mmol/L 06/03/2020 2:36 PM [facility] Potassium 4.0 3.5 - 5.1 mmol/L 06/03/2020 2:36 PM [facility] Chloride 109(H) 98 - 107 mmol/L 06/03/2020 2:36 PM [facility] CO2 25 23 - 31 mEq/L 06/03/2020 2:36 PM [facility] Anion Gap 10.0 8 - 12.5 mmol/L 06/03/2020 2:36 PM [facility] eGFR 82.1 >=60.0 mL/min/1.7 3m*2 06/03/2020 2:36 PM [facility] Comment: Based on patient's demographics: GFR (CKD-EPI) NON-AA equation was applied. For decreased eGFR please refer to the Chronic Kidney Disease Epidemiology Collaboration (CKD-EPI) classifications. Blood Venous blood specimen / Unknown Venipuncture / Unknown 06/03/2020 9:41 AM [facility] 06/03/2020 9:41 AM [facility] Yusef Ramos MD LAB BLOOD ORDERABLES [facility] [address] [place] [address] * (ABNORMAL) Lipid panel (06/03/2020 9:41 AM [facility]) Cholesterol 184 <=200 mg/dL 06/03/2020 2:36 PM [facility] Triglycerides 77 <=150 mg/dL 06/03/2020 2:36 PM [facility] HDL 69 >=45 mg/dL 06/03/2020 2:36 PM [facility] LDL Cholesterol, Calculated 100 <=130 mg/dL 06/03/2020 2:36 PM [facility] VLDL, Calculated 15 10 - 30 mg/dL mg/dL 06/03/2020 2:36 PM [facility] Cholesterol/HDL Ratio 2.67(L) 3.20 - 5.00 Ratio 06/03/2020 2:36 PM [facility] Blood Venous blood specimen / Unknown Venipuncture / Unknown 06/03/2020 9:41 AM [facility] 06/03/2020 9:41 AM [facility] Yusef Ramos MD LAB BLOOD ORDERABLES [facility] [address] [place] [address] documented in this encounter Visit Diagnoses Diagnosis Encounter for annual wellness visit (AWV) in Medicare patient- Primary Overweight BMI 26.0-26.9,adult Never smoked any substance Depression screen Screening for depression [facility] Pulmonary hypertension (CMS/HCC) Other chronic pulmonary heart diseases Hypothyroidism, unspecified type Hyperlipidemia, unspecified hyperlipidemia type Deep vein thrombosis (DVT) of distal vein of left lower extremity, unspecified chronicity (CMS/HCC) Moderate obstructive sleep apnea documented in this encounter Care Teams Corporate Operations Compliance Manager Relationship Specialty Start Date End Date Yusef Ramos MD [address] [place] [id number] PCP - General 02/15/20 07/15/20 documented as of this encounter
--- OUTSIDE RECORDS SUMMARY | 2023-08-31 09:47 | XMS_ITS | Encounter Summary ---
Author Organization [facility] Address [address] [place] [address] Phone Care Team Providers Care Amusement Park Entertainer Name Role Phone Yusef Ramos MD Primary Care Provider [phone] Encounter Details Date Type Department Care Team (Latest Contact Info) Description 06/02/2020 Travel Social History Tobacco Use Types Packs/Day [...] COVID-19? No / Unsure 06/02/2020 9:[address] [facility] documented as of this encounter Plan of Treatment Not on file documented as of this encounter Visit Diagnoses Not on filedocumented in this encounter Care Teams Amusement Park Entertainer Relationship Specialty Start Date End Date Yusef Ramos MD [address] [place] [address] PCP - General 02/15/20 07/15/20 documented as of this encounter
--- OUTSIDE RECORDS SUMMARY | 2023-08-31 09:47 | XMS_ITS | Encounter Summary ---
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 Procedures TC PACLITAXEL, 1MG, INJ TC PALONOSETRON HCL, 25MCG, INJECTION (ALOXI) Karthikeyan Reza MD [address] [place] [address] [facility] Hem Onc Office [address] [place] [phone] Referral ID Status Reason Start Date Expiration Date Visits Re quested Visits Authorized [id number] Closed 07/05/2016 07/05/2017 99 99 Encounter Details Date Type Department Care Team (Late st Contact Info) Description 08/02/2016 11:30 AM EDT Infusion Hematology Oncology at [address] [phone] 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
--- OUTSIDE RECORDS SUMMARY | 2023-08-31 09:47 | XMS_ITS | Encounter Summary ---
Author Organization [facility] Address [address] [place] [address] Phone Care Team Providers Care Cutter Machine Name Role Phone Yusef Ramos MD Primary Care Provider [phone] Encounter Details Date Type Department Care Team (Late st Contact Info) Description 05/07/2020 [facility] Internal Medicine [address] [facility] [address] [place] [address] Yusef Ramos MD [address] [facility] [address] [place] [address] Social History Tobacco Use Types Packs/Day Years Used Date Smoking Tobacco: Former Sex and Gender Information Value Date Recorded Sex Assigned at Not on file Gender Identity Not on file Sexual Orientation Not on file documented as of this encounter Plan of Treatment Not on file documented as of this encounter Procedures Procedure Name Priority Date/Time Associated Diagnosis Comments DEXA BONE DENSITY 08/01/2020 11: 07 AM [facility] TC PULMONARY FUNCTION TESTING 06/30/2020 10:45 AM [facility] documented in this encounter Results * DEXA BONE DENSITY (08/01/2020 11:07 AM [facility]) Anatomical Region Laterality Modality Body Radiographic Megan ging Yusef Ramos MD IMG DXA PROCEDURES * PULMONARY FUNCTION TESTING (06/30/2020 10:45 AM [facility]) Yusef Ramos MD PFT ORDERABLES documented in this encounter Visit Diagnoses Not on filedocumented in this encounter Care Teams Cutter Machine Relationship Specialty Start Date End Date Yusef Ramos MD [address] [place] [phone] PCP - General 02/15/20 07/15/20 documented as of this encounter
--- OUTSIDE RECORDS SUMMARY | 2023-08-31 09:47 | XMS_ITS | Continuity of Care Document ---
Author Organization [facility] Address [address] [place] [address]- Care Team Providers Care Tow Boat Captain Name Role Phone Yusef Ramos Mary Primary Care Physician Encounter JORGE VANG CURTIS [id number] Date(s): 11/30/19 - 12/01/19 [facility] [address] [place] [address] [phone] Attending Physician: Ronda Ramesh MD Allergies, Adverse [...]
--- OUTSIDE RECORDS SUMMARY | 2023-08-31 09:47 | XMS_ITS | Encounter Summary ---
Author Organization [facility] Address [address] [place] [address] Phone Care Team Providers Care Procurement Professional Name Role Phone Yusef Ramos MD Primary Care Provider [phone] Encounter Details Date Type Department Care Team (Late st Contact Info) Description 01/24/2020 Office Visit - [facility] [address] [facility] [address] [address] [place] [address] Pulmonary coccidioidomycosis, unspecified (CMS/HCC); Pain in left shoulder; Other pulmonary embolism without acute cor pulmonale (CMS/HCC); Pruritus, unspecified Social History Tobacco Use Types Packs/Day Years [...] COVID-19? No / Unsure 06/02/2020 9:57 AM [facility] documented as of this encounter Plan of Treatment Not on file documented as of this encounter Visit Diagnoses Diagnosis Pulmonary coccidioidomycosis, unspecified (CMS/HCC) Pulmonary coccidioidomycosis, unspecified Pain in left shoulder Other pulmonary embolism without acute cor pulmonale (CMS/HCC) Pruritus, unspecified documented in this encounter Care Teams Procurement Professional Relationship Specialty Start Date End Date Yusef Ramos MD [address] [place] [phone] PCP - General 02/15/20 07/15/20 documented as of this encounter
--- OUTSIDE RECORDS SUMMARY | 2023-08-31 09:47 | XMS_ITS | Encounter Summary ---
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 Hem Onc Office [address] [place] [phone] Referral ID Status Reason Start Date Expiration Date Visits Re quested Visits Authorized [id number] Closed 07/05/2016 07/05/2017 99 99 Encounter Details Date Type Department Care Team (Late st Contact Info) Description 07/06/2016 12:30 PM EDT Infusion Hematology Oncology at [address] [address] Malignant neoplasm of central portion [...] Sign Reading Time Taken Comments Blood Pressure 112/67 07/06/2016 12:31 PM EDT Pulse 78 07/06/2016 12:31 PM EDT Temperature 36.8 ??C (98.2 ??F) 07/06/2016 12:31 PM E DT Respiratory Rate 18 07/06/2016 12:31 PM EDT Oxygen Saturation 100% 07/06/2016 12:31 PM EDT Inhaled Oxygen Concentration - - Weight 70.8 kg (156 lb) 07/06/2016 12:31 PM EDT Height 159.4 cm (5' 2.76) 07/06/2016 12:31 PM E DT copied Body Mass Index 27.85 07/06/2016 12:31 PM EDT documented in this encounter Progress Notes * Avery Zuleta, VIKKI - 07/06/2016 12:30 PM EDT INFUSION THERAPY ADMINISTRATION NOTES DIAGNOSIS: Breast Cancer CYCLE # 1: Day 1 REASON FOR VISIT: Paclitaxel SUBJECTIVE Lacey Epperson offers no complaints. OBJECTIVE LAB DATA: WBC 4.90, Hgb 11.8, Hct 36.5, PLT 319k, ANC 2.64, BUN 13, Cr 0.74 IV ACCESS: Port accessed with 19g, 3/4in [place]; site flushes easily with excellent blood return noted. Port flushed with 20cc NS and 500 units Heparin then de-accessed after completion of treatment. Pre administration: Chemotherapy orders independently verified for drug name, route, and dosage per patient's height, weight and BSA by Avery Zuleta, VIKKI & on-site pharmacist. REACTIONS (DESCRIPTION, TIME, INTERVENTION AND EFFECTIVENESS) none ASSESSMENT Lacey Epperson was awake, alert and tolerated treatment well. Pt. chemo teaching instructions included: During clinic hours (8am-5pm Tuesday-Tuesday): pt. can call [phone] with questions or concerns. After clinic hours (5pm-8am Tuesday-Tuesday and weekends) pt can call [phone] and ask for the product promoter sales person/oncologist concrete layer. Lacey Epperson verbalized understanding of potential chemotherapy side effects and home care including but not limited to- handwashing to prevent infection, signs and symptoms of low blood counts (fever, fatigue, bleeding), to call with a fever of 100.4 or greater, any significant constipation/diarrhea, importance of nutrition and fluid intake (drinking at least 32-64 ounces of non-caffeinated beverages/day), mouth care. Lacey Epperson verbalized understanding of how to take prescription medications given for home useafter chemotherapy. PLAN Return to clinic per routine. documented [...] 10 mg, Intravenous, ONCE, 1 dose, On Tue07/06/16 at 1300, Administer 30 minutes prior to PACLitaxel Given 07/06/2016 1:25 PM EDT 10 mg diphenhydrAMINE (BENADRYL) injection 25 mg 25 mg, Intravenous, ONCE, 1 dose, On Tue07/06/16 at 1300, Administer 30 minutes prior to PACLitaxel, Routine Given 07/06/2016 1:27 PM EDT 25 mg famotidine (PEPCID) injection 20 mg 20 mg, Intravenous, ONCE, 1 dose, On Tue07/06/16 at 1300, Administer 30 minutes prior to PACLitaxel Given 07/06/2016 1:22 PM EDT 20 mg heparin, porcine 100 unit/mL flush 500 Units 500 Units, Intravenous, ONCE PRN, Starting on Tue07/06/16 at 1243, Until Tue07/06/16 at 1815, Line Care, Refer to Intravenous (IV) Procedure: Accessing Implanted Vascular Access Devices (014) procedure and/or Intravenous (IV) Job Aid: Adult Flushing & Catheter Care (3203) job aid for additional information regarding guidelines and administration., Routine Given 07/06/2016 3:23 PM EDT 500 Units PACLitaxel (TAXOL) 142 mg in dextrose 5% Non-PVC 273.6667 mL chemo infusion 142 mg (rounded from 142.4 mg = 80 mg/m2/dose ? 1.78 m2 Treatment Plan BSA from Recorded weight), Intravenous, ONCE, 1 dose, On Tue07/06/16 at 1400, Administer over 60 Minutes New Bag 07/06/2016 2:18 PM EDT 142 mg 274 mL/hr palonosetron (ALOXI) injection 0.25 mg 0.25 mg, Intravenous, ONCE, 1 dose, On Tue07/06/16 at 1300, Routine Given 07/06/2016 1:24 PM EDT 0.25 mg sodium chloride 0.9 % flush 5-20 mL 5-20 mL, Intravenous, EVERY 1 MIN PRN, Starting on Tue07/06/16 at 1243, Until Tue07/06/16 at 1815, Line Care, Flush pertains to all indwelling lines. Flush per protocol found in the job aid using the link provided on this medication record. Refer to Intravenous (IV) Job Aid: Adult Flushing & Catheter Care (4884) job aid for additional information regarding guidelines and administration., Routine Given 07/06/2016 3:23 PM EDT 20 mLs documented in this encounter
--- OUTSIDE RECORDS SUMMARY | 2023-08-31 09:47 | XMS_ITS | Encounter Summary ---
Author Organization [facility] Address [address] [place] [address] Phone Care Team Providers Care Swing Frame Grinder Operator Name Role Phone Yusef Ramos MD Primary Care Provider [phone] Encounter Details Date Type Department Care Team (Late st Contact Info) Description 04/25/2018 Office Visit - [facility] [address] [facility] [address] [place] [address] Vitamin D deficiency, unspecified; Hypothyroidism, unspecified; Acute embolism and thrombosis of unspecified deep veins of left lower extremity (CMS/HCC); Hereditary and idiopathic neuropathy, unspecified; Other pulmonary embolism without acute cor pulmonale (CMS/HCC); Hyperlipidemia, unspecified; Chronic obstructive pulmonary disease, unspecified (CMS/HCC) Social [...] AM MST documented as of this encounter Plan of Treatment Not on file documented as of this encounter Visit Diagnoses Diagnosis Vitamin D deficiency, unspecified Hypothyroidism, unspecified Acute embolism and thrombosis of unspecified deep veins of left lower extremity (CMS/HCC) Hereditary and idiopathic neuropathy, unspecified Other pulmonary embolism without acute cor pulmonale (CMS/HCC) Hyperlipidemia, unspecified Chronic obstructive pulmonary disease, unspecified (CMS/HCC) documented in this encounter Care Teams Swing Frame Grinder Operator Relationship Specialty Start Date End Date Yusef Ramos MD [address] [facility] [address] [place] [phone] PCP - General 02/15/20 07/15/20 documented as of this encounter
--- OUTSIDE RECORDS SUMMARY | 2023-08-31 09:47 | XMS_ITS | Encounter Summary ---
Author Organization [facility] Address [address] [place] [address] Phone Care Team Providers Care Photofinishing Laboratory Worker Name Role Phone Yusef Ramos MD Primary Care Provider [phone] Reason for Visit * Reason Comments Labs Only Encounter Details Date Type Department Care Team (Latest Contact Info) Description 06/03/2020 9:20 AM [facility] Clinical Support [facility] [address] [facility] [address] [place] [address] Yusef Ramos MD [address] [facility] [address] [place] [address] Pulmonary hypertension (CMS/HCC); Hypothyroidism, unspecified type; Hyperlipidemia, unspecified hyperlipidemia type Social History Tobacco Use Types Packs/Day Years [...] COVID-19? No / Unsure 06/02/2020 9:57 AM [facility] documented as of this encounter Plan of Treatment Not on file documented as of this encounter Procedures Procedure Name Priority Date/Time Associated Diagnosis Comments CBC Routine 06/03/2020 9:41 AM [facility] Pulmonary hypertension (CMS/HCC) TSH Routine 06/03/2020 9:41 AM [facility] Hypothyroidism, unspecified type LIPID PANEL Routine 06/03/2020 9:41 AM [facility] Hyperlipidemia, unspecified hyperlipidemia type COMPREHENSIVE METABOLIC PANEL Routine 06/03/2020 9:41 AM [facility] Hyperlipidemia, unspecified hyperlipidemia type documented in this encounter Results * (ABNORMAL) Lipid panel (06/03/2020 9:41 AM [facility]) [facility] Cholesterol 184 <=200 mg/dL 06/03/2020 2:36 PM [facility] Triglycerides 77 <=150 mg/dL 06/03/2020 2:36 PM [facility] HDL 69 >=45 mg/dL 06/03/2020 2:36 PM [facility] LDL Cholesterol, Calculated 100 <=130 mg/dL 06/03/2020 2:36 PM [facility] VLDL, Calculated 15 10 - 30 mg/dL mg/dL 06/03/2020 2:36 PM [facility] Cholesterol/HDL Ratio 2.67(L) 3.20 - 5.00 Ratio 06/03/2020 2:36 PM [facility] Blood Venous blood specimen / Unknown Venipuncture / Unknown 06/03/2020 9:41 AM [facility] 06/03/2020 9:41 AM [facility] Yusef Ramos MD LAB BLOOD ORDERABLES [facility] [address] [place] [address] * (ABNORMAL) Comprehensive metabolic panel (06/03/2020 9:41 AM [facility]) Pathologist [facility] [place] Glucose 97 65 - 99 mg/dL 06/03/2020 2:36 PM [facility] BUN 16 9.8 - 20.1 mg/dL 06/03/2020 2:36 PM [facility] Creatinine 0.7 0.6 - 1.1 mg/dL 06/03/2020 2:36 PM [facility] Uric Acid 4.3 FEMALE (2.6 - 6) mg/dL 06/03/2020 2:36 PM [facility] Calcium 8.9 8.4 - 10.2 mg/dL 06/03/2020 2:36 PM [facility] Total Protein 6.4 6.4 - 8.3 g/dL 06/03/2020 2:36 PM [facility] Albumin 4.0 3.5 - 5 g/dL 06/03/2020 2:36 PM [facility] Total Bilirubin 0.70 0.20 - 1.20 mg/dL 06/03/2020 2:36 PM [facility] Alkaline Phosphatase 42 40 - 150 U/L 06/03/2020 2:36 PM [facility] AST 19 5 - 34 U/L 06/03/2020 2:36 PM [facility] ALT (SGPT) 14 0 - 55 U/L 06/03/2020 2:36 PM [facility] Sodium 144 135 - 145 mmol/L 06/03/2020 2:36 PM [facility] Potassium 4.0 3.5 - 5.1 mmol/L 06/03/2020 2:36 PM [facility] Chloride 109(H) 98 - 107 mmol/L 06/03/2020 2:36 PM [facility] CO2 25 23 - 31 mEq/L 06/03/2020 2:36 PM [facility] Anion Gap 10.0 8 - 12.5 mmol/L 06/03/2020 2:36 PM [facility] eGFR 82.1 >=60.0 mL/min/1.7 3m*2 06/03/2020 2:36 PM [facility] Comment: Based on patient's demographics: GFR (CKD-EPI) NON-AA equation was applied. For decreased eGFR please refer to the Chronic Kidney Disease Epidemiology Collaboration (CKD-EPI) classifications. Blood Venous blood specimen / Unknown Venipuncture / Unknown 06/03/2020 9:41 AM [facility] 06/03/2020 9:41 AM [facility] Yusef Ramos MD LAB BLOOD ORDERABLES [facility] [address] [place] [address] * TSH (06/03/2020 9:41 AM [facility]) [facility] TSH 1.01 0.35 - 4.94 uIU/mL 06/03/2020 2:38 PM [facility] Blood Venous blood specimen / Unknown Venipuncture / Unknown 06/03/2020 9:41 AM [facility] 06/03/2020 9:41 AM [facility] Yusef Ramos MD LAB BLOOD ORDERABLES [facility] [address] [place] [address] * (ABNORMAL) CBC (06/03/2020 9:41 AM [facility]) [facility] WBC 5.3 4.0 - 11.0 10*3/uL 06/03/2020 2:48 PM [facility] RBC 4.1 3.70 - 5.40 10*6/uL 06/03/2020 2:48 PM [facility] Hemoglobin 13.8 11.8 - 15.8 g/dL 06/03/2020 2:48 PM [facility] Hematocrit 42.5 35.0 - 47.0% % 06/03/2020 2:48 PM [facility] MCV 102.8(H) 80.0 - 100.0 fL 06/03/2020 2:48 PM [facility] MCH 33.4 27.0 - 34.0 pg 06/03/2020 2:48 PM [facility] MCHC 32.5 31 - 37 g/dL 06/03/2020 2:48 PM [facility] RDW 14.7 11.8 - 16.2 % 06/03/2020 2:48 PM [facility] Platelets 205 130 - 450 10*3/uL 10*3/uL 06/03/2020 2:48 PM [facility] MPV 10.5 7.5 - 11.5 fL 06/03/2020 2:48 PM [facility] Blood Venous blood specimen / Unknown Venipuncture / Unknown 06/03/2020 9:41 AM [facility] 06/03/2020 9:41 AM [facility] Yusef Ramos MD LAB BLOOD ORDERABLES [facility] [address] [place], [place] [id number] documented in this encounter Visit Diagnoses Diagnosis Pulmonary hypertension (CMS/HCC) Other chronic pulmonary heart diseases Hypothyroidism, unspecified type Hyperlipidemia, unspecified hyperlipidemia type documented in this encounter Care Teams Photofinishing Laboratory Worker Relationship Specialty Start Date End Date Yusef Ramos MD [address] [facility] [address] [place] [phone] PCP - General 02/15/20 07/15/20 documented as of this encounter
--- OUTSIDE RECORDS SUMMARY | 2023-08-31 09:47 | XMS_ITS | Continuity of Care Document ---
Author Organization [facility] Address [address] [place] [address]- Care Team Providers Care Mannequin Decorator Name Role Phone RamosYusef Primary Care Physician [phone] Encounter [facility] [id number] Date(s): 02/22/20 - 02/22/[address] [address]- [phone] Encounter Diagnosis Other pulmonary embolism without acute cor pulmonale(Final) - 02/22/20 Attending Physician: Ronda Ramesh MD Allergies, Adverse [...] #: 0 Start Date: 02/15/17 Status: Ordered Results Radiology Reports * Exam Date Time Procedure Performing Provider Status 02/22/20 9:47 AM [facility]; Modified Notes: (NM Pulmonary Perfusion Imaging) Reason For Exam: PE - I26.99 REPORT DATE OF EXAM: 02/22/2020 EXAMINATION: RADIONUCLIDE PULMONARY PERFUSION STUDY CLINICAL INDICATION: PE - I26.99 COMPARISON: PA lateral chest same day. TECHNIQUE: IV administration of 6 mCi 99m Tc-labeled MAA, the pulmonary perfusion study performed in multiple projections. FINDINGS: PERFUSION: Abnormal perfusion pattern with segmental defects in both lower lobe and in the middle lobe compatible with pulmonary emboli. IMPRESSION: Perfusion abnormalities in both lung bases without a corresponding radiographic abnormality consistent with pulmonary emboli. Results called to MD Ronda Ramesh on 02/22/2020 @ 1125 hours. Electronically signed by Hank Scruggs M.D. 02/22/2020 12:57 PM Electronically Signed D: Hank Scruggs JR, MD S: Hank Scruggs JR, MD 02/22/2020 12:57 * Exam Date Time Procedure Performing Provider Status 02/22/20 9:50 AM XR Chest 2 Views Anai Francis; Modified Notes: (XR Chest 2 Views) Reason For Exam: Abnormality REPORT DATE OF EXAM: 02/22/2020 EXAMINATION: XR Chest 2 Views CLINICAL INDICATION: COPD. COMPARISON: Radiograph(s) chest, 12/13/2019, [facility] FINDINGS: The heart is not enlarged. No change in configuration. Mildly hyperinflated lungs. Negative for pneumonia. Surgical clips overlie the chest wall anteriorly. Negative for pneumonia, pleural effusion or pneumothorax. Stable moderate compression deformity at T11. IMPRESSION: No change. Mildly hyperinflated lungs. Negative for superimposed pneumonia. Electronically signed by Hank Scruggs M.D. 02/22/2020 10:06 AM Electronically Signed D: Hank Scruggs JR, MD S: Hank Scruggs JR, MD 02/22/2020 10:06 Social History Social History Type Response Smoking Status Former Smoker Sex
--- OUTSIDE RECORDS SUMMARY | 2023-08-31 09:47 | XMS_ITS | Encounter Summary ---
Author Organization [facility] Address [address] [place] [address] Phone Care Team Providers Care Studio Technician Name Role Phone Yusef Ramos MD Primary Care Provider [phone] Encounter Details Date Type Department Care Team (Late st Contact Info) Description 06/06/2017 Office Visit - [facility] [address] [facility] [address] [place] [address] Chronic obstructive pulmonary disease, unspecified (CMS/HCC); Age-related osteoporosis without current pathological fracture; Vitamin D deficiency, unspecified; Other forms of dyspnea; Personal history of malignant neoplasm of breast; Hypothyroidism, unspecified; Hereditary and idiopathic neuropathy, unspecified Social History Tobacco Use Types Packs/Day [...] as of this encounter Visit Diagnoses Diagnosis Chronic obstructive pulmonary disease, unspecified (CMS/HCC) Age-related osteoporosis without current pathological fracture Vitamin D deficiency, unspecified Other forms of dyspnea Personal history of malignant neoplasm of breast Hypothyroidism, unspecified Hereditary and idiopathic neuropathy, unspecified documented in this encounter Care Teams Studio Technician Relationship Specialty Start Date End Date Yusef Ramos MD [address] [facility] [facility] [address] [place] [phone] PCP - General 02/15/20 07/15/20 documented as of this encounter
--- OUTSIDE RECORDS SUMMARY | 2023-08-31 09:47 | XMS_ITS | Encounter Summary ---
Author Organization [facility] Address [address] [place] [address] Phone Care Team Providers Care Digging Machine Operator Name Role Phone Yusef Ramos MD Primary Care Provider [phone] Encounter Details Date Type Department Care Team (Late st Contact Info) Description 12/21/2017 Office Visit - [facility] [address] [facility] [address] [place] [address] Acute embolism and thrombosis of unspecified deep veins of left lower extremity (CMS/HCC); Chronic obstructive pulmonary disease, unspecified (CMS/HCC); Other forms of dyspnea Social History Tobacco Use Types Packs/Day Years [...] COVID-19? No / Unsure 06/02/2020 9:57 AM [facility] documented as of this encounter Plan of Treatment Not on file documented as of this encounter Visit Diagnoses Diagnosis Acute embolism and thrombosis of unspecified deep veins of left lower extremity (CMS/HCC) Chronic obstructive pulmonary disease, unspecified (CMS/HCC) Other forms of dyspnea documented in this encounter Care Teams Digging Machine Operator Relationship Specialty Start Date End Date Yusef Ramos MD [address] [facility] [facility] [facility] [address] [place] [address] PCP - General 02/15/20 07/15/20 documented as of this encounter
--- OUTSIDE RECORDS SUMMARY | 2023-08-31 09:47 | XMS_ITS | Continuity of Care Document ---
Author Organization [facility] Address [address] [place] [address]- Care Team Providers Care Contract Technical Writer Name Role Phone Yusef Ramos Mary Primary Care Physician Encounter [facility] [id number] Date(s): 12/24/19 - 12/25/19 [facility] [address] [place] [address]- [phone] Attending Physician: Ronda Ramesh MD Allergies, Adverse [...]
--- OUTSIDE RECORDS SUMMARY | 2023-08-31 09:47 | XMS_ITS | Encounter Summary ---
Author Organization [facility] Address [address] [place] [address] Phone Care Team Providers Care Shake Feeder Name Role Phone Unavailable Primary Care Provider Unavailabl e Reason for Visit * Reason Comments Med Refill Encounter Details Date Type Department Care Team (Late st Contact Info) Description 05/11/2021 [facility] Internal Medicine [address] [facility] [address] [place] [address] Yusef Ramos MD [address] [facility] [address] [place] [address] Other specified hypothyroidism Social History [...]
--- OUTSIDE RECORDS SUMMARY | 2023-08-31 09:47 | XMS_ITS | Encounter Summary ---
Author Organization [facility] Address [address] [place] [address] Phone Care Team Providers Care Director Of Public Relations Name Role Phone Yusef Ramos MD Primary Care Provider [phone] Encounter Details Date Type Department Care Team (Late st Contact Info) Description 01/25/2018 Office Visit - [facility] [address] [facility] [address] [place] [address] Acute embolism and thrombosis of unspecified deep veins of left lower extremity (CMS/HCC); Unspecified abdominal pain; Chronic obstructive pulmonary disease, unspecified (CMS/HCC); Solitary pulmonary nodule; Other pulmonary embolism without acute cor pulmonale (CMS/HCC) Social History Tobacco Use Types Packs/Day [...] deep veins of left lower extremity (CMS/HCC) Unspecified abdominal pain Chronic obstructive pulmonary disease, unspecified (CMS/HCC) Solitary pulmonary nodule Other pulmonary embolism without acute cor pulmonale (CMS/HCC) documented in this encounter Care Teams Director Of Public Relations Relationship Specialty Start Date End Date Yusef Ramos MD [address] [place] [phone] PCP - General 02/15/20 07/15/20 documented as of this encounter
--- OUTSIDE RECORDS SUMMARY | 2023-08-31 09:47 | XMS_ITS | Encounter Summary ---
Author Organization [facility] Address [address] [facility] [place] [address] Phone Care Team Providers Care Stenciler Name Role Phone Yusef Ramos MD Primary Care Provider [phone] Encounter Details Date Type Department Care Team (Late st Contact Info) Description 04/24/2019 Office Visit - [facility] [address] [facility] [address] [place] [address] Other pulmonary embolism without acute cor pulmonale (CMS/HCC); Personal history of nicotine dependence; Hyperlipidemia, unspecified; Vitamin D deficiency, unspecified; Acute embolism and thrombosis of unspecified deep veins of left lower extremity (CMS/HCC); Encounter for general adult medical examination without abnormal findings; Hypothyroidism, unspecified; Obesity, unspecified; Conjunctival hemorrhage, right eye; Chronic obstructive pulmonary disease, unspecified (CMS/HCC) Social [...] COVID-19? No / Unsure 06/02/2020 9:57 AM [facility] documented as of this encounter Plan of Treatment Not on file documented as of this encounter Visit Diagnoses Diagnosis Other pulmonary embolism without acute cor pulmonale (CMS/HCC) Personal history of nicotine dependence Hyperlipidemia, unspecified Vitamin D deficiency, unspecified Acute embolism and thrombosis of unspecified deep veins of left lower extremity (CMS/HCC) Encounter for general adult medical examination without abnormal findings Hypothyroidism, unspecified Obesity, unspecified Conjunctival hemorrhage, right eye Chronic obstructive pulmonary disease, unspecified (CMS/HCC) documented in this encounter Care Teams Stenciler Relationship Specialty Start Date End Date Yusef Ramos MD [address] [facility] [address] [place] [phone] PCP - General 02/15/20 07/15/20 documented as of this encounter
--- OUTSIDE RECORDS SUMMARY | 2023-08-31 09:47 | XMS_ITS | Encounter Summary ---
Author Organization [facility] Address [facility] [place] [address] Care Team Providers Care Software Quality Assurance Engineer Name Role Phone Unavailable Primary Care Provider Unavailabl e Reason for Referral * Consultation (Routine) - Closed Specialty Diagnoses / Procedures Referred By Contac t Referred To Contact Dermatology Diagnoses Malignant neoplasm of right female breast, unspecified site of breast Skin lesions Stephanie Mancera APRN [facility] [place] [address] Nikita Del Rio MD [address] [place] [address] Referral ID Status Reason Start Date Expiration Date V isits Requested Visits Authorized [id number] Closed Consult, Test & Treat 08/02/2016 01/29/2017 1 1 Encounter Details Date Type Department Care Team (Late st Contact Info) Description 08/02/2016 11:00 AM EDT Office Visit Hematology/Oncology at [address] [phone] Stephanie Mancera APRN [facility] [place] [address] Malignant neoplasm of right female breast, unspecified site of breast; Skin lesions Social History Tobacco Use Types Packs/Day Years Used Date Smoking Tobacco: Former Cigarettes 0 07/05/1956 - 07/05/1976 Sex and Gender Information Value Date Recorded Sex Assigned at Not on file Gender Identity Not on file Sexual Orientation Not on file documented as of this encounter Last Filed Vital Signs Vital Sign Reading Time Taken Comments Blood Pressure 129/71 08/02/2016 10:50 AM EDT Pulse 78 08/02/2016 10:50 AM EDT Temperature 36.3 ??C (97.3 ??F) 08/02/2016 10:50 AM E DT Respiratory Rate 16 08/02/2016 10:50 AM EDT Oxygen Saturation 98% 08/02/2016 10:50 AM EDT Inhaled Oxygen Concentration - - Weight 71.7 kg (158 lb) 08/02/2016 10:50 AM EDT Height 159.4 cm (5' 2.76) 08/02/2016 10:50 AM E DT copied Body Mass Index 28.21 08/02/2016 10:50 AM EDT documented in this encounter Patient Instructions * Patient Instructions* Stephanie Mancera APRN - 08/02/2016 11:00 AM EDT She will return in one week for treatment. She will have a referral to Dr del rio for rash and lesion on her left ear. 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 The patient has 3 lesions in the right breast at 12:00 and 12:15 initial KI-67 was elevated to 60%. Markers were placed and MRI indicated no axillary involvement. The patient is status post 4 cycles of Adriamycin and Cytoxan in [place] and has moved to [place] with plans on completing 12 weekly cycles of Taxol prior to surgery in [place]. SUBJECTIVE: Lacey comes in today for her fifth of 12 weekly Taxol treatments in the neoadjuvant treatment of her breast cancer. Surgery is being planned up in [place] after the completion of her neoadjuvant treatment. She is continuing to tolerate the treatments quite well overall. She has a little bit of nail bed tenderness but no neuropathy symptoms at all. She has been active, feels well. No significant nausea. Bowels are reasonable, and review of systems is otherwise negative. We did treat her the last two weeks with a marginal blood counts with a neutrophil count of 0.98. And 1050. Additionally, the patient has a positive family [...] ??? Sulfa (Sulfonamide Antibiotics) Rash Medications 07/05/16 0213 Medication Sig Taking? 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 Smoking [...] mouth sores and trouble swallowing. Eyes: Negative. Ears lesion on left ear that is painful and continues to scab- been there for several months. Respiratory: Negative for cough, shortness of breath and wheezing. Cardiovascular: Negative for chest pain, palpitations and leg swelling. Gastrointestinal: Negative for nausea, vomiting, abdominal pain, diarrhea, constipation and abdominal distention. Genitourinary: Negative for dysuria and difficulty urinating. Musculoskeletal: Negative. Skin: rash on both arms that is itchy red and looks like slightly raised- Neurological: Negative. Hematological: Negative for adenopathy. Head: Normocephalic, without obvious abnormality, atraumatic Eyes: PERRL, conjunctiva/corneas clear, EOM's intact, fundi benign, both eyes Ears: Normal TM's and external ear canals, both ears- Has lesion on top of left ear lobe. Scabed over Nose: Nares normal, septum midline, mucosa normal, [...] symmetric Skin: Skin color, texture, turgor normal, she has a rash on both arms that is erythematous,plaquelike andslightly raised Lymph nodes: Cervical, supraclavicular, and axillary nodes normal Neurologic: Normal ONCBCN ONCOLOGY (AMB) 07/06/2016 07/13/2016 Day, Cycle Day 1, Cycle 1 Day 8, Cycle 1 PACLitaxel (TAXOL) IV 80 mg/m2/dose = 142 mg 80 mg/m2/dose = 142 mg ONCBCN ONCOLOGY (AMB) 07/20/2016 Day, Cycle Day 15, Cycle 1 PACLitaxel (TAXOL) IV 80 mg/m2/dose = 142 mg Review of her CBC shows a white count of 1.91, neutrophil count 1.05, hemoglobin 10.6, hematocrit 32.5 and platelet count is 229,000. CMP shows normal electrolytes, a creatinine of 0.72, calcium 8.7, ALP of 39 and normal liver tests. ASSESSMENT/PLAN: she is tolerating the treatment reasonably well. However her counts are too low for treatment. We will hold her treatment for today and she will return in one week with labs prior to see Dr Reza. Lesion on her ear and rash on both arms- I will make a referral for her to Dr Del Rio for evaluation. She knows To call if there are issues or problems in the interim. documented in this encounter Plan of Treatment Scheduled Referrals Name Type Priority Associated Diagnoses Orde r Schedule Referral to Dermatology Outpatient Referral Routine Malignant neoplasm of right female breast, unspecified site of breast Skin lesions Ordered: 08/02/2016 documented as of this encounter Procedures Procedure Name Priority Date/Time Associated Diagnosis Comments LAB SCAN 08/02/2016 12:00 AM EDT documented in this encounter Results * SCAN DOC: LAB (08/02/2016 12:00 AM EDT) Narrative 08/02/2016 12:00 AM EDT Ordered by an unspecified provider. Scanning Provider MEDIA MGR SCAN EXT O RDR/RSLT documented in this encounter Visit Diagnoses Diagnosis Malignant neoplasm of right female breast, unspecified site of breast Skin lesions documented in this encounter
--- OUTSIDE RECORDS SUMMARY | 2023-08-31 09:47 | XMS_ITS | Encounter Summary ---
Author Organization [facility] [place] [address] Care Team Providers Care Mushroom Picker Name Role Phone Unavailable Primary Care Provider Unavailabl e Encounter Details Date Type Department Care Team (Late st Contact Info) Description 05/26/2016 Telephone Hematology/Oncology at [address] [phone] Yony Ricks Social History Tobacco Use Types Packs/Day Years Used Date Smoking Tobacco: Never Assessed Sex and Gender Information Value Date Recorded Sex Assigned at Not on file Gender Identity Not on file Sexual Orientation Not on file documented as of this encounter Miscellaneous Notes * Telephone Encounter - Yony Ricks - 05/26/2016 2:43 PM EDT Lacey called to schedule her new patient appointment with Dr. Reza. She said that she is coming to [place] the weekend of 07/03/16. She agreed to an appointment on 07/05/16 at 3PM. documented in this encounter Plan of Treatment Not on file documented as of this encounter Visit Diagnoses Not on filedocumented in this encounter
--- OUTSIDE RECORDS SUMMARY | 2023-08-31 09:47 | XMS_ITS | Continuity of Care Document ---
Author Organization [facility] Address [address] [place] [address]- Care Team Providers Care Manager Local Name Role Phone Yusef Ramos Mary Primary Care Physician Encounter JORGE VANG CURTIS [id number] Date(s): 12/24/19 - 12/25/19 [facility] [address] [place] [address]- [phone] Attending Physician: Ronda Ramesh MD Allergies, Adverse [...]
--- OUTSIDE RECORDS SUMMARY | 2023-08-31 09:47 | XMS_ITS | Encounter Summary ---
Author Organization [facility] [place] [address] Care Team Providers Care C Software Developer Name Role Phone Unavailable Primary Care Provider Unavailabl e Reason for Visit * Reason Comments Breast Cancer Encounter Details Date Type Department Care Team (Late st Contact Info) Description 07/27/2016 11:30 AM EDT Office Visit Hematology/Oncology at [address] [phone] Karthikeyan Reza MD [address] [place] [phone] Malignant neoplasm of central portion of right [...] Sign Reading Time Taken Comments Blood Pressure 108/74 07/27/2016 11:26 AM EDT Pulse 83 07/27/2016 11:26 AM EDT Temperature 36.6 ??C (97.9 ??F) 07/27/2016 11:26 AM E DT Respiratory Rate 18 07/27/2016 11:26 AM EDT Oxygen Saturation 98% 07/27/2016 11:26 AM EDT Inhaled Oxygen Concentration - - Weight 71.7 kg (158 lb) 07/27/2016 11:26 AM EDT Height 159.4 cm (5' 2.76) 07/27/2016 11:26 AM E DT copied Body Mass Index 28.21 07/27/2016 11:26 AM EDT documented in this encounter Progress Notes * Karthikeyan Reza MD - 07/27/2016 11:30 AM EDT 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 The patient has 3 lesions in the right breast at 12:00 and 12:15 initial KI-67 was elevated to 60%. Markers were placed and MRI indicated no axillary involvement. The patient is status post 4 cycles of Adriamycin and Cytoxan in [place] and has moved to [place] with plans on completing 12 weekly cycles of Taxol prior to surgery in [place]. SUBJECTIVE: Lacey comes in today for her fourth of 12 weekly Taxol treatments in the neoadjuvant treatment of her breast cancer. Surgery is being planned up in [place] after the completion of her neoadjuvant treatment. She is continuing to tolerate the treatments quite well overall. She has a little bit of nail bed tenderness but no neuropathy symptoms at all. She has been active, feels well. No significant nausea. Bowels are reasonable, and review of systems is otherwise negative. We did treat her last week with a marginal blood count with a neutrophil count of 0.98. I am pleased to tell her that her count has held and it has gone up a little bit today. Additionally, the patient has a positive family [...] ??? Sulfa (Sulfonamide Antibiotics) Rash Medications 07/05/16 0223 Medication Sig Taking? 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 Smoking [...] supraclavicular, and axillary nodes normal Neurologic: Normal ONCN ONCOLOGY (AMB) 07/06/2016 07/13/2016 Day, Cycle Day 1, Cycle 1 Day 8, Cycle 1 PACLitaxel (TAXOL) IV 80 mg/m2/dose = 142 mg 80 mg/m2/dose = 142 mg ONCN ONCOLOGY (AMB) 07/20/2016 Day, Cycle Day 15, Cycle 1 PACLitaxel (TAXOL) IV 80 mg/m2/dose = 142 mg Review of her CBC shows a white count of 1.91, neutrophil count 1.05, hemoglobin 10.6, hematocrit 32.5 and platelet count is 229,000. CMP shows normal electrolytes, a creatinine of 0.72, calcium 8.7, ALP of 39 and normal liver tests. ASSESSMENT/PLAN: Lacey is fine today for week 4 treatment. Blood counts are marginal but reasonable and with weekly treatment I think we can probably proceed with treatment as long as her neutrophil count is 900 or greater. We will go ahead and treat her today and see her back next week with lab. We will be seeing her 1 day early and hopefully the trend on her counts will continue to be upwards. No dose changes are made today. To call if there are issues or problems in the interim. 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 Malignant neoplasm of central portion of female breast documented in this encounter
--- OUTSIDE RECORDS SUMMARY | 2023-08-31 09:47 | XMS_ITS | Encounter Summary ---
Author Organization [facility] Address [address] [place] [address] Phone Care Team Providers Care Branch Lending Manager Name Role Phone Yuesf Ramos MD Primary Care Provider [phone] Encounter Details Date Type Department Care Team (Latest Contact Info) Description 05/09/2018 Office Visit - [facility] [address] [facility] [address] [address] [place] [phone] Zoster without complications Social History Tobacco Use Types Packs/Day Years [...] as of this encounter Visit Diagnoses Diagnosis Zoster without complications documented in this encounter Care Teams Branch Lending Manager Relationship Specialty Start Date End Date Yusef Ramos MD [address] [place] [address] PCP - General 02/15/20 07/15/20 documented as of this encounter
--- OUTSIDE RECORDS SUMMARY | 2023-08-31 09:47 | XMS_ITS | Encounter Summary ---
Author Organization [facility] Address [facility] [place] [address] Care Team Providers Care Cloth Edge Singer Name Role Phone Unavailable Primary Care Provider Unavailabl e Encounter Details Date Type Department Care Team (Late st Contact Info) Description 07/06/2016 Notes Only Hematology Oncology at [address] [phone] Kendy Herbert SOCIOCULTURAL ANTHROPOLOGY PROFESSOR OFFICE OF CARE MANAGEMENT Social History Tobacco Use Types Packs/Day Years Used Date Smoking Tobacco: Former Cigarettes 0 07/05/1956 - 07/05/1976 Sex and Gender Information Value Date Recorded Sex Assigned at Not on file Gender Identity Not on file Sexual Orientation Not on file documented as of this encounter Progress Notes * Kendy Herbert MSW - 07/06/2016 1:26 PM EDT Reason for Referral: Brief assessment of social and emotional needs. Met with pt and daughter Christine during infusion today. Social Supports: Pt has been since 2007. She has a son in the [place] area. Her daughter lives locally in [place]. She has 5 grandchildren. Living Situation/Daily Activities/Transportation: Pt resides in [place]. She bradley with her daughter in [place]. She has her own living space at her daughters and manages her daily chores and activities. There is a stair glide should pt need it to do the stairs to her living space. Pt does not expect any issues with transportation. Work/Finances/Insurance: Pt did not indicate any issues with fiances or insurance. She has [facility] Managed Medicaid for insurance. Advance Directives: Pt has completed her advance directives on the Radha form. Requested a copy for her medical record. Utilization of Community Resources: None at this time. Darline/Spirtuality: Active in the uatsdin in [place]. Adjustment to Illness/Mental Health Issues: Pt indicated she has support from her family and friends both in [place] and in [place]. Identified Needs: Pt did not identify any specific needs at this time. Referrals: None at this time. Plan: Informed pt of my availability and will follow for support and resources. documented in this encounter Plan of Treatment Not on file documented as of this encounter Visit Diagnoses Not on filedocumented in this encounter
--- OUTSIDE RECORDS SUMMARY | 2023-08-31 09:47 | XMS_ITS | Encounter Summary ---
Author Organization [facility] Address [address] [place] [address] Phone Care Team Providers Care Supervisor Brine Name Role Phone Yusef Ramos MD Primary Care Provider [phone] Encounter Details Date Type Department Care Team (Late st Contact Info) Description 12/04/2019 Office Visit - [facility] [address] [facility] [address] [place] [phone] Hyperlipidemia, unspecified; Hypothyroidism, unspecified; Pulmonary coccidioidomycosis, unspecified (CMS/HCC); Vitamin D deficiency, unspecified Social History Tobacco Use Types Packs/Day [...] as of this encounter Visit Diagnoses Diagnosis Hyperlipidemia, unspecified Hypothyroidism, unspecified Pulmonary coccidioidomycosis, unspecified (CMS/HCC) Pulmonary coccidioidomycosis, unspecified Vitamin D deficiency, unspecified documented in this encounter Care Teams Supervisor Brine Relationship Specialty Start Date End Date Yusef Ramos MD [address] [facility] [address] [place] [phone] PCP - General 02/15/20 07/15/20 documented as of this encounter
--- OUTSIDE RECORDS SUMMARY | 2023-08-31 09:47 | XMS_ITS | Encounter Summary ---
Author Organization [facility] [place] [address] Care Team Providers Care C++ Professor Name Role Phone Unavailable Primary Care Provider Unavailabl e Reason for Visit * Reason Comments Chemotherapy Cycle1 Day 15 * Treatment/Therapy Plan Authorization (Routine) - Closed Specialty Diagnoses / Procedures Referred By Contac t Referred To Contact Diagnoses Malignant neoplasm of central portion of right female breast Malignant neoplasm of central portion of right female breast Procedures TC PACLITAXEL, 1MG, INJ TC PALONOSETRON HCL, 25MCG, INJECTION (ALOXI) Karthikeyan Reza MD [address] [place] [phone] [facility] Hem Onc Office [address] [place] [phone] Referral ID Status Reason Start Date Expiration Date Visits Re quested Visits Authorized [id number] Closed 07/05/2016 07/05/2017 99 99 Encounter Details Date Type Department Care Team (Late st Contact Info) Description 07/20/2016 8:30 AM EDT Infusion Hematology Oncology at [address] [phone] Malignant neoplasm of central portion of right female breast Social History Tobacco Use Types Packs/Day Years Used Date Smoking Tobacco: Former Cigarettes 0 07/05/1956 - 07/05/1976 Sex and Gender Information Value Date Recorded Sex Assigned at Not on file Gender Identity Not on file Sexual Orientation Not on file documented as of this encounter Progress Notes * Maritza Bass RN - 07/20/2016 8:30 AM EDT INFUSION THERAPY ADMINISTRATION NOTES DIAGNOSIS: Breast cancer CYCLE # 1, Day 15 REASON FOR VISIT: Taxol infusion SUBJECTIVE Lacey offers no complaints. OBJECTIVE LAB DATA: WBC 1.88, HGB 11.0, PLTS 209, ANC 0.98, Creat 0.85 IV ACCESS: Mediport previously accessed, Good blood returned. Flushed with NS followed by 500 unitsHeparin and deaccessed prior to discharge. Pre administration: Chemotherapy orders independently verified for drug name, route, and dosage per patient's height, weight and BSA by VIKKI Santamaria & [facility]. REACTIONS (DESCRIPTION, TIME, INTERVENTION AND EFFECTIVENESS) none ASSESSMENT Lacey was awake, alert and tolerated treatment well. PLAN Return to clinic per routine. documented in this encounter Plan of Treatment Not on file documented as of this encounter Procedures Procedure Name Priority Date/Time Associated Diagnosis Comments LAB SCAN 07/20/2016 12:00 AM EDT IMPLANTABLE DEVICES SCAN 07/20/2016 12:00 AM EDT documented in this encounter Results * SCAN DOC: IMPLANTABLE DEVICES (07/20/2016 12:00 AM EDT) Narrative 07/20/2016 12:00 AM EDT Ordered by an unspecified provider. Scanning Provider MEDIA MGR SCAN EXT O RDR/RSLT * SCAN DOC: LAB (07/20/2016 12:00 AM EDT) Narrative 07/20/2016 12:00 AM EDT Ordered by an unspecified [...] 10 mg, Intravenous, ONCE, 1 dose, On Tue07/20/16 at 0915, Administer 30 minutes prior to PACLitaxel Given 07/20/2016 9:15 AM EDT 10 mg diphenhydrAMINE (BENADRYL) injection 25 mg 25 mg, Intravenous, ONCE, 1 dose, On Tue07/20/16 at 0915, Administer 30 minutes prior to PACLitaxel, Routine Given 07/20/2016 9:22 AM EDT 25 mg famotidine (PEPCID) injection 20 mg 20 mg, Intravenous, ONCE, 1 dose, On Tue07/20/16 at 0915, Administer 30 minutes prior to PACLitaxel Given 07/20/2016 9:24 AM EDT 20 mg heparin, porcine 100 unit/mL flush 500 Units 500 Units, Intravenous, ONCE PRN, Starting on Tue07/20/16 at 0848, Until Tue07/20/16 at 1813, Line Care, Refer to Intravenous (IV) Procedure: Accessing Implanted Vascular Access Devices (654) procedure and/or Intravenous (IV) Job Aid: Adult Flushing & Catheter Care (7350) job aid for additional information regarding guidelines and administration., Routine Given 07/20/2016 11:09 AM EDT 500 Units PACLitaxel (TAXOL) 142 mg in dextrose 5% Non-PVC 273.6667 mL chemo infusion 142 mg (rounded from 142.4 mg = 80 mg/m2/dose ? 1.78 m2 Treatment Plan BSA from Recorded weight), Intravenous, ONCE, 1 dose, On Tue07/20/16 at 1015, Administer over 60 Minutes New Bag 07/20/2016 10:00 AM EDT 142 mg 274 mL/hr palonosetron (ALOXI) injection 0.25 mg 0.25 mg, Intravenous, ONCE, 1 dose, On Tue07/20/16 at 0915, Routine Given 07/20/2016 9:15 AM EDT 0.25 mg sodium chloride 0.9 % flush 5-20 mL 5-20 mL, Intravenous, EVERY 1 MIN PRN, Starting on Tue07/20/16 at 0848, Until Tue07/20/16 at 1813, Line Care, Flush pertains to all indwelling lines. Flush per protocol found in the job aid using the link provided on this medication record. Refer to Intravenous (IV) Job Aid: Adult Flushing & Catheter Care (0488) job aid for additional information regarding guidelines and administration., Routine Given 07/20/2016 11:09 AM EDT 20 mLs documented in this encounter
--- OUTSIDE RECORDS SUMMARY | 2023-08-31 09:47 | XMS_ITS | Clinical Summary ---
Author Organization [facility] Address [address] [place] [address] Phone Care Team Providers Care Insurance Producer Name Role Phone Unavailable Primary Care Provider Unavailabl e Allergies Active Allergy Reactions Criticality Noted Date Comments Sulfa Antibiotics Rash Low 03/03/2017 Category: Adverse Reaction; Medications Medication Sig Dispensed Refills Start Date End Date Status albuterol (2.5 MG/3ML) 0.083% nebulizer solution Inhale. Active cyanocobalamin (Vitamin B-12) 500 MCG tablet Take 1 tablet by mouth 1 (one) time each day. 12/31/2019 Active Yvvbrbbssrd-Ygnwqbyqn-E ilant (Trelegy Ellipta) 100-62.5-25 MCG/INH aerosol powder Inhale. 10/03/2017 Active nystatin (Nystop) 804944 UNIT/GM powder Apply topically. 10/10/2019 Active predniSONE [...] Never smoked any substance 06/02/2020 History of [place] fever 06/02/2020 Itching 01/24/2020 Overview: Impression - 55Lma6583: advised to take over the counter Zyrtec every day, and Pepcid. 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 Ramesh as planned.; Impression - 34Wxm3026: advised to continue fluconazole, and follow up with Dr. Ramesh as planned.; Description: Followed by Dr. Ramesh engineering model maker, on Fluconazole since October prescribed by Dr. Ramesh Pulmonary hypertension 08/24/2019 Overview: Description: WILL REFER TO [facility] FOR E[facility] Breast pain, right 01/02/2019 Breast thickening 01/02/2019 Skin lesion 01/02/2019 History of radiation therapy 07/13/2018 Personal history of chemotherapy 07/13/2018 Post herpetic neuralgia 05/17/2018 Overview: Impression - 48Gyj6027: advised to take 1/2 of the Gabapentin and 1/2 of Hydrocodone combined at bedtime to see if pain improves. Referral to paint mixer machine Dr. Bocanegra for further evaluation; Description: c/o of fatigue currently taking Gabapentin and Hydrocodone not effective, still having pain causing her to not sleep well at night Hearing loss, bilateral 02/20/2018 Onychomycosis 02/20/2018 Abdominal pain 01/25/2018 Overview: Impression - 48Tus8352: 2 samples of FOB given to check for blood in the stool and f/u as planned; Description: says she missed colonoscopy scheduled Pulmonary embolism 01/25/2018 Overview: Transitioned From: Dyspnea on exertion; Impression - 45Zdx7815: refill med; Impression - 02Kru8751: advised to follow up with Dr. Rodriguez.; Impression - 24Apr2019: follow up as planned; Impression - 06May2018: continue meds; Impression - 78Twp2958: follow up with oncologist as planned and follow up in 3 months; Description: on Xarelto indefinitely requesting refill Right middle lobe pulmonary nodule 01/25/2018 Overview: Impression - 81Czs5825: follow up with engineering model maker as planned; Description: on last CT of the chest done in indeterminate 9mm and 5mm nodules suspected benign by engineering model maker patient agreed for recheck CT again in 2 years Deep vein thrombosis (DVT) of left lower extremi ty 12/21/2017 Overview: Transitioned From: Leg pain; Impression - 47Qsy8558: adv and discussed symptoms to call me so we could do ultrasound; Impression - 24Apr2019: follow up with Dr. Rodriguez; Impression - 96Lzk5866: continue meds, follow up with Dr Rodriguez as planned; Impression - 06May2018: continue meds, follow up with Dr Rodriguez as planned; Impression - 21Dec2017: sample of Xarelto 15mg bid for 21 days; sample of Xarelto 20mg; Description: left leg DVT, no longer on Xarelto, NO symptoms, just concerns, Idiopathic peripheral neuropathy 06/06/2017 Overview: Impression - 23Bxs6575: observation for now COPD (chronic obstructive pulmonary disease) Overview: Impression - 74Tpl2273: To cont inhalers and follow up with pulm.; Impression - 07Nao9879: To cont inhalers and followed engineering model maker Dr. Gomez; Impression - 24Apr2019: advised to cont inhalers and followed engineering model maker Dr. Gomez; Impression - 22Gbs4026: advised to cont inhalers and follow up with engineering model maker Dr. Gomez; Impression - 23Axp0970: advised to cont inhalers and follow up with engineering model maker Dr. Gomez; Impression - 21Dec2017: followed by Dr. Gomez; Description: now on Trelegy and nebulizer tx, trelegy is expensive History of breast cancer 03/03/2017 Hyperlipidemia 03/03/2017 Overview: Impression - 91Gos3321: advised low cholesterol diet, check lipids, cont meds; Impression - 56Kai6935: advised low cholesterol diet, check lipids, cont meds; Impression - 31Ewt0390: advised okay to try taking 1/2 of the Simvastatin and check labs in 3 months. If cholesterol is okay, she may be able to continue with diet.; Impression - 67Wdt8999: advised low chol diet, cont meds, follow-up lipids.; Description: on Simvastatin, reports taking it for 20 years now, LDL 105 Hypothyroidism 03/03/2017 Overview: Impression - 61Zty5461: Euthyroid, cont meds, check TSH; Impression - 23Qql2466: Euthyroid, cont meds, check TSH; Description: On Levothyroxine 25 mcg daily, TSH level is normal Irregular heart beat 03/03/2017 Osteoporosis 03/03/2017 Vitamin D deficiency 03/03/2017 Overview: Impression - 03Ljy4826: continue supplements.; Description: by history, vitamin D [...] PPV23 11/13/2018 Tdap 01/02/2020 Zoster, Recombinant 08/28/2019,06/12/2019 Family History Medical History Relation Name Comments See Comments Father TW: Family hist ory of Stroke Father See Comments Mother TW: Family hist ory of Relation Name Status Comments Father Mother Social History Tobacco Use Types Packs/Day Years [...] Comments Blood Pressure 112/72 06/02/2020 10:26 AM [facility] Pulse 73 06/02/2020 10:26 AM [facility] Temperature 35.8 ??C (96.4 ??F) 06/02/2020 10:26 AM [facility] Respiratory Rate - - Oxygen Saturation 93% 06/02/2020 10:26 AM [facility] Inhaled Oxygen Concentration - - Weight 68 kg (150 lb) 06/02/2020 10:26 AM [facility] Height 160 cm (5' 3) 06/02/2020 10:26 AM [facility] Body Mass Index 26.57 06/02/2020 10:26 AM [facility] Plan of Treatment Health Maintenance Due Date Last Done Comments RSV 60+ Series (1 - 1-dose 60+ series) 1999 Medicare Annual Wellness (AWV) 06/03/2021 06/02/2020, 04/24/2019 COVID-19 Vaccine ( season) 2022 04/04/2020, 03/12/2020 Influenza Vaccine (#1) 2023 0, 10/25/2019, 11/13/2018, Additional history exists Bone Density Scan 08/01/2025 08/01/2020 DTaP/Tdap/Td Vaccines (2 - Td or Tdap) 01/01/2030 01/02/2020 Pneumococcal Vaccine: 65+ Years Completed 11/13/2018, 02/14/2017, 11/11/2015 Zoster Vaccine Completed 08/28/2019, 06/12/2019 HIB Vaccines Aged Out No longer eligi ble based on patient's age to complete this topic HPV Vaccines Aged Out No longer eligi ble based on patient's age to complete this topic Hepatitis A Vaccines Aged Out No long er eligible based on patient's age to complete this topic Hepatitis B Vaccines Aged Out No long er eligible based on patient's age to complete this topic Meningococcal Vaccine Aged Out No leandra barbie eligible based on patient's age to complete this topic RSV Series Aged Out No longer eligible based on patient's age to complete this topic Rotavirus Vaccines Aged Out No longer eligible based on patient's age to complete this topic Procedures Procedure Name Priority Date/Time Associated Diagnosis Comments DEXA BONE DENSITY 08/01/2020 11: 07 AM [facility] from Last 3 Months or Most Recently Relevant to Health Maintenance Results * DEXA BONE DENSITY (08/01/2020 11:07 AM [facility]) Anatomical Region Laterality Modality Body Radiographic Megan ging Yusef Ramos MD IMG DXA PROCEDURES from Last 3 Months or Most Recently Relevant to Health Maintenance
--- OUTSIDE RECORDS SUMMARY | 2023-08-31 09:47 | XMS_ITS | Encounter Summary ---
Author Organization [facility] Address [address] [place] [address] Phone Care Team Providers Care Stereotyper Name Role Phone Yusef Ramos MD Primary Care Provider [phone] Encounter Details Date Type Department Care Team (Late st Contact Info) Description 06/20/2018 Office Visit - [facility] [address] [facility] [address] [place] [phone] Acute embolism and thrombosis of unspecified deep veins of left lower extremity (CMS/HCC); Hyperlipidemia, unspecified; Other postherpetic nervous system involvement Social History Tobacco Use Types Packs/Day Years [...] COVID-19? No / Unsure 06/02/2020 9:57 AM [facility] documented as of this encounter Plan of Treatment Not on file documented as of this encounter Visit Diagnoses Diagnosis Acute embolism and thrombosis of unspecified deep veins of left lower extremity (CMS/HCC) Hyperlipidemia, unspecified Other postherpetic nervous system involvement documented in this encounter Care Teams Stereotyper Relationship Specialty Start Date End Date Yusef Ramos MD [address] [place] [phone] PCP - General 02/15/20 07/15/20 documented as of this encounter
--- OUTSIDE RECORDS SUMMARY | 2023-08-31 09:47 | XMS_ITS | Encounter Summary ---
Author Organization [facility] [place] [address] Care Team Providers Care Munitions Handler Name Role Phone Unavailable Primary Care Provider Unavailabl e Encounter Details Date Type Department Care Team (Late st Contact Info) Description 07/27/2016 Orders Only Hematology/Oncology at [address] [phone] Avery Zuleta RN Social History Tobacco Use Types Packs/Day Years Used Date Smoking Tobacco: Former Cigarettes 0 07/05/1956 - 07/05/1976 Sex and Gender Information Value Date Recorded Sex Assigned at Not on file Gender Identity Not on file Sexual Orientation Not on file documented as of this encounter Progress Notes * Avery Zuleta RN - 07/27/2016 11:57 AM EDT Opened in error documented in this encounter Plan of Treatment Not on file documented as of this encounter Visit Diagnoses Not on filedocumented in this encounter
--- OUTSIDE RECORDS SUMMARY | 2023-08-31 09:47 | XMS_ITS | Encounter Summary ---
Author Organization [facility] Address [address] [place] [address] Phone Care Team Providers Care Forensic Materials Engineer Name Role Phone Yusef Ramos MD Primary Care Provider [phone] Encounter Details Date Type Department Care Team (Late st Contact Info) Description 12/31/2019 Office Visit - [facility] [address] [facility] [address] [place] [address] Other pulmonary embolism without acute cor pulmonale (CMS/HCC); Chronic obstructive pulmonary disease, unspecified (CMS/HCC); Pulmonary coccidioidomycosis, unspecified (CMS/HCC) Social History Tobacco Use Types [...] No / Unsure 06/02/2020 9:57 AM [facility] documented as of this encounter Plan of Treatment Not on file documented as of this encounter Visit Diagnoses Diagnosis Other pulmonary embolism without acute cor pulmonale (CMS/HCC) Chronic obstructive pulmonary disease, unspecified (CMS/HCC) Pulmonary coccidioidomycosis, unspecified (CMS/HCC) Pulmonary coccidioidomycosis, unspecified documented in this encounter Care Teams Forensic Materials Engineer Relationship Specialty Start Date End Date Yusef Ramos MD [address] [facility] [address] [place] [address] PCP - General 02/15/20 07/15/20 documented as of this encounter
--- OUTSIDE RECORDS SUMMARY | 2023-08-31 09:47 | XMS_ITS | Encounter Summary ---
Author Organization [facility] [place] [address] Care Team Providers Care Tool And Die Technician Name Role Phone Unavailable Primary Care Provider Unavailabl e Reason for Visit * Reason Comments Breast Cancer Encounter Details Date Type Department Care Team (Late st Contact Info) Description 07/20/2016 8:00 AM EDT Office Visit Hematology/Oncology at [address] [phone] Karthikeyan Reza MD [address] [place] [phone] Malignant neoplasm of central portion of right [...] Sign Reading Time Taken Comments Blood Pressure 141/69 07/20/2016 8:05 AM EDT Pulse 72 07/20/2016 8:05 AM EDT Temperature 36.7 ??C (98.1 ??F) 07/20/2016 8:05 AM ED T Respiratory Rate 18 07/20/2016 8:05 AM EDT Oxygen Saturation 99% 07/20/2016 8:05 AM EDT Inhaled Oxygen Concentration - - Weight 71.7 kg (158 lb) 07/20/2016 8:05 AM EDT Height 159.4 cm (5' 2.76) 07/20/2016 8:05 AM ED T copied Body Mass Index 28.21 07/20/2016 8:05 AM EDT documented in this encounter Progress Notes * Karthikeyan Reza MD - 07/20/2016 8:00 AM EDT 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 The patient has 3 lesions in the right breast at 12:00 and 12:15 initial KI-67 was elevated to 60%. Markers were placed and MRI indicated no axillary involvement. The patient is status post 4 cycles of Adriamycin and Cytoxan in [place] and has moved to [place] with plans on completing 12 weekly cycles of Taxol prior to surgery in [place]. SUBJECTIVE: Lacey comes in today for week 3 of single agent taxol being given after dose dense Adriamycin and Cytoxan in the neoadjuvant treatment of her breast cancer. She does have surgery this October back in [place]. She is continuing to tolerate the chemotherapy well, although with the rainy weather has not been getting out much and has not been doing well on her overall diet. She feels well, however. She is not having any numbness in her hands or feet. No nail changes, no nausea or vomiting. Constipation is reasonably handled with laxatives. She really has no complaints today and energy levels are good. 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 Smoking [...] supraclavicular, and axillary nodes normal Neurologic: Normal Review of her blood counts show a white count of 1.88, hemoglobin of 11.0, hematocrit 34.2, platelet count 290,000. Absolute neutrophil count is 980. CMP shows normal electrolytes, a creatinine of 0.75, calcium of 8.5, normal liver tests with an ALP low at 38, normal transaminases and bilirubin. Albumin is 3.3. Lacey is tolerating the chemotherapy well with good control of nausea and vomiting. She has a bit more chemotherapy-associated anemia which we will watch. She is neutropenic today, although just barely so, and with her coming off dose dense A/C with Neulasta, I think her white count may rebound again, even with treatment today. We did give her a thermometer and counseled her about neutropenic fever, but I think it is reasonable to go ahead today and get her treated. Will go ahead with that as planned, and see her back next week for week 4 of 12 weekly treatments. She will call if there are issues in the interim, and knows to go immediately to the emergency room if she gets any significant fever. 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 Malignant neoplasm of central portion of female breast documented in this encounter
--- OUTSIDE RECORDS SUMMARY | 2023-08-31 09:47 | XMS_ITS | Continuity of Care Document ---
Author Organization [facility] Address [address] [place] [address]- Care Team Providers Care Canoe Inspector Final Name Role Phone Yusef Ramos Mary Primary Care Physician [phone] Encounter [facility] [id number] Date(s): 06/17/20 - 07/14/[address] [phone] Attending Physician: Ronda Ramesh MD Allergies, Adverse [...]
--- OUTSIDE RECORDS SUMMARY | 2023-08-31 09:47 | XMS_ITS | Encounter Summary ---
Author Organization [facility] [place] [address] Care Team Providers Care Equipment Operator Wage Hand Name Role Phone Unavailable Primary Care Provider Unavailabl e Reason for Visit * Reason Comments Chemotherapy Taxol Cycle 1 Day 22 * Treatment/Therapy Plan Authorization (Routine) - Closed Specialty Diagnoses / Procedures Referred By Contac t Referred To Contact Diagnoses Malignant neoplasm of central portion of right female breast Malignant neoplasm of central portion of right female breast Procedures TC PACLITAXEL, 1MG, INJ TC PALONOSETRON HCL, 25MCG, INJECTION (ALOXI) Karthikeyan Reza MD [address] [place] [id number] [facility] Hem Onc Office [address] [place] [phone] Referral ID Status Reason Start Date Expiration Date Visits Re quested Visits Authorized [id number] Closed 07/05/2016 07/05/2017 99 99 Encounter Details Date Type Department Care Team (Late st Contact Info) Description 07/27/2016 12:00 PM EDT Infusion Hematology Oncology at [address] [phone] Malignant neoplasm of central portion of right female breast Social History Tobacco Use Types Packs/Day Years Used Date Smoking Tobacco: Former Cigarettes 0 07/05/1956 - 07/05/1976 Sex and Gender Information Value Date Recorded Sex Assigned at Not on file Gender Identity Not on file Sexual Orientation Not on file documented as of this encounter Progress Notes * Viviane Landers RN - 07/27/2016 12:00 PM EDT . INFUSION THERAPY ADMINISTRATION NOTES DIAGNOSIS: Breast cancer CYCLE # 1, Day 22 REASON FOR VISIT: Taxol infusion SUBJECTIVE Lacey offers no complaints. OBJECTIVE LAB DATA: WBC 1.91, HGB 10.6, PLTS 229, ANC 1.05, Creat 0.72 IV ACCESS: Mediport previously accessed, Good blood returned. Flushed with NS followed by 500 unitsHeparin and deaccessed prior to discharge. Pre administration: Chemotherapy orders independently verified for drug name, route, and dosage per patient's height, weight and BSA by Viviane Landers, VIKKI & Maria M Pineda [facility]. REACTIONS (DESCRIPTION, TIME, INTERVENTION AND [...] 10 mg, Intravenous, ONCE, 1 dose, On Tue07/27/16 at 1230, Administer 30 minutes prior to PACLitaxel Given 07/27/2016 12:43 PM EDT 10 mg diphenhydrAMINE (BENADRYL) injection 25 mg 25 mg, Intravenous, ONCE, 1 dose, On Tue07/27/16 at 1230, Administer 30 minutes prior to PACLitaxel, Routine Given 07/27/2016 12:49 PM EDT 25 mg famotidine (PEPCID) injection 20 mg 20 mg, Intravenous, ONCE, 1 dose, On Tue07/27/16 at 1230, Administer 30 minutes prior to PACLitaxel Given 07/27/2016 12:47 PM EDT 20 mg heparin, porcine 100 unit/mL flush 500 Units 500 Units, Intravenous, ONCE PRN, Starting on Tue07/27/16 at 1201, Until Tue07/27/16 at 1700, Line Care, Refer to Intravenous (IV) Procedure: Accessing Implanted Vascular Access Devices (654) procedure and/or Intravenous (IV) Job Aid: Adult Flushing & Catheter Care (7824) job aid for additional information regarding guidelines and administration., Routine Given 07/27/2016 2:30 PM EDT 500 Units PACLitaxel (TAXOL) 142 mg in dextrose 5% Non-PVC 273.6667 mL chemo infusion 142 mg (rounded from 142.4 mg = 80 mg/m2/dose ? 1.78 m2 Treatment Plan BSA from Recorded weight), Intravenous, ONCE, 1 dose, On Tue07/27/16 at 1330, Administer over 60 Minutes New Bag 07/27/2016 1:29 PM EDT 142 mg 274 mL/hr palonosetron (ALOXI) injection 0.25 mg 0.25 mg, Intravenous, ONCE, 1 dose, On Tue07/27/16 at 1230, Routine Given 07/27/2016 12:42 PM EDT 0.25 mg sodium chloride 0.9 % flush 5-20 mL 5-20 mL, Intravenous, EVERY 1 MIN PRN, Starting on Tue07/27/16 at 1201, Until Tue07/27/16 at 1700, Line Care, Flush pertains to all indwelling lines. Flush per protocol found in the job aid using the link provided on this medication record. Refer to Intravenous (IV) Job Aid: Adult Flushing & Catheter Care (5246) job aid for additional information regarding guidelines and administration., Routine Given 07/27/2016 2:30 PM EDT 20 mLs documented in this encounter
--- OUTSIDE RECORDS SUMMARY | 2023-08-31 09:48 | XMS_ITS | Referral Summary ---
Author Organization [facility] Address [address] [place] [address] Care Team Providers Care Cable Layer Name Role Phone Meg, Vinay Honeycutt MD Unavailable [phone] Tristen Rodriguez MD Unavailable David Tony MD Unavailable Yusef Ramos MD Primary Care Provider Allergies Active Allergy Reactions Criticality Noted Date [...] Free 11/18/2016 Pneumococcal conjugate PCV 13 11/11/2015 Social History Tobacco Use Types Packs/Day Years [...] Comments Blood Pressure 127/78 01/02/2019 9:12 AM [facility] Pulse 64 01/02/2019 9:12 AM [facility] Temperature 36.8 ??C (98.2 ??F) 03/29/2017 1 1:29 AM [facility] Respiratory Rate 19 10/22/2016 2:23 PM [facility] Oxygen Saturation 97% 01/02/2019 9:12 AM [facility] Inhaled Oxygen Concentration - - Weight 71.6 kg (157 lb 12.8 oz) 01/02/2019 9:12 AM [facility] 157.8 lbs Height 160 cm (5' 3) 01/02/2019 9:12 AM [facility] Body Mass Index 27.95 01/02/2019 9:12 AM [facility] Functional Status Functional Status Response Date of Assess ment Are you deaf or do you have difficulty hearing? Yes 10/13/2016 Are you blind or do you have serious difficulty seeing, even when wearing glasses? Yes 10/13/2016 Do you have serious difficul ty walking or climbing stairs? (5 years old or older) Yes 10/13/2016 Do you have difficulty dress ing or bathing? (5 years old or older) No 03/05/2016 Because of a physical, menta l, or emotional condition, do you have difficulty doing errands alone such as visiting a doctor's office or shopping? (15 years old or older) No 03/05/2016 Cognitive Status Response Date of Assessm ent Because of a physical, menta l, or emotional condition, do you have serious difficulty concentrating, remembering, or making decisions? (5 years old or older) No 10/13/2016 Plan of Treatment Not on file Medical Devices Implanted Type Area Nail Cutter Device Identifier Shelf Expiration Date Model / Serial / Lot Left Chest Port Care Teams Cable Layer Relationship Specialty Start Date End Date Yusef Ramos MD [address] [place] [address] PCP - General Hospitalist 04/01/17 Vinay Weaver MD Surgery - General Surgery 08/24/16 Tristen Rodriguez MD UNKNOWN 08/24/16 David Tony MD Radiology - Oncology 10/28/16
--- OUTSIDE RECORDS SUMMARY | 2023-08-31 09:48 | XMS_ITS | Encounter Summary ---
Author Organization [facility] r Address [address] [place] [address] Care Team Providers Care Professor Of Geology Name Role Phone Vinay Weaver Hannah Honeycutt MD Unavailable Tristen Rodriguez MD Unavailable [phone] David Tony MD Unavailable [phone] Yusef Ramos MD Primary Care Provider [phone] Reason for Referral * Specialty Diagnoses / Procedures Referred By Contanamaria t Referred To Contact Diaz Francis Referral ID Status Reason Start Date Expiration Date Visits Re quested Visits [facility]ized [facility] Encounter Details Date Type Department Care Team (Late st Contact Info) Description 10/19/2019 Orders Only T[facility]aniel [facility] Breast [address] [place] [id number] [facility] Social History Tobacco Use Types Packs/Day Years Used Date Smoking Tobacco: Former Cigarettes 0.5 23 0 10/20/1946 - 10/20/1969 Smokeless Tobacco: Never Comments: Alcohol Use Standard Drinks/Week Comments Yes 0 (1 standard drink = 0.6 oz pur e alcohol) SOCIALLY Sex and Gender Information Value Date Recorded Sex Assigned at Not on file Gender Identity Not on file Sexual Orientation Not on file documented as of this encounter Functional Status Functional Status Response Date of [...] (5 years old or older) No 10/13/2016 documented as of this encounter Plan of Treatment Not on file documented as of this encounter Procedures Procedure Name Priority Date/Time Associated Diagnosis Comments AMB REFERRAL TO ONCOLOGY ROUTINE 10/10/2019 documented in this encounter Results * AMB REFERRAL TO ONCOLOGY (10/10/2019) Med Hx [facility] AMB OUTPATIENT R EFERRAL ORDERABLES documented in this encounter Visit Diagnoses Not on filedocumented in this encounter Care Teams Professor Of Geology Relationship Specialty Start Date End Date Yusef Ramos MD [address] [place] [id number] PCP - General Hospitalist 04/01/17 Vinay Weaver MD Surgery - General Surgery 08/24/16 Tristen Rodriguez MD UNKNOWN 08/24/16 David Tony MD Radiology - Oncology 10/28/16 documented as of this encounter
--- OUTSIDE RECORDS SUMMARY | 2023-08-31 09:48 | XMS_ITS | Encounter Summary ---
Author Organization [facility] r Address [address] [place] [address] Care Team Providers Care Retail Bakery Manager Name Role Phone Meg Vinay Honeycutt MD Unavailable Tristen Rodriguez MD Unavailable David Tony MD Unavailable Yusef Ramos MD Primary Care Provider Reason for Visit * Reason Onset Date Comments OTHER (EXPLAIN IN COMMENTS) 02/02/2019 Mamm ogram results Encounter Details Date Type Department Care Team (Late st Contact Info) Description 02/02/2019 Telephone [facility] [address] [facility] [address] [place] [address] Jahaira Shaver, MEDICAL DEVICE ASSEMBLER [address] [facility] [address] [place] [address] OTHER (EXPLAIN IN COMMENTS) (Mammogram results ) Social History Tobacco Use Types Packs/Day Years [...] No 10/13/2016 documented as of this encounter Progress Notes * Yasmeen Chapin, [employer] Professor - 02/02/2019 1:33 PM MST LMOM informing pt of previous. Encouraged her to call office back with any questions or concerns. * Yasmeen Chapin, [employer] Professor - 02/02/2019 1:32 PM MST ----- Message from Jahaira Shaver NP sent at 02/01/2019 6:53 PM MST ----- Please let patient know mammogram results are negative. Jahaira García documented in this encounter Plan of Treatment Not on file documented as of this encounter Visit Diagnoses Not on filedocumented in this encounter Care Teams Retail Bakery Manager Relationship Specialty Start Date End Date Yusef Ramos MD [address] [place] [id number] PCP - General Hospitalist 04/01/17 Vinay Weaver MD Surgery - General Surgery 08/24/16 Tristen Rodriguez MD UNKNOWN 08/24/16 David Tony MD Radiology - Oncology 10/28/16 documented as of this encounter
--- OUTSIDE RECORDS SUMMARY | 2023-08-31 09:48 | XMS_ITS | Encounter Summary ---
Author Organization [facility] r Address [address] [place] [address] Care Team Providers Care Watch Repair Technician Name Role Phone Vinay Weaver MD Unavailable Tristen Rodriguez MD Unavailable David Tony MD Unavailable [phone] Yusef Ramos MD Primary Care Provider [phone] Reason for Visit * Reason Onset Date Comments Referral 04/21/2017 pulm Encounter Details Date Type Department Care Team (Late st Contact Info) Description 04/21/2017 Telephone [facility] [address] [facility] [address] [place] [address] Vinay Weaver MD [address] [facility], [address] [place] [address] Referral (pulm) Social History Tobacco Use Types Packs/Day Years [...] as of this encounter Progress Notes * Tabatha Grant - 05/03/2017 11:14 AM MST Patient called back. She states symptoms have not changed. I called Pulmonalogist office to try andget a sooner appt. Staff states there is no sooner appt. Advised patient she was placed on a waiting list. * Tabatha Grant - 04/29/2017 2:50 PM MST Called patient left message for call back. * Vinay Weaver MD - 04/29/2017 9:48 AM MST I guess it depends on her symptoms, if they are getting worse she should be seen sooner. He has other partners she could see like Kameron. I just put anh's name on the referral. * Vianney Ibarra - 04/21/2017 4:53 PM MST Patient called to inform the office she was not able to see Dr Gomez (pulmonology) until end of May. She would like to know if that is okay or is there a different provider she can be sent to. documented in this encounter Plan of Treatment Not on file documented as of this encounter Visit Diagnoses Not on filedocumented in this encounter Care Teams Watch Repair Technician Relationship Specialty Start Date End Date Yusef Ramos MD [facility] [place] [address] PCP - General Hospitalist 04/01/17 Vinay Weaver MD Surgery - General Surgery 08/24/16 Tristen Rodriguez MD UNKNOWN 08/24/16 David Tony MD Radiology - Oncology 10/28/16 documented as of this encounter
--- OUTSIDE RECORDS SUMMARY | 2023-08-31 09:48 | XMS_ITS | Encounter Summary ---
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) Social History Tobacco Use Types Packs/Day Years [...] Sign Reading Time Taken Comments Blood Pressure 110/80 03/29/2017 11:29 AM [facility] Pulse 94 03/29/2017 11:29 AM [facility] Temperature 36.8 ??C (98.2 ??F) 03/29/2017 11:29 AM [facility] Respiratory Rate - - Oxygen Saturation 95% 03/29/2017 11:29 AM [facility] Inhaled Oxygen Concentration - - Weight 74.4 kg (164 lb) 03/29/2017 11:29 AM [facility] Height 160 cm (5' 3) 03/29/2017 11:29 AM [facility] Body Mass Index 29.05 03/29/2017 11:29 AM MST documented in this encounter Functional Status Functional Status Response [...] as of this encounter Progress Notes * Vinay Weaver MD - 03/29/2017 11:30 AM MST Images from the original note were not included. Subjective: Patient ID: Lacey Epperson is a 76 year old female. Chief Complaint: Chief Complaint Patient presents with ??? Breast Cancer RIGHT HPI Patient Lacey Epperson is a 76 year old year old female. She presents to office today to follow up. Patient has a personal history right breast invasive ductal carcinoma. Patient is s/p right??breastpartial mastectomy with sentinel node biopsy on 10/22/2016. Surgical pathology identifies the site of prior biopsy with no residual invasive or in situ carcinoma noted. ??Margins are negative, 0/4 nodes positive. On 02/24/[address] [facility] for a bilateral diagnostic mammogram. Results report heterogeneously dense breast tissue with post-therapeutic change in the right breast,a metallic clip in the area of the prior biopsy of the left breast and a small hematoma and loculation of air in the left axilla consistent with recent port removal. Since her last visit she's had her port removed by Dr. Siddiqi. Just yesterday, she noticed a small lump underneath the port incision and wonders if it's part of the port. She also expresses some lack of interest in activities. When she is with other people. She feels fine, but when she is alone. She has trouble with motivation and enjoying Activities. She has not resumed her previous level of physical Activity. Reason she has not resumed her physical activity is that she gets short of breath fairly easily including just walking up a Few stairs or emptying the groceries out of her car. She has A new Primary Care physician and does not have an appointment with wayne contreras in April. She has not discussed the shortness of breath with her primary care doctor. Patient denies noting any palpable breast masses, pain, nipple discharge or change in appearance. Patient is alone today Significant shortness of breath limits her activity. Has not seen pulmonogist lately. New PCP Yusef Ramos MD Review of patient's allergies indicates: Allergen Reactions ??? Sulfa Drugs Rash Outpatient Prescriptions Marked as Taking for the 03/29/17 encounter (Office Visit) with Vinay Weaver MD Medication Sig Dispense Refill ??? albuterol (VENTOLIN HFA) 108 (90 Base) MCG/ACT inhaler Inhale 1-2 puffs into the lungs every four hours as needed for Shortness of Breath. ??? fluticasone-salmeterol 250-50 mcg/dose (ADVAIR DISKUS) 250-50 MCG/DOSE diskus inhaler Inhale 1 puff into the lungs every morning. Indications: Asthma ??? HYDROcodone-acetaminophen (NORCO) 5-325 MG tablet Take 1-2 tablets by mouth every four hours asneeded. 20 tablet 0 ??? ibuprofen (ADVIL,MOTRIN) 200 MG tablet Take 600-800 mg by mouth every four hours as needed for Pain. ??? levothyroxine (SYNTHROID, LEVOTHROID) 25 MCG tablet Take 25 mcg by mouth one-half hour before breakfast. Indications: Underactive Thyroid ??? Simvastatin (ZOCOR) 40 MG tablet Take 40 mg by mouth every night at bedtime. Indications: High Amount of Fats in the Blood Patient's medications, allergies, past medical, social, surgical and family histories were reviewedand updated as appropriate. Review of Systems Constitutional: Positive for fatigue. Negative for chills and fever. HENT: Negative. Negative for hearing loss and sore throat. Eyes: Negative. Negative for visual disturbance. Respiratory: Negative. Negative for cough and shortness of breath. Cardiovascular: Negative. Negative for chest pain and leg swelling. Gastrointestinal: Negative. Negative for blood in stool, constipation and nausea. Endocrine: Negative. Genitourinary: Negative for hematuria. Musculoskeletal: Negative. Negative for back pain. Skin: Negative. Negative for rash. Allergic/Immunologic: Negative. Neurological: Negative. Negative for seizures and headaches. Hematological: Negative. Does not bruise/bleed easily. Psychiatric/Behavioral: Positive for dysphoric mood. Negative for confusion. The patient is not nervous/anxious. Objective: Blood pressure 110/80, pulse 94, temperature 36.8 ??C (98.2 ??F), height 1.6 m (5' 3), weight 74.4kg, SpO2 95 %.Body mass index is 29.05 kg/m??. Physical Exam Constitutional: She is oriented to person, place, and time. She appears well- developed and well-nourished. HENT: Head: Normocephalic and atraumatic. Eyes: Pupils are equal, round, and reactive to light. Neck: Normal range of motion. Cardiovascular: Normal rate and regular rhythm. Pulmonary/Chest: Effort normal. Right breast exhibits no inverted nipple, no mass, no nipple discharge, no skin change and no tenderness. Left breast exhibits no inverted nipple, no mass, no nipple discharge, no skin change and no tenderness. There is a cylindrical Palpable mass underneath the left port site. It does feel like it may be part of the port that ws left in place. Possibly the connector between the catheter and the port Lymphadenopathy: She has no cervical adenopathy. She has no axillary adenopathy. Right: No supraclavicular adenopathy present. Left: No supraclavicular adenopathy present. Neurological: She is alert and oriented to person, place, and time. Skin: Skin is warm and dry. Psychiatric: She has a normal mood and affect. Her behavior is normal. Vitals reviewed. Assessment: Encounter Diagnoses Name Primary? Malignant neoplasm of upper-outer quadrant of right breast in female, estrogen receptor negative Yes ??? Triple negative malignant neoplasm of breast Recommend pulmonary referral. Increase exercise. Discussed depression symptoms, listlessness, not interested in some activities. Encouraged to persist in increasing exercise and activities with others. Reminded her to let myselfher new primary care doctor or Dr. Rodriguez know if her depressive Symptoms are not improving. Depression. Around the time of diagnosif breast cancer is fairly common and there are Many treatment options. Discussed survivorship issues. Spent 30 out of 45 minutes of our time with the above discussion. Plan: Lacey Epperson to follow up in breast surgery clinic in 3 months. Pt to complete diagnostic mammogram In one year appointment. Imaging to be completed at [facility]. Regarding the mass under the port site. It's possible versus a suture. However, it does feel more like part of the port. I asked I recommend that she speak with Dr. Siddiqi about it. If she is not comfortable in doing so, or it doesn't get taken care of. I'm happy To address it for her. We could reopen the incision here in clinic and Explore it and remove anything that seems to correlate with the mass. Lacey was seen today for breast cancer. 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
--- OUTSIDE RECORDS SUMMARY | 2023-08-31 09:48 | XMS_ITS | Encounter Summary ---
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) Procedures Fiorella/Digital Diagnostic Mammo Bilat w/CAD Kali Dougherty MD [address], [address] [place] [address] Referral ID Status Reason Start Date Expiration Date Visits Re quested Visits Authorized [id number] Closed 03/01/2018 11/29/2018 1 1 Encounter Details Date Type Department Care Team (Latest Contact Info) Description 03/07/2018 11:15 AM [facility] - 03/07/2018 11:59 PM [facility] Hospital Encounter [facility] [address] [place] [address] [address] [place] [address] Kali Dougherty MD [address], [address] [place] [address] Discharge Disposition: Home or Self Care Social History Tobacco Use Types Packs/Day Years [...] No 10/13/2016 documented as of this encounter Medications at Time of Discharge Medication Sig Dispensed Refills Start Date End Date albuterol (VENTOLIN HFA) 108 (90 Base) MCG/ACT inhaler Inhale 1-2 puffs into the lungs every four hours as needed for Shortness of Breath. levothyroxine (SYNTHROID, LEVOTHROID) 25 MCG tabletIndications:Hypot hyroidism Take 25 mcg by mouth one-half hour before breakfast. Indications: Underactive Thyroid Simvastatin (ZOCOR) 40 MG tabletIndications:Hyper lipidemia Take 40 mg by mouth every night at bedtime. 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 A routine follow-up mammogram in 1 year is recommended. The patient will be informed of the results by mail. ACR BI-RADS CATEGORY 2 - Benign Finding(s) MARIZA MURRELL REPORT HAS BEEN ELECTRONICALLY SIGNED BY THE ABOVE RADIOLOGIST DATE/TIME SIGNED: 03/07/2018 12:11:27 KALI DOUGHERTY MD Narrative 03/07/2018 12:16 PM [facility] CLINICAL HISTORY: Patient is 77 years old and is seen for a diagnostic exam. 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 ??The patient has the following family history of breast cancer: ??niece and sister, at age 65. FILMS COMPARED: The present examination has been compared to prior imaging studies performed at [facility] on 02/20/2016, and at [facility] on 02/24/2017. MAMMOGRAM FINDINGS: There are scattered fibroglandular densities. There is a post-surgical scar seen in the right breast. Finding is in an area of prior lumpectomy. There has been no significant interval change. ??There is a biopsy marker in the left breast. In the left breast, there are no suspicious masses, calcifications or areas of architectural distortion. The views performed were: ??bilateral craniocaudal; bilateral craniocaudal with tomosynthesis; bilateral mediolateral oblique; bilateral mediolateral oblique with tomosynthesis; and right mediolateral. Procedure Note Mariza Murrell MD - 03/07/2018 CLINICAL HISTORY: Patient is 77 years old and is seen for a diagnostic exam. The patienthas a history of invasive ductal right breast carcinoma in February,. Thepatient has the following family history of breast cancer: niece and sister, qasimge 65. FILMS COMPARED: The present examination has been [facility] to [facility]. MAMMOGRAM FINDINGS: There are scattered fibroglandular densities. There is a post-surgical scar seen in the right breast. Finding is in anarea of prior lumpectomy. There has been no significant interval change. There panda biopsy marker in the left breast. In the left breast, there are no suspicious masses, calcifications orareas of architectural distortion. The views performed were: bilateral craniocaudal; bilateral craniocaudalwith tomosynthesis; bilateral mediolateral oblique; bilateral mediolateraloblique with tomosynthesis; and right mediolateral. IMPRESSION Post-surgical scar in the right breast is benign-appearing. A routine follow-up mammogram in 1 year is recommended. The patient will be informed of the results by mail. ACR BI-RADS CATEGORY 2 - Benign Finding(s) MARIZA HANDY REPORT HAS BEEN ELECTRONICALLY SIGNED BY THE ABOVE RADIOLOGIST DATE/TIME SIGNED: 03/07/2018 12:11:27 KALI DOUGHERTY MD Kali Dougherty MD RADIOLOGY MAMM OGRAPHY documented in this encounter Visit Diagnoses Not on filedocumented in this encounter Care Teams Interlibrary Loan Specialist Relationship Specialty Start Date End Date Yusef Ramos MD [address] [place] [address] PCP - General Hospitalist 04/01/17 Kali Dougherty MD Surgery - General Surgery 08/24/16 Tristen Rodriguez MD UNKNOWN 08/24/16 David Tony MD Radiology - Oncology 10/28/16 documented as of this encounter
--- OUTSIDE RECORDS SUMMARY | 2023-08-31 09:48 | XMS_ITS | Encounter Summary ---
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) Personal history of chemotherapy History of radiation therapy Skin lesion Jahaira Shaver, CATTLE DRIVER [address] [place] [address] Group, [facility] [facility] [address] [place] [address] Referral ID Status Reason Start Date Expiration Date Visits Re quested Visits Authorized [id number] Closed 01/02/2019 01/02/2020 1 1 * Other (Routine) - Closed Specialty Diagnoses / Procedures Referred By Contac t Referred To Contact Diagnoses Breast pain, right Breast thickening Malignant neoplasm of upper-outer quadrant of right breast in female, estrogen receptor negative (HCC) Estrogen receptor negative 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) S/P lumpectomy, right breast Personal history of chemotherapy History of radiation therapy Procedures Sachin/Digital Diagnostic Mammo Bilat w/CAD Jahaira Shaver CATTLE DRIVER [address] [address] [facility], Radiology [place] [address] [place] [address] Referral ID Status Reason Start Date Expiration Date Visits Re quested Visits Authorized [id number] Closed 01/02/2019 01/03/2020 1 1 [facility] Reason for Visit * Reason Comments Breast Cancer right Encounter Details Date Type Department Care Team (Late st Contact Info) Description 01/02/2019 9:20 AM [facility] Office Visit [facility] [address] [address] Jahaira Shaver NP 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); S/P lumpectomy, right breast; Personal history of chemotherapy; History of radiation therapy; Skin lesion Social History Tobacco Use Types Packs/Day [...] Comments Blood Pressure 127/78 01/02/2019 9:12 AM MST Pulse 64 01/02/2019 9:12 AM MST Temperature - - Respiratory Rate - - Oxygen Saturation 97% 01/02/2019 9:12 AM MST Inhaled Oxygen Concentration - - Weight 71.6 kg (157 lb 12.8 oz) 01/02/2019 9:12 AM MST 157.8 lbs Height 160 cm (5' 3) 01/02/2019 9:12 AM MST Body Mass Index 27.95 01/02/2019 9:12 AM MST documented in this encounter Functional [...] as of this encounter Progress Notes * Jahaira Shaver, CATTLE DRIVER - 01/02/2019 9:20 AM MST Images from the original note were not included. Subjective: Patient ID: Lacey Epperson is a 78 year old female. Chief Complaint: Chief Complaint Patient presents with ??? Breast Cancer right HPI Patient is s/p right??breast partial mastectomy with sentinel node biopsy performed by Dr. Vinay Weaver at [facility] on 10/22/2016 after completing new-adjuvant chemotherapy. ?? Surgical pathology identifies the site of prior biopsy with no residual invasive or in situ carcinoma noted. Margins are negative, 0/4 nodes positive. Complete pathological response. ?? 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 Patient had neoadjuvant chemotherapy starting with Dr. Rodrgiuez. ??She completed AC with him prior to spending the Summer in [place] where she started Taxol. ??Her last dose was on 09/21/2016 beforereturning to [place]. She continues follow up with Dr. Rodriguez. She has seen him at his new office and has follow up scheduled. ?? She completed radiation therapy with Dr. Clark 01/2017. 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 she is completed Xeralto in 07/2018. Lacey reports she has noted new sudden onset sharp and sometimes burning pain in the right breast. This has become more bothersome over the past week. She denies noting any palpable breast changes, change in skin, appearance or nipple discharge. She reports she did not make it for a bra fitting before leaving for the summer, but has found a bra style that is more comfortable. She also reports she did not receive a scheduling call with the dermatologists before traveling. She is excited to share that she and most of her family will be traveling to [place] for her 79 th birthday. This is planned to happen in June. She is alone today. She reports she has kept busy planning their trip and lots if baking. She does report she often thinks about cancer returning, but tries to not let it keep her from enjoying heractivities. ?? IMAGING 02/24/2017 Bilateral diagnostic mammogram with sachin performed at [facility] women's Imaging reporting, thebreasts are heterogeneously dense. This may lower the sensitivity of Mammography. There is post-therapeutic change in the right breast. Patient has a metallic clip in the area of the prior biopsy of the left breast. There is a small hematoma and loculation of air in the left axilla consistent with recent port removal. There are no suspicious masses, calcifications or areas of architectural distortion.??All findings are benign. A routine follow-up mammogram in 1 year is recommended. ?? 03/07/2018 Bilateral diagnostic mammogram with sachin performed at [facility] women's Imaging reporting, there are scattered fibroglandular densities. There is a post-surgical scar seen in the right breast. Finding is in an area of prior lumpectomy. There has been no significant interval change. ??There is a biopsy marker in the left breast. In the left breast, there are no suspicious masses, calcifications or areas of architectural distortion. Post-surgical scar in the right breast is benign-appearing.A routine follow-up mammogram in 1 year is recommended. Breast History 03/04/2016 Menarche 10 Menopause Yes Age at Menopause 51 Menopause Type natural 3 Para 3 Age of 1st 19 Yes How long did you breastfeed? 6 WEEKS Biopsy Yes Number of Biopsies 1 Biopsy Site R Breast Atypia Unsure HRT previously OCP previously Ashkenazi Yazidi No Geno 5 Yr (%) (Not Evaluated) Geno Lifetime (%) (Not Evaluated) TYRER-CUZIK Risk Model Version: (Not Evaluated) TYRER-CUZIK Ten Yr (%) (Not Evaluated) TYRER-CUZIK Lifetime (%) (Not Evaluated) Review of patient's allergies indicates: Allergen Reactions ??? Sulfa Drugs Rash Outpatient Medications Marked as Taking for the 01/02/19 encounter (Office Visit) with Vasile Shaver NP Medication Sig Dispense Refill ??? albuterol (VENTOLIN HFA) 108 (90 Base) MCG/ACT inhaler Inhale 1-2 puffs into the lungs every four hours as needed for Shortness of Breath. ??? Cholecalciferol (VITAMIN D) 50 MCG (2000 UT) tablet Take 2,000 Units by mouth daily. ??? levothyroxine (SYNTHROID, LEVOTHROID) 25 MCG tablet Take 25 mcg by mouth one-half hour before breakfast. Indications: Underactive Thyroid ??? Simvastatin (ZOCOR) 40 MG tablet Take 40 mg by mouth every night at bedtime. Indications: High Amount of Fats in the Blood ??? TRELEGY ELLIPTA 100-62.5-25 MCG/INH AEPB ??? Vitamin B-12 (CYANOCOBALAMIN) 500 MCG tablet Take 500 mcg by mouth daily. Patient's medications, allergies, past medical, social, surgical and family histories were reviewedand updated as appropriate. Review of Systems Constitutional: Negative for chills and fever. HENT: Negative for hearing loss and sore throat. Eyes: Negative for visual disturbance. Respiratory: Positive for cough and shortness of breath. Cardiovascular: Negative for chest pain and leg swelling. Gastrointestinal: Negative for blood in stool, constipation and nausea. Genitourinary: Negative for hematuria. Musculoskeletal: Negative for back pain. Skin: Negative for rash. Neurological: Positive for numbness. Negative for seizures and headaches. Hematological: Does not bruise/bleed easily. Psychiatric/Behavioral: Negative for confusion. The patient is not nervous/anxious. Objective: Blood pressure 127/78, pulse 64, height 1.6 m (5' 3), weight 71.6 kg, SpO2 97 %.Body mass index is27.95 kg/m??. Physical Exam Vitals signs reviewed. Constitutional: General: She is not in acute distress. Appearance: Normal appearance. She is well-developed and well-groomed. Neck: Musculoskeletal: Normal range of motion and neck supple. Thyroid: No thyromegaly. Pulmonary: Effort: Pulmonary effort is normal. Chest: Breasts: Right: Tenderness present. No inverted nipple, mass or nipple discharge. Left: No inverted nipple, mass, nipple discharge, skin change or tenderness. Comments: Right breast linear area of thickening and fibrosis with some mild redness along scar at 1200. Pateint with complaints of pain with palpation. This is reproducible. Lymphadenopathy: Cervical: No cervical adenopathy. Upper Body: Right upper body: No supraclavicular or axillary adenopathy. Left upper body: No supraclavicular or axillary adenopathy. Skin: General: Skin is warm and dry. Findings: Lesion present. Comments: Numerous skin lesions throughout Neurological: Mental Status: She is alert and oriented to person, place, and time. Psychiatric: Attention and Perception: Attention and perception normal. Mood and Affect: Mood and affect normal. Speech: Speech normal. Behavior: Behavior normal. Behavior is cooperative. Thought Content: Thought content normal. Cognition and Memory: Cognition and memory normal. Judgement: Judgment normal. Assessment: Encounter Diagnoses Name Primary? Breast pain, right Yes ??? Breast thickening ??? Malignant neoplasm of upper-outer quadrant of right breast in female, estrogen receptor negative (HCC) ??? Estrogen receptor negative ??? 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 S/P lumpectomy, right breast ??? Personal history of chemotherapy ??? History of radiation therapy ??? Skin lesion Plan: We reviewed CBE findings and expected changes associated with treatment. Given she is now having reproducible pain will proceed with bilateral diagnostic mammogram and right breast ultrasound now. She would like to have this performed at the [facility] facility near her home in [place]. Orders placed. We will contact her with results when available. We found a Specilaist in dermatology clinic near her home as well and will send referral. Contact information provided. We reviewed anticipated follow up with CBE every 6 months and annual diagnostic mammogram for the first 5 years after diagnosis. She is having follow up with Dr. Rodriguez every 6 months, but wouldlike to continue to have follow up with the breast clinic as well. I commended her on her health life style choices and am pleased to hear she is keeping busy and enjoying life. I encouraged her to perform monthly SBE and to report any changes or concerns. Lacey Epperson to follow up in breast surgery clinic in 6 months. Pt to complete diagnostic mammogram and ultrasound prior to appointment. Imaging to be completed at [facility]. Lacey was seen today for breast cancer. 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) - Sachin/Digital Diagnostic Mammo Bilat w/CAD - US Breast Right Side - Ambulatory Referral to Dermatology S/P lumpectomy, right breast - Sachin/Digital Diagnostic Mammo Bilat w/CAD - US Breast Right Side Personal history of chemotherapy - Sachin/Digital Diagnostic Mammo Bilat w/CAD - US Breast Right Side - Ambulatory Referral to Dermatology History of radiation therapy - Sachin/Digital Diagnostic Mammo Bilat w/CAD - US Breast Right Side - Ambulatory Referral to Dermatology Skin lesion - Ambulatory Referral to Dermatology Jahaira Shaver NP [facility] documented in this encounter Plan of Treatment Scheduled Orders Name Type Priority Associated Diagnoses Orde r Schedule US Breast Right Side Imaging ROUTINE Breast pain, right Breast thickening Malignant neoplasm of upper-outer quadrant of right breast in female, estrogen receptor negative (HCC) Estrogen receptor negative 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) S/P lumpectomy, right breast Personal history of chemotherapy History of radiation therapy Ordered: 01/02/2019 Scheduled Referrals Name Type Priority Associated Diagnoses Orde r Schedule Ambulatory Referral to Dermatology Referral ROUTINE 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) Personal history of chemotherapy History of radiation therapy Skin lesion Ordered: 01/02/2019 documented as of this encounter Procedures Procedure Name Priority Date/Time Associated Diagnosis Comments SACHIN/DIGITAL DIAGNOSTIC BILAT W/CAD ROUTINE 01/31/2019 Breast pain, right Breast thickening Malignant neoplasm of upper-outer quadrant of right breast in female, estrogen receptor negative (HCC) Estrogen receptor negative 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) S/P lumpectomy, right breast Personal history of chemotherapy History of radiation therapy documented in this encounter Results * Sachin/Digital Diagnostic Mammo Bilat w/CAD (01/31/2019) Anatomical Region Laterality Modality Breast Other Jahaira Shaver NP [facility] documented in this encounter Visit Diagnoses Diagnosis Breast pain, right- Primary Mastodynia Breast thickening Other sign and symptom in breast Malignant neoplasm of upper-outer quadrant of right breast in female, estrogen receptor negative (HCC) Estrogen receptor negative Estrogen receptor negative status [ER-] 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) S/P lumpectomy, right breast Other postprocedural status Personal history of chemotherapy Personal history of antineoplastic chemotherapy History of radiation therapy Personal history of irradiation, presenting hazards to health Skin lesion Unspecified disorder of skin and subcutaneous tissue documented in this encounter Care Teams Manager Image Relationship Specialty Start Date End Date Yusef Ramos MD [facility] [place] [address] PCP - General Hospitalist 04/01/17 Vinay Weaver MD Surgery - General Surgery 08/24/16 Tristen Rodriguez MD UNKNOWN 08/24/16 David Tony MD Radiology - Oncology 10/28/16 documented as of this encounter
--- OUTSIDE RECORDS SUMMARY | 2023-08-31 09:48 | XMS_ITS | Encounter Summary ---
Author Organization [facility] r Address [address] [place] [address] Care Team Providers Care Grinding Machine Operator Portable Name Role Phone Vinay Weaver MD Unavailable Tristen Rodriguez MD Unavailable [phone] David Tony MD Unavailable [phone] Yusef Ramos MD Primary Care Provider Reason for Visit * Reason Comments Breast Cancer RIGHT Post Op RIGHT PARTIAL MASTEC MICHELLE Follow Up Visit Encounter Details Date Type Department Care Team (Late st Contact Info) Description 03/07/2018 1:30 PM [facility] Office Visit [facility] [address] [place] [address] Vinay Weaver MD [address] [facility] [place] [address] Malignant neoplasm of upper-outer quadrant of right breast in female, estrogen receptor negative (HCC) (Primary Dx); Estrogen receptor negative; 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); S/P lumpectomy, right breast Social History Tobacco Use Types Packs/Day [...] Sign Reading Time Taken Comments Blood Pressure 120/82 03/07/2018 1:29 PM MST Pulse 82 03/07/2018 1:29 PM MST Temperature - - Respiratory Rate - - Oxygen Saturation 95% 03/07/2018 1:29 PM MST Inhaled Oxygen Concentration - - Weight 75 kg (165 lb 6.4 oz) 03/07/2018 1:29 PM MST Height 161.3 cm (5' 3.5) 03/07/2018 1:29 PM MST Body Mass Index 28.84 03/07/2018 1:29 PM MST documented in this encounter Functional Status [...] No 10/13/2016 documented as of this encounter Patient Instructions * Patient Instructions* Vinay Weaver MD - 03/07/2018 1:30 PM MST Marcia De La Cruz phone number [phone]- patient with new diagnosis of breast cancer. documented in this encounter Progress Notes * Vinay Weaver MD - 03/07/2018 1:30 PM MST Images from the original note were not included. Subjective: Patient ID: Lacey Epperson is a 77 year old female. Chief Complaint: Chief Complaint Patient presents with ??? Breast Cancer RIGHT ??? Post Op RIGHT PARTIAL MASTECTOMY ??? Follow Up Visit HPI Patient presents today for 3 month follow up for the new area of fibrosis. She does not think it has changed since last visit. In interim she was found to have DVT and PE. She is now on xarelto. She did not have a PETCT. Imagin03/07/18 Pineda dx mammo at [facility]. Personal HX of Cancer: 10/22/16 right breast invasive ductal carcinoma. Surgery: 10/22/16 Patient is s/p right??breast partial mastectomy with sentinel node biopsy. Surgical pathology identifies the site of prior biopsy with no residual invasive or in situ carcinoma noted. ??Margins are negative, 0/4 nodes positive. Consults: Medical oncologist, Dr Rodriguez. Excellence Consultant, Dr Gomez Radiation oncologist, Dr Clark. Breast History 03/04/2016 Menarche 10 Menopause Yes Age at Menopause 51 Menopause Type natural 3 Para 3 Age of 1st 19 Yes How long did you breastfeed? 6 WEEKS Biopsy Yes Number of Biopsies 1 Biopsy Site R Breast Atypia Unsure HRT previously OCP previously Ashkenazi Zoroastrian No Geno 5 Yr (%) (Not Evaluated) Geno Lifetime (%) (Not Evaluated) TYRER-CUZIK Risk Model Version: (Not Evaluated) TYRER-CUZIK Ten Yr (%) (Not Evaluated) TYRER-CUZIK Lifetime (%) (Not Evaluated) Review of patient's allergies indicates: Allergen Reactions ??? Sulfa Drugs Rash Outpatient Medications Marked as Taking for the 03/07/18 encounter (Office Visit) with Vinay Weaver MD [...] hour before breakfast. Indications: Underactive Thyroid ??? predniSONE (DELTASONE) 10 MG tablet Take 10 mg by mouth daily. ??? Simvastatin (ZOCOR) 40 MG tablet Take 40 mg by mouth every night at bedtime. Indications: High Amount of Fats in the Blood ??? TIOTROPIUM 18 MCG inhalation capsule Inhale 18 mcg into the lungs daily. ??? TRELEGY ELLIPTA 100-62.5-25 MCG/INH AEPB Patient's medications, allergies, past medical, social, surgical and family histories were reviewedand updated as appropriate. Review of Systems Constitutional: Negative for chills and fever. HENT: Negative for hearing loss and sore throat. Eyes: Negative for visual disturbance. Respiratory: Negative for cough and shortness of breath. Cardiovascular: Negative for chest pain and leg swelling. Gastrointestinal: Negative for blood in stool, constipation and nausea. Genitourinary: Negative for hematuria. Musculoskeletal: Negative for back pain. Skin: Negative for rash. Neurological: Negative for seizures and headaches. Hematological: Does not bruise/bleed easily. Psychiatric/Behavioral: Negative for confusion. The patient is not nervous/anxious. Objective: Blood pressure 120/82, pulse 82, height 1.613 m (5' 3.5), weight 75 kg, SpO2 95 %.Body mass index is 28.84 kg/m??. Physical Exam Constitutional: She is oriented [...] discharge, no skin change and no tenderness. 2x1cm area of skin erythema, skin is soft, there is a firm area deep to skin consistent with scar. Lymphadenopathy: She has no cervical adenopathy. She [...] in female, estrogen receptor negative Yes ??? Estrogen receptor negative ??? Triple negative malignant neoplasm of breast ??? S/P lumpectomy, right breast On mammography, there is just a small amount of surgical scar in the area of concern, exam has not changed. 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 Watch for now. Consider pet CT to look for occult mets from breast cancer, with new dx dvt/pe. Plan: Lacey Epperson to follow up in breast surgery clinic in 3 months Lacey was seen today for breast cancer, post op and follow up visit. 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
--- OUTSIDE RECORDS SUMMARY | 2023-08-31 09:48 | XMS_ITS | Encounter Summary ---
Author Organization [facility] r Address [address] [place] [address] Care Team Providers Care Manager Implementation Name Role Phone Meg, Vinay Honeycutt MD Unavailable [phone] Tristen Rodriguez MD Unavailable David Tony MD Unavailable [phone] Yusef Ramos MD Primary Care Provider Reason for Referral * Specialty Diagnoses / Procedures Referred By Contac t Referred To Contact Hx, Med Referral ID Status Reason Start Date Expiration Date Visits Re quested Visits Authorized * Specialty Diagnoses / Procedures Referred By Contac t Referred To Contact Hx, Med Referral ID Status Reason Start Date Expiration Date Visits Re quested Visits Authorized * Specialty Diagnoses / Procedures Referred By Contac t Referred To Contact Hx, Med Referral ID Status Reason Start Date Expiration Date Visits Re quested Visits Authorized Encounter Details Date Type Department Care Team (Late st Contact Info) Description 06/21/2019 Orders Only [facility] [address] [place] [address] Hx, Med Social History Tobacco Use Types Packs/Day [...] Procedure Name Priority Date/Time Associated Diagnosis Comments NON [facility] CONSULT/REFERRAL ROUTINE 06/19/2019 NON [facility] CONSULT/REFERRAL ROUTINE 03/27/2019 NON [facility] CONSULT/REFERRAL ROUTINE 11/21/2018 documented in this encounter Results * NON [facility] CONSULT/REFERRAL (06/19/2019) Med Hx [facility] AMB OUTPATIENT R EFERRAL ORDERABLES * NON [facility] CONSULT/REFERRAL (03/27/2019) Med Hx [facility] AMB OUTPATIENT R EFERRAL ORDERABLES * NON [facility] CONSULT/REFERRAL (11/21/2018) Med Hx [facility] AMB OUTPATIENT R EFERRAL ORDERABLES documented in this encounter Visit Diagnoses Not on filedocumented in this encounter Care Teams Manager Implementation Relationship Specialty Start Date End Date Yusef Ramos MD [address] [place] [address] PCP - General Hospitalist 04/01/17 Vinay Weaver MD Surgery - General Surgery 08/24/16 Tristen Rodriguez MD UNKNOWN 08/24/16 David Tony MD Radiology - Oncology 10/28/16 documented as of this encounter
--- OUTSIDE RECORDS SUMMARY | 2023-08-31 09:48 | XMS_ITS | Encounter Summary ---
Author Organization [facility] r Address [address] [place] [address] Care Team Providers Care Engraver Machine Name Role Phone Meg, Vinay Honeycutt MD Unavailable Tristen Rodriguez MD Unavailable [phone] David Tony MD Unavailable [phone] Yusef Ramos MD Primary Care Provider [phone] Encounter Details Date Type Department Care Team (Late st Contact Info) Description 04/04/2020 Immunization COVID VACCINATION CLINIC [place], [place] [phone] iMmi Cutler RN Need for vaccination (Primary Dx) Social History Tobacco Use Types [...] as of this encounter Visit Diagnoses Diagnosis Need for vaccination- Primary Need for prophylactic vaccination and inoculation against unspecified single disease documented in this encounter Care Teams Engraver Machine Relationship Specialty Start Date End Date Yusef Ramos MD [address] [place] [id number] [facility] Vinay Weaver MD Surgery - General Surgery 08/24/16 Tristen Rodriguez MD UNKNOWN 08/24/16 David Tony MD Radiology - Oncology 10/28/16 documented as of this encounter
--- OUTSIDE RECORDS SUMMARY | 2023-08-31 09:48 | XMS_ITS | Encounter Summary ---
Author Organization [facility] r Address [address] [place] [address] Care Team Providers Care Hydroblaster Name Role Phone Vinay Weaver Hannah Honeycutt MD Unavailable Tristen Rodriguez MD Unavailable David Tony MD Unavailable Yusef Ramos MD Primary Care Provider Encounter Details Date Type Department Care Team (Late st Contact Info) Description 02/19/2019 Orders Only [facility] [address] [facility] [address] [place] [address] Jahaira Shaver, SURGICAL MANAGER [address] [facility] [address] [place] [address] Malignant neoplasm of upper-outer quadrant of right breast in female, estrogen receptor negative (HCC); 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
--- OUTSIDE RECORDS SUMMARY | 2023-08-31 09:48 | XMS_ITS | Encounter Summary ---
Author Organization [facility] r Address [address] [place] [address] Care Team Providers Care Miller Head Assistant Wet Process Name Role Phone Manoj Franco MD Primary Care Provider Vinay Weaver MD Unavailable Tristen Rodriguez MD Unavailable [phone] David Tony MD Unavailable [phone] Reason for Visit * Reason Onset Date Comments OTHER COMPLAINT (EXPLAIN IN COMMENTS) 02/25/2017 mammo results Encounter Details Date Type Department Care Team (Late st Contact Info) Description 02/25/2017 Telephone [facility] [address] [facility] [address] [place] [address] Jahaira Shaver, DRUM STRAIGHTENER [address] [facility] [address] [place] [address] OTHER COMPLAINT (EXPLAIN IN COMMENTS) (mammo results ) Social History Tobacco Use Types [...] as of this encounter Progress Notes * Caleb Cason Rug Cleaner - 02/25/2017 10:59 AM MST Spoke to patient and informed her of negative mammo results, I did advise her to keep her appointment in March. Patient did have her port removed Tuesday. * Caleb Cason Medical Assistant - 02/25/2017 10:58 AM MST ----- Message from Jahaira Shaver NP sent at 02/24/2017 9:56 PM MST ----- Please let patient know mammogram results are negative. Please keep scheduled appointment in 03/2017. Did she have port removed? Jahaira García documented in this encounter Plan of Treatment Not on file documented as of this encounter Visit Diagnoses Not on filedocumented in this encounter Care Teams Miller Head Assistant Wet Process Relationship Specialty Start Date End Date Manoj Franco MD PCP - General UNKNOWN 10/22/16 03/31/17 Vinay Weaver MD Surgery - General Surgery 08/24/16 Tristen Rodriguez MD UNKNOWN 08/24/16 David Tony MD Radiology - Oncology 10/28/16 documented as of this encounter
--- OUTSIDE RECORDS SUMMARY | 2023-08-31 09:48 | XMS_ITS | Encounter Summary ---
Author Organization [facility] r Address [address] [place] [address] Care Team Providers Care Plastics Fabricator Or Welder Name Role Phone Kali Dougherty MD Unavailable Tristen Rodriguez MD Unavailable David Tony MD Unavailable Yusef Ramos MD Primary Care Provider Encounter Details Date Type Department Care Team (Late st Contact Info) Description 03/01/2018 Orders Only [facility] [address] [facility] [address] [place] [address] Kali Dougherty MD [address] [facility], [address] [place] [address] Malignant neoplasm of upper-outer quadrant of right breast in female, estrogen receptor negative (HCC); 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 A routine follow-up mammogram in 1 year is recommended. The patient will be informed of the results by mail. ACR BI-RADS CATEGORY 2 - Benign Finding(s) MARIZA MURRELL REPORT HAS BEEN ELECTRONICALLY SIGNED BY THE ABOVE RADIOLOGIST DATE/TIME SIGNED: 03/07/2018 12:11:27 KALI DOUGHERTY MD Narrative 03/07/2018 12:16 PM [facility] CLINICAL HISTORY: Patient is 77 years old and is seen for a diagnostic exam. 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 ??The patient has the following family history of breast cancer: ??niece and sister, at age 65. FILMS COMPARED: The present examination has been compared to prior imaging studies performed at [facility]) on 02/20/2016, and at [facility] on 02/24/2017. MAMMOGRAM FINDINGS: There are [...] history of breast cancer: niece and sister, atage 65. FILMS COMPARED: The present examination has been compared to prior imaging studiesperformed at [facility]) on 02/20/2016, and at [facility] on 02/24/2017. 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
--- OUTSIDE RECORDS SUMMARY | 2023-08-31 09:48 | XMS_ITS | Encounter Summary ---
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) Skin lesions Jahaira Shaver, SHANNON [address] [facility] [address] [place] [address] Gisell Mays MD [address] [facility] [address] [place] [address] Referral ID Status Reason Start Date Expiration Date Visits Re quested Visits Authorized [id number] Closed 07/13/2018 07/13/2019 1 1 * Other (Routine) - Canceled Specialty Diagnoses / Procedures Referred By Contac t Referred To Contact Mammography Diagnoses Malignant neoplasm of upper-outer quadrant of right breast in female, 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) S/P lumpectomy, right breast Personal history of chemotherapy History of radiation therapy Procedures Sachin/Digital Diagnostic Mammo Bilat w/CAD Jahaira Shaver NP [address] [address] Referral ID Status Reason Start Date Expiration Date V isits Requested Visits Authorized [id number] Canceled 02/19/2019 07/14/2019 1 1 HOSPITAL Reason for Visit * Reason Comments Breast Cancer Right Encounter Details Date Type Department Care Team (Late st Contact Info) Description 07/13/2018 10:40 AM [facility] Office Visit [facility] [facility] [address] [place] [address] Jahaira Shaver NP [address] [id number] Malignant neoplasm of upper-outer quadrant of right breast in female, estrogen receptor negative (HCC) (Primary Dx); 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); S/P lumpectomy, right breast; Personal history of chemotherapy; History of radiation therapy; Skin lesions Social History Tobacco Use Types [...] Sign Reading Time Taken Comments Blood Pressure 112/75 07/13/2018 10:55 AM [facility] Pulse 73 07/13/2018 10:55 AM [facility] Temperature - - Respiratory Rate - - Oxygen Saturation 95% 07/13/2018 10:55 AM [facility] Inhaled Oxygen Concentration - - Weight 75.8 kg (167 lb) 07/13/2018 10:55 AM [facility] 167.0 lbs Height 160 cm (5' 3) 07/13/2018 10:55 AM [facility] Body Mass Index 29.58 07/13/2018 10:55 AM MST documented in this encounter Functional [...] this encounter Progress Notes * Jahaira Shaver, DOUBLE NEEDLE OPERATOR - 07/13/2018 10:40 AM MST Images from the original note were not included. Subjective: Patient ID: Lacey Epperson is a 77 year old female. Chief Complaint: Chief Complaint Patient presents with ??? Breast Cancer Right HPI Patient is s/p right??breast partial mastectomy with sentinel node biopsy performed by Dr. Vinay Weaver at [facility] on 10/22/2016. Surgical pathology identifies the site of prior biopsy with no residual invasive or in situ carcinoma noted. ??Margins are negative, 0/4 nodes positive. Complete pathological response. 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 Rodriguez. She completed [facility] spending the Summer in [place] where she started Taxol. Her last dose was on 09/21/2016 before returning to [place]. She continues follow up with Dr. Rodriguez and has an appointment scheduled in 6 months. She completed radiation therapy with Dr. Clark 01/2017. 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 She reports she is to complete Xeralto in 07/2018 and is not expecting to continue. She also reports having shingles since her last appointment. This is resolving and she reports feeling much better in this regard. She will be leaving for [place] 07/23/2018 and is expected to return to [place] in 10/2018. IMAGING 02/24/2017 Bilateral diagnostic mammogram with sachin performed at [facility] women's Imaging reporting, thebreasts are heterogeneously dense. [...] follow-up mammogram in 1 year is recommended. 03/07/2018 Bilateral diagnostic mammogram with sachin performed at [facility] women's Imaging reporting, there are scattered fibroglandular [...] Atypia Unsure HRT previously OCP previously [employer] No Geno 5 Yr (%) (Not Evaluated) Geno Lifetime (%) (Not Evaluated) TYRER-CUZIK Risk Model Version: (Not Evaluated) TYRER-CUZIK Ten Yr (%) (Not Evaluated) TYRER-CUZIK Lifetime (%) (Not Evaluated) Review of patient's allergies indicates: Allergen Reactions ??? Sulfa Drugs Rash No outpatient medications have been marked as taking for the 07/13/18 encounter (Office Visit) with Jahaira Shaver NP. Patient's medications, allergies, past medical, social, surgical and family histories were reviewedand updated as appropriate. Review of Systems Constitutional: Negative for chills and fever. HENT: Positive for trouble swallowing. Negative for hearing loss and sore throat. Eyes: Negative for visual disturbance. Respiratory: Positive for shortness of breath. Negative for cough. Cardiovascular: Negative for chest pain and leg swelling. Gastrointestinal: Negative for blood in stool, constipation and nausea. Genitourinary: Negative for hematuria. Musculoskeletal: Negative for back pain. Skin: Negative for rash. Neurological: Positive for tremors, weakness, light-headedness and numbness. Negative for seizures and headaches. Hematological: Does not bruise/bleed easily. Psychiatric/Behavioral: Negative for confusion. The patient is not nervous/anxious. Objective: Blood pressure 112/75, pulse 73, height 1.6 m (5' 3), weight 75.8 kg, SpO2 95 %.Body mass index is29.58 kg/m??. Physical Exam Constitutional: She is oriented to person, place, and time. Vital signs are normal. She appears well-developed and well-nourished. No distress. Neck: Normal range of motion. Neck supple. No thyromegaly present. Pulmonary/Chest: Effort normal. Right breast exhibits tenderness. Right breast exhibits no invertednipple and no nipple discharge. Left breast exhibits no inverted nipple, no mass, no nipple discharge, no skin change and no tenderness. Breasts are asymmetrical. Right breast linear area of thickening and fibrosis palpable from approximately 10-12:00,some tenderness with palpitation, mild generalized erythremia, patient reports this is unchanged. Left breast is larger and more pendulous than right. Abdominal: Normal appearance. Lymphadenopathy: She has no cervical adenopathy. She has no axillary adenopathy. Right: No supraclavicular adenopathy present. Left: No supraclavicular adenopathy present. Neurological: She is alert and oriented to person, place, and time. Skin: Skin is warm, dry and intact. Multiple lesions and keratosis. Psychiatric: She has a normal mood and affect. Her speech is normal and behavior is normal. Judgment and thought content normal. Cognition and memory are normal. Vitals reviewed. Assessment: Encounter Diagnoses Name Primary? Malignant neoplasm of upper-outer quadrant of right breast in female, estrogen receptor negative (HCC) Yes ??? 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 S/P lumpectomy, right breast ??? Personal history of chemotherapy ??? History of radiation therapy ??? Skin lesions Plan: We reviewed her mammogram results from 02/2018. Copy provided. We reviewed CBE findings. She reports this is unchanged from her prior visit with Dr. Weaver. We discussed changes that can be associated with surgery and radiation therapy, however I strongly encouraged her to report any changes. We discussed asymmetry and difficulty finding a comfortable bra. We discussed option for consult with reconstructive surgeon for possible mastopexy on the left. She is not interested at this time, however will contact the office should she change her mind. I recommended a fitting with Marisela Brunson which she is interested in. She will attempt to get this done prior to leaving for the summer. I encouraged her to continue to perform monthly SBE and report any changes or concerns. She does have a provider in [place] if needed. We discussed her skin lesions and recommendation for skin exam with dermatologists. Referral placed. She plans to make appointment for upon her return to [place]. She is aware Dr. Weaver has joined [facility] and has contact information. At this time she plans to have follow up here upon her return. Lacey Krueger Zhou to follow up in breast surgery clinic in 6 months. Lacey was seen today for breast cancer. 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) - Sachin/Digital Diagnostic Mammo Bilat w/CAD; Future - Ambulatory Referral to Dermatology S/P lumpectomy, right breast - Sachin/Digital Diagnostic Mammo Bilat w/CAD; Future Personal history of chemotherapy - Sachin/Digital Diagnostic Mammo Bilat w/CAD; Future History of radiation therapy - Sachin/Digital Diagnostic Mammo Bilat w/CAD; Future Skin lesions - Ambulatory Referral to Dermatology Jahaira Shaver NP documented in this encounter Plan of Treatment Scheduled Orders Name Type Priority Associated Diagnoses Orde r Schedule Sachin/Digital Diagnostic Mammo Bilat w/CAD Imaging ROUTINE Malignant neoplasm of upper-outer quadrant of right breast in female, 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) S/P lumpectomy, right breast Personal history of chemotherapy History of radiation therapy Expected: 02/19/2019, Expires: 09/13/2019 Scheduled Referrals Name Type Priority Associated Diagnoses Orde r Schedule Ambulatory Referral to Dermatology Referral ROUTINE Malignant neoplasm of upper-outer quadrant of right breast in female, 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) Skin lesions Ordered: 07/13/2018 documented as of this encounter Visit Diagnoses Diagnosis Malignant neoplasm of upper-outer quadrant of right breast in female, estrogen receptor negative (HCC)- Primary 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) S/P lumpectomy, right breast Other postprocedural status Personal history of chemotherapy Personal history of antineoplastic chemotherapy History of radiation therapy Personal history of irradiation, presenting hazards to health Skin lesions documented in this encounter Care Teams Contact Lens Polisher Relationship Specialty Start Date End Date Yusef Ramos MD [address] [place] [id number] PCP - General Hospitalist 04/01/17 Vinay Weaver MD Surgery - General Surgery 08/24/16 Tristen Rodriguez MD UNKNOWN 08/24/16 David Tony MD Radiology - Oncology 10/28/16 documented as of this encounter
--- OUTSIDE RECORDS SUMMARY | 2023-08-31 09:48 | XMS_ITS | Encounter Summary ---
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) Procedures Sachin/Digital Diagnostic Mammo Bilat w/Kali Valentine MD [address] [facility], [address] [place] [address] Referral ID Status Reason Start Date Expiration Date Visits Re quested Visits Authorized [id number] Closed 03/01/2018 11/29/2018 1 1 [facility] Reason for Visit * Reason Comments Breast Cancer Right Follow Up Visit 6 months Encounter Details Date Type Department Care Team (Late st Contact Info) Description 11/29/2017 1:00 PM MST Office Visit [facility] [facility] [address] [place] [address] Kali Dougherty MD [address], [address] [place] [address] Malignant neoplasm of upper-outer quadrant of right [...] Sign Reading Time Taken Comments Blood Pressure 97/61 11/29/2017 1:16 PM MST Pulse 86 11/29/2017 1:16 PM MST Temperature - - Respiratory Rate - - Oxygen Saturation 94% 11/29/2017 1:16 PM MST Inhaled Oxygen Concentration - - Weight 77.2 kg (170 lb 3.2 oz) 11/29/2017 1:16 P M MST 170.2 lbs Height 161.3 cm (5' 3.5) 11/29/2017 1:16 PM MST Body Mass Index 29.68 11/29/2017 1:16 PM MST documented in this encounter Functional [...] as of this encounter Progress Notes * Kali Dougherty MD - 11/29/2017 1:00 PM MST Images from the original note were not included. Subjective: Patient ID: Lacey Epperson is a 77 year old female. Chief Complaint: Chief Complaint Patient presents with ??? Breast Cancer Right ??? Follow Up Visit 6 months HPI Her biggest complaint is her worsening shortness of breath. 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 Saw Osm[facility] but has not changed meds as he recommended- she let him know that she would use up theones she has. Last mammo was in Feb, was normal. Denies any palpable breast lesions, skin changes, nipple changes or discharge. Breast History 03/04/2016 Menarche 10 Menopause Yes Age at Menopause 51 Menopause Type natural 3 Para 3 Age of 1st 19 Yes How long did you breastfeed? 6 WEEKS Biopsy Yes Number of Biopsies 1 Biopsy Site R Breast Atypia Unsure HRT previously OCP previously [employer] No Geno 5 Yr (%) (Not Evaluated) Geno Lifetime (%) (Not Evaluated) TYRER-CUZIK Risk Model Version: (Not Evaluated) TYRER-CUZIK Ten Yr (%) (Not Evaluated) TYRER-CUZIK Lifetime (%) (Not Evaluated) Review of patient's allergies indicates: Allergen Reactions ??? Sulfa Drugs Rash Outpatient Medications Marked as Taking for the 11/29/17 encounter (Office Visit) with Choco Dougherty MD Medication Sig Dispense Refill ??? albuterol (VENTOLIN HFA) 108 (90 Base) MCG/ACT inhaler Inhale 1-2 puffs into the lungs every four hours as needed for Shortness of Breath. ??? fluticasone-salmeterol 250-50 mcg/dose (ADVAIR DISKUS) 250-50 MCG/DOSE diskus inhaler Inhale 1 puff into the lungs every morning. Indications: Asthma ??? ibuprofen (ADVIL,MOTRIN) 200 MG tablet Take [...] Inhale 18 mcg into the lungs daily. Patient's medications, allergies, past medical, social, surgical and family histories were reviewedand updated as appropriate. Review of Systems Constitutional: Positive for fatigue. Negative for chills and fever. HENT: Negative [...] patient is not nervous/anxious. Objective: Blood pressure 97/61, pulse 86, height 1.613 m (5' 3.5), weight 77.2 kg, SpO2 94 %.Body mass indexis 29.68 kg/m??. Physical Exam Constitutional: She is oriented [...] discharge, no skin change and no tenderness. 1cm area of fibrosis at 12:00 top of breast right side, skin is erythematous. Pt states this is unchanged. Lymphadenopathy: She has no cervical adenopathy. She [...] ??? Triple negative malignant neoplasm of breast Would like script for prednisone for asthma. She is also in need of nebulizer. Recommend she call Jason's office about being seen sooner as her symptoms do sound worse. Monitor area of fibrosis right breast. She states it is the same and unchanged. Continue close follow up. 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 Pt to complete diagnostic mammogram prior to appointment. Imaging to be completed at [facility]. Lacey was seen today for breast cancer and follow up visit. Diagnoses and all orders for this visit: Malignant neoplasm of upper-outer quadrant of right breast in female, estrogen receptor negative - Sachin/Digital Diagnostic Mammo Bilat w/CAD; Future Triple negative malignant neoplasm of breast - Sachin/Digital Diagnostic Mammo Bilat w/CAD; Future Kali Dougherty MD documented in this encounter Plan of Treatment Not on file documented as of this encounter Results * Sachin/Digital Diagnostic Mammo Bilat w/CAD (03/07/2018 11:55 AM [facility]) Anatomical Region Laterality Modality Breast Mammography 03/07/2018 12:1 6 PM MST Impressions 03/07/2018 12:16 PM MST Post-surgical scar in the right breast is benign-appearing. A routine follow-up mammogram in 1 year is recommended. The patient will be informed of the results by mail. ACR BI-RADS CATEGORY 2 - Benign Finding(s) MARIZA MURRELL REPORT HAS BEEN ELECTRONICALLY SIGNED BY THE ABOVE RADIOLOGIST DATE/TIME SIGNED: 03/07/2018 12:11:27 KALI DOUGHERTY MD Narrative 03/07/2018 12:16 PM MST CLINICAL HISTORY: Patient is 77 years old and is seen for a diagnostic exam. 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 ??The patient has the following family history of breast cancer: ??niece and sister, at age 65. FILMS COMPARED: The present examination has been compared to prior imaging studies performed at [facility]) on 02/20/2016, and at [facility] on 02/24/2017. MAMMOGRAM FINDINGS: There are scattered [...] compared to [facility]. MAMMOGRAM FINDINGS: There are scattered [...] (HCC) documented in this encounter Care Teams Networking Specialist Relationship Specialty Start Date End Date Yusef Ramos MD [facility] [place] [address] PCP - General Hospitalist 04/01/17 Kali Dougherty MD Surgery - General Surgery 08/24/16 Tristen Rodriguez MD UNKNOWN 08/24/16 David Tony MD Radiology - Oncology 10/28/16 documented as of this encounter
--- OUTSIDE RECORDS SUMMARY | 2023-08-31 09:48 | XMS_ITS | Encounter Summary ---
Author Organization [facility] r Address [address] [place] [address] Care Team Providers Care Adjunct Nursing Faculty Name Role Phone Vinay Dougherty MD Unavailable [phone] Tristen Rodriguez MD Unavailable [phone] David Tony MD Unavailable [phone] Yusef Ramos MD Primary Care Provider Reason for Visit * Reason Onset Date Comments OTHER (EXPLAIN IN COMMENTS) 12/09/2017 Dr. Dougherty response to hard lump on right breast from pt's last appt. Encounter Details Date Type Department Care Team (Late st Contact Info) Description 12/09/2017 Telephone [facility] [address] [facility] [address] [place] [address] Vinay Dougherty MD [address] [facility], [address] [place] [address] OTHER (EXPLAIN IN COMMENTS) (Dr. Dougherty response to hard lump on right breast from pt's last appt. ) Social History Tobacco Use Types Packs/Day [...] this encounter Progress Notes * Yasmeen Chapin, Home Visit Field Care Manager - 12/09/2017 4:28 PM MST Spoke ith pt in regards to previous, I advised her of Dr. Dougherty's response stating the we could put in an order fr a mammo and u/s. She stated if Dr. Dougherty was not concerned then she didn't feel it was necessary to have it done since she is getting mammo in Feb. I did let pt know Dr. Dougherty did not say she was not concerned, but that we could get the testing ordered for reassurance for her. Pt still said d she would wait until feb for her annual mammo. I encouraged pt to call office with any other questions or concerns. * Vinay Dougherty MD - 12/09/2017 4:08 PM MST I did feel a thickening in the skin I had not noticed before. It could just be from the radiation. If she would like more reassurance, she could have a right diag mammo and ultrasound here at [facility] to evaluate further. She is due for annual mammo in Feb. * Marlyn Garcia - 12/09/2017 2:52 PM MST PT CALLED AND STATED THAT SHE WAS THINKING ABOUT THE LAST OFFICE VISIT SHE HAD WITH DR DOUGHERTY (12/01/17). DR DOUGHERTY FOUND A HARD LUMP ON HER RIGHT BREAST AND LOOKED A BIT CONCERNED ABOUT IT, SHE ASKED THE PT WHEN SHE HAD THAT AND THE PT RESPONDED THAT IT HAD BEEN THERE FOR A WHILE AND ANOTHER DR THOUGHT IT MIGHT BE SCAR TISSUE, DR DOUGHERTY SAID THAT IT MIGHT BE POSSIBLE AND WENT TO HER CHART AND DID NOT FIND ANY PREVIOUS NOTES ABOUT IT. THE PT WAS WONDERING IF THE LUMP IS ANYTHING THAT SHE SHOULD BE WORRIED ABOUT. documented in this encounter Plan of Treatment Not on file documented as of this encounter Visit Diagnoses Not on filedocumented in this encounter Care Teams Adjunct Nursing Faculty Relationship Specialty Start Date End Date Yusef Ramos MD [address] [place] [id number] PCP - General Hospitalist 04/01/17 Vinay Dougherty MD Surgery - General Surgery 08/24/16 Tristen Rodriguez MD UNKNOWN 08/24/16 David Tony MD Radiology - Oncology 10/28/16 documented as of this encounter
--- OUTSIDE RECORDS SUMMARY | 2023-08-31 09:48 | XMS_ITS | Encounter Summary ---
Author Organization [facility] r Address [address] [place] [address] Care Team Providers Care Lvn Lpn Name Role Phone Vinay Weaver MD Unavailable Tristen Rodriguez MD Unavailable [phone] David Tony MD Unavailable [phone] Yusef Ramos MD Primary Care Provider [phone] Reason for Visit * Reason Comments OTHER COMPLAINT (EXPLAIN IN COMMENTS) [place] OCEDURE Encounter Details Date Type Department Care Team (Late st Contact Info) Description 05/24/2017 11:30 AM MST Office Visit [facility] [facility] [address] [place] [address] Vinay Weaver MD [address] [facility], [address] [place] [address] Malignant neoplasm of upper-outer quadrant of right breast in female, estrogen receptor negative (Primary Dx) Social History Tobacco Use Types [...] Sign Reading Time Taken Comments Blood Pressure 112/80 05/24/2017 12:49 PM MST Pulse - - Temperature - - Respiratory Rate - - Oxygen Saturation - - Inhaled Oxygen Concentration - - Weight 74.4 kg (164 lb) 05/24/2017 12:49 PM MST Height - - Body Mass Index 29.05 03/29/2017 11:29 AM [...] Progress Notes * Vinay Weaver MD - 05/24/2017 11:30 AM MST Subjective: Patient ID: Lacey Epperson is a 76 year old female. Chief Complaint: Chief Complaint Patient presents with ??? OTHER COMPLAINT (EXPLAIN IN COMMENTS) PROCEDURE HPI Patient presents to office today for lump at port a cath incision site. Port a cath was removed by Dr Siddiqi on 03/28/2017 . Review of patient's allergies indicates: Allergen Reactions ??? Sulfa Drugs Rash Outpatient Prescriptions Marked as Taking for the 05/24/17 encounter (Office Visit) with Vinay Weaver MD [...] patient is not nervous/anxious. Objective: Blood pressure 112/80, weight 74.4 kg.Body mass index is 29.05 kg/m??. Physical Exam [...] discharge, no skin change and no tenderness. Lymphadenopathy: She has no cervical adenopathy. She has no axillary adenopathy. Right: No supraclavicular adenopathy present. Left: No supraclavicular adenopathy present. Neurological: She is alert and oriented to person, place, and time. Skin: Skin is warm and dry. Psychiatric: She has a normal mood and affect. Her behavior is normal. Vitals reviewed. cylindrical mass just above left port scar. Assessment: Encounter Diagnosis Name Primary? Malignant neoplasm of upper-outer quadrant of right breast in female, estrogen receptor negative Yes Plan exploration of port site today. The risks and benefits of this procedure were discussed with the patient. The risks include bleeding, infection, cosmetic changes, injury to nerves, blood vessels, local tissues, recurrence of symptoms, need for further treatments or interventions among others. Alternatives to the procedure were discussed such as observation, possible surgical interventions, among others. The patient agrees to proceed with the procedure. A consent form was signed by myself and the patient and a witness. Plan: Lacey Epperson to follow up in breast surgery clinic as previously planned. Lacey was seen today for other complaint (explain in comments). Diagnoses and all orders for this visit: Malignant neoplasm of upper-outer quadrant of right breast in female, estrogen receptor negative Vinay Weaver MD * Vinay Weaver MD - 05/24/2017 11:30 AM MST Breast Seroma Aspiration Procedure Note The procedure was explained to the patient and/or responsible guardian and alternative treatments discussed including no treatment. The patient and/or responsible guardian demonstrated a good understanding of these concepts. Written consent was obtained.The patient was advised of possible complications including but not limited to scar formation, bleeding, infection, swelling, pain, pigmentary alteration and chance of reoccurrence. Procedural Time Out Completed: Lacey Epperson; Correct patient, Correct date of , Correctmedical record number, Correct side, Correct site, Correct Procedure and Consent Indication(s): possible retained foreign body left port site. Procedure Details Site: left Location: upper chest Prep: chlorhexidine Anesthetic:Lidocaine 1% 2 ML marcaine 0.25% 2ml. Description: after local infiltration, a 1cm incision was made above the port scar over the palpable mass. Dissection with irina identified the locking device for the port. This was removed, discarded and the incision was closed in two areas with 3-0 vicryl and 4-0 monocryl. Dermabond. Dressing: dermabond Patient response to procedure: Tolerated well without complications. Wound Care Instruction: Given verbally Vinay Weaver MD documented in this encounter Plan of Treatment Not on file documented as of this encounter Visit Diagnoses Diagnosis Malignant neoplasm of upper-outer quadrant of right breast in female, estrogen receptor negative (HCC)- Primary documented in this encounter Care Teams Lvn Lpn Relationship Specialty Start Date End Date Yusef Ramos MD [address] [place] [id number] PCP - General Hospitalist 04/01/17 Vinay Weaver MD Surgery - General Surgery 08/24/16 Tristen Rodriguez MD UNKNOWN 08/24/16 David Tony MD Radiology - Oncology 10/28/16 documented as of this encounter
--- OUTSIDE RECORDS SUMMARY | 2023-08-31 09:49 | XMS_ITS | Encounter Summary ---
Author Organization [facility] r Address [address] [place] [address] Care Team Providers Care Hospitalist Program Director Name Role Phone Manoj Franco MD Primary Care Provider Vinay Weaver MD Unavailable Tristen Rodriguez MD Unavailable [phone] Gay Gallagher RN Unavailable Unavailable Encounter Details Date Type Department Care Team (Late st Contact Info) Description 10/22/2016 11:33 AM [facility] Anesthesia Event [facility] [address] [place] [address] Pablito Horan MD [address] [address] Anesthesia Record Procedure Summary Procedure Name Responsible Anesthesiologist Anesthesia Start Time Anesthesia Stop Time PARTIAL MASTECTOMY WITH NEEDLE LOCALIZATION (BREAST) Pablito Horan MD 10/22/16 1133 10/22/16 1318 Events Date Time Event Comment 10/22/2016 1113 1130 Quick Note Patient's port accessed with sterile technique and 19 Ga Dunbar needle. Patient tolerated well. Catheter draws and flushes easily. 1133 An Start 1133 An Start Data 1139 An Induction 1140 An LMA Preoxygenated. Smooth IV induction. Easy mask airway. Atraumatic #3 LMA insertion. 1203 Case Started 1307 Case Complete 1312 an stop data 1312 Patient in OR 1318 An Stop Meds Name Total ceFAZolin (ANCEF) addvantage 1,000 mg 1 g Lidocaine HCL 1% 5 mg Propofol (DIPRIVAN) bolus mg/ml 110 mg HYDROmorphone (DILAUDID) injection 1 mg/ mL 1 mg Dexamethasone Sodium Phosphate 4 mg/ml I J Soln 4 mg EPHEDrine Sulfate 50 mg/ml 20 mg ondansetron (ZOFRAN) injection 4 mg/2 ml 4 mg lactated ringers infusion 600 mL * Agents Name O2 N2O Air Exp % Sevoflurane * Blood No blood administrations on file. Lines, Drains, and Airways Type Details Placement Removal Airway 10/22/16; 1140; LMA; (#3) 10/22/16 1140 by Pablito Horan MD 10/22/16 1312 by Pablito Horan MD *(Retired - Do Not Use) LDA Skin Alt/Wound/Incision 10/22/16; 1205; Breast; Right; WIRE LOCALIZED PARTIAL MASTECTOMY; No; 10/22/16; 1640; Surgical Incision 10/22/16 1205 by Liana Broderick RN 10/22/16 1640 by [facility], Discharge Auto-Dc *(Retired - Do Not Use) LDA Skin Alt/Wound/Incision 10/22/16; 1225; Axilla; Right; SENTINEL LYMPH NODE BIOPSY; No; 10/22/16; 1640; Surgical Incision 10/22/16 1225 by Liana Broderick RN 10/22/16 1640 by [facility], Discharge Auto-Dc documented in this encounter Social History Tobacco Use Types Packs/Day Years [...] No 10/13/2016 documented as of this encounter OR Notes * Anesthesia Postprocedure Evaluation - Pablito Horan MD - 10/22/2016 1:48 PM MST Anesthesia Post-op Note Patient: Lacey Epperson Procedure(s) Performed: Procedure(s) with comments: PARTIAL MASTECTOMY WITH NEEDLE LOCALIZATION - RIGHT BREAST WIRE LOCALIZATION PARTIAL MASTECTOMY AT 12:00 POSITION, RIGHT AXILLARY SENTINEL LYMPH NODE BIOPSY X 4 EXCISION / BIOPSY SOFT TISSUE CHEST / AXILLA - RIGHT AXILLARY SENTINEL LYMPH NODE BIOPSY Respiratory Function: Resp: 16 SpO2: 99 % Cardiovascular Function: Pulse: 66 BP: 124/67 Mental Status: awake Temperature: Temp: 35.6 ??C (96.1 ??F) Post-op pain: Adequate analgesia Nausea and Vomiting: none Postoperative Hydration: adequate * Anesthesia Preprocedure Evaluation - Pablito Horan MD - 10/22/2016 10:50 AM MST Anesthesia Evaluation Patient summary reviewed and Nursing notes reviewed No history of anesthetic complications Airway Mallampati: III TM distance: >3 FB Neck ROM: full Dental - normal exam Pulmonary (+) COPD, (-) recent URI, wheezes ROS comment: Remote h/o smoking Cardiovascular (-) hypertension, past GA, CAD, dysrhythmias, angina, murmur ECG reviewed Rhythm: regular Rate: normal ROS comment: dyslipidemia Neuro/Psych (-) TIA, CVA Comments: Spinal stenosis GI/Hepatic/Renal (-) GERD Endo/Other (+) hypothyroidism, (-) diabetes mellitus Comments: Breast cancer s/p neoadjuvant chemotherapy Abdominal Anesthesia Plan ASA 2 general intravenous induction Anesthetic plan and risks discussed with patient. Anesthesia plan, options, risks (including oropharyngeal injury, nausea/vomiting, and serious adverse outcomes as appropriate) and benefits discussed with patient, who understands and agrees to proceed. Delta Horan MD documented in this encounter Plan of Treatment Not on file documented as of this encounter Visit Diagnoses * Anesthesia PACU Evaluation - Pablito Horan MD - 10/22/2016 12:19 PM MST Anesthesia PACU Note Patient: Lacey Epperson Procedure(s) Performed: Procedure(s) with comments: PARTIAL MASTECTOMY WITH NEEDLE LOCALIZATION EXCISION / BIOPSY SOFT TISSUE CHEST / AXILLA - RIGHT BREAST WIRE LOCALIZATION PARTIAL MASTECTOMY RIGHT AXILLARY SENTINEL LYMPH NODE BIOPSY WIRE LOCALIZATION [address] [facility] TO TRANSPORT PATIENT AT 0830 SENTINEL NODE INJECTION IN OR/ DOSE AND SURGICAL TIME VERIFED WITH CALEB 10/14/16 [facility] Anesthesia type: General Post-op pain: Adequate analgesia Post-op assessment: no apparent anesthetic complications Level of consciousness: awake Complications: none Transported to: PACU Extubated: extubated in OR Oxygen During Transport: Face mask PACU Vitals: BP: (P) 121/71 Pulse: (P) 72 Resp: (P) 16 SpO2: 99 % Temp: (P) 35.6 ??C (96.1 ??F) Post-op Diagnosis per surgeon:Breast cancer of upper-outer quadrant of right female breast ?? X signifies affirmative: xxSCIP Guidelines xxAge > 70 34510-2 Age < 1 31516 Emergency Controlled hypothermia 93022 Controlled hypotension 51734 Arterial line 97230 Central line < 5 yr 98838 Central line > 5 yr 58964 Pump ON Pump OFF [place] 40179 JANEY (monitoring only) 77113 JANEY (diagnostic/therapeutic only) 75351 JANEY (probe placement only) 34434 Ultrasound guidance venous access 56738/2 Blocks: Axillary block (single) 38556 Brachial plexus (single) 40930/5 Brachial plexus (continuous infusion by catheter) 23062 Epidural lumbar/sacral (continuous) 30769/5 Epidural thoracic (continuous) 89397/5 Femoral nerve (single) 56191/5 Intercostal nerve (single) 02021/5 Other peripheral nerve or branch, including saphenous (single) 29913/5 Other peripheral nerve block, including saphenous (continuous) 24484/5 Paravertebral block (single) 66331 Paravertebral block (continuous) 32238 Sciatic nerve, including popliteal fossa (single) 27953/5 Spinal Injection single: lumbar/sacral 53998 Superficial cervical plexus 24404/5 TAP block, unilateral (single) 85160 TAP block, unilateral (continuous) 63073 TAP block, bilateral (single) 79388 TAP block, bilateral (continuous) 16162 Ultrasound guidance post-op block 46978/2 Other: One lung ventilation Fiberoptic intubation Position - Prone Position - Sitting Position - Field Avoidance Spinal Instrumentation Anterior Spinal Instrumentation Posterior documented in this encounter Administered Medications Inactive Administered Medications - up to 3 most recent administrations Medication Order MAR Action Action Date Dose Rate Site ceFAZolin (ANCEF) addvantage 1,000 mg 1,000 mg (1 g), Intravenous, ONCE, 1 dose, On Tue10/22/16 at 0830, Administer over 30 Minutes, Pre-op (day of surgery), Indications: Perioperative Pharmacoprophylaxis Given 10/22/2016 11:46 AM MST 1 g dexamethasone sodium phosphate (DECADRON) injection PRN, Starting on Tue10/22/16 at 1145, Until Tue10/22/16 at 1318, Anesthesia Intra-op Given 10/22/2016 11:45 AM MST 4 mg ePHEDrine injection PRN, Starting on Tue10/22/16 at 1149, Until Tue10/22/16 at 1318, Anesthesia Intra-op Given 10/22/2016 12:37 PM MST 5 mg Given 10/22/2016 12:07 PM MST 5 mg Given 10/22/2016 11:49 AM MST 10 mg HYDROmorphone (DILAUDID) injection PRN, Starting on Tue10/22/16 at 1145, Until Tue10/22/16 at 1318, Anesthesia Intra-op Given 10/22/2016 12:26 PM MST 0.5 mg Given 10/22/2016 11:45 AM MST 0.5 mg lactated ringers infusion Intravenous, CONTINUOUS, Starting on Tue10/22/16 at 0830, Until Tue10/22/16 at 1645, at 25 mL/hr, Pre-op (day of surgery) New Bag 10/22/2016 11:30 AM MST lidocaine 1 % injection PRN, Starting on Tue10/22/16 at 1139, Until Tue10/22/16 at 1318, Anesthesia Intra-op Given 10/22/2016 11:39 AM MST 5 m g ondansetron (ZOFRAN) injection PRN, Starting on Tue10/22/16 at 1252, Until Tue10/22/16 at 1318, Anesthesia Intra-op Given 10/22/2016 12:52 PM MST 4 m g propofol (DIPRIVAN) bolus Intravenous, PRN, Starting on Tue10/22/16 at 1139, Until Tue10/22/16 at 1318, Anesthesia Intra-op Given 10/22/2016 11:39 AM MST 110 mg documented in this encounter Care Teams Hospitalist Program Director Relationship Specialty Start Date End Date Manoj Franco MD PCP - General UNKNOWN 10/22/16 03/31/17 Vinay Weaver MD Surgery - General Surgery 08/24/16 Tristen Rodriguez MD UNKNOWN 08/24/16 Gay Gallagher RN Registered Nurse 10/22/16 12/20/16 documented as of this encounter
--- OUTSIDE RECORDS SUMMARY | 2023-08-31 09:49 | XMS_ITS | Encounter Summary ---
Author Organization [facility] r Address [address] [place] [address] Care Team Providers Care Residential Building Inspector Name Role Phone Manoj Franco MD Primary Care Provider [phone] Vinay Weaver MD Unavailable Tristen Rodriguez MD Unavailable [phone] Gay Gallagher RN Unavailable Unavailable David Tony MD Unavailable [phone] Yusef Ramos MD Primary Care Provider [phone] Encounter Details Date Type Department Care Team (Late st Contact Info) Description 10/28/2016 Patient Outreach Nurse Navigator [address] [facility], [address] Gay Gallagher, VIKKI Social History Tobacco Use Types Packs/Day Years [...] on filedocumented in this encounter Care Teams Residential Building Inspector Relationship Specialty Start Date End Date Manoj Franco MD PCP - General UNKNOWN 10/22/16 03/31/17 Yusef Ramos MD [address] [place] [address] PCP - General Hospitalist 04/01/17 Vinay Weaver MD Surgery - General Surgery 08/24/16 Tristen Rodriguez MD UNKNOWN 08/24/16 Gay Gallagher RN Registered Nurse 10/22/16 12/20/16 David Tony MD Radiology - Oncology 10/28/16 documented as of this encounter
--- OUTSIDE RECORDS SUMMARY | 2023-08-31 09:49 | XMS_ITS | Encounter Summary ---
Author Organization [facility] r Address [address] [place] [address] Care Team Providers Care Rn Care Transition Name Role Phone Manoj Franco MD Primary Care Provider [phone] Vinay Weaver MD Unavailable Tristen Rodriguez MD Unavailable [phone] Gay Gallagher RN Unavailable Unavailable David Tony MD Unavailable [phone] Yusef Ramos MD Primary Care Provider [phone] Encounter Details Date Type Department Care Team (Late st Contact Info) Description 10/22/2016 Patient Outreach Nurse Navigator [address] [facility], [address] Gay Gallagher, VIKKI Social History Tobacco Use [...] on filedocumented in this encounter Care Teams Rn Care Transition Relationship Specialty Start Date End Date Manoj Franco MD PCP - General UNKNOWN 10/22/16 03/31/17 Yusef Ramos MD [address] [place] [address] PCP - General Hospitalist 04/01/17 Vinay Weaver MD Surgery - General Surgery 08/24/16 Tristen Rodriguez MD UNKNOWN 08/24/16 Gay Gallagher RN Registered Nurse 10/22/16 12/20/16 David Tony MD Radiology - Oncology 10/28/16 documented as of this encounter
--- OUTSIDE RECORDS SUMMARY | 2023-08-31 09:49 | XMS_ITS | Encounter Summary ---
Author Organization [facility] r Address [address] [place] [address] Care Team Providers Care Plug Stitcher Name Role Phone Manoj Franco MD Primary Care Provider [phone] Vinay Weaver MD Unavailable Tristen Rodriguez MD Unavailable [phone] Gay Gallagher RN Unavailable Unavailable David Tony MD Unavailable [phone] Yusef Ramos MD Primary Care Provider [phone] Encounter Details Date Type Department Care Team (Late st Contact Info) Description 10/22/2016 Patient Outreach Nurse Navigator [address] [facility], [address] Gay Gallagher, VIKKI Social History Tobacco Use [...] on filedocumented in this encounter Care Teams Plug Stitcher Relationship Specialty Start Date End Date Manoj Franco MD PCP - General UNKNOWN 10/22/16 03/31/17 Yusef Ramos MD [address] [place] [id number] PCP - General Hospitalist 04/01/17 Vinay Weaver MD Surgery - General Surgery 08/24/16 Tristen Rodriguez MD UNKNOWN 08/24/16 Gay Gallagher RN Registered Nurse 10/22/16 12/20/16 David Tony MD Radiology - Oncology 10/28/16 documented as of this encounter
--- OUTSIDE RECORDS SUMMARY | 2023-08-31 09:49 | XMS_ITS | Encounter Summary ---
Author Organization [facility] r Address [address] [place] [address] Care Team Providers Care Cement Truck Driver Name Role Phone Manoj Franco MD Primary Care Provider [phone] Kali Dougherty MD Unavailable Tristen Rodriguez MD Unavailable [phone] David Tony MD Unavailable Encounter Details Date Type Department Care Team (Late st Contact Info) Description 02/21/2017 Orders Only [facility] [address] [facility] [address] [place] [address] Kali Dougherty MD [address] [facility] [place] [address] Malignant neoplasm of upper-outer quadrant of right breast in female, estrogen receptor negative; 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 A routine follow-up mammogram in 1 year is recommended. The patient will be informed of the results by mail. ACR BI-RADS CATEGORY 2 - Benign Finding(s) YOVANNY WALTER MD REPORT HAS BEEN ELECTRONICALLY SIGNED BY THE ABOVE RADIOLOGIST DATE/TIME SIGNED: 02/24/2017 11:56:40 KALI DOUGHERTY MD Narrative 02/24/2017 3:04 PM [facility] CLINICAL HISTORY: Patient is 76 years old and is seen for post lumpectomy follow-up. 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 ??The patient has the following family history of breast cancer: ??niece and sister, at age 65. FILMS COMPARED: The present examination has been compared to prior imaging studies performed at [facility] on 03/22/2016 and 10/19/2016. MAMMOGRAM FINDINGS: The breasts are heterogeneously dense. ??This may lower the sensitivity of mammography. Finding 1: ??There is post-therapeutic change in the right breast. Finding 2: ??Patient has a metallic clip in the area of the prior biopsy of the left breast. Finding 3: ??There is a small hematoma and loculation of air in the left axilla consistent with recent port removal. There are no suspicious masses, calcifications or areas of architectural distortion. The views performed were: ??bilateral craniocaudal; bilateral craniocaudal with tomosynthesis; bilateral mediolateral oblique; bilateral mediolateral oblique with tomosynthesis; bilateral mediolateral; and right mediolateral oblique spot compression magnification. Procedure Note Yovanny Walter MD - 02/24/2017 CLINICAL HISTORY: Patient is 76 years old and is seen for post lumpectomy follow-up. Thepatient has a history of invasive ductal right breast carcinoma in February,.The patient has the following family history of breast cancer: niece andsister, at age 65. FILMS COMPARED: The present examination has been compared to prior imaging studiesper[facility] on 03[facility]22[facility]2016 and 10/19/2016. MAMMOGRAM FINDINGS: The breasts are heterogeneously dense. This may lower the sensitivityof mammography. Finding 1: There is post-therapeutic change in the right breast. Finding 2: Patient has a metallic clip in the area of the prior biopsy ofthe left breast. Finding 3: There is a small hematoma and loculation of air in the leftaxilla consistent with recent port removal. There are no suspicious masses, calcifications or areas of architectural distortion. The views performed were: bilateral craniocaudal; bilateral craniocaudalwith tomosynthesis; bilateral mediolateral oblique; bilateral mediolateraloblique with tomosynthesis; bilateral mediolateral; and right mediolateral obliquespot compression magnification. IMPRESSION All findings are benign. A routine follow-up mammogram in 1 year is recommended. The patient will be informed of the results by mail. 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
--- OUTSIDE RECORDS SUMMARY | 2023-08-31 09:49 | XMS_ITS | Encounter Summary ---
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) Procedures Fiorella/Digital Diagnostic Mammo Bilat w/CAD Kali Dougherty MD [address], [address] [place] [address] Referral ID Status Reason Start Date Expiration Date Visits Re quested Visits Authorized [id number] Closed 02/21/2017 11/25/2017 1 1 Encounter Details Date Type Department Care Team (Latest Contact Info) Description 02/24/2017 11:00 AM [facility] - 02/24/2017 11:59 PM [facility] Hospital Encounter [facility] [address] [place] [address] [address] [place] [address] Kali Dougherty MD [address], [address] [place] [address] Discharge Disposition: Home or Self Care Social [...] High Amount of Fats in the Blood documented as of this encounter Plan of Treatment Not on file documented as of this encounter Procedures Procedure Name Priority Date/Time Associated Diagnosis Comments FIORELLA/DIGITAL DIAGNOSTIC BILAT W/CAD ROUTINE 02/24/2017 11:44 AM [facility] Malignant neoplasm of upper-outer quadrant of right breast in female, estrogen receptor negative 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 A routine follow-up mammogram in 1 year is recommended. The patient will be informed of the results by mail. ACR BI-RADS CATEGORY 2 - Benign Finding(s) YOVANNY WALTER MD REPORT HAS BEEN ELECTRONICALLY SIGNED BY THE ABOVE RADIOLOGIST DATE/TIME SIGNED: 02/24/2017 11:56:40 KALI DOUGHERTY MD Narrative 02/24/2017 3:04 PM [facility] CLINICAL HISTORY: Patient is 76 years old and is seen for post lumpectomy follow-up. 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 ??The patient has the following family history of breast cancer: ??niece and sister, at age 65. FILMS COMPARED: The present examination has been compared to prior imaging studies performed at [facility] on 03/22/2016 and 10/19/2016. MAMMOGRAM [...] been compared to prior imaging studiesperformed at [facility] on 03/22/2016 and 10/19/2016. MAMMOGRAM [...] on filedocumented in this encounter Care Teams Nuclear Monitoring Technician Relationship Specialty Start Date End Date Manoj Franco MD PCP - General UNKNOWN 10/22/16 03/31/17 Kali Dougherty MD Surgery - General Surgery 08/24/16 Tristen Rodriguez MD UNKNOWN 08/24/16 Dvaid Tony MD Radiology - Oncology 10/28/16 documented as of this encounter
--- OUTSIDE RECORDS SUMMARY | 2023-08-31 09:49 | XMS_ITS | Encounter Summary ---
Author Organization [facility] r Address [address] [place] [address] Care Team Providers Care Lottery Sales Clerk Name Role Phone Manoj Franco MD Primary Care Provider [phone] Kali Weaver MD Unavailable Tristen Rodriguez MD Unavailable [phone] Gay Gallagher RN Unavailable Unavailable Reason for Visit * Auth/Cert Specialty Diagnoses / Procedures Referred By Contac t Referred To Contact Gynecology Diagnoses Infiltrating duct carcinoma of breast, estrogen receptor negative, stage 3, right (HCC) Estrogen receptor negative Infiltrating duct carcinoma of breast, estrogen receptor negative, stage 3, right [C50.911, Z17.1] Estrogen receptor negative [Z17.1] Procedures VT MASTECTOMY, PARTIAL PARTIAL MASTECTOMY WITH NEEDLE LOCALIZATION EXCISION / BIOPSY SOFT TISSUE CHEST / AXILLA [facility] [address] [place] [address] Referral ID Status Reason Start Date Expiration Date Visits Re quested Visits Authorized [id number] 1 1 Encounter Details Date Type Department Care Team (Latest Contact Info) Description 10/22/2016 11:35 AM [facility] - 10/22/2016 11:59 PM [facility] Encounter Nuclear Medicine [address] [place] [address] Kali Weaver MD [address] [facility], [address] [place] [address] Malignant neoplasm of right female breast, unspecified site of breast; Estrogen receptor negative Discharge Disposition: Home or Self Care Social [...] Procedure Name Priority Date/Time Associated Diagnosis Comments NM BREAST SENTINEL NODE WITHOUT IMAGES ROUTINE 10/22/2016 12:10 PM MST Malignant neoplasm of right female breast, unspecified site of breast Estrogen receptor negative PATHOLOGY PROCEDURE ROUTINE 10/22/2016 1 2:00 AM [facility] documented in this encounter Results * NM [place] Node Without Images (10/22/2016 12:10 PM [facility]) Anatomical Region Laterality Modality Nuclear Medicine 10/22/2016 1:30 PM [facility] Impressions 10/22/2016 1:32 PM [facility] [place] node lymphoscintigraphy, as described above. Narrative 10/22/2016 1:[address] [facility] -- Addended Radiology Report Patient Name: TERRY EPPERSON Date of : 1940 Patient Accession Number: [id number] -------- ADDENDUM #1 -------- ADDENDUM CHART CORRECTION The electronic signature was voided on 10/22/2016 2:45 PM by Tessie Shane in order to correct the following error(s): The phrase technetium 99m lymphocytic was administered in the findings has been corrected to read technetium 99m Lymphoseek was administered. -------- ORIGINAL REPORT -------- DATE OF EXAM: 10/22/2016 EXAMINATION: NM SENTINEL NODE WITHOUT IMAGES CLINICAL INDICATION: Malignant neoplasm of unspecified site of right female breast COMPARISON: None. TECHNIQUE: Radiopharmaceutical: Technetium 99m Lymphoseek by injection. Dose: 0.5 mCi. FINDINGS: 0.5 mCi technetium 99m lymphocytic was administered by ??injection into the right breast by Dr. Fair prior to surgery. Images were not obtained. Procedure Note Dada Whitman MD - 10/22/2016 [facility] -- Addended Radiology Report Patient Name: TERRY EPPERSON Date of : 1940 Patient Accession Number: [id number] -------- ADDENDUM #1 -------- ADDENDUM CHART CORRECTION The electronic signature was voided on 10/22/2016 2:45 PM by Tessie Shanein order to correct the following error(s): The phrase technetium 99m lymphocytic was administered in the findingshas been corrected to read technetium 99m Lymphoseek was administered. -------- ORIGINAL REPORT -------- DATE OF EXAM: 10/22/2016 EXAMINATION: NM SENTINEL NODE WITHOUT IMAGES CLINICAL INDICATION: Malignant neoplasm of unspecified site of rightfemale breast COMPARISON: None. TECHNIQUE: Radiopharmaceutical: Technetium 99m Lymphoseek by injection. Dose: 0.5mCi. FINDINGS: 0.5 mCi technetium 99m lymphocytic was administered by injection into theright breast by Dr. Fair prior to surgery. Images were not obtained. IMPRESSION [place] node lymphoscintigraphy, as described above. Kali Weaver MD RADIOLOGY NUCL EAR MED * Pathology Procedure (10/22/2016 12:00 AM [facility]) 10/22/2016 10/25/2016 7:0 3 AM MST Narrative [facility] - 10/26/2016 1:28 PM [facility] (NOTE) Patient Name: TERRY EPPERSON MR#: [id number] Specimen #[id number] Collected: 10/22/2016 00:00 Received: 10/25/2016 07:03 Reported: 10/26/2016 13:27 Submitting Physician:FARHAT ??KALI HUNTLEY Attending Physician: FARHAT ??KALI HUNTLEY Final Microscopic Diagnosis A. ??Right partial, oriented [...] ?routine Dominik and cytokeratin immunohistochemical staining (0/1). [id number]; [id number] The performance characteristics of the analyte specific reagent (ASR) immunohistochemistry stains used in this report have been determined by [facility]. ??Although some antibodies used have not been approved by the U.S. Food and Drug Administration (FDA), the FDA has determined that such clearance or approval is not necessary when the test has been used for clinical purposes only. ??[facility] is certified under Clinical Laboratory Improvement Amendments of 1988 (CLIA) as qualified to perform high complexity clinical laboratory testing. ??The appropriate staining of internal controls in the tissue is confirmed at the time the stains are reviewed. ??All stains/special studies on this case have been ordered by the rendering pathologist and are medically necessary for evaluation and/or diagnosis of the specimen. ??All stains/special studies on this case have been ordered by the rendering pathologist and are medically necessary for evaluation and/or diagnosis of the specimen. NOTE: ??Note is made of prior pathology report from [facility] ([id number]). ??There is no prior material at [facility] for review. ?? Malika Akbar M.D. Electronically Signed Out ? Gross Description A. ??Received is a 7 x 5 x 3 cm yellow lobulated fibroadipose tissue which is inked postoperatively as follows: ??Superior red, inferior blue, medial yellow, lateral orange, anterior green and posterior black. ??Two needle localization wires insert from the superior aspect. ??Sectioning through the breast reveals a 0.5 x 0.4 x 0.3 cm palmer-white lobulated mass which comes within 0.1 cm of the posterior margin. ??There is a coiled metallic clip within this mass. ??A second lesion is identified directly adjacent to the first lesion. ??The second lesion is cystic and measures 0.7 x 0.5 x 0.3 cm and comes within 0.4 cm of the anterior margin. ??There is a dumbbell-shaped metallic object within the cavity of this lesion. ??The second mass radiates white fibrous streaks towards the posterior margin and comes within 0.3 cm. ??There is also a coiled clip within this cavity and second lesion. ??The remainder of the breast tissue is unremarkable with no other definitive lesions or masses identified. ?? The specimen is sectioned and submitted representatively as follows: ??Block 1 superior; block 2 inferior; block 3 media; block 4 lateral; block 5 first mass with coiled metallic clip; blocks 6-9 second mass with adjacent cavity and coiled metallic clip with anterior and posterior margins. ??The surgeon requests that markers be done if residual tumor is identified. ??(9-X-S) ?? B. ??Received is a 1.5 x 1 x 0.5 cm yellow-palmer nodular lymph node, which is bisected and submitted in its entirety in one cassette. ??(1-X-N) C. ??Received is a 3 x 2 x 1 cm aggregate of yellow-palmer nodular lymph node, which is bisected and submitted in its entirety in one cassette. ??(1-X-N) D. ??Received is a 1.5 x 1 x 0.8 cm yellow-palmer nodular lymph node, which is bisected and submitted in its entirety in one cassette. ??(1-2-N) E. ??Received is a 1 x 1 x 0.8 cm red-yellow nodular lymph node, which is bisected and submitted in its entirety in one cassette. ??(1-2-N) ??SP/dt Damián Sevilla PHeavenA. Clinical History A. ??Right upper outer quadrant; please do markers on residual carcinoma. B-E. ??Right upper outer quadrant. Specimen(s) Received A: Right partial mastectomy at 12:00 B: Right axillary sentinel lymph node #1 C: Right axillary sentinel lymph node #2 D: Right axillary sentinel lymph node #3 E: Right axillary sentinel lymph node #4 Kali Weaver MD LAB PATHOLOGY ORDERABLES [facility] documented in this encounter Visit Diagnoses Diagnosis Malignant neoplasm of right female breast, unspecified site of breast (HCC) Estrogen receptor negative Estrogen receptor negative status [ER-] documented in this encounter Administered Medications Inactive Administered Medications - up to 3 most recent administrations Medication Order MAR Action Action Date Dose Rate Site technetium TC 99m tilmanocept (LYMPHOSEEK) 0.5 millicurie 0.5 millicurie, Intradermal, RAD ONCE, 1 dose, Starting on Tue10/22/16 at 1209, Until Tue10/22/16 at 1209, Diagnostic procedure Given 10/22/2016 12:09 PM MST 0.5 millicuries Right Breast documented in this encounter Care Teams Lottery Sales Clerk Relationship Specialty Start Date End Date Manoj Franco MD PCP - General UNKNOWN 10/22/16 03/31/17 Kali Weaver MD Surgery - General Surgery 08/24/16 Tristen Rodriguez MD UNKNOWN 08/24/16 Gay Gallagher RN Registered Nurse 10/22/16 12/20/16 documented as of this encounter
--- OUTSIDE RECORDS SUMMARY | 2023-08-31 09:49 | XMS_ITS | Encounter Summary ---
Author Organization [facility] r Address [address] [place] [address] Care Team Providers Care Donor Processor Name Role Phone Manoj Franco MD Primary Care Provider [phone] Vinay Dougherty MD Unavailable Tristen Rodriguez MD Unavailable [phone] Gay Gallagher RN Unavailable Unavailable Reason for Referral * Other (Routine) - Closed Specialty Diagnoses / Procedures Referred By Contac t Referred To Contact Diagnoses Abnormal mammogram Procedures Breast X-ray Specimen Vinay Dougherty MD [address], [address] [place] [address] [facility], Radiology [facility] [address] [place] [address] Referral ID Status Reason Start Date Expiration Date Visits Re quested Visits Authorized [id number] Closed 10/22/2016 10/22/2017 1 1 * Other (Routine) - Closed Specialty Diagnoses / Procedures Referred By Contac t Referred To Contact Mammography Diagnoses Abnormal mammogram Procedures Stereo Guide Breast R Need Loc Vinay Dougherty MD [address], [address] [place] [address] Referral ID Status Reason Start Date Expiration Date Visits Re quested Visits Authorized [id number] Closed 10/22/2016 10/22/2017 1 1 [facility] Reason for Visit * Auth/Cert Specialty Diagnoses / Procedures Referred By Contanamaria t Referred To Contact Gynecology Diagnoses Infiltrating duct carcinoma of breast, estrogen receptor negative, stage 3, right (HCC) Estrogen receptor negative Infiltrating duct carcinoma of breast, estrogen receptor negative, stage 3, right [C50.911, Z17.1] Estrogen receptor negative [Z17.1] Procedures [place] MASTECTOMY, PARTIAL PARTIAL MASTECTOMY WITH NEEDLE LOCALIZATION EXCISION / BIOPSY SOFT TISSUE CHEST / AXILLA [facility] [address] [place] [address] Referral ID Status Reason Start Date Expiration Date Visits Re quested Visits Authorized [id number] 1 1 Encounter Details Date Type Department Care Team (Latest Contact Info) Description 10/22/2016 8:51 AM [facility] - 10/22/2016 11:34 AM [facility] Hospital Encounter [facility] [address] [place] [address] [address] [place] [phone] Vinay Dougherty MD [address] [facility], [address] [place] [address] Abnormal mammogram Discharge Disposition: Home or Self Care Social [...] Sign Reading Time Taken Comments Blood Pressure 132/80 10/22/2016 9:15 AM [facility] Pulse 68 10/22/2016 9:15 AM [facility] Temperature - - Respiratory Rate - - Oxygen Saturation - - Inhaled Oxygen Concentration - - Weight - - Height - - Body Mass Index - - documented in this encounter Functional Status Functional [...] the Blood documented as of this encounter Progress Notes * Hemalatha Freedman - 10/22/2016 10:13 AM MST Patient Lacey Epperson presents for right breast needle localization secondary to right breastcancer x 3. Procedure and possible side effects reviewed. Patient verbalized an understanding. Consent explained, read, signed and witnessed by Dr Albertina Walter and Hemalatha Freedman RT @ 0917. Post procedure instructions reviewed and a copy provided. Patient questions reviewed and answered. Patient escorted to the dressing room and then to procedure room. Blood Preasure 132/80, Pulse 68, O2 sat 95% on room air. Lacey Epperson; correct patient, correct site, consented, double checked by Dr Albertina Walter and the undersigned @ 0917 Hemalatha Freedman RT (R)(M) Procedural Time Out Completed: Lacey Epperson; Correct patient, Correct date of , Correctmedical record number, Correct side, Correct site, Correct Procedure and Consent, confirmed by Dr Albertina Walter, May Hairston RT and the undersigned, on 10/22/16 at 0930 Hemalatha Freedman RT(R)(M) Patient tolerated procedure well. Two wires were placed and post localization images taken. Patientleft left niece Rashida and Jamaal Teddy transported [facility] documented in this encounter Plan of Treatment Not on file documented as of this encounter Procedures Procedure Name Priority Date/Time Associated Diagnosis Comments ADD LESION STEREOTACTIC GUIDED RT BREAST NEEDLE LOCALIZATION ROUTINE 10/22/2016 12:02 PM [facility] Abnormal mammogram STEREOTACTIC GUIDED BREAST RT NEEDLE LOCALIZATION ROUTINE 10/22/2016 12:02 PM [facility] Abnormal mammogram BREAST XRAY SPECIMEN ROUTINE 10/22/2016 12:02 PM [facility] Abnormal mammogram documented in this encounter Results * Breast X-ray Specimen (10/22/2016 12:02 PM [facility]) Romulo Mueller User - 10/22/2016 12:03 PM [facility] No dictation required. Vinay Dougherty MD RADIOLOGY MAMM OGRAPHY * Add Lesion Stereo Guide R Ana Need Loc (10/22/2016 12:02 PM [facility]) Anatomical Region Laterality Modality Breast Mammography 10/22/2016 12:1 2 PM [facility] Addenda Addendum by Albertina Walter MD on 10/28/2016 12:22 PM [facility] ADDENDED REPORT 10/28/2016 Addendum: A specimen radiograph demonstrates the 2 localization wires and the 3 biopsy marking clips to be in the specimen. Narrative 10/22/2016 12:11 PM [facility] ORIGINAL REPORT NEEDLE LOCALIZATION: The procedure and possible complications were discussed with the patient and informed consent was obtained. Temple timeout protocol was performed. The metallic clip (anchor) noted in the right breast on the prior exam was localized with with Stereotaxis.Using sterile technique, under local anesthesia, 5cc lidocaine 1% was injected subcutaneously in the affected breast. A localization needle was placed at the site of abnormality. A Ghiatas hook wire ??left in the vicinity of the metallic clip (anchor). Post procedure mammogram performed. The patient tolerated the procedure well and there were no complications. CONCLUSION: Successful needle localization of right breast metallic clip (anchor). The procedure and possible complications were discussed with the patient and informed consent was obtained. Temple timeout protocol was performed. The metallic clips noted in the right breast on the prior exam was localized with with Stereotaxis.Using sterile technique, under local anesthesia, 5cc lidocaine 1% was injected subcutaneously in the affected breast. A localization needle was placed at the site of abnormality. A Ghiatas hook wire ??left in the vicinity of the metallic clips. Post procedure mammogram performed. The patient tolerated the procedure well and there were no complications. CONCLUSION: Successful needle localization of right breast metallic clips. ALBERTINA WALTER MD REPORT HAS BEEN ELECTRONICALLY SIGNED BY THE ABOVE RADIOLOGIST DATE/TIME SIGNED: 10/22/2016 11:32:47 VINAY DOUGHERTY MD Procedure Note Albertina Walter MD - 10/28/2016 ORIGINAL REPORT NEEDLE LOCALIZATION: The procedure and possible complications were discussed with the patientand informed consent was obtained. Temple timeout protocol was performed. The metallic clip (anchor) noted in the right breast on the prior examwas localized with with Stereotaxis.Using sterile technique, under localanesthesia, 5cc lidocaine 1% was injected subcutaneously in the affected breast. A localization needle was placed at the site of abnormality. A Ghiatas hook wire left in the vicinity of the metallic clip (anchor). Postprocedure mammogram performed. The patient tolerated the procedure well and there were nocomplications. CONCLUSION: Successful needle localization of right breast metallic clip (anchor). The procedure and possible complications were discussed with the patientand informed consent was obtained. Temple timeout protocol was performed. The metallic clips noted in the right breast on the prior exam waslocalized with with Stereotaxis.Using sterile technique, under local anesthesia,5cc lidocaine 1% was injected subcutaneously in the affected breast. Alocalization needle was placed at the site of abnormality. A Ghiatas hook wire left in the vicinity of the metallic clips. Post proceduremammogram performed. The patient tolerated the procedure well and there were nocomplications. CONCLUSION: Successful needle localization of right breast metallic clips. ALBERTINA WALTER MD REPORT HAS BEEN ELECTRONICALLY SIGNED BY THE ABOVE RADIOLOGIST DATE/TIME SIGNED: 10/22/2016 11:32:47 VINAY DOUGHERTY MD Vinay Dougherty MD RADIOLOGY MAMM OGRAPHY * Stereo Guide Breast R Need Loc (10/22/2016 12:02 PM [facility]) Anatomical Region Laterality Modality Breast Mammography 10/22/2016 12:1 2 PM [facility] Addenda Addendum by Albertina Walter MD on 10/28/2016 12:22 PM [facility] ADDENDED REPORT 10/28/2016 Addendum: A specimen radiograph demonstrates the 2 localization wires and the 3 biopsy marking clips to be in the specimen. Narrative 10/22/2016 12:11 PM [facility] ORIGINAL REPORT NEEDLE LOCALIZATION: The procedure and possible complications were discussed with the patient and informed consent was obtained. Temple timeout protocol was performed. The metallic clip (anchor) noted in the right breast on the prior exam was localized with with Stereotaxis.Using sterile technique, under local anesthesia, 5cc lidocaine 1% was injected subcutaneously in the affected breast. A localization needle was placed at the site of abnormality. A Ghiatas hook wire ??left in the vicinity of the metallic clip (anchor). Post procedure mammogram performed. The patient tolerated the procedure well and there were no complications. CONCLUSION: Successful needle localization of right breast metallic clip (anchor). The procedure and possible complications were discussed with the patient and informed consent was obtained. Temple timeout protocol was performed. The metallic clips noted in the right breast on the prior exam was localized with with Stereotaxis.Using sterile technique, under local anesthesia, 5cc lidocaine 1% was injected subcutaneously in the affected breast. A localization needle was placed at the site of abnormality. A Ghiatas hook wire ??left in the vicinity of the metallic clips. Post procedure mammogram performed. The patient tolerated the procedure well and there were no complications. CONCLUSION: Successful needle localization of right breast metallic clips. ALBERTINA WALTER MD REPORT HAS BEEN ELECTRONICALLY SIGNED BY THE ABOVE RADIOLOGIST DATE/TIME SIGNED: 10/22/2016 11:32:47 VINAY DOUGHERTY MD Procedure Note Albertina Walter MD - 10/28/2016 ORIGINAL REPORT NEEDLE LOCALIZATION: The procedure and possible complications were discussed with the patientand informed consent was obtained. Temple timeout protocol was performed. The metallic clip (anchor) noted in the right breast on the prior examwas localized with with Stereotaxis.Using sterile technique, under localanesthesia, 5cc lidocaine 1% was injected subcutaneously in the affected breast. A localization needle was placed at the site of abnormality. A Ghiatas hook wire left in the vicinity of the metallic clip (anchor). Postprocedure mammogram performed. The patient tolerated the procedure well and there were nocomplications. CONCLUSION: Successful needle localization of right breast metallic clip (anchor). The procedure and possible complications were discussed with the patientand informed consent was obtained. Temple timeout protocol was performed. The metallic clips noted in the right breast on the prior exam waslocalized with with Stereotaxis.Using sterile technique, under local anesthesia,5cc lidocaine 1% was injected subcutaneously in the affected breast. Alocalization needle was placed at the site of abnormality. A Ghiatas hook wire left in the vicinity of the metallic clips. Post proceduremammogram performed. The patient tolerated the procedure well and there were nocomplications. CONCLUSION: Successful needle localization of right breast metallic clips. LABERTINA WALTER MD REPORT HAS BEEN ELECTRONICALLY SIGNED BY THE ABOVE RADIOLOGIST DATE/TIME SIGNED: 10/22/2016 11:32:47 VINAY DOUGHERTY MD Vinay Dougherty MD RADIOLOGY MAMM OGRAPHY documented in this encounter Visit Diagnoses Diagnosis Abnormal mammogram Abnormal mammogram, unspecified documented in this encounter Administered Medications Inactive Administered Medications - up to 3 most recent administrations Medication Order MAR Action Action Date Dose Rate Site lidocaine 1 % injection 100 mg 100 mg (10 mL), Subcutaneous, ONCE PRN, Starting on 10/22/16 at 0937, Until 10/23/16 at 0213, localization Given 10/22/2016 9:37 AM MST 100 mg Right Breast documented in this encounter Care Teams Donor Processor Relationship Specialty Start Date End Date Manoj Franco MD PCP - General UNKNOWN 10/22/16 03/31/17 Vinay Dougherty MD Surgery - General Surgery 08/24/16 Tristen Rodriguez MD UNKNOWN 08/24/16 Gay Gallagher RN Registered Nurse 10/22/16 12/20/16 documented as of this encounter
--- OUTSIDE RECORDS SUMMARY | 2023-08-31 09:49 | XMS_ITS | Encounter Summary ---
Author Organization [facility] r Address [address] [place] [address] Care Team Providers Care Stallion Manager Name Role Phone Manoj Franco MD Primary Care Provider [phone] Vinay Weaver MD Unavailable Tristen Rodriguez MD Unavailable Gay Gallagher RN Unavailable Unavailable David Tony MD Unavailable Reason for Referral * Ambulatory Referral (Routine) - Closed Specialty Diagnoses / Procedures Referred By Farideh giron Referred To Contact Diagnoses Breast cancer of upper-outer quadrant of right female breast (HCC) 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) S/P lumpectomy, right breast Jahaira Shaver NP [address] [facility] [address] [place] [address] [facility] - [address], [address] [place] [address] Referral ID Status Reason Start Date Expiration Date Visits Re quested Visits Authorized [id number] Closed 10/28/2016 10/29/2017 1 1 * Ambulatory Referral (Routine) - Closed Specialty Diagnoses / Procedures Referred By Farideh giron Referred To Contact Diagnoses Breast cancer of upper-outer quadrant of right female breast (HCC) 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) S/P lumpectomy, right breast Jahaira Shaver COMMERCIAL SALES REPRESENTATIVE [address] [address] David Tony MD [address], [address] [address] Referral ID Status Reason Start Date Expiration Date Visits Re quested Visits Authorized [id number] Closed 10/28/2016 10/29/2017 1 1 LD [facility] Reason for Visit * Reason Comments Post Op breast cancer of upp er-outer quadrant, right Encounter Details Date Type Department Care Team (Late st Contact Info) Description 10/28/2016 8:40 AM [facility] Office Visit [facility] [address] [address] Jahaira Shaver NP [address] [address] Breast cancer of upper-outer quadrant of right female breast (HCC) (Primary Dx); Triple negative malignant neoplasm [...] Sign Reading Time Taken Comments Blood Pressure 112/86 10/28/2016 9:02 AM [facility] Pulse 82 10/28/2016 9:02 AM [facility] Temperature 36.5 ??C (97.7 ??F) 10/28/2016 9:02 AM [facility] T Respiratory Rate - - Oxygen Saturation 96% 10/28/2016 9:02 AM MST Inhaled Oxygen Concentration - - Weight 71.8 kg (158 lb 6.4 oz) 10/28/2016 9:02 A M [facility] Height 160 cm (5' 3) 10/28/2016 9:02 AM [facility] Body Mass Index 28.06 10/28/2016 9:02 AM MST documented in this encounter Functional [...] this encounter Progress Notes * Jahaira Shaver, SHANNON - 10/28/2016 8:40 AM MST Images from the original note were not included. Subjective: Patient ID: Lacey Epperson is a 76 year old female. Chief Complaint: Chief Complaint Patient presents with ??? Post Op breast cancer of upper-outer quadrant, right HPI Patient is s/p right breast partial mastectomy with sentinel node biopsy on 10/22/2016. Surgical pathology identifies the site of prior biopsy with no residual invasive or in situ carcinoma noted. Margins are negative, 0/4 nodes positive. 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 Rodriguez. She completed AC with him priorto spending the Summer in [place] where she started Taxol. Her last dose was on 09/21/2016 before returning to [place]. Patient denies needing pain medication since surgery. She reports an occasional soreness / ache butstates she is feeling very well. She reports right shooting pain from hand up to her shoulder that she first noted this morning upon awaking. She has had a couple of twinges in her forearm since noting it this morning. She does report prior problems with her right rotator cuff, but this sensationis new. She denies complaints of fever, chills, constipation, or drainage from the incision. She denies performing post operative exercises stating she was not aware. Patient has questions regarding radiation therapy. She is adamant that she wants to see a provider in the [place] area. Patient excitably tells of a nieces wedding in [place] at the end of October in which many family members that she has not seen in a while will be in attendance. She is hoping to drive with her niece for the event. Patient???s niece is at the bedside and supportive. Review of patient's allergies indicates: Allergen Reactions ??? Sulfa Drugs Rash No outpatient prescriptions have been marked as taking for the 10/28/16 encounter (Office Visit) with Jahaira Shaver NP. [...] patient is not nervous/anxious. Objective: Blood pressure 112/86, pulse 82, temperature 36.5 ??C (97.7 ??F), height 1.6 m (5' 3), weight 71.8kg, SpO2 96 %.Body mass index is 28.06 kg/m??. Physical Exam Constitutional: She is oriented to person, place, and time. Vital signs are normal. She appears well-developed and well-nourished. No distress. Pulmonary/Chest: Effort normal. Right breast and axillary incisions are intact with skin glue present, without signs of infection. Small amount of edema noted at axillary incision. Right breast with moderate amount of bruising which is resolving. Patient demonstrates good range of motion to upper right extremity. Neurological: She is alert and oriented to person, place, and time. Skin: Skin is warm and dry. Psychiatric: She has a normal mood and affect. Her speech is normal and behavior is normal. Judgment and thought content normal. Cognition and memory are normal. Vitals reviewed. Assessment: Encounter Diagnoses Name Primary? Breast cancer of upper-outer quadrant of right female breast Yes ??? Triple negative malignant neoplasm of breast ??? S/P lumpectomy, right breast Plan: Patology results reviewed with patient and a copy provided. Stressed prior biopsy site was identified with no residual cancer, 4 lymph nodes all negative for metastasis. Patient was very happy to learn of this. Copy of post operative exercises and video link provided. I encouraged her to perform these severaltimes daily. We discussed concerns for cording and risk of lymphedema after axillary surgery. We are attempting to locate physical therapy options in [place] that also offer lymphedema therapy and education. She understands that if this is not available in her area a referral to [facility] will be placed. She agrees with this plan as PT would not be a daily visit. We discussed continued avoidance of repeatitive pushing, pulling and lifting from the right. Cautioned that this area is still healing and while I'm pleased she is feeling well, do not want her doingtoo much too soon. Encouraged her to continue wearing the surgical bra as it provides support and can apply ice to axilla several times per day. Given she continues to do well, encourage her to keep plans to drive with her niece for family wedding and gathering in [place]. We discussed need for radiation therapy consult. I investigated options in [place]. [facility] does perform radiation therapy on site at their [place] location. Referral will be sent there. Contact numbers to this clinic provided. She will contact them early next week if she does not receive a scheduling call. If she has any difficulty scheduling an appointment instructed her to contact our office. Plan to see Dr. Weaver at approximately 4 weeks post op. Lacey was seen today for post op. Diagnoses and all orders for this visit: Breast cancer of upper-outer quadrant of right female breast - REFERRAL TO RADIATION ONCOLOGY - REFERRAL TO PHYSICAL THERAPY Triple negative malignant neoplasm of breast - REFERRAL TO RADIATION ONCOLOGY - REFERRAL TO PHYSICAL THERAPY S/P lumpectomy, right breast - REFERRAL TO RADIATION ONCOLOGY - REFERRAL TO PHYSICAL THERAPY Jahaira Shaver NP LD [facility] documented in this encounter Plan of Treatment Scheduled Referrals Name Type Priority Associated Diagnoses Orde r Schedule REFERRAL TO PHYSICAL THERAPY Referral ROUTINE Breast cancer of upper-outer quadrant of right female breast (HCC) 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) S/P lumpectomy, right breast Ordered: 10/28/2016 documented as of this encounter Procedures Procedure Name Priority Date/Time Associated Diagnosis Comments AMB REFERRAL TO RADIATION ONCOLOGY ROUTINE 01/11/2017 Breast cancer of upper-outer quadrant of right female breast (HCC) 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) S/P lumpectomy, right breast documented in this encounter Results * REFERRAL TO RADIATION ONCOLOGY (01/11/2017) Jahaira Shaver NP [facility] AMB OUTPATIENT R EFERRAL ORDERABLES documented in this encounter Visit Diagnoses Diagnosis Breast cancer of upper-outer quadrant of right female breast (HCC)- Primary 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
--- OUTSIDE RECORDS SUMMARY | 2023-08-31 09:49 | XMS_ITS | Encounter Summary ---
Author Organization [facility] r Address [address] [place] [address] Care Team Providers Care Policy Services Representative Name Role Phone Manoj Franco MD Primary Care Provider [phone] Kali Dougherty MD Unavailable Tristen Rodriguez MD Unavailable [phone] Gay Gallagher RN Unavailable Unavailable David Tony MD Unavailable [phone] Reason for Referral * Other (Routine) - Closed Specialty Diagnoses / Procedures [facility] To Contact Mammography Diagnoses Malignant neoplasm of upper-outer quadrant of right breast in female, 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) Procedures Sachin/Digital Diagnostic Mammo Bilat w/CAD Kali Dougherty MD [address], [address] [place] [address] Referral ID Status Reason Start Date Expiration Date Visits Re quested Visits Authorized [id number] Closed 02/21/2017 11/25/2017 1 1 [facility] Reason for Visit * Reason Comments Breast Cancer right Encounter Details Date Type Department Care Team (Late st Contact Info) Description 11/25/2016 10:30 AM [facility] Office Visit [facility] [facility] [address] [place] [address] Kali Dougherty MD [address] [facility], [address] [place] [address] Malignant neoplasm of upper-outer quadrant of right [...] Sign Reading Time Taken Comments Blood Pressure 118/66 11/25/2016 10:59 AM [facility] Pulse 74 11/25/2016 10:59 AM [facility] Temperature 36.3 ??C (97.3 ??F) 11/25/2016 10:59 AM [facility] Respiratory Rate - - Oxygen Saturation 95% 11/25/2016 10:59 AM [facility] Inhaled Oxygen Concentration - - Weight 72.1 kg (159 lb) 11/25/2016 10:59 AM [facility] Height 160 cm (5' 3) 11/25/2016 10:59 AM [facility] Body Mass Index 28.17 11/25/2016 10:59 AM MST documented in this encounter Functional [...] Progress Notes * Kali Dougherty MD - 11/25/2016 10:30 AM MST Subjective: Patient ID: Lacey Epperson is a 76 year old female. Chief Complaint: Chief Complaint Patient presents with ??? Breast Cancer right HPI Patient is s/p right breast partial mastectomy with sentinel node biopsy on 10/22/2016. Surgical pathology identifies the site of prior biopsy with no residual invasive or in situ carcinoma noted. Margins are negative, 0/4 nodes positive. She is feeling well, no pain or issues with ROM Patient presents to office today for 4 week follow up. Review of patient's allergies indicates: Allergen Reactions ??? Sulfa Drugs Rash No outpatient prescriptions have been marked as taking for the 11/25/16 encounter (Office Visit) with Kali Dougherty MD. Patient's medications, allergies, past medical, social, surgical [...] patient is not nervous/anxious. Objective: Blood pressure 118/66, pulse 74, temperature 36.3 ??C (97.3 ??F), height 1.6 m (5' 3), weight 72.1kg, SpO2 95 %.Body mass index is 28.17 kg/m??. Physical Exam Pulmonary/Chest: Excellent cosmetic outcome. Vitals reviewed. Assessment: Encounter Diagnoses Name Primary? Malignant neoplasm of upper-outer quadrant of right breast in female, estrogen receptor negative Yes ??? Triple negative malignant neoplasm of breast healing well. Fatigue. Starts radiation soon. Plan: Lacey Epperson to follow up in breast surgery clinic in 3 months. Pt to complete diagnostic mammogram (sachin 3D if necessary) prior to appointment. Imaging to be completed at [facility]. Can discuss port removal at next visit. Lacey was seen today for breast cancer. Diagnoses and all orders for this visit: Malignant neoplasm of upper-outer quadrant of right breast in female, estrogen receptor negative - Sachin/Digital Diagnostic Mammo Bilat w/CAD; Future Triple negative malignant neoplasm of breast - Sachin/Digital Diagnostic Mammo Bilat w/CAD; Future Kali Dougherty MD [facility] documented in this encounter Plan of Treatment Not on file documented as of this encounter Results * Sachin/Digital Diagnostic Mammo Bilat w/CAD (02/24/2017 11:44 AM [facility]) Anatomical Region Laterality Modality Breast Mammography 02/24/2017 3:04 PM MST Impressions 02/24/2017 3:04 PM [facility] All findings are benign. A routine follow-up mammogram in 1 year is recommended. The patient will be informed of the results by mail. ACR BI-RADS CATEGORY 2 - Benign Finding(s) YOVANNY WALTER MD REPORT HAS BEEN ELECTRONICALLY SIGNED BY THE ABOVE RADIOLOGIST DATE/TIME SIGNED: 02/24/2017 11:56:40 KALI DOUGHERTY MD Narrative 02/24/2017 3:04 PM [facility] CLINICAL HISTORY: Patient is 76 years old and is seen for post lumpectomy follow-up. 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 ??The patient has the following family history of breast cancer: ??niece and sister, at age 65. FILMS COMPARED: The present examination has been compared to prior imaging studies performed at [facility] on 03/22/2016 and 10/19/2016. MAMMOGRAM FINDINGS: The [...] been [facility]19[facility]2016. MAMMOGRAM [...] (HCC) documented in this encounter Care Teams Policy Services Representative Relationship Specialty Start Date End Date Manoj Franco MD PCP - General UNKNOWN 10/22/16 03/31/17 Kali Dougherty MD Surgery - General Surgery 08/24/16 Tristen Rodriguez MD UNKNOWN 08/24/16 Gay Gallagher RN Registered Nurse 10/22/16 12/20/16 Davdi Tony MD Radiology - Oncology 10/28/16 documented as of this encounter
--- OUTSIDE RECORDS SUMMARY | 2023-08-31 09:49 | XMS_ITS | Encounter Summary ---
Author Organization [facility] r Address [address] [place] [address] Care Team Providers Care Reception Specialist Name Role Phone Manoj Franco MD Primary Care Provider [phone] Vinay Weaver MD Unavailable [phone] Tristen Rodriguez MD Unavailable [phone] Gay Gallagher RN Unavailable Unavailable David Tony MD Unavailable [phone] Yusef Ramos MD Primary Care Provider [phone] Encounter Details Date Type Department Care Team (Late st Contact Info) Description 12/20/2016 Patient Outreach Nurse Navigator [address] [facility], [address] Gay Gallagher, VIKKI Social History Tobacco Use [...] as of this encounter Progress Notes * Gay Gallagher RN - 12/20/2016 4:46 PM MST Lacey is doing very well. She [facility]. I will see her when she returns afterwards for follow up. No needs at this time. documented in this encounter Plan of Treatment Not on file documented as of this encounter Visit Diagnoses Not on filedocumented in this encounter Care Teams Reception Specialist Relationship Specialty Start Date End Date Manoj Franco MD PCP - General UNKNOWN 10/22/16 03/31/17 Yusef Ramos MD [address] [place] [id number] PCP - General Hospitalist 04/01/17 Vinay Weaver MD Surgery - General Surgery 08/24/16 Tristen Rodriguez MD UNKNOWN 08/24/16 Gay Gallagher RN Registered Nurse 10/22/16 12/20/16 David Tony MD Radiology - Oncology 10/28/16 documented as of this encounter
--- OUTSIDE RECORDS SUMMARY | 2023-08-31 09:49 | XMS_ITS | Encounter Summary ---
Author Organization [facility] r Address [address] [place] [address] Care Team Providers Care Wordpress Developer Name Role Phone Manoj Franco MD Primary Care Provider Vinay Weaver MD Unavailable Tristen Rodriguez MD Unavailable [phone] Gay Gallagher RN Unavailable Unavailable David Tony MD Unavailable Reason for Visit * Reason Onset Date Comments OTHER COMPLAINT (EXPLAIN IN COMMENTS) 11/01/2016 PT information Encounter Details Date Type Department Care Team (Late st Contact Info) Description 11/01/2016 Telephone [facility] [address] [facility] [address] [place] [address] Jahaira Shaver, HAND WASHER [address] [facility] [address] [place] [address] OTHER COMPLAINT (EXPLAIN IN COMMENTS) (PT information ) Social History Tobacco Use Types Packs/Day [...] as of this encounter Progress Notes * Vianney Ibarra - 11/02/2016 3:14 PM MST Patient notified. Patient is scheduled with [facility] pt on 11/10. Patient has an appt on 11/[address] Clark at [facility] to discuss radiation. * Caleb Cason Medical Assistant - 11/01/2016 3:10 PM MST Called to inform patient that we could not find a facility to refer her to in [place] that is contracted with her insurance. I did explain that [facility], so they will be calling her to schedule. If she does want to see someone in [place] for physical therapy she would have to pay out of pocket. documented in this encounter Plan of Treatment Not on file documented as of this encounter Visit Diagnoses Not on filedocumented in this encounter Care Teams Wordpress Developer Relationship Specialty Start Date End Date Manoj Franco MD PCP - General UNKNOWN 10/22/16 03/31/17 Vinay Weaver MD Surgery - General Surgery 08/24/16 Tristen Rodriguez MD UNKNOWN 08/24/16 Gay Gallagher RN Registered Nurse 10/22/16 12/20/16 David Tony MD Radiology - Oncology 10/28/16 documented as of this encounter
--- OUTSIDE RECORDS SUMMARY | 2023-08-31 09:49 | XMS_ITS | Encounter Summary ---
Author Organization [facility] r Address [address] [place] [address] Care Team Providers Care Screw Machine Repairer Name Role Phone Manoj Franco MD Primary Care Provider [phone] Vinay Weaver MD Unavailable [phone] Tristen Rodriguez MD Unavailable [phone] Gay Gallagher RN Unavailable Unavailable Reason for Visit * Auth/Cert Specialty Diagnoses / Procedures Referred By Contac t Referred To Contact Gynecology Diagnoses Infiltrating duct carcinoma of breast, estrogen receptor negative, stage 3, right (HCC) Estrogen receptor negative Infiltrating duct carcinoma of breast, estrogen receptor negative, stage 3, right [C50.911, Z17.1] Estrogen receptor negative [Z17.1] Procedures OH MASTECTOMY, PARTIAL PARTIAL MASTECTOMY WITH NEEDLE LOCALIZATION EXCISION / BIOPSY SOFT TISSUE CHEST / AXILLA [facility] [address] [place] [address] Referral ID Status Reason Start Date Expiration Date Visits Re quested Visits Authorized [id number] 1 1 Encounter Details Date Type Department Care Team (Late st Contact Info) Description 10/22/2016 11:05 AM [facility] - 10/22/2016 1:20 PM [facility] Surgery [facility] [address] [place] [address] Vinay Weaver MD [address], [address] [place] [address] PARTIAL MASTECTOMY WITH NEEDLE LOCALIZATION Surgery Details Date/Time Status Location OR Service Patient Class Case Cl ass Case Type Trauma Case? 10/22/16 11:05 AM Posted [facility] WS03 GENERAL Surgical Outpatient ELECTIVE Panel 1 Procedure LRB Anes Op Region Wound Class Comments PARTIAL MASTECTOMY WITH NEEDLE LOCALIZATION GENERAL BREAST II. Clean Contaminated Wound RIGHT BREAST WIRE LOCALIZATION PARTIAL MASTECTOMY AT 12:00 POSITION, RIGHT AXILLARY SENTINEL LYMPH NODE BIOPSY X 4 EXCISION / BIOPSY SOFT TISSUE CHEST / AXILLA GENERAL AXILLA I. Clean Wound RIGHT AXILLARY SENTINEL LYMPH NODE BIOPSY Surgeon Surgeon Role Service Panel Vinay Weaver MD Primary GENERAL 1 Case Notes SEE SPECIAL NEEDS Special Needs WIRE LOCALIZATION 0900 TMCWHCUNKNOWN SLEEP APNEAUNKNOWN AICD/PACEMAKER documented in this encounter Social History Tobacco [...] Sign Reading Time Taken Comments Blood Pressure 121/72 10/22/2016 1:20 PM [facility] Pulse 68 10/22/2016 1:20 PM [facility] Temperature 35.6 ??C (96.1 ??F) 10/22/2016 1:15 PM MS T Respiratory Rate 14 10/22/2016 1:20 PM [facility] Oxygen Saturation 100% 10/22/2016 1:20 PM [facility] Inhaled Oxygen Concentration - - Weight 72.4 kg (159 lb 9.8 oz) 10/22/2016 8:28 A M [facility] Height 160 cm (5' 3) 10/22/2016 8:28 AM MST Body Mass Index 28.27 10/22/2016 8:28 AM MST documented in this encounter Functional [...] No 10/13/2016 documented as of this encounter Discharge Instructions * Discharge Instructions* Vinay Weaver MD - 10/22/2016 10:09 AM MST May shower tomorrow. Skin glue will fall off in 1-2 weeks. Avoid heavy lifting (>10lbs) and vigorous physical activity, swimming for 1 week. Return to activites gently. Wear snug bra as often as possible for 1-2 weeks. Call with bleeding or drainage from incision. Call with redness or fever >101.5. May use aleve twice a day, OR ibuprofen 600mg every 6 hours as needed for pain. May use ice pack every 1 hour for discomfornt. Script for norco as needed. Avoid constipation by drinking water, eating fruits and vegetables and take colace for stool softener if prone to constipation. Dr. Weaver office/ answering service [phone] documented in this encounter Medications at Time of Discharge [...] of this encounter Progress Notes * Janette Rg RN - 10/22/2016 2:26 PM MST SURGICAL PATIENT DISCHARGE DOCUMENTATION Anesthesia Sign-out Obtained: yes Were New Discharge Meds Printed & Explained: yes Were Post-Op Instructions Explained and Given To Patient: yes Contact Phone Number for Surgeon Provided: yes Were Post-Op Questions Answered: yes Did Patient/Caregiver Verbalize Understanding of Discharge Instructions: yes Surgeon's Office Contacted to Schedule Follow Up Appointment: yes If Unable to Schedule Follow Up Appointment, Explain Why: Not applicable How Was Patient Discharged: Via wheelchair To Whom Was The Patient Discharged: niece Type of Transportation Home: Personal car * Janette Rg RN - 10/22/2016 2:25 PM MST Rn went over discharge instructions with patient's niece. Patient's niece verbalized understanding. * Janette Rg RN - 10/22/2016 2:14 PM MST Port a cath deacessed with 3 ml Heparin. Bandaid applied no complications * Liana Broderick RN - 10/22/2016 12:10 PM MST SENTINEL LYMPH NODE TIME OUT WITH NUC MED TECH PRESENT * Liana Broderick RN - 10/22/2016 12:01 PM MST OPERATIVE TIME OUT * Yasmeen Song RN - 10/22/2016 8:39 AM MST Discharge instructions were reviewed with the patient and family at the bedside and questions answered. Patient was instructed to call and schedule a follow up appt if it is not already scheduled. Periop events discussed and questions answered. * Geno Mccall RN - 10/20/2016 2:36 PM MST PAT phone interview and pre op teaching completed with pt who lives [place]. Pt verbalizes understanding of pre surgery and medication instructions.NPO 8 hours before surgery for solids and 2 hours pre op for clear liq. or as directed by surgeon.Leave all jewelry and valuables at home. Arrival time persurgeon and hospital entrance reviewed with pt. Bring photo ID for check in on day of surgery.Pt instructed to stop asa/NSAIDS/ vit. & Herbal meds one week pre op & take essential meds ( as per anesthesia pre-surgery medication instruction ) on DOS with cl. Liq.Pt instructed to shower pre op and do not use any skin or hair products on DOS.. Pt verbalizes understanding of needing a ride home and someone with them post anesthesia. Ekg,CBC,BMP ordered per anesthesia standard for DOS.echo dated 03-25-16 on file in media documented in this encounter H&P Notes * Vinay Weaver MD - 10/22/2016 10:08 AM MST I have examined the patient today, marked the operative site and reviewed the plan with the patientand her family if available. There are no infections or changes to the plan. Vinay Weaver Source Note - Vinay Weaver MD - 10/19/2016 1:00 PM MST Subjective: Patient ID: Lacey Epperson is a 76 year old female. Chief Complaint: Chief Complaint Patient presents with ??? 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 ? Patient is having neoadjuvant chemotherapy with Dr. Rodriguez. She has completed AC. She will be traveling to [place] for the summer, leaving on 07/04/2016. She has an appointment with a medical oncologist on 07/05/2016 to start 2nd Taxol in [place]. Last chemo was 09/21/2016. Patient reports Breast MRI done 10/19/2016 Patient reports having negative genetic testing performed with Dr. Rodriguez's office. Patient denies noting any new breast masses, pain,nipple discharge or change in appearance. feels well except new shortness of breath for 6 weeks. ?? Review of patient's allergies indicates: Allergen Reactions ??? Sulfa Drugs Rash No outpatient prescriptions have been marked as taking for the 10/19/16 encounter (Office Visit) Vinay Barraza MD. Patient's medications, allergies, past medical, social, surgical and family histories were reviewedand updated as appropriate. Review of Systems Objective: Blood pressure 98/62, pulse 91, temperature 36.9 ??C (98.4 ??F), height 1.6 m (5' 3), weight 72.9 kg, SpO2 93 %.Body mass index is 28.48 kg/m??. Physical Exam Constitutional: She is oriented [...] discharge, no skin change and no tenderness. Mass not palp right breast Lymphadenopathy: She has no cervical adenopathy. She has no axillary adenopathy. Right: No supraclavicular adenopathy present. Left: No supraclavicular adenopathy present. Neurological: She is alert and oriented to person, place, and time. Skin: Skin is warm and dry. Psychiatric: She has a normal mood and affect. Her behavior is normal. Vitals reviewed. I personally reviewed her imaging MRI and recent CXR agree with the findings. Assessment: Encounter Diagnoses Name Primary? Breast cancer of upper-outer quadrant of right female breast Yes ??? Estrogen receptor negative Nasim Rogel recommended additional inhaler. I would agree with this for optimization for surgery. Plan right wire localized partial mastectomy and right axilla sentinel lymph node biopsy later thisweek. Discussed adjuvant radiation and timing. Discussed potential for re excision for margins, although this is unlikley due to the great response on MRI. Spent 25 out of 45 minutes in our discussion today of the surgical risks and periop care. Plan: Lacey Epperson to follow up in breast surgery clinic in 1-2 weeks. Lacey was seen today for breast cancer. Diagnoses and all orders for this visit: Breast cancer of upper-outer quadrant of right female breast Estrogen receptor negative Vinay Weaver MD documented in this encounter OR Notes * Operative Report - Vinay Weaver MD - 10/22/2016 1:25 PM MST Breast Surgical Oncology Operative Report Date of Procedure: 10/22/2016 PATIENT: Name: Lacey Epperson : 1940 Age: [age] year old Preoperative Diagnoses: Infiltrating duct carcinoma of breast, estrogen receptor negative, stage 3, right [C50.911, Z17.1] Estrogen receptor negative [Z17.1] Postoperative Diagnoses: same Procedure Name: Right wire localized partial mastectomy, right axilla sentinel llymph node biopsy, right breast injection for lymphatic mapping, right breast intermediate closure for immediate breast reconstruction 6x3cm Informed Consent: Counseled patient and received consent from patient prior to surgery. Surgeon(s): Surgeon(s): Vinay Weaver MD Anesthesia: General. Anesthesiologist: Pablito Horan MD Blood Loss: min Complications: None. Counts: All instrument, needle, and pad counts were correct x2. INDICATIONS Lacey Epperson is a 76 year old female who was found to have infiltrating?? ductal, triple negative carcinoma. She underwent neoadjvaunt chemotherapy with excellent clinical response. She understands the risks and benefits and agrees to proceed. ?? DETAILS OF OPERATION DETAILS OF OPERATION: The patient underwent wire localization at the [facility] before coming tothe preoperative area where she was marked, the consents were confirmed, and she was brought back to the operating room. she was positioned supine on the operating room table with SCDs on her lower ex tremities, IV antibiotics were administered, and general anesthesia was induced. The right breast was injected with Lymphoseek in an intradermal periareolar fashion after a simple alcohol prep. Next,right chest, breast, and axilla were prepped and draped in the usual sterile fashion. The breast was massaged and once a signal was detected in the right axilla and after infiltration with local anesthesia, a curvilinear incision was made in the infra-axillary hairline. This was carried down through the subcutaneous tissues and clavipectoral fascia into the axilla. The hottest node was 7000's. Subsequent nodes were 4000's down to 160. There were no other counts in the axilla over 10% of the hottest node. The axilla was also palpated and there were no palpable nodes.Hemostasis was achieved in the left axilla and at the end of the case, the axilla was irrigated and closed with interrupted 3-0Vicryl and running 4-0 Monocryl. Aftter infiltration with local anesthesia, A curvilinear incision was made at the 12 o'clock position right breast. This incision was carried down into the breast tissue by about 1 cm. Then, a partial mastectomy was performed around the tips of the wires aiming for 1 cm on all sides of the wires. The pectoralis fascia was removed with the specimen. The specimen was oriented with markings inks andpassed off the field for a specimen radiograph. I examined the specimen radiograph and the targetedcalcifications and clip were present in the specimen. The specimen was sent for permanent pathology. Hemostasis was achieved with electrocautery. The cavity was irrigated with copious amounts of saline. Additional local anesthesia was infiltrated throughout the mayen of the cavity. Clips were placed in the cavity for future reference. To reconstruct the breast, oncoplastic techniques were used. The local breast tissue was freed up from the surrounding tissue into tissue flaps. These flaps were rearranged over an area of 6 cm by 3cm and sutured together with 2-0 vicryl. The subcutaneous fat was closed with interrupted 3-0 Vicryl The skin was closed with interrupted 3-0 Vicryl and running 4-0Monocryl. Needle, sponge and instrument counts were correct at the end of the procedure. Dermabond was placed on both incisions. There were no complications. The patient was awakened in the operating room and taken to PACU in stable condition. Vinay Weaver MD 10/22/2016 documented in this encounter Plan of Treatment Not on file documented as of this encounter Procedures Procedure Name Priority Date/Time Associated Diagnosis Comments EXCISION / BIOPSY SOFT TISSUE CHEST / AXILLA 10/22/2016 11:00 AM MST Infiltrating duct carcinoma of breast, estrogen receptor negative, stage 3, right (HCC) Estrogen receptor negative Case Notes SEE SPECIAL NEEDS Special Needs WIRE LOCALIZATION 0900 TMCWHCUNKNOWN SLEEP APNEAUNKNOWN AICD/PACEMAKER PARTIAL MASTECTOMY WITH NEEDLE LOCALIZATION 10/22/2016 11:00 AM MST Infiltrating duct carcinoma of breast, estrogen receptor negative, stage 3, right (HCC) Estrogen receptor negative Case Notes SEE SPECIAL NEEDS Special Needs WIRE LOCALIZATION 0900 TMCWHCUNKNOWN SLEEP APNEAUNKNOWN AICD/PACEMAKER US IMAGING FOR ACCESS-GUIDANCE ROUTINE 10/22/2016 11:00 AM MST CBC W/AUTO DIFF STAT 10/22/2016 8:32 AM [facility] BASIC METABOLIC PANEL STAT 10/22/2016 8:32 AM MST documented in this encounter Results * US Imaging for Access\Guidance (10/22/2016 11:00 AM MST) Narrative [facility] - 10/22/2016 10:56 AM MST Reference the operative report. Vinay Weaver MD RADIOLOGY ULTR ASOUND [facility] * Basic Metabolic Panel (10/22/2016 8:32 AM [facility]) Glucose 101 82 - 115 mg/dL [facility] Urea Nitrogen (BUN) 18 8 - 23 mg/dL [facility] Creatinine 0.7 0.51 - 0.95 mg/dL [facility] Calcium (Ca) 9.1 8.8 - 10.2 mg/dL [facility] Sodium (Na) 143 136 - 145 mmol/L [facility] Potassium (K) 4.0 3.4 - 5.1 mmol/L [facility] Chloride (Cl) 107 98 - 107 mmol/L [facility] Carbon Dioxide (CO2) 24 22 - 29 mmol/L [facility] eGFR MDRD (Non-) >59 >59 mL/min/1.7 3m2 [facility] eGFR MDRD () >59 >59 mL/min/1.7 3m2 [facility] Blood specimen (specimen) 10/22/2016 8:32 AM [facility] 10/22/2016 8:43 AM [facility] Klaus Kim MD LAB BLOOD ORDERAB LES [facility] * (ABNORMAL) CBC with Auto Differential (10/22/2016 8:32 AM [facility]) WBC 3.8(L) 4.0 - 11.0 X1000/UL [facility] RBC 3.90(L) 4.20 - 5.40 M/UL [facility] HGB 12.5 12.0 - 16.0 G/DL [facility] HCT 38.6 35.0 - 50.0 % [facility] MCV 98.8 80.0 - 100.0 FL [facility] MCH 32.0(H) 27.0 - 31.0 PG [facility] MCHC 32.4 32.0 - 36.0 G/DL [facility] RDW 16.9(H) 11.5 - 14.5 % [facility] Platelet Count 186 130 - 450 K/UL [facility] MPV 9.9 7.4 - 10.4 FL [facility] Neutrophils, auto 62.0 54 - 62 % [facility] Lymphocytes, auto 21.3(L) 25 - 35 % [facility] Monocytes, auto 12.6(H) 5.5 - 11.7 % [facility] Eosinophils, auto 3.1 0 - 5 % [facility] Basophils, auto 1.0 0 - 2.9 % [facility] Absolute Lymphocytes 0.8 K/UL [facility] Absolute Monocytes 0.5 K/UL [facility] Absolute Neutrophils 2.4 K/UL [facility] Absolute Eosinophils 0.1 K/UL [facility] Absolute Basophils 0.0 K/UL [facility] Blood specimen (specimen) 10/22/2016 8:32 AM [facility] 10/22/2016 8:43 AM [facility] Klaus Kim MD LAB BLOOD ORDERAB LES [facility] documented in this encounter Visit Diagnoses Diagnosis Breast cancer of upper-outer quadrant of right female breast (HCC)- Primary Estrogen receptor negative Estrogen receptor negative status [ER-] Infiltrating duct carcinoma of breast, estrogen receptor negative, stage 3, right (HCC) Estrogen receptor negative Estrogen receptor negative status [ER-] documented in this encounter Administered Medications Inactive Administered Medications - up to 3 most recent administrations Medication Order MAR Action Action Date Dose Rate Site bupivacaine PF 0.25 % (PF) injection PRN, Starting on Tue10/22/16 at 1205, Until Tue10/22/16 at 1304, Intra-op Given 10/22/2016 12:05 PM MST 20 mL Right Breast celecoxib (CELEBREX) capsule 200 mg 200 mg, Oral, ONCE, 1 dose, On Tue10/22/16 at 1030, Pre-op (day of surgery) Given 10/22/2016 10:35 AM MST 200 mg ePHEDrine injection 10 mg 10 mg, Intravenous, Q5MIN PRN, 1 dose, Starting on Tue10/22/16 at 1304, Until Tue10/22/16 at 1645, Hypotension, SBP <90, PACU fentaNYL citrate (PF) (SUBLIMAZE) 100 MCG/2ML injection 25 mcg 25 mcg, Intravenous, Q5MIN PRN, 8 doses, Starting on Tue10/22/16 at 1304, Until Tue10/22/16 at 1645, Moderate Pain (Pain Score 4-7), Severe Pain (Pain Score 8-10), hold for sedation, PACU Given 10/22/2016 1:50 PM MST 25 mcg glycopyrrolate (ROBINUL) 0.2 MG/ML injection 0.2 mg 0.2 mg, Intravenous, ONCE PRN, 1 dose, Starting on Tue10/22/16 at 1304, Until Tue10/22/16 at 1645, HR <45 and SBP <85, PACU hydrALAZINE (APRESOLINE) injection 5 mg 5 mg, Intravenous, Q10MIN PRN, 3 doses, Starting on Tue10/22/16 at 1304, Until Tue10/22/16 at 1645, Hypertension, For systolic blood pressure greater than 200 mmHg; diastolic greater than 100 mmHg., PACU HYDROmorphone (DILAUDID) injection 0.2 mg 0.2 mg, Intravenous, Q10MIN PRN, 5 doses, Starting on Tue10/22/16 at 1304, Until Tue10/22/16 at 1645, Moderate Pain (Pain Score 4-7), Severe Pain (Pain Score 8-10), Hold for sedation, PACU ipratropium-albuterol (DUONEB) 0.5-2.5 (3) MG/3ML nebulizer solution 3 mL 3 mL, Nebulizer, Q1H PRN, 2 doses, Starting on Tue10/22/16 at 1304, Until Tue10/22/16 at 1645, SOB, Wheezing, Dyspnea, PACU labetalol (NORMODYNE, TRANDATE) injection 5 mg 5 mg, Intravenous, Q5MIN PRN, 4 doses, Starting on Tue10/22/16 at 1304, Until Tue10/22/16 at 1645, Hypertension, For systolic blood pressure greater than 200 mmHg; diastolic greater than 100 mmHg., PACU lactated ringers bag 500 mL 500 mL, Intravenous, ONCE PRN, 1 dose, Starting on Tue10/22/16 at 1304, Until Tue10/22/16 at 1645, SBP <90, PACU lactated ringers infusion Intravenous, CONTINUOUS, Starting on Tue10/22/16 at 0830, Until Tue10/22/16 at 1645, at 25 mL/hr, Pre-op (day of surgery) New Bag 10/22/2016 11:30 AM MST lactated ringers infusion Intravenous, DIRECTED, Starting on Tue10/22/16 at 1304, Until Tue10/22/16 at 1645, at 100 mL/hr, PACU meperidine (DEMEROL) injection 12.5 mg 12.5 mg, Intravenous, ONCE PRN, 1 dose, Starting on Tue10/22/16 at 1304, Until Tue10/22/16 at 1645, shivering/rigors, PACU metoclopramide (REGLAN) injection 5 mg 5 mg, Intravenous, Q6H PRN, Starting on Tue10/22/16 at 1304, Until Tue10/22/16 at 1645, Nausea, Vomiting, Nausea and Vomiting, PACU naloxone (NARCAN) injection 0.04 mg 0.04 mg, Intravenous, DIRECTED PRN, Starting on Tue10/22/16 at 1304, Until Tue10/22/16 at 1645, Opiate Reversal, PACU ondansetron (ZOFRAN) injection 4 mg 4 mg, Intravenous, Q12H PRN, Starting on Tue10/22/16 at 1304, Until Tue10/22/16 at 1645, Nausea, Vomiting, Nausea and Vomiting, PACU promethazine (PHENERGAN) injection 6.25 mg 6.25 mg, Intravenous, Q6H PRN, Starting on Tue10/22/16 at 1304, Until Tue10/22/16 at 1645, Nausea, Vomiting, Nausea and Vomiting, PACU documented in this encounter Active and Recently Administered Medications Times are shown in MST. Scheduled Medication Order 10/20/2016 10/21/2016 10/22/2016 ceFAZolin (ANCEF) addvantage 1,000 mg (COMPLETED) 1,000 mg (1 g), Intravenous, ONCE, 1 dose, On Tue10/22/16 at 0830, Administer over 30 Minutes, Pre-op (day of surgery), Indications: Perioperative Pharmacoprophylaxis 1146 (Given - Provid er: Pablito Horan MD) celecoxib (CELEBREX) capsule 200 mg (COMPLETED) 200 mg, Oral, ONCE, 1 dose, On Tue10/22/16 at 1030, Pre-op (day of surgery) 1035 (Given - Provid er: Inés Maya RN) lactated ringers infusion Intravenous, DIRECTED, Starting on Tue10/22/16 at 1304, Until Tue10/22/16 at 1645, at 100 mL/hr, PACU Continuous Medication Order 10/20/2016 10/21/2016 10/22/2016 lactated ringers infusion Intravenous, CONTINUOUS, Starting on Tue10/22/16 at 0830, Until Tue10/22/16 at 1645, at 25 mL/hr, Pre-op (day of surgery) 1130 (New Bag - Prov ider: Pablito Horan MD)1304 (Stopped - Provider: Pablito Horan MD) PRN Medication Order 10/20/2016 10/21/2016 10/22/2016 bupivacaine PF 0.25 % (PF) injection (CANCELED) PRN, Starting on Tue10/22/16 at 1205, Until Tue10/22/16 at 1304, Intra-op 1205 (Given - Provid er: Vinay Weaver MD - Comment: SURGICAL SITES) ePHEDrine injection 10 mg 10 mg, Intravenous, Q5MIN PRN, 1 dose, Starting on Tue10/22/16 at 1304, Until Tue10/22/16 at 1645, Hypotension, SBP <90, PACU fentaNYL citrate (PF) (SUBLIMAZE) 100 MCG/2ML injection 25 mcg 25 mcg, Intravenous, Q5MIN PRN, 8 doses, Starting on Tue10/22/16 at 1304, Until Tue10/22/16 at 1645, Moderate Pain (Pain Score 4-7), Severe Pain (Pain Score 8-10), hold for sedation, PACU 1350 (Given - Provid er: Janette Rg RN) glycopyrrolate (ROBINUL) 0.2 MG/ML injection 0.2 mg 0.2 mg, Intravenous, ONCE PRN, 1 dose, Starting on Tue10/22/16 at 1304, Until Tue10/22/16 at 1645, HR <45 and SBP <85, PACU hydrALAZINE (APRESOLINE) injection 5 mg 5 mg, Intravenous, Q10MIN PRN, 3 doses, Starting on Tue10/22/16 at 1304, Until Tue10/22/16 at 1645, Hypertension, For systolic blood pressure greater than 200 mmHg; diastolic greater than 100 mmHg., PACU HYDROmorphone (DILAUDID) injection 0.2 mg 0.2 mg, Intravenous, Q10MIN PRN, 5 doses, Starting on Tue10/22/16 at 1304, Until Tue10/22/16 at 1645, Moderate Pain (Pain Score 4-7), Severe Pain (Pain Score 8-10), Hold for sedation, PACU ipratropium-albuterol (DUONEB) 0.5-2.5 (3) MG/3ML nebulizer solution 3 mL 3 mL, Nebulizer, Q1H PRN, 2 doses, Starting on Tue10/22/16 at 1304, Until Tue10/22/16 at 1645, SOB, Wheezing, Dyspnea, PACU labetalol (NORMODYNE, TRANDATE) injection 5 mg 5 mg, Intravenous, Q5MIN PRN, 4 doses, Starting on Tue10/22/16 at 1304, Until Tue10/22/16 at 1645, Hypertension, For systolic blood pressure greater than 200 mmHg; diastolic greater than 100 mmHg., PACU lactated ringers bag 500 mL 500 mL, Intravenous, ONCE PRN, 1 dose, Starting on Tue10/22/16 at 1304, Until Tue10/22/16 at 1645, SBP <90, PACU meperidine (DEMEROL) injection 12.5 mg 12.5 mg, Intravenous, ONCE PRN, 1 dose, Starting on Tue10/22/16 at 1304, Until Tue10/22/16 at 1645, shivering/rigors, PACU metoclopramide (REGLAN) injection 5 mg 5 mg, Intravenous, Q6H PRN, Starting on Tue10/22/16 at 1304, Until Tue10/22/16 at 1645, Nausea, Vomiting, Nausea and Vomiting, PACU naloxone (NARCAN) injection 0.04 mg 0.04 mg, Intravenous, DIRECTED PRN, Starting on Tue10/22/16 at 1304, Until Tue10/22/16 at 1645, Opiate Reversal, PACU ondansetron (ZOFRAN) injection 4 mg 4 mg, Intravenous, Q12H PRN, Starting on Tue10/22/16 at 1304, Until Tue10/22/16 at 1645, Nausea, Vomiting, Nausea and Vomiting, PACU promethazine (PHENERGAN) injection 6.25 mg 6.25 mg, Intravenous, Q6H PRN, Starting on Tue10/22/16 at 1304, Until Tue10/22/16 at 1645, Nausea, Vomiting, Nausea and Vomiting, PACU documented in this encounter Care Teams Screw Machine Repairer Relationship Specialty Start Date End Date Maonj Franco MD PCP - General UNKNOWN 10/22/16 03/31/17 Vinay Weaver MD Surgery - General Surgery 08/24/16 Tristen Rodriguez MD UNKNOWN 08/24/16 Gay Gallagher RN Registered Nurse 10/22/16 12/20/16 documented as of this encounter
--- OUTSIDE RECORDS SUMMARY | 2023-08-31 09:49 | XMS_ITS | Encounter Summary ---
Author Organization [facility] r Address [address] [place] [address] Care Team Providers Care Condominium Manager Name Role Phone Manoj Franco MD Primary Care Provider [phone] Vinay Weaver MD Unavailable Tristen Rodriguez MD Unavailable [phone] Gay Gallagher RN Unavailable Unavailable Reason for Visit * Reason Onset Date Comments Post Op 10/26/2016 post op Encounter Details Date Type Department Care Team (Late st Contact Info) Description 10/26/2016 Telephone [facility] [address] [facility] [address] [place] [address] Vinay Weaver MD [address] [facility], [address] [place] [address] Post Op (post op) Social History Tobacco Use Types Packs/Day Years [...] encounter Progress Notes * Tabatha Grant - 10/27/2016 2:12 PM MST Called patient to inform of pathology results. No answer left message. Patient has appt tomorrow. * Tabatha Grant - 10/26/2016 9:13 AM MST Post op call. Patient is doing well no complaints. Is not taking pain medication. Post op appt 10/28/2016 documented in this encounter Plan of Treatment Not on file documented as of this encounter Visit Diagnoses Not on filedocumented in this encounter Care Teams Condominium Manager Relationship Specialty Start Date End Date Manoj Franco MD PCP - General UNKNOWN 10/22/16 03/31/17 Vinay Weaver MD Surgery - General Surgery 08/24/16 Tristen Rodriguez MD UNKNOWN 08/24/16 Verplank, Gay, RN Registered Nurse 10/22/16 12/20/16 documented as of this encounter
--- OUTSIDE RECORDS SUMMARY | 2023-08-31 09:49 | XMS_ITS | Encounter Summary ---
Author Organization [facility] r Address [address] [place] [address] Care Team Providers Care Plating Tank Operator Name Role Phone Manoj Franco MD Primary Care Provider [phone] Vinay Weaver MD Unavailable [phone] Tristen Rodriguez MD Unavailable [phone] Gay Gallagher RN Unavailable Unavailable Encounter Details Date Type Department Care Team (Late st Contact Info) Description 10/22/2016 11:00 AM [facility] Ancillary Procedure MAIN SURGERY INTRAOP [address] [place] [address] Vinay Weaver MD [address] [facility], [address] [place] [address] Social History Tobacco Use Types Packs/Day Years [...] Procedure Name Priority Date/Time Associated Diagnosis Comments US IMAGING FOR ACCESS-GUIDANCE ROUTINE 10/22/2016 11:00 AM [facility] documented in this encounter Results * US Imaging for Access\Guidance (10/22/2016 11:00 AM [facility]) Narrative [facility] - 10/22/2016 10:56 AM [facility] Reference the operative report. Vinay Weaver MD RADIOLOGY ULTR ASOUND [facility] documented in this encounter Visit Diagnoses Not on filedocumented in this encounter Care Teams Plating Tank Operator Relationship Specialty Start Date End Date Manoj Franco MD PCP - General UNKNOWN 10/22/16 03/31/17 Vinay Weaver MD Surgery - General Surgery 08/24/16 Tristen Rodriguez MD UNKNOWN 08/24/16 Gay Gallagher, VIKKI Registered Nurse 10/22/16 12/20/16 documented as of this encounter
--- OUTSIDE RECORDS SUMMARY | 2023-08-31 09:50 | XMS_ITS | Encounter Summary ---
Author Organization [facility] r Address [address] [place] [address] Care Team Providers Care Hospitality House Supervisor Name Role Phone Eloisesteven Gay RN Unavailable Unavailable Reason for Visit * Reason Onset Date Comments OTHER (EXPLAIN IN COMMENTS) 05/28/2016 appt Encounter Details Date Type Department Care Team (Late st Contact Info) Description 05/28/2016 Tele[place] [facility] [address] [facility] [address] [place] [address] Vinay Weaver MD [address] [facility], [address] [place] [address] OTHER (EXPLAIN IN COMMENTS) (appt ) Social History Tobacco Use Types Packs/Day Years Used Date Smoking Tobacco: Former Cigarettes 0.5 23 Smokeless Tobacco: Former Comments:QUIT AT AGE 36 YO Alcohol Use Standard Drinks/Week Comments Yes 0 (1 standard drink = 0.6 oz pur e alcohol) SOCIALLY Sex and Gender Information Value Date Recorded Sex Assigned at Not on file Gender Identity Not on file Sexual Orientation Not on file documented as of this encounter Functional Status Functional Status Response Date of Assess ment Are you deaf or do you have difficulty hearing? No 03/05/2016 Are you blind or do you have serious difficulty seeing, even when wearing glasses? No 03/05/2016 Do you have serious difficul ty walking or climbing stairs? (5 years old or older) No 03/05/2016 Do you have difficulty dress ing or [...] decisions? (5 years old or older) No 03/05/2016 documented as of this encounter Progress Notes * Vianney Ibarra - 05/28/2016 3:16 PM MST Patient returned my call. Her last treatment of the 1st phase is 06/14/16. I have scheduled the patient with Dr Weaver on 06/24/16. She will be leaving for [place] 07/04/16 and completing her 2nd phase of chemo in [place]. * Vianney Ibarra - 05/28/2016 3:06 PM MST Called patient and left a message to call back * Vianney Ibarra - 05/28/2016 3:05 PM MST ----- Message from Vinay Weaver MD sent at 05/28/2016 9:18 AM MST ----- pls be sure pt has an appt in mid to late may- or fdc through chemotherapy. documented in this encounter Plan of Treatment Not on file documented as of this encounter Visit Diagnoses Not on filedocumented in this encounter Care Teams Hospitality House Supervisor Relationship Specialty Start Date End Date Gay Gallagher RN Registered Nurse Oncology 03/31/16 09/21/16 documented as of this encounter
--- OUTSIDE RECORDS SUMMARY | 2023-08-31 09:50 | XMS_ITS | Encounter Summary ---
Author Organization [facility] r Address [address] [place] [address] Care Team Providers Care Farmer Vegetable Name Role Phone Unavailable Primary Care Provider Unavailabl e Encounter Details Date Type Department Care Team (Late st Contact Info) Description 03/12/2016 Orders Only [facility] [address] [facility] [address] [place] [address] Vinay Weaver MD [address] [facility], [address] [place] [address] Breast cancer, stage 2, right (HCC) Social History Tobacco Use Types Packs/Day [...] No 03/05/2016 documented as of this encounter Plan of Treatment Not on file documented as of this encounter Procedures Procedure Name Priority Date/Time Associated Diagnosis Comments MRI GUIDED LEFT BREAST BIOPSY(CLINIC ONLY) ROUTINE 03/23/2016 Breast cancer, stage 2, right (HCC) documented in this encounter Results * MRI Guided LEFT Breast Biopsy (03/23/2016) Anatomical Region Laterality Modality Breast Other Vinay Weavre MD [facility] RAD documented in this encounter Visit Diagnoses Diagnosis Breast cancer, stage 2, right (HCC) documented in this encounter
--- OUTSIDE RECORDS SUMMARY | 2023-08-31 09:50 | XMS_ITS | Encounter Summary ---
Author Organization [facility] r Address [address] [place] [address] Care Team Providers Care Cyber Ops Planner Name Role Phone Manoj Franco MD Primary Care Provider [phone] Gay Gallagher RN Unavailable Unavailable Vinay Weaver MD Unavailable Tristen Rodriguez MD Unavailable [phone] Gay Gallagher RN Unavailable Unavailable David Tony MD Unavailable [phone] Yusef Ramos MD Primary Care Provider [phone] Encounter Details Date Type Department Care Team (Late st Contact Info) Description 04/08/2016 Patient Outreach Nurse Navigator [address] [facility], [address] Gay Gallagher RN Social History Tobacco Use Types Packs/Day [...] on filedocumented in this encounter Care Teams Cyber Ops Planner Relationship Specialty Start Date End Date Manoj Franco MD PCP - General UNKNOWN 10/22/16 03/31/17 Yusef Ramos MD [address] [place] [id number] PCP - General Hospitalist 04/01/17 Gay Gallagher RN Registered Nurse Oncology 03/31/16 09/21/16 Vinay Weaver MD Surgery - General Surgery 08/24/16 Tristen Rodriguez MD UNKNOWN 08/24/16 Gay Gallagher RN Registered Nurse 10/22/16 12/20/16 David Tony MD Radiology - Oncology 10/28/16 documented as of this encounter
--- OUTSIDE RECORDS SUMMARY | 2023-08-31 09:50 | XMS_ITS | Encounter Summary ---
Author Organization [facility] r Address [address] [place] [address] Care Team Providers Care Sales Performance Manager Name Role Phone Manoj Franco MD Primary Care Provider [phone] Gay Gallagher RN Unavailable Unavailable Vinay Weaver MD Unavailable Tristen Rodriguez MD Unavailable [phone] Gay Gallagher RN Unavailable Unavailable David Tony MD Unavailable [phone] Yusef Ramos MD Primary Care Provider [phone] Encounter Details Date Type Department Care Team (Late st Contact Info) Description 08/24/2016 Patient Outreach Nurse Navigator [address] [facility], [address] Gay Gallagher RN Social History Tobacco Use [...] on filedocumented in this encounter Care Teams Sales Performance Manager Relationship Specialty Start Date End Date Manoj Franco MD PCP - General UNKNOWN 10/22/16 03/31/17 Yusef Ramos MD [address] [place] [id number] PCP - General Hospitalist 04/01/17 Gay Gallagher RN Registered Nurse Oncology 03/31/16 09/21/16 Vinay Weaver MD Surgery - General Surgery 08/24/16 Tristen Rodriguez MD UNKNOWN 08/24/16 Gay Gallagher RN Registered Nurse 10/22/16 12/20/16 David Tony MD Radiology - Oncology 10/28/16 documented as of this encounter
--- OUTSIDE RECORDS SUMMARY | 2023-08-31 09:50 | XMS_ITS | Encounter Summary ---
Author Organization [facility] r Address [address] [place] [address] Care Team Providers Care Checker Stocker Name Role Phone EloisestevenGay RN Unavailable Unavailable Reason for Visit * Reason Onset Date Comments OTHER (EXPLAIN IN COMMENTS) 04/08/2016 [facility] Encounter Details Date Type Department Care Team (Late st Contact Info) Description 04/08/2016 Telephone [facility] [address] [facility] [address] [place] [address] Jahaira Shaver, ASPHALT TAR AND GRAVEL ROOFER [address] [facility] [address] [place] [address] OTHER (EXPLAIN IN COMMENTS) (cancel surgery ) Social History Tobacco Use Types Packs/Day [...] encounter Progress Notes * Vianney Ibarra - 04/08/2016 9:01 AM MST I have faxed a copy to Dr Rodriguez's office. Lacey Epperson called this morning and spoke with Gay. Pt would like to cancel port insertion on 04/14 because she had it done at Dr Rodriguez's office. I called Dr Rodriguez's office who confirmed pt had port insertion done 04/08/16 at [facility]. I have called and cancelled the surgery. * Vianney Ibarra - 04/08/2016 9:01 AM MST ----- Message from Jahaira Shaver NP sent at 04/07/2016 11:50 PM MST ----- Please forward a copy to her medical oncologists, Dr. Rodriguez. Thank you! Jahaira documented in this encounter Plan of Treatment Not on file documented as of this encounter Visit Diagnoses Not on filedocumented in this encounter Care Teams Checker Stocker Relationship Specialty Start Date End Date Gay Gallagher RN Registered Nurse Oncology 03/31/16 09/21/16 documented as of this encounter
--- OUTSIDE RECORDS SUMMARY | 2023-08-31 09:50 | XMS_ITS | Encounter Summary ---
Author Organization [facility] r Address [address] [place] [address] Care Team Providers Care Analytic Manager Name Role Phone Meg Vinay Honeycutt MD Unavailable Tristen Rodriguez MD Unavailable Encounter Details Date Type Department Care Team (Late st Contact Info) Description 10/18/2016 Orders Only [facility] [address] [facility] [address] [place] [address] Jahaira Shaver, RADIOTELEPHONE TECHNICAL OPERATOR [address] [facility] [address] [place] [address] Breast cancer of upper-outer quadrant of right female breast (HCC); Estrogen receptor negative Social History Tobacco Use Types [...] Name Priority Date/Time Associated Diagnosis Comments MRI BI BREAST W/WO CONT (CLINIC ONLY) ROUTINE 10/19/2016 Breast cancer of upper-outer quadrant of right female breast (HCC) Estrogen receptor negative documented in this encounter Results * MRI Bi Breast with/without Contrast (10/19/2016) Anatomical Region Laterality Modality Breast Other Jahaira Shaver RADIOTELEPHONE TECHNICAL OPERATOR [facility] documented in this encounter Visit Diagnoses Diagnosis Breast cancer of upper-outer quadrant of right female breast (HCC) Estrogen receptor negative Estrogen receptor negative status [ER-] documented in this encounter Care Teams Analytic Manager Relationship Specialty Start Date End Date Vinay Weaver MD Surgery - General Surgery 08/24/16 Tristen Rodriguez MD UNKNOWN 08/24/16 documented as of this encounter
--- OUTSIDE RECORDS SUMMARY | 2023-08-31 09:50 | XMS_ITS | Encounter Summary ---
Author Organization [facility] r Address [address] [place] [address] Care Team Providers Care Senior Animator Name Role Phone Vinay Weaver MD Unavailable Tristen Rodriguez MD Unavailable Reason for Visit * Reason Comments Breast Cancer right Encounter Details Date Type Department Care Team (Late st Contact Info) Description 10/19/2016 1:00 PM [facility] Office [place] [facility] [address] [facility] [address] [place] [address] Vinay Weaver MD [address] [facility], [address] [place] [address] Breast cancer of upper-outer quadrant of right female breast (HCC) (Primary Dx); Estrogen receptor negative Social History Tobacco Use [...] Sign Reading Time Taken Comments Blood Pressure 98/62 10/19/2016 1:18 PM [facility] Pulse 91 10/19/2016 1:18 PM [facility] Temperature 36.9 ??C (98.4 ??F) 10/19/2016 1:18 PM MS T Respiratory Rate - - Oxygen Saturation 93% 10/19/2016 1:18 PM MST Inhaled Oxygen Concentration - - Weight 72.9 kg (160 lb 12.8 oz) 10/19/2016 1:18 PM MST Height 160 cm (5' 3) 10/19/2016 1:18 PM MST Body Mass Index 28.48 10/19/2016 1:18 PM MST documented in this encounter Functional [...] Progress Notes * Vinay Weaver MD - 10/19/2016 1:00 PM [...] completed AC. She will be traveling to [place] for the summer, leaving on 07/04/2016. She has an appointment with a medical oncologist on 07/05/2016 to start 2nd Taxol in [place]. Last chemo was 09/21/2016. Patient reports Breast [...] breast Estrogen receptor negative Vinay Weaver MD [facility] documented in this encounter Plan of Treatment Not on file documented as of this encounter Visit Diagnoses Diagnosis Breast cancer of upper-outer quadrant of right female breast (HCC)- Primary Estrogen receptor negative Estrogen receptor negative status [ER-] documented in this encounter Care Teams Senior Animator Relationship Specialty Start Date End Date Vinay Weaver MD Surgery - General Surgery 08/24/16 Tristen Rodriguez MD UNKNOWN 08/24/16 documented as of this encounter
--- OUTSIDE RECORDS SUMMARY | 2023-08-31 09:50 | XMS_ITS | Encounter Summary ---
Author Organization [facility] r Address [address] [place] [address] Care Team Providers Care Maintenance Groundskeeper Name Role Phone Gay Gallagher RN Unavailable Unavailable Reason for Referral * Other (Routine) - Closed Specialty Diagnoses / Procedures Referred By Contac t Referred To Contact Diagnoses Breast cancer of upper-outer quadrant of right female breast (HCC) Estrogen receptor negative Procedures MRI Bi Breast with/without Contrast Jahaira Shaver, PROPERTY ADJUSTER [address] [facility] [address] [place] [address] [facility] [address] [place] [address] Referral ID Status Reason Start Date Expiration Date Visits Re quested Visits Authorized [id number] Closed 10/18/2016 06/29/2017 1 1 [facility] Reason for Visit * Reason Comments Breast Cancer right Encounter Details Date Type Department Care Team (Late st Contact Info) Description 06/29/2016 9:20 AM [facility] Office [facility] [address] [facility] [address] [place] [id number] Jahaira Shaver PROPERTY ADJUSTER [address] [facility] [address] [place] [address] Breast cancer of upper-outer quadrant [...] Sign Reading Time Taken Comments Blood Pressure 104/60 06/29/2016 9:31 AM MST Pulse 70 06/29/2016 9:31 AM MST Temperature 36.6 ??C (97.9 ??F) 06/29/2016 9:31 AM MS T Respiratory Rate - - Oxygen Saturation 95% 06/29/2016 9:31 AM MST Inhaled Oxygen Concentration - - Weight 72.8 kg (160 lb 6.4 oz) 06/29/2016 9:31 A M MST 160.4lb Height 160 cm (5' 3) 06/29/2016 9:31 AM MST Body Mass Index 28.41 06/29/2016 9:31 AM MST documented in this encounter Functional [...] of this encounter Progress Notes * Jahaira Shaver NP - 06/28/2016 4:11 PM MST Subjective: Patient ID: Lacey Epperson is a 75 year old female. Chief Complaint: Chief Complaint Patient presents with ??? 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 Patient had a screening mammogram on 01/19/2016 at [facility].?? She was called back for a right breast diagnostic mammogram and ultrasound of a right breast mass.?? These exams were performed at [facility].?? 2 indeterminate adjacent solid masses were noted [...] had a breast MRI performed at [facility]. These results reported multifocal disease of the right breast, an indeterminate focus of enhancement on the left, mild cardiomegaly and a small sliding type hiatus hernia. A left breast MRI guided core biopsy was performed on 03/22/2016. Pathology of this was benign. Patient is having neoadjuvant chemotherapy with Dr. Rodriguez. She has completed AC. She will be traveling to [place] for the summer, leaving on 07/04/2016. She has an appointment with a medical oncologist on 07/05/2016 to start 2nd phase Taxol in [place]. Patient reports she will be back in [facility] 10/16/2016. Patient reports having negative genetic testing performed with Dr. Rodriguez's office. Patient denies noting any new breast masses, pain,nipple discharge or change in appearance. Patient is alone today. Review of patient's allergies indicates: Allergen Reactions ??? Sulfa Drugs Rash Outpatient Prescriptions Marked as Taking for the 06/29/16 encounter (Office Visit) with Jahaira Shaver NP Medication Sig Dispense Refill ??? fluticasone-salmeterol 250-50 mcg/dose (ADVAIR DISKUS) 250-50 MCG/DOSE diskus inhaler Inhale 1 puff into the lungs every morning. Indications: Asthma ??? ibuprofen (ADVIL,MOTRIN) 100 MG/5ML suspension Take 10 mg/kg by mouth every six hours as neededfor Fever. ??? levothyroxine (SYNTHROID, LEVOTHROID) 25 MCG tablet Take 25 mcg by mouth one-half hour before breakfast. Indications: Underactive Thyroid ??? Simvastatin (ZOCOR) 40 MG tablet Take 40 mg by mouth every night at bedtime. Indications: High Amount of Fats in the Blood Patient's medications, allergies, past medical, social, surgical and family histories were reviewedand updated as appropriate. Review of Systems Constitutional: Negative for fever and chills. HENT: Negative for hearing loss and sore throat. Eyes: Negative for visual disturbance. Respiratory: Negative for cough and shortness of breath. Cardiovascular: Negative for chest pain and leg swelling. Gastrointestinal: Negative for nausea, constipation and blood in stool. Genitourinary: Negative for hematuria. Musculoskeletal: Negative for back pain. Skin: Negative for rash. Neurological: Negative for seizures and headaches. Hematological: Does not bruise/bleed easily. Psychiatric/Behavioral: Negative for confusion. The patient is not nervous/anxious. Objective: Blood pressure 104/60, pulse 70, temperature 36.6 ??C (97.9 ??F), height 1.6 m (5' 3), weight 72.757 kg, SpO2 95 %.Body mass index is 28.42 kg/(m^2). Physical Exam Constitutional: She is oriented to person, place, and time. Vital signs are normal. She appears well-developed and well-nourished. No distress. HENT: Head: Normocephalic and atraumatic. Pulmonary/Chest: Effort normal. Right breast exhibits mass. Right breast exhibits no inverted nipple, no nipple discharge, no skin change and no tenderness. Left breast exhibits no inverted nipple, no mass, no nipple discharge, no skin change and no tenderness. Abdominal: Normal appearance. Neurological: She is alert and oriented to person, place, and time. Skin: Skin is warm, dry and intact. Psychiatric: She has a normal mood and affect. Her speech is normal and behavior is normal. Judgment and thought content normal. Cognition and memory are normal. Vitals reviewed. Assessment: Encounter Diagnoses Name Primary? Breast cancer of upper-outer quadrant of right female breast Yes ??? Estrogen receptor negative Plan: Dr. Weaver presented during the visit. Plan post neoadjuvant MRI upon her return in October. Appointment has been made for 10/19/2016 at 0800 she is to arrive at 0730. We will schedule an appointment with Dr. Weaver on the to review MRI and re-discuss surgical plan. Reviewed surgical dates. Would like to aim for 10/25/2016. Reviewed criteria for radiation. Discussed this would start 6 weeks after surgery. Will refer to Dr. Clark in the [place] area when she returns in the Fall. Patient verbalized an understanding and agreed with the plan. She will contact the office if she should decide to return to [place] sooner. Lacey was seen today for breast cancer. Diagnoses and all orders for this visit: Breast cancer of upper-outer quadrant of right female breast - MRI Bi Breast with/without Contrast; Future Estrogen receptor negative - MRI Bi Breast with/without Contrast; Future Other orders - ibuprofen (ADVIL,MOTRIN) 100 MG/5ML suspension; Take 10 mg/kg by mouth every six hours as needed for Fever. Above other orders were reported by the patient, not prescribed by the undersigned. Jahaira Shaver NP documented in this encounter Plan of Treatment Not on file documented as of this encounter Results * MRI Bi Breast with/without Contrast (10/19/2016) Anatomical Region Laterality Modality Breast Other Jahaira Shaver NP [facility] documented in this encounter Visit Diagnoses Diagnosis Breast cancer of upper-outer quadrant of right female breast (HCC)- Primary Estrogen receptor negative Estrogen receptor negative status [ER-] documented in this encounter Care Teams Maintenance Groundskeeper Relationship Specialty Start Date End Date Gay Gallagher RN Registered Nurse Oncology 03/31/16 09/21/16 documented as of this encounter
--- OUTSIDE RECORDS SUMMARY | 2023-08-31 09:50 | XMS_ITS | Encounter Summary ---
Author Organization [facility] r Address [address] [place] [address] Care Team Providers Care Neonatal Social Worker Name Role Phone Manoj Franco MD Primary Care Provider [phone] Gay Gallagher RN Unavailable Unavailable Vinay Weaver MD Unavailable Tristen Rodriguez MD Unavailable [phone] Gay Gallagher RN Unavailable Unavailable David Tony MD Unavailable [phone] Yusef Ramos MD Primary Care Provider [phone] Encounter Details Date Type Department Care Team (Late st Contact Info) Description 03/31/2016 Patient Outreach Nurse Navigator [address] [facility], [address] Gay Gallagher RN Social History Tobacco Use [...] Progress Notes * Gay Gallagher RN - 03/31/2016 9:49 AM MST Pt is having a difficult time tracking treatment plan. Several doctors are working to decide which steps should come first. Patient is worried about having Chemotherapy. I have arranged for patient and her daughter Marleni to speak with Dr Weaver tomorrow. Patient will be in the office while daughter is on speaker phone Apr 01 at 4 p.m. Plan will be solidified once family members have all necessary information. I will continue to follow. documented in this encounter Plan of Treatment Not on file documented as of this encounter Visit Diagnoses Not on filedocumented in this encounter Care Teams Neonatal Social Worker Relationship Specialty Start Date End Date Manoj Franco MD PCP - General UNKNOWN 10/22/16 03/31/17 Yusef Ramos MD [facility] [place] [address] PCP - General Hospitalist 04/01/17 Gay Gallagher RN Registered Nurse Oncology 03/31/16 09/21/16 Vinay Weaver MD Surgery - General Surgery 08/24/16 Tristen Rodriguez MD UNKNOWN 08/24/16 Gay Gallagher RN Registered Nurse 10/22/16 12/20/16 David Tony MD Radiology - Oncology 10/28/16 documented as of this encounter
--- OUTSIDE RECORDS SUMMARY | 2023-08-31 09:50 | XMS_ITS | Encounter Summary ---
Author Organization [facility] r Address [address] [place] [address] Care Team Providers Care Inventory Checker Name Role Phone Manoj Franco MD Primary Care Provider Vinay Weaver MD Unavailable [phone] Tristen Rodriguez MD Unavailable [phone] aGy Gallagher RN Unavailable Unavailable Reason for Visit * Auth/Cert Specialty Diagnoses / Procedures Referred By Contac t Referred To Contact Gynecology Diagnoses Infiltrating duct carcinoma of breast, estrogen receptor negative, stage 3, right (HCC) Estrogen receptor negative Infiltrating duct carcinoma of breast, estrogen receptor negative, stage 3, right [C50.911, Z17.1] Estrogen receptor negative [Z17.1] Procedures MT MASTECTOMY, PARTIAL PARTIAL MASTECTOMY WITH NEEDLE LOCALIZATION EXCISION / BIOPSY SOFT TISSUE CHEST / AXILLA Women[facility] Periop [address] [place] [address] Referral ID Status Reason Start Date Expiration Date Visits Re quested Visits Authorized [id number] 1 1 Encounter Details Date Type Department Care Team (Latest Contact Info) Description 10/22/2016 8:16 AM [facility] - 10/22/2016 2:31 PM [facility] Hospital Encounter Women's Surgery PACU [address] [place] [address] Vinay Weaver MD [address] [facility], [address] [place] [address] Breast cancer of upper-outer quadrant of right female breast (HCC) (Primary Dx); Estrogen receptor negative Discharge Disposition: Home or [...] Sign Reading Time Taken Comments Blood Pressure 127/70 10/22/2016 2:23 PM MST Pulse 64 10/22/2016 2:23 PM [facility] Temperature 35.6 ??C (96.1 ??F) 10/22/2016 1:15 PM MS T Respiratory Rate 19 10/22/2016 2:23 PM MST Oxygen Saturation 94% 10/22/2016 2:23 PM MST Inhaled Oxygen Concentration - - Weight 72.4 kg (159 lb 9.8 oz) 10/22/2016 8:28 A M [facility] Height 160 cm (5' 3) 10/22/2016 8:28 [...] to constipation. Dr. Weaver office/ answering service [phone] documented in this encounter Medications at Time [...] MST SENTINEL LYMPH NODE TIME OUT WITH Oxxy TECH PRESENT * Liana Broderick RN - [...] medication instruction ) on DOS with cl. Boyer.Pt instructed to shower pre op and do [...] completed AC. She will be traveling to [place] for the summer, leaving on 07/04/2016. She has an appointment with a medical oncologist on 07/05/2016 to start 2nd Taxol in [place]. Last chemo was 09/21/2016. Patient reports Breast [...] surgical risks and periop care. Plan: Lacey Pati Epperson to follow up in breast surgery [...] IMAGING FOR ACCESS-GUIDANCE ROUTINE 10/22/2016 11:00 AM [facility] CBC W/AUTO DIFF STAT 10/22/2016 8:32 AM [facility] BASIC METABOLIC PANEL STAT 10/22/2016 8:32 AM [facility] documented in this encounter Results * US Imaging for Access\Guidance (10/22/2016 11:00 AM [facility]) Narrative [facility] - 10/22/2016 10:56 AM [facility] Reference the operative report. Vinay Weaver MD RADIOLOGY ULTR ASOUND [facility] * Basic Metabolic Panel (10/22/2016 8:32 AM [facility]) Glucose 101 82 - 115 mg/dL [facility] [...] [facility] Blood specimen (specimen) 10/22/2016 8:32 AM MST 10/22/2016 8:43 AM [facility] Klaus Kim MD LAB BLOOD ORDERAB LES [facility] * (ABNORMAL) CBC with Auto Differential (10/22/2016 8:32 AM [facility]) WBC 3.8(L) 4.0 - 11.0 X1000/UL [facility] [...] [facility] Blood specimen (specimen) 10/22/2016 8:32 AM MST 10/22/2016 8:43 AM [facility] Klaus Kim MD LAB BLOOD ORDERAB LES [facility] documented in this encounter Visit Diagnoses Diagnosis Breast cancer of upper-outer quadrant of right female breast (HCC)- Primary Estrogen receptor negative Estrogen receptor negative status [ER-] documented in this encounter Administered Medications Inactive Administered Medications - up to 3 most recent administrations Medication Order MAR Action Action Date Dose Rate Site celecoxib (CELEBREX) capsule 200 mg 200 mg, [...] PACU documented in this encounter Care Teams Inventory Checker Relationship Specialty Start Date End Date Manoj Franco MD PCP - General UNKNOWN 10/22/16 03/31/17 Vinay Weaver MD Surgery - General Surgery 08/24/16 Tristen Rodriguez MD UNKNOWN 08/24/16 Gay Gallagher RN Registered Nurse 10/22/16 12/20/16 documented as of this encounter
--- OUTSIDE RECORDS SUMMARY | 2023-08-31 09:50 | XMS_ITS | Encounter Summary ---
Author Organization [facility] r Address [address] [place] [address] Care Team Providers Care Item Repair Manager Name Role Phone Manoj Franco MD Primary Care Provider [phone] Gay Gallagher RN Unavailable Unavailable Vinay Weaver MD Unavailable Tristen Rodriguez MD Unavailable [phone] Gay Gallagher RN Unavailable Unavailable David Tony MD Unavailable [phone] Yusef Ramos MD Primary Care Provider [phone] Encounter Details Date Type Department Care Team (Late st Contact Info) Description 08/13/2016 Patient Outreach Nurse Navigator [address] [facility], [address] Gay Gallagher RN Social History Tobacco Use [...] on filedocumented in this encounter Care Teams Item Repair Manager Relationship Specialty Start Date End Date Manoj Franco MD PCP - General UNKNOWN 10/22/16 03/31/17 Yusef Ramos MD [address] [place] [address] PCP - General Hospitalist 04/01/17 Gay Gallagher RN Registered Nurse Oncology 03/31/16 09/21/16 Vinay Weaver MD Surgery - General Surgery 08/24/16 Tristen Rodriguez MD UNKNOWN 08/24/16 Gay Gallagher RN Registered Nurse 10/22/16 12/20/16 David Tony MD Radiology - Oncology 10/28/16 documented as of this encounter
--- OUTSIDE RECORDS SUMMARY | 2023-08-31 09:50 | XMS_ITS | Encounter Summary ---
Author Organization [facility] r Address [address] [place] [address] Care Team Providers Care Arc Welder Apprentice Name Role Phone Unavailable Primary Care Provider Unavailabl e Encounter Details Date Type Department Care Team (Late st Contact Info) Description 03/13/2016 Orders Only [facility] [address] [facility] [address] [place] [address] Vinay Weaver MD [address] [facility], [address] [place] [address] Breast cancer, stage 2, right [...] Procedure Name Priority Date/Time Associated Diagnosis Comments ECHOCARDIOGRAM WANDA 03/25/2016 Breast cancer, stage 2, right (HCC) documented in this encounter Results * Echocardiogram (03/25/2016) Vinay Weaver MD [facility] documented in this encounter Visit Diagnoses Diagnosis Breast cancer, stage 2, right (HCC) documented in this encounter
--- OUTSIDE RECORDS SUMMARY | 2023-08-31 09:50 | XMS_ITS | Encounter Summary ---
Author Organization [facility] r Address [address] [place] [address] Care Team Providers Care Tour Agent Name Role Phone Unavailable Primary Care Provider Unavailabl e Encounter Details Date Type Department Care Team (Late st Contact Info) Description 03/04/2016 Orders Only [facility] [facility] [address] [place] [address] Vinay Weaver MD [address] [facility], [address] [place] [address] Breast cancer of upper-outer quadrant of right female breast (HCC) Social History Tobacco Use Types Packs/Day Years Used Date Smoking Tobacco: Never Smokeless Tobacco: Never Alcohol Use Standard Drinks/Week Comments Yes 0 (1 standard drink = 0.6 oz pur e alcohol) Sex and Gender Information Value Date Recorded Sex Assigned at Not on file Gender Identity Not on file Sexual Orientation Not on file documented as of this encounter Plan of Treatment Not on file documented as of this encounter Procedures Procedure Name Priority Date/Time Associated Diagnosis Comments MRI BI BREAST W/WO CONT (CLINIC ONLY) ROUTINE 03/12/2016 Breast cancer of upper-outer quadrant of right female breast (HCC) documented in this encounter Results * MRI Bi Breast with/without Contrast (03/12/2016) Anatomical Region Laterality Modality Breast Other Vinay Weaver MD [facility] AMB RAD documented in this encounter Visit Diagnoses Diagnosis Breast cancer of upper-outer quadrant of right female breast (HCC) documented in this encounter
--- OUTSIDE RECORDS SUMMARY | 2023-08-31 09:50 | XMS_ITS | Encounter Summary ---
Author Organization [facility] r Address [address] [place] [address] Care Team Providers Care Affirmative Action Specialist Name Role Phone Unavailable Primary Care Provider Unavailabl e Reason for Referral * Other (Routine) - Closed Specialty Diagnoses / Procedures Referred By Contac t Referred To Contact Diagnoses Breast cancer, stage 2, right (HCC) Procedures MRI Guided LEFT Breast Biopsy Vinay Weaver MD [address], [address] [place] [address] [facility], Radiology [facility] [address] [place] [address] Referral ID Status Reason Start Date Expiration Date Visits Re quested Visits Authorized [id number] Closed 03/12/2016 03/13/2017 1 1 * Ambulatory Referral (Routine) - Closed Specialty Diagnoses / Procedures Referred By Contac t Referred To Contact Diagnoses Breast cancer, stage 2, right (HCC) Vinay Weaver MD [address], [address] [place] [address] [place] [address] [place] [address] Referral ID Status Reason Start Date Expiration Date Visits Re quested Visits Authorized [id number] Closed 03/12/2016 03/13/2017 1 1 * Other (Urgent) - Closed Specialty Diagnoses / Procedures Referred By Farideh t Referred To Contact Diagnoses Breast cancer, stage 2, right (HCC) Procedures Echocardiogram Vinay Weaver MD [address], [address] [place] [address] East, [facility] [address] [place] [address] Referral ID Status Reason Start Date Expiration Date Visits Re quested Visits Authorized [id number] Closed 03/13/2016 03/12/2017 1 1 Reason for Visit * Reason Onset Date Comments Referral 03/12/2016 referrals Encounter Details Date Type Department Care Team (Late st Contact Info) Description 03/12/2016 Telephone [facility] [address] [place] [address] [address] [place] [address] Vinay Weaver MD [address], [address] [place] [address] Referral (referrals) Social History Tobacco Use Types Packs/Day Years [...] encounter Progress Notes * Vianney Ibarra - 03/22/2016 11:17 AM MST Meena from [facility] called stating the order did need auth. I called and Spoke to Jennifer at [facility] who again stated CHRISTIANO required for the Echo. Reference:[id number] I called and informed Meena Vianney Charles - 03/22/2016 9:02 AM MST I have refaxed the echo order to [facility] Called [employer] and spoke to CHRISTIANO Masters for Echo. Vianney Charles - 03/22/2016 8:50 AM MST I called the [place] office for the third time since Tuesday. I have left multiple messages andhad no return calls. I called [facility] office to get the pt scheduled in [place]. I spoke to Meena who was able to schedule the pt on 03/25 at 2:[address] Stevens at the [facility] office. Pt needs to arrive at 2 and bring photo ID, insurnace card and current med list. I called and spoke to the pt's sister Marichuy who will be driving the pt. She was very grateful forthe appt Vianney Charles - 03/19/2016 3:02 PM MST Pt's sister Marichuy called in stating they have not heard back from [facility] to schedule her Echo. I called and left a message with [facility] to see where the problem is with scheduling. I informed the pt as soon as I heard from [facility] I would call and give them an update. Pt's sister also stated she was going to call [facility] herself to try and get it scheduled. Tabatha Tillman - 03/18/2016 11:36 AM MST Patient to see Dr Rodriguez 03/18/16 at 11:30 * Tabatha Grant - 03/15/2016 4:09 PM MST Spoke to Halley at Dr Norton office Tuesday03/12/2016 sent records for patient to be scheduled. 03/15/2016 followup call to Halley patient has not yet been sched. Per Halley Rodriguez has records.Received a call from Marichuy Rahman's sister requesting to have patient follow up appointments this week she is going out of town next week for 10 days and is patients only support. Cesilia Oliva requested patient to be scheduled this week. Patient has MRI scheduled for 03/23/2016 per patient she developed a cold and is coughing does not feel she could stay still for MRI. * Vinay Weaver MD - 03/12/2016 1:44 PM MST Called pt with markers, triple neg pathology. She is shocked and not sure she wants to do chemo. I recommend med oncology cs for neoadjuvant chemo with Dr. Rodriguez in [place]. Spoke with himtoday and he will squeeze her in. Also, she needs an MRI guided bx of the little lesion on the left breast. Finally Dr. Rodriguez asked that I order an echo all orders attached. pls call pt this afternoon to update her on when some of these might happen and confirm that we are cancelling surgery Tuesday. He may send her back to me for a port. documented in this encounter Plan of Treatment Not on file documented as of this encounter Procedures Procedure Name Priority Date/Time Associated Diagnosis Comments AMB REFERRAL TO ONCOLOGY ROUTINE 04/11/2018 Breast cancer, stage 2, right (HCC) documented in this encounter Results * REFERRAL TO ONCOLOGY (04/11/2018) Vinay Weaver MD [facility] AMB OUTPAT IENT REFERRAL ORDERABLES * Echocardiogram (03/25/2016) Vinay Weaver MD [facility] SC[facility] * MRI Guided LEFT Breast Biopsy (03/23/2016) Anatomical Region Laterality Modality Breast Other Vinay Weaver MD [facility] AMB RAD documented in this encounter Visit Diagnoses Diagnosis Breast cancer, stage 2, right (HCC)- Primary documented in this encounter
--- OUTSIDE RECORDS SUMMARY | 2023-08-31 09:50 | XMS_ITS | Encounter Summary ---
Author Organization [facility] r Address [address] [place] [address] Care Team Providers Care Polo Coach Name Role Phone Vinay Weaver MD Unavailable Tristen Rodriguez MD Unavailable Encounter Details Date Type Department Care Team (Late st Contact Info) Description 10/13/2016 Orders Only [facility] Transcribing Department [address] [facility], [address] Vinay Weaver MD [address] [facility], [address] [place] [address] Malignant neoplasm of right female breast, unspecified site of breast (Primary Dx); Estrogen receptor negative Social History [...] documented as of this encounter Results * NM [place] Node Without Images (10/22/2016 12:10 PM [facility]) Anatomical Region Laterality Modality Nuclear Medicine 10/22/2016 1:30 PM [facility] Impressions 10/22/2016 1:32 PM [facility] [place] node lymphoscintigraphy, as described above. Narrative 10/22/2016 1:32 PM [facility] -- Addended Radiology Report Patient Name: TERRY EPPERSON Date of : 1940 Patient Accession Number: [id number] -------- ADDENDUM #1 -------- ADDENDUM CHART CORRECTION [...] Procedure Note Dada Whitman MD - 10/22/2016 [facility] -- Addended Radiology Report Patient Name: TERRY EPPERSON Date of : 1940 Patient Accession Number: [id number] -------- ADDENDUM #1 -------- ADDENDUM CHART CORRECTION [...] to surgery. Images were not obtained. IMPRESSION [place] node lymphoscintigraphy, as described above. Vinay Weaver MD RADIOLOGY NUCL EAR [facility] documented in this encounter Visit Diagnoses Diagnosis Malignant neoplasm of right female breast, unspecified site of breast (HCC)- Primary Estrogen receptor negative Estrogen receptor negative status [ER-] Malignant neoplasm of right female breast, unspecified site of breast (HCC) Estrogen receptor negative Estrogen receptor negative status [ER-] documented in this encounter Care Teams Polo Coach Relationship Specialty Start Date End Date Vinay Weaver MD Surgery - General Surgery 08/24/16 Tristen Rodriguez MD UNKNOWN 08/24/16 documented as of this encounter
--- OUTSIDE RECORDS SUMMARY | 2023-08-31 09:50 | XMS_ITS | Encounter Summary ---
Author Organization [facility] r Address [address] [place] [address] Care Team Providers Care Checkout Operator Name Role Phone Unavailable Primary Care Provider Unavailabl e Reason for Visit * Other (Routine) - Closed Specialty Diagnoses / Procedures Referred By Contac t Referred To Contact Neurology Diagnoses Mononeuritis of unspecified site Procedures Electromyogram/[place] [address] [facility] [place] [address] Referral ID Status Reason Start Date Expiration Date Visits Re quested Visits Authorized [id number] Closed 11/09/2013 11/09/2014 1 1 Encounter Details Date Type Department Care Team (Latest Contact Info) Description 11/30/2013 8:00 AM [facility] - 11/30/2013 11:59 PM [facility] Hospital Encounter Neurophysiology [address] [place], [place] [address] [place] [address] [facility] [place] [address] Joselito Morrison Young Min, MD [address] [place] [address] Mononeuritis of unspecified site Discharge Disposition: Home or Self Care Social [...] Procedure Name Priority Date/Time Associated Diagnosis Comments ELECTROMYOGRAM/NERVE CONDUCTION ROUTINE 12/17/2013 12:07 PM [facility] Mononeuritis of unspecified site documented in this encounter Results * Electromyogram/Nerve Conduction (12/17/2013 12:07 PM [facility]) 12/17/2013 12:0 7 PM [facility] Manoj Franco MD NEUROPHYS EXTREMITIE S documented in this encounter Visit Diagnoses Diagnosis Mononeuritis of unspecified site documented in this encounter
--- OUTSIDE RECORDS SUMMARY | 2023-08-31 09:50 | XMS_ITS | Encounter Summary ---
Author Organization [facility] r Address [address] [place] [address] Care Team Providers Care Quantitative Associate Name Role Phone Manoj Franco MD Primary Care Provider [phone] Gay Gallagher RN Unavailable Unavailable Vinay Weaver MD Unavailable [phone] Tristen Rodriguez MD Unavailable [phone] Gay Gallagher RN Unavailable Unavailable David Tony MD Unavailable [phone] Yusfe Ramos MD Primary Care Provider [phone] Encounter Details Date Type Department Care Team (Late st Contact Info) Description 04/15/2016 Patient Outreach Nurse Navigator [address] [facility], [address] Gay Gallagher RN Social History Tobacco Use [...] on filedocumented in this encounter Care Teams Quantitative Associate Relationship Specialty Start Date End Date Manoj Franco MD PCP - General UNKNOWN 10/22/16 03/31/17 Yusef Ramos MD [address] [place] [address] PCP - General Hospitalist 04/01/17 Gay Gallagher RN Registered Nurse Oncology 03/31/16 09/21/16 Vinay Weaver MD Surgery - General Surgery 08/24/16 Tristen Rodriguez MD UNKNOWN 08/24/16 Gay Gallagher RN Registered Nurse 10/22/16 12/20/16 David Tony MD Radiology - Oncology 10/28/16 documented as of this encounter
--- OUTSIDE RECORDS SUMMARY | 2023-08-31 09:50 | XMS_ITS | Encounter Summary ---
Author Organization [facility] Address [address] [place] [address] Care Team Providers Care Multiple Spindle Router Operator Name Role Phone Unavailable Primary Care Provider Unavailabl e Reason for Referral * Other (Routine) - Closed Specialty Diagnoses / Procedures Referred By Contac t Referred To Contact Neurology Diagnoses Mononeuritis of unspecified site Procedures Electromyogram/N[place] [address] [facility] [place] [address] Referral ID Status Reason Start Date Expiration Date Visits Re quested Visits Authorized [id number] Closed 11/09/2013 11/09/2014 1 [facility] Encounter Details Date Type Department Care Team (Late st Contact Info) Description 11/09/2013 Orders Only [facility] Transcribing Department [address] [facility] [address] [place] [address] [place] [address] [place] [address] Mononeuritis of unspecified site (Primary Dx) Social History Tobacco Use Types Packs/Day Years Used Date Smoking Tobacco: Never Assessed Sex and Gender Information Value Date Recorded Sex Assigned at Not on file Gender Identity Not on file Sexual Orientation Not on file documented as of this encounter Plan of Treatment Not on file documented as of this encounter Results * Electromyogram/Nerve Conduction (12/17/2013 12:07 PM [facility]) 12/17/2013 12:0 7 PM MST Manoj Solitario documented in this encounter Visit Diagnoses Diagnosis Mononeuritis of unspecified site- Primary documented in this encounter
--- OUTSIDE RECORDS SUMMARY | 2023-08-31 09:50 | XMS_ITS | Encounter Summary ---
Author Organization [facility] r Address [address] [place] [address] Care Team Providers Care Liquor Bridge Operator Helper Name Role Phone Unavailable Primary Care Provider Unavailabl e Reason for Visit * Reason Onset Date Comments Care Coordination - Phone 03/30/2016 Encounter Details Date Type Department Care Team (Late st Contact Info) Description 03/30/2016 Telephone [facility] [address] [facility] [place] [address] Vinay Waever MD [address] [facility] [facility], [address] [place] [address] Care Coordination - Phone Social History Tobacco Use Types Packs/Day Years [...] Progress Notes * Gay Gallagher RN - 03/30/2016 4:40 PM MST Patient and her daughter are anxious about biopsy results and planning for further treatment and care. Dr Weaver and Michael ae involved in discussing best case scenarios for her treatment. I have spoken with both her daughter Marleni and the patient and made an arrangement for the patient to be seen in Dr Weaver's office this at 4:00. They will have a phone conversation including Marleni gutierrez treatment options are explained and reviewed, giving her a chance to ask all her questions. Both the daughter and the patient seem very relieved to have this plan in place. In the meantime I haveencouraged her to call me with any questions or problems I might be able to address. * Tabatha Grant - 03/30/2016 9:09 AM MST ----- Message from Vinay Weaver MD sent at 03/29/2016 11:58 AM MST ----- Can you get the concordance statement. Once we have that, we can call her with benign results. documented in this encounter Plan of Treatment Not on file documented as of this encounter Visit Diagnoses Not on filedocumented in this encounter
--- OUTSIDE RECORDS SUMMARY | 2023-08-31 09:50 | XMS_ITS | Encounter Summary ---
Author Organization [facility] r Address [address] [place] [address] Care Team Providers Care Commissary Assistant Name Role Phone Unavailable Primary Care Provider Unavailabl e Reason for Referral * Other (Routine) - Closed Specialty Diagnoses / Procedures Referred By Contac t Referred To Contact Diagnoses Breast cancer of upper-outer quadrant of right female breast (HCC) Procedures MRI Bi Breast with/without Contrast Vinay Weaver MD [address], [address] [place] [address] [facility], Radiology [facility] [address] [place] [id number] Referral ID Status Reason Start Date Expiration Date Visits Re quested Visits Authorized [id number] Closed 03/04/2016 03/04/2017 [facility] Reason for Visit * Reason Comments Breast Cancer IDC RIGHT Encounter Details Date Type Department Care Team (Late st Contact Info) Description 03/04/2016 11:00 AM [facility] Office Visit [facility] [address] [facility] [address] [place] [id number] Vinay Weaver MD [address], [address] [place] [address] Breast cancer of upper-outer quadrant of right female breast (HCC) (Primary Dx) Social History Tobacco Use Types [...] Sign Reading Time Taken Comments Blood Pressure 112/70 03/04/2016 11:07 AM [facility] Pulse 88 03/04/2016 11:07 AM [facility] Temperature 36.5 ??C (97.7 ??F) 03/04/2016 11:07 AM [facility] Respiratory Rate - - Oxygen Saturation 95% 03/04/2016 11:07 AM MST Inhaled Oxygen Concentration - - Weight 75.8 kg (167 lb 3.2 oz) 03/04/2016 11:07 AM [facility] Height 161.3 cm (5' 3.5) 03/04/2016 11:07 AM MS T Body Mass Index 29.15 03/04/2016 11:07 AM MST documented in this encounter Progress Notes * Vinay Weaver MD - 03/04/2016 11:23 AM MST Chief Complaint: Chief Complaint Patient presents with ??? Breast Cancer IDC RIGHT HPI History of Present Illness: Patient ID: Lacey Epperson is a 75 year old female. Patient had a screening mammogram on 01/19/2016at [facility]. She was called back for a right breast diagnostic mammogram and ultrasound of a right breast mass. These exams were performed at [facility]. 2 indeterminate adjacent solid masses were noted at 12:00 position. One measured 1.1 x 0.5 x 0.7 cm and the second 0.3 x 0.4 x0.4 cm. These are approximately 1 cm apart. Ultrasound of the right axilla was negative. On 02/27/2016 an ultrasound guided core biopsy was performed of the 2 masses. During the biopsy a third mass measuring 6 mm was noted. This was also biopsied. 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 Marker studies were not includedon the report. Patient denies noting any breast masses, pain,nipple discharge or change in appearance. Patients sister Marichuy is at the bedside and supportive. Lacey Peraza Zhou was referred for surgical consultation by Dr. Rouse. Breast History 03/04/2016 Menarche 10 Menopause Yes Age at Menopause 51 Menopause Type natural 3 Para 3 Age of 1st 19 Yes How long did you breastfeed? 6 WEEKS Biopsy Yes Number of Biopsies 1 Biopsy Site R Breast Atypia Unsure HRT previously OCP previously Ashkenazi Religious No Geno 5 Yr (%) (Not Evaluated) Geno Lifetime (%) (Not Evaluated) TYRER-CUZIK Risk Model Version: (Not Evaluated) TYRER-CUZIK Ten Yr (%) (Not Evaluated) TYRER-CUZIK Lifetime (%) (Not Evaluated) Review of patient's allergies indicates: Allergen Reactions ??? Sulfa Drugs Rash Outpatient Prescriptions Marked as Taking for the 03/04/16 encounter (Office Visit) with Vinay Weaver MD Medication Sig Dispense Refill ??? Aspirin 81 MG tablet Take 81 mg by mouth daily. ??? HYDROcodone-acetaminophen (NORCO) 5-325 MG tablet Take 1 tablet by mouth every four hours as needed for Pain. ??? vitamin D3, cholecalciferol, 1000 UNITS tablet Take 1,000 Units by mouth daily. has Breast cancer of upper-outer quadrant of right female breast on her problem list. Past Medical History Diagnosis Date ??? Breast cancer IDC, Right ??? Asthma Past Surgical History Procedure Laterality Date ??? Tonsillectomy 1943 ??? Angiogram 01/2004 PALPITATIONS ??? Breast biopsy Right 02/27/2016 ultrasound guided core of 3 areas Social History Social History ??? Marital Status: Spouse Name: N/A ??? Number of Children: 3 ??? Years of Education: N/A Social History Main Topics ??? Smoking status: Never Smoker ??? Smokeless tobacco: Never Used ??? Alcohol Use: Yes ??? Drug Use: No ??? Sexual Activity: Not Asked Other Topics Concern ??? None Social History Narrative ??? None Family History Problem Relation Age of Onset ??? Breast cancer Sister 66 passed at 71 ??? Stroke Father 69 ??? Cancer Paternal Grandfather ? Hodgkin's lymphoma Grandchild 6 DAUGHTERS CHILD ??? Kidney failure Brother 62 There is no immunization history on file for this patient. Patient's medications, allergies, past medical, social, surgical and family histories were reviewedand updated as appropriate. Review of Systems: Review of Systems Constitutional: Positive for activity change and fatigue. Negative for fever and chills. HENT: Positive for ear discharge, hearing loss, postnasal drip, sneezing and trouble swallowing. Negative for sore throat. Eyes: Negative for visual disturbance. Respiratory: Positive for shortness of breath and wheezing. Negative for cough. Cardiovascular: Positive for leg swelling. Negative for chest pain. Gastrointestinal: Negative for nausea, constipation and blood in stool. Genitourinary: Positive for frequency. Negative for hematuria. Musculoskeletal: Positive for back pain, joint swelling and gait problem. Skin: Negative for rash. Neurological: Negative for seizures and headaches. Hematological: Does not bruise/bleed easily. Psychiatric/Behavioral: Negative for confusion. The patient is not nervous/anxious. Physical Exam: Blood pressure 112/70, pulse 88, temperature 36.5 ??C (97.7 ??F), height 1.613 m (5' 3.5), weight 75.841 kg, SpO2 95 %.Body mass index is 29.15 kg/(m^2). Physical Exam Assessment: 75F with new diagnosis of right breast cancer, it appears to be multifocal but not multicentric on mammo. We discussed the biology, pathology, treatment options for breast cancer including the differences between invasive and non-invasive cancer. We spent 45 minutes out of 60 minutes in this discussion and answering questions. We reviewed sentinel node biopsy technique and rationale, complications and risks including bleeding infection, nerve injury, sensory loss, lymphedema (1-5%) and need for completion axillary dissection. Risks and benefits of axillary dissection are similar with additional increased risk of lymphedema (10-30%) and risk of motor nerve injury. [place] lymph node biopsy removes on average 1-4 nodes and full dissection removes 10-20 nodes on average. We reviewed the options of partial mastectomy vs. mastectomy and the respective recurrence rates and need for radiation with partial mastectomy. I reviewed the risks including bleeding, infection, local recurrence, need for re-excision, need for mastectomy, scarring and cosmetic changes, deep vein thrombosis, anesthesia comp lications. We briefly discussed partial breast radiation in comparison to whole breast radiation. We discussed that after partial mastectomy, radiation is indicated for reduction of local recurrence rates. If no radiation is performed, local recurrence rates can be as high as 15%. We also discussedthe use of adjuvant medical therapy such a hormone therapy and/or chemotherapy. This will be tailored to her tumor size, type, and nodes involved and will be discussed further after surgery. I do recommend preoperative MRI, as with multifocal ca, there is a greater chance she has multicentric disease. At the time of her visit we did not have markers but now I have them and the tumor is triple negative with a ki 67 of 60%. Once I have MRI results tomorrow 03/12, I will call her with all of this. We are currently planning surgery for 03/15 but may need to adjust plans depending on MRI. Lacey was seen today for breast cancer. Diagnoses and all orders for this visit: Breast cancer of upper-outer quadrant of right female breast - MRI Bi Breast with/without Contrast; Future Other orders - Simvastatin (ZOCOR) 40 MG tablet; - levothyroxine (SYNTHROID, LEVOTHROID) 25 MCG tablet; - ADVAIR DISKUS 250-50 MCG/DOSE diskus inhaler; - vitamin D3, cholecalciferol, 1000 UNITS tablet; Take 1,000 Units by mouth daily. - Aspirin 81 MG tablet; Take 81 mg by mouth daily. - Discontinue: hydroCHLOROthiazide (HYDRODIURIL) 25 MG tablet; Take 25 mg by mouth daily. - HYDROcodone-acetaminophen (NORCO) 5-325 MG tablet; Take 1 tablet by mouth every four hours as needed for Pain. The above other orders are reported by the patient not prescribed by the undersigned. Vinay Weaver MD Attestation: Jahaira Shaver NP is acting as a scribe for Karon Weaver MD. The documentation accurately reflects the work and decisions made by Karon Weaver MD. documented in this encounter Plan of Treatment Not on file documented as of this encounter Results * MRI Bi Breast with/without Contrast (03/12/2016) Anatomical Region Laterality Modality Breast Other Vinay Weaver MD [facility] documented in this encounter Visit Diagnoses Diagnosis Breast cancer of upper-outer quadrant of right female breast (HCC)- Primary documented in this encounter
--- OUTSIDE RECORDS SUMMARY | 2023-08-31 09:50 | XMS_ITS | Encounter Summary ---
Author Organization [facility] r Address [address] 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
--- OUTSIDE RECORDS SUMMARY | 2023-08-31 09:50 | XMS_ITS | Encounter Summary ---
Author Organization [facility] r Address [address] [place] [address] Care Team Providers Care Medicare Interviewer Name Role Phone Unavailable Primary Care Provider Unavailabl e Encounter Details Date Type Department Care Team (Late st Contact Info) Description 03/04/2016 Orders Only [facility] [address] [facility] [address] [place] [address] Hx, Med Social History Tobacco [...] Procedure Name Priority Date/Time Associated Diagnosis Comments PATHOLOGY PROCEDURE ROUTINE 02/28/2016 US GUIDED BIOPSY ROUTINE 02/27/2016 FIORELLA/DIGITAL DIAGNOSTIC RIGHT W/CAD ROUTINE 02/20/2016 documented in this encounter Results * Pathology Procedure (02/28/2016) Med Hx LAB PATHOLOGY ORDERA BLES * US Guided Biopsy (02/27/2016) Anatomical Region Laterality Modality Other Med Hx RADIOLOGY ULTRASOUND * Fiorella/Digital Diagnostic Mammo Right w/CAD (02/20/2016) Anatomical Region Laterality Modality Breast Other Med Hx RADIOLOGY MAMMOGRAPH Y documented in this encounter Visit Diagnoses Not on filedocumented in this encounter
--- OUTSIDE RECORDS SUMMARY | 2023-08-31 09:50 | XMS_ITS | Encounter Summary ---
Author Organization [facility] r Address [address] [place] [address] Care Team Providers Care Staff Combat Information Center Officer Name Role Phone Manoj Franco MD Primary Care Provider [phone] Gay Gallagher RN Unavailable Unavailable Vinay Weaver MD Unavailable Tristen Rodriguez MD Unavailable [phone] Gay Gallagher RN Unavailable Unavailable David Tony MD Unavailable [phone] Yusef Ramos MD Primary Care Provider [phone] Encounter Details Date Type Department Care Team (Late st Contact Info) Description 04/09/2016 Patient Outreach Nurse Navigator [address] [facility], [address] Gay Gallagher RN Social History Tobacco Use [...] on filedocumented in this encounter Care Teams Staff [employer] Officer Relationship Specialty Start Date End Date Manoj Farnco MD PCP - General UNKNOWN 10/22/16 03/31/17 Yusef Ramos MD [address] [place] [id number] PCP - General Hospitalist 04/01/17 Gay Gallagher RN Registered Nurse Oncology 03/31/16 09/21/16 Vinay Weaver MD Surgery - General Surgery 08/24/16 Tristen Rodriguez MD UNKNOWN 08/24/16 Gay Gallagher RN Registered Nurse 10/22/16 12/20/16 David Tony MD Radiology - Oncology 10/28/16 documented as of this encounter
[2023-08-31 17:21] LABS: Anion Gap 6.9 mmol/L (3-11); BUN 17 mg/dL (7-18); CO2 30.1 mmol/L (21.0-32.0); CREATININE 0.9 mg/dL (0.55-1.02); Calcium 8.9 mg/dL (8.5-10.1); Chloride 106 mmol/L (98-107); Estimated GFR 63.43 (mL/min/1.73m2); Folate 14.3 ng/mL (8.6-20.0); Glucose 103 mg/dL (74-106); Potassium 4.8 mmol/L (3.5-5.1); Sodium 143 mmol/L (136-145); TSH (W/Ref FT4) 2.44 uIU/mL (0.36-3.74)
[2023-08-31 17:26] LABS: Vitamin B12 > 2000 pg/mL (193-986)
== END 2023-08-31 09:43 | disposition home or self-care (01) ==
LOC: NCHCN 09:42
PROVIDERS: PCP Family Medicine; Visit Provider Family Medicine
DX: E03.9 Hypothyroidism, unspecified (principal); D75.89 Other specified diseases of blood and blood-forming organs; R60.0 Localized edema; Z79.899 Other long term (current) drug therapy
CPT/HCPCS: 80048; 82607; 82746; 84443

== ENCOUNTER 2023-12-22 03:00 | Outpatient (CLI) | payer MEDICARE, SELFPAY ==
--- NOTE | 2023-12-22 | DI.MAMMO_ITS ---
Exam(s) US BREAST RT LIMITED MG MAMMO SCREENING 60 MIN DUR EXAM: MG MAMMO SCREENING 60 MIN DUR and U/S breast RT limited CLINICAL HISTORY: Z85.3 Personal HX of malignant neoplasm of breast. TECHNIQUE: Craniocaudal and mediolateral oblique Full Field Digital Mammography views with Computer Aided Diagnosis followed by Tomosynthesis and right breast ultrasound. COMPARISON: Comparison is made with prior examinations. FINDINGS: Mammography/Tomosynthesis: Masses/Architectural Distortion: Patient has a prior lumpectomy site at the 12 o'clock position of th e right breast. On the edge of the right MLO view there is a well-circumscribed nodular area partial ly imaged. Repeat right MLO view does show a round superficial skin lesion which may have accounted for the finding. No new areas of architectural distortion are seen. Microcalcifictions: No suspicious pleomorphic-type are seen. Skin Thickening/Nipple Retraction: None. Limited right breast US: Echotexture: Normal appearance of the glandular tissue. Shadowing: No suspicious foci. Cyst: None. Solid lesions: None seen. Ductal dilation: None. IMPRESSION: 1. No definite evidence of malignancy is noted. 2. A six-month follow-up right mammogram is requested for re-evaluation. 3. The findings were discussed with the patient on the date of the examination. BI-RADS Category 3 - 6 month - Probably Benign Finding: Recommend follow-up imaging in 6 months Breast Density - Category B - Scattered areas of fibroglandular density Breast density Category C or D implies that the patient has dense breast tissue. Dense breast tissue can make it harder to find cancer on a mammogram. Dense breast tissue is also associated with an incr eased risk of breast cancer. This information about the result of the mammogram report was provided to the patient to raise their awareness. Use this report when you speak with the patient about their risks for breast cancer, which includes their family history. At that time, you may recommend additional screening tests (Ultrasoun d or MRI) as these tests may add significant information. A negative radiographic report should not delay biopsy if a dominant or clinically suspicious mass is present. Up to ten percent of cancers are not identified on mammography. A negative report may reinforce clinical impression. Adenosis and dense breasts may obscure an underlying neoplasm. False positive reports average 6 to 10%. Patient will receive a letter notifying them of these results.
== END 2023-12-22 03:20 ==
LOC: DI 03:00
PROVIDERS: PCP Family Medicine; Visit Provider Family Medicine
DX: Z12.31 Encounter for screening mammogram for malignant neoplasm of breast (principal); Z85.3 Personal history of malignant neoplasm of breast
CPT/HCPCS: 76642; 77063; 77067

== ENCOUNTER 2024-01-09 02:33 | Outpatient (CLI) | payer MEDICARE, SELFPAY ==
[2024-01-09 07:43] LABS: Abs Immature Grans 0.04 10^3/uL (0.0-0.06); Absolute Basophil Count 0.06 10^3/uL (0.0-0.2); Absolute Eosinophil Count 0.17 10^3/uL (0.0-0.7); Absolute Lymphocyte Count 1.16 10^3/uL (1.2-3.4); Absolute Monocyte Count 0.73 10^3/uL (0.1-0.8); Absolute Neutrophil Count 3.26 10^3/uL (1.2-6.7); Basophils % 1.1 %; Eosinophils % 3.1 %; HCT 43.2 % (36.0-46.0); Immature Grans % 0.7 %; Lymphocytes % 21.4 %; MCH 33.7 pg (27.0-33.0); MCHC 32.4 % (32.0-36.0); MCV 104 fL (80-95); MPV 11.2 fL (8.0-11.0); Monocytes % 13.5 %; Neutrophils % 60.2 %; Platelet Count 188 10^3/uL (130-400); RBC 4.16 10^6/uL (3.93-5.22); RDW 15.3 % (11.7-14.6); RDW-SD 58.7 fL; WBC 5.42 10^3/uL (4.4-10.8)
[2024-01-09 08:34] LABS: ALT 22 U/L (14-59); AST 23 U/L (15-37); Albumin 3.3 g/dL (3.4-5.0); Alkaline Phosphatase 52 U/L (46-116); Anion Gap 5.5 mmol/L (3-11); BUN 20 mg/dL (7-18); Bilirubin, Total 0.92 mg/dL (0.2-1.0); CO2 30.5 mmol/L (21.0-32.0); CREATININE 1.1 mg/dL (0.55-1.02); Chloride 105 mmol/L (98-107); Estimated GFR 49.55 (mL/min/1.73m2); Glucose 98 mg/dL (74-106); Potassium 4.2 mmol/L (3.5-5.1); Sodium 141 mmol/L (136-145); Total Protein 7.1 g/dL (6.4-8.2)
== END 2024-01-09 02:34 | disposition home or self-care (01) ==
PROVIDERS: PCP Family Medicine; Visit Provider Nurse Practitioner
DX: Z85.3 Personal history of malignant neoplasm of breast (principal)
CPT/HCPCS: 36415; 80053; 85025

== ENCOUNTER → 2024-01-18 10:15 | Outpatient (BNVA) | payer MEDICARE, SELFPAY | PROVIDERS: PCP Family Medicine; Referring Provider Family Medicine; Visit Provider Physician Assistant Surgical | DX: J43.2 Centrilobular emphysema (principal); G47.33 Obstructive sleep apnea (adult) (pediatric); I74.9 Embolism and thrombosis of unspecified artery; R91.1 Solitary pulmonary nodule | CPT/HCPCS: 99214 ==

== ENCOUNTER 2024-05-18 13:21 | Outpatient (REF) | payer MEDICARE, SELFPAY ==
--- NOTE | 2024-05-18 10:45 | SKI_PTH ---
PATIENT: Lacey Epperson LOC: [facility] U#:[id number] AGE/SX: 83/F ROOM: RE05/18/[address]: ITZEL Ibarra : 1940 BED: DIS: 05/18/2024 SPEC #: [id number] RECD: 05/18/24 17:02 STATUS: IOANA REBoaz #: [id number] GANESH: 05/18/24 10:[address]: Jesse Cardozo DEPT: Surgical Specimen RECD BY: Hannah Torres ENTERED: 05/18/24 17:02 SP TYPE: SKI OTHR DR: Lore Kaiser Tissues: 1 - SKIN BIOPSY(SHAVE/PUNCH) Procedures: SKIN LEVEL 4 Comments: [id number]
== END 2024-05-18 13:22 | disposition home or self-care (01) ==
LOC: LBN 13:21
PROVIDERS: PCP Family Medicine; Visit Provider Physician Assistant
DX: D49.2 Neoplasm of unspecified behavior of bone, soft tissue, and skin (principal); D04.39 Carcinoma in situ of skin of other parts of face
CPT/HCPCS: 88305

== ENCOUNTER 2024-06-20 00:20 | Outpatient (CLI) | payer MEDICARE, SELFPAY ==
--- NOTE | 2024-06-20 14:06 | DI.MAMMO_ITS ---
Exam(s) MG MAMMO DIAGNOSTIC UNI EXAM: MG MAMMO DIAGNOSTIC UNI CLINICAL HISTORY: DIAGNOSTIC, 6 MO F/U,R92.8,ROUND SUPERFICIAL SKIN LESION RT TECHNIQUE: Right cc and MLO mammogram images were performed according to the usual protocol [facility] ng computer analysis with CAD system, tomosynthesis and C-view imaging. COMPARISON: MG MG MAMMO SCREENING 60 MIN DUR from 12/22/2023 US US BREAST RT LIMITED from 12/22/2023 and exams back to 2019 FINDINGS: The right breast is composed of scattered fibroglandular densities, Breast Density category B. No suspicious masses or suspicious microcalcifications are seen. Post lumpectomy scarring and surg ical clips are again noted. No skin thickening or abnormal axillary lymph nodes are seen. IMPRESSION: BI-RADS Category 3 - Annual - Resume Annual Screening Breast Density - Category B, scattered fibroglandular densities. Breast density Category C or D implies that the patient has dense breast tissue. Dense breast tissue can make it harder to find cancer on a mammogram. Dense breast tissue is also associated with an incr eased risk of breast cancer. This information about the result of the mammogram report was provided to the patient to raise their awareness. Use this report when you speak with the patient about their risks for breast cancer, which includes their family history. At that time, you may recommend additional screening tests (Ultrasoun d or MRI) as these tests may add significant information. A negative radiographic report should not delay biopsy if a dominant or clinically suspicious mass is present. Up to ten percent of cancers are not identified on mammography. A negative report may reinforce clinical impression. Adenosis and dense breasts may obscure an underlying neoplasm. False positive reports average 6 to 10%. Patient will receive a letter notifying them of these results.
== END 2024-06-20 00:40 ==
LOC: DI 00:20
PROVIDERS: PCP Family Medicine; Visit Provider Family Medicine
DX: Z12.31 Encounter for screening mammogram for malignant neoplasm of breast (principal); R92.8 Other abnormal and inconclusive findings on diagnostic imaging of breast
CPT/HCPCS: 77061; 77065; G0279

== ENCOUNTER → 2024-06-26 08:17 | Outpatient (BNVA) | payer MEDICARE, SELFPAY | PROVIDERS: PCP Family Medicine; Referring Provider Family Medicine; Visit Provider Psychiatry & Neurology Neurology | DX: G25.0 Essential tremor (principal); G62.9 Polyneuropathy, unspecified; R26.89 Other abnormalities of gait and mobility; I10 Essential (primary) hypertension; J44.9 Chronic obstructive pulmonary disease, unspecified | CPT/HCPCS: 99214; 99215; G2212 ==

== ENCOUNTER 2024-06-29 15:05 | Outpatient (REF) | payer MEDICARE, SELFPAY ==
[2024-06-29 15:28] LABS: HCT 41.9 % (36.0-46.0); HGB 13.4 g/dL (11.2-15.7); MCH 32.8 pg (27.0-33.0); MCV 103 fL (80-95); MPV 11.7 fL (8.0-11.0); Platelet Count 195 10^3/uL (130-400); RBC 4.08 10^6/uL (3.93-5.22); RDW 15.1 % (11.7-14.6); RDW-SD 57.6 fL; WBC 4.74 10^3/uL (4.4-10.8)
[2024-06-29 15:58] LABS: ALT 21 U/L (14-59); AST 23 U/L (15-37); Albumin 3.4 g/dL (3.4-5.0); Alkaline Phosphatase 54 U/L (46-116); Anion Gap 3.1 mmol/L (3-11); BUN 20 mg/dL (7-18); Bilirubin, Total 0.6 mg/dL (0.2-1.0); CO2 31.9 mmol/L (21.0-32.0); CREATININE 0.9 mg/dL (0.55-1.02); Calcium 8.9 mg/dL (8.5-10.1); Calculated LDL 93 mg/dL (<100); Chloride 108 mmol/L (98-107); Cholesterol 181 mg/dL (<200); Estimated GFR 63.04 (mL/min/1.73m2); Glucose 143 mg/dL (74-106); HDL Cholesterol 74 mg/dL (>or=50); Potassium 4.7 mmol/L (3.5-5.1); Sodium 143 mmol/L (136-145); TSH (W/Ref FT4) 1.42 uIU/mL (0.36-3.74); Total Protein 6.5 g/dL (6.4-8.2); Triglyceride 73 mg/dL (<150)
== END 2024-06-29 15:06 | disposition home or self-care (01) ==
LOC: NCHCN 15:05
PROVIDERS: PCP Family Medicine; Visit Provider Family Medicine
DX: E03.9 Hypothyroidism, unspecified (principal); E78.5 Hyperlipidemia, unspecified; R60.0 Localized edema
CPT/HCPCS: 80053; 80061; 85027; 84443

== ENCOUNTER → 2024-07-31 14:40 | Outpatient (BNVA) | payer MEDICARE, SELFPAY | PROVIDERS: PCP Family Medicine; Visit Provider Physician Assistant Surgical | DX: G47.33 Obstructive sleep apnea (adult) (pediatric) (principal); I74.9 Embolism and thrombosis of unspecified artery; J43.2 Centrilobular emphysema; R91.1 Solitary pulmonary nodule | CPT/HCPCS: 99214; 94664 ==

== ENCOUNTER → 2024-09-05 10:13 | Outpatient (BNVA) | payer MEDICARE, SELFPAY | PROVIDERS: PCP Family Medicine; Referring Provider Family Medicine; Visit Provider Psychiatry & Neurology Neurology | DX: G25.0 Essential tremor (principal); G62.9 Polyneuropathy, unspecified; R26.89 Other abnormalities of gait and mobility | CPT/HCPCS: 99214 ==

== ENCOUNTER 2024-10-05 14:56 | Outpatient (REF) | payer MEDICARE, SELFPAY ==
--- NOTE | 2024-10-05 10:15 | SKI_PTH ---
PATIENT: Lacey Epperson LOC: [facility] U#:[id number] AGE/SX: 84/F ROOM: RE10/05/[address]: ITZEL Ibarra : 1940 BED: DIS: 10/05/2024 SPEC #: [id number] RECD: 10/05/24 15:10 STATUS: IOANA REQ #: [id number] GANESH: 10/05/24 10:[address]: Jesse Cardozo DEPT: Surgical Specimen RECD BY: Hannah Torres ENTERED: 10/05/24 15:10 SP TYPE: SKI OTHR DR: Lore Kaiser Tissues: 1 - SKIN BIOPSY(SHAVE/PUNCH) Procedures: SKIN LEVEL 4 Comments: [id number]
== END 2024-10-05 14:57 | disposition home or self-care (01) ==
LOC: LBN 14:56
PROVIDERS: PCP Family Medicine; Referring Provider Family Medicine; Visit Provider Physician Assistant
DX: C44.319 Basal cell carcinoma of skin of other parts of face (principal)
CPT/HCPCS: 88305

== ENCOUNTER → 2024-11-01 11:01 | Outpatient (BNVA) | payer MEDICARE, SELFPAY | PROVIDERS: PCP Family Medicine; Referring Provider Family Medicine; Visit Provider Physician Assistant Surgical | DX: G47.33 Obstructive sleep apnea (adult) (pediatric) (principal); I74.9 Embolism and thrombosis of unspecified artery; J43.2 Centrilobular emphysema; R91.1 Solitary pulmonary nodule; Z87.891 Personal history of nicotine dependence | CPT/HCPCS: 99214 ==